=== PATIENT | female | born 1990 | race Caucasian/White ===

== ENCOUNTER 2019-09-12 12:38 | Outpatient (CLI) | payer OTHER, SELFPAY ==
--- NOTE | ~2019-09-12 | US_ITS ---
EXAMINATION: US OB <= 14 weeks fetus DATE: 09/12/2019 13:06 INDICATION: Gestational dating TECHNIQUE: Real-time transabdominal and transvaginal obstetric ultrasound. FINDINGS: No prior studies for comparison. The uterus measures 7.7 x 5.4 x 4.3 cm. There is an intrauterine gestational sac, with pole jv ntified. The crown rump length measures 0.98 cm, which correlates with a estimated gestational age o f 7 weeks 0 days. heart tones are identified measuring 141 bpm. The ovaries are not visualize d. IMPRESSION: 1. SL IUP with an EGA of 7 weeks, 0 days (EDC by current ultrasound of 04/30/2020). Reviewed, dictated and finalized at location A. IMPRESSION: 1. SL IUP with an EGA of 7 weeks, 0 days (EDC by current ultrasound of ).
== END 2019-09-12 12:39 | disposition home or self-care (01) ==
PROVIDERS: PCP Physician Assistant; Visit Provider Nurse Practitioner
DX: Z34.01 Encounter for supervision of normal first pregnancy, first trimester (principal); Z3A.01 Less than 8 weeks gestation of pregnancy
CPT/HCPCS: 76801

== ENCOUNTER 2023-04-17 08:44 | Emergency (ER) | payer OTHER, SELFPAY ==
--- NOTE | ~2023-04-17 | XR_ITS ---
EXAMINATION: XR hand RT min 3V DATE: 04/17/2023 09:16 INDICATION: Right first metacarpal pain. TECHNIQUE: 3 views of right hand were obtained. COMPARISON: None. FINDINGS: Bone alignment is normal. No fracture. There are dystrophic calcifications adjacent to firs t carpometacarpal joint. Joint spaces are normal. IMPRESSION: 1. No fracture. Reviewed, dictated and finalized at location A. GER MACHINE OPERATOR IMPRESSION: 1. No fracture.
[2023-04-17 08:55] VITALS: BP 133/84; PULSE 72; RESP 16; TEMP 36; O2SAT 99
--- NOTE | 2023-04-17 09:12 | ED.EXTPRO ---
HPI - Extremity Problem General Chief complaint: Extremity Injury, Upper Stated complaint: Right Hand Pain Time Seen by Provider: 04/17/23 09:01 Source: patient and RN notes reviewed Mode of arrival: ambulatory Limitations: no limitations History of Present Illness HPI Narrative: Patient presents today complaining of pain to her right 1st finger times 10 days, worse since last night. Denies injury or trauma. Denies numbness or tingling. She currently rates her pain 8/10 and has been taking ibuprofen and wearing a brace, both of which provides some relief. Denies any known repetitive motions. Patient has been on maternity leave for the past month from work and states she has been lifting her children, but cannot pinpoint any known injury. Related Data Home Medications Medication Instructions Recorded Confirmed norethindrone (contraceptive) 0.35 0.35 mg PO DAILY 04/17/23 04/17/23 mg tablet Allergies Allergy/AdvReac Type Severity Reaction Status Date / Time No Known Allergies Allergy Verified 04/17/23 08:56 Review of Systems Review of Systems: CONSTITUTIONAL: Denies body aches, fever, chills, or sweats. EYES: Denies visual changes, redness, or discharge. ENT: Denies rhinorrhea, congestion, sore throat, or otalgia. CARDIOVASCULAR: Denies chest pain, palpitations, or edema. RESPIRATORY: Denies cough or dyspnea. GASTROINTESTINAL: Denies abdominal pain, nausea, vomiting, or diarrhea. GENITOURINARY: Denies dysuria or hematuria. SKIN: Denies rash, itching, or wounds. MUSCULOSKELETAL: Denies back pain, or myalgia.+ right hand pain NEUROLOGIC: Denies headache, numbness, tingling, or weakness. PSYCH: Denies depression or anxiety. [facility] Family History Family History (Reviewed 04/17/23 @ 09:13 by Trixie Rico, [facility] [place], ) Other Diabetes mellitus Hypertension Social History Social History (Reviewed 04/17/23 @ 09:13 by Trixie Rico, [facility] [place], ) Second hand tobacco smoke exposure: No Alcohol intake: current Comments At time of signature, I have reviewed and agree with nursing past medical, surgical, social and family history unless otherwise noted. Please see nursing chart for further information. There is no relevant family history pertinent to the presenting complaint Exam Narrative: GENERAL: Well-appearing, well-nourished, and in no acute distress. HEAD: Normocephalic, atraumatic. EYES: EOMI. No redness or drainage. Conjunctivae normal. ENT: Mucous membranes pink and moist. NECK: Normal AROM. CHEST: No respiratory distress. EXTREMITIES: Tenderness to the right 1st metacarpal. Minimal tenderness to the IP joint and MCP. No edema, erythema, or ecchymosis noted. No snuffbox tenderness. Distal sensation intact. Capillary refill normal. Full AROM of the finger. SKIN: Warm, dry, no rash. Capillary refill normal. Normal skin turgor. NEURO: No focal deficits. Alert and oriented x3. Gait steady. PSYCH: Normal affect. No signs of depression or anxiety. Course Course Level of Care: Express Care Visit Vital Signs Vital signs: Vital Signs Temperature 96.8 F L 04/17/23 08:55 Pulse Rate 72 04/17/23 08:55 Respiratory Rate 16 04/17/23 08:55 Blood Pressure 133/84 04/17/23 08:55 Pulse Oximetry 99 04/17/23 08:55 Oxygen Delivery Room Air 04/17/23 08:55 Temperature 96.8 F L 04/17/23 08:55 Pulse Rate 72 04/17/23 08:55 Respiratory Rate 16 04/17/23 08:55 Blood Pressure 133/84 04/17/23 08:55 Pulse Oximetry 99 04/17/23 08:55 Oxygen Delivery Room Air 04/17/23 08:55 Reviewed MDM - Extremity (Nontraumatic) MDM Narrative Medical decision making narrative: X-rays negative. Recommend Medrol Dosepak to help with inflammation and pain. Patient is agreeable with plan. Anticipatory guidance given. Differential Diagnosis Differential diagnosis: Likely cellulitis and other (Tendinitis) Imaging Data Radiologist's impression: ITS Impressions
== END 2023-04-17 09:30 | disposition home or self-care (01) ==
PROVIDERS: Emergency Provider Nurse Practitioner
DX: M77.8 Other enthesopathies, not elsewhere classified (principal); Z86.16 Personal history of COVID-19
CPT/HCPCS: 73130; 99213; G0463

== ENCOUNTER 2024-04-08 07:12 | Outpatient (CLI) | payer OTHER, SELFPAY ==
--- NOTE | ~2024-04-08 | XR_ITS ---
EXAMINATION: XR knee RT 3V DATE: 04/08/2024 07:40 INDICATION: Right knee pain. TECHNIQUE: 3 views of right knee were obtained. COMPARISON: None. FINDINGS: Alignment is normal. No fracture. Joint spaces are normal. No knee joint effusion. IMPRESSION: 1. Normal right knee. Reviewed, dictated and finalized at location A. PAPER HANGER IMPRESSION: 1. Normal right knee.
--- OUTSIDE RECORDS SUMMARY | 2024-04-15 03:44 | XMS_ITS | Encounter Summary ---
Author Organization [facility] Address [address] [place] [address] Phone Care Team Providers Care Financial Reserve Clerk Name Role Phone Bette Phillips Primary Care Pr ovider Encounter Details Date Type Department Care Team (Late st Contact Info) Description 08/30/2023 1:00 PM CDT Telemedicine [facility] Department of Psychiatry [address] [place] [address] Danitza Viveros, [facility] [address] [facility] [address] [place] [address] Adjustment disorders, with mixed anxiety and depressed mood (Primary Dx) Social History Tobacco Use Types Packs/Day Years Used Date Smoking Tobacco: Never Smokeless Tobacco: Never Alcohol Use Standard Drinks/Week Comments Not Currently 0 (1 standard drink = 0.6 oz pur e alcohol) Social Connection and Isolat ion Panel [NHANES] Answer Date Recorded In a typical week, how many times do you talk on the phone with family, friends, or neighbors? More than three times a week 02/11/2023 How often do you get togethe r with friends or relatives? Twice a week 02/11/2023 How often do you attend chur ch or religion services? Never 02/11/2023 Do you belong to any clubs o r organizations such as anglican groups, unions, fraternal or athletic groups, or school groups? Yes 02/11/2023 How often do you attend meet ings of the clubs or organizations you belong to? 1 to 4 times per year 02/11/2023 Are you , , di vorced, , never , or living with a partner? 02/11/2023 AUDIT-C Answer Date Recorded Q1: How often do you have a drink containing alc ohol? Monthly or less 06/20/2021 Average Number of Drinks Not on file 022 Frequency of Binge Drinking Not on file 07/2021 Overall Financial Resource Strain (CARDIA) Answe r Date Recorded How hard is it for you to pa y for the very basics like food, housing, medical care, and heating? Not hard at all 02/11/2023 Exercise Vital Sign Answer Date Recorde d On average, how many days pe r week do you engage in moderate to strenuous exercise (like a brisk walk)? 3 days 12/21/2019 On average, how many minutes do you engage in exercise at this level? 60 min 12/21/2019 Hunger Vital Sign Answer Date Recorded Within the past 12 months, y ou worried that your food would run out before you got the money to buy more. Never true 02/12/20 23 Within the past 12 months, t he food you bought just didn't last and you didn't have money to get more. Never true 02/11/2023 PRAPARE - Transportation Answer Date Re corded In the past 12 months, has l ack of transportation kept you from medical appointments or from getting medications? No 01/18 In the past 12 months, has l ack of transportation kept you from meetings, work, or from getting things needed for daily living? No 02/11/2023 Housing Stability Vital Sign Answer Ilia e Recorded In the last 12 months, was t here a time when you were not able to pay the mortgage or rent on time? No 02/11/2023 In the last 12 months, how many places have you lived? 1 02/11/2023 In the last 12 months, was t here a time when you did not have a steady place to sleep or slept in a skilled nursing (including now)? No 02/11/2023 Texline Depression Scale Answer Date Recorded Texline Depression Scale Total 4 05/20/2023 The thought of harming myself has occurred to me . Never 05/20/2023 Personal Safety Answer Date Recorded Have you ever been in or are you currently in a harmful physical or emotional relationship or is someone making you feel afraid or unsafe? 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 During the visit, I was located at home and the patient was located in her home in the [facility]. The patient visit started at 13:00 pm and ended at 14:00 pm. My total encounter time on 08/30/2023 was 60 minutes which was spent in the activities documented in the note. This includes time spent prior to the visit and after the visit in direct care of the patient. This time does not include time spent in any separately reportable services. The patient: has been informed that the visit may not be secure and acknowledged the information. After being given an opportunity to ask questions about and discuss this type of visit, they verballyconsented to proceeding with the telephone/video visit and understand that this service replaces anoffice visit. Patient ID: Olga Saeed is a 33 y.o. female with a date of of 1990. Olga reports improved mood symptoms since last visit. She states that she has had improved interactions with her older daughter and has been practicing self- awareness to notice when she needs to take a brief break. She notes that her daughter is also noticing this new behavior and she is modelinghealthy ways to take breaks before getting upset. Olga continues to discuss relationship with extended family after father's . She still describes some frustration towards grandmother and states she would like to repair that relationship. We practice reframing and trying to describe grandmother's perspective. We use this technique to build empathy and de-personalize Olga's pain. (E.g. Grandmother was not trying to harm Olga, but was acting in a way that made sense for her.) We balance this with discussing health boundaries as the relationship heals. Discussed therapist's upcoming transition and reviewed community options. Olga is looking for an [place]-based provider. Mental Status: General Appearance and Behavior: Appears stated age No apparent distress and Well-dressed Normal psychomotor activity Good eye contact Cooperative Speech: Regular rate Normal rhythm Normal volume Normal amount Normal tone Spontaneous Normal latency (<3 seconds) Flow of Thought: logical, sequential and goal-directed Content of Thought: Denies SI/HI or psychosis Mood: Stable Affect: appropriate Insight: good Judgment: good Sensorium: alert and oriented x 3 Language: average Attention: normal Memory: normal Fund of Knowledge: normal Assessment/Plan: Diagnosis: Adjustment Disorder with mixed anxiety and depression Olga will follow up with this [facility] Therapist in 2 weeks. Today we identified strategies to prevent feeling overwhelmed. We looked for opportunities to stabilize mood (having breakfast, making time to brush teeth and get dressed, following routine). Provided some education and will send additionalresources on parenting young children. Olga identified an online course she would like to try. Psychotherapy: I provided cognitive behavioral, behavioral activation, supportive, and behavioral planning psychotherapy focusing on processing grief, managing emotions, setting healthy limits. Therapist will research community therapists and provide Olga with options to continue. documented in this encounter Plan of Treatment Not on file documented as of this encounter Visit Diagnoses Diagnosis Adjustment disorders, with mixed anxiety and depressed mood- Primary documented in this encounter Care Teams Financial Reserve Clerk Relationship Specialty Start Date End Date Bette Phillips PA PCP - General Physician Cottage Master 11/23/19 documented as of this encounter
--- OUTSIDE RECORDS SUMMARY | 2024-04-15 03:44 | XMS_ITS | Encounter Summary ---
Author Organization [facility] Address [address] [place] [address] Phone Care Team Providers Care Education Professional Name Role Phone Bette Phillips Primary Care Pr ovider Reason for Visit * Reason Comments Psychotherapy Encounter Details Date Type Department Care Team (Late st Contact Info) Description 07/29/2023 1:00 PM CDT Telemedicine [facility] Psychiatry [address] [place] [address] Danitza Viveros, [facility] [address] [facility] [address] [place], [place] [id number] Adjustment disorders, with mixed anxiety and depressed mood (Primary Dx); Grief Social History Tobacco Use Types Packs/Day Years [...] 02/11/2023 How often do you attend chur or zoroastrian services? Never 02/11/2023 Do you belong to any clubs o r organizations such as episcopal groups, unions, fraternal or athletic groups, or [...] place to sleep or slept in a assisted (including now)? 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 During the visit, I was located at home and the patient was located in her home in the [facility]. The patient visit started at 13:00 pm and ended at 14:00 pm. My total encounter time on 07/29/2023 was 60 minutes which was spent in [...] a date of of 1990. Olga reports stable mood symptoms since last visit. She presents with increased tearfulness when talking about grief related to recent loss of father. Olga noticed feelings of anger/frustration towards grandmother and feeling rushed through her grieving process. Therapist prompts Olga to label the thoughts and emotions as they come up. We notice Olga's initial urge to brush them off or invalidate them. We talk through ways to take space or set healthy limits with tasks that bring her distress. We discuss what some possible preferred alternatives/solutions might look like. Mental Status: General Appearance and Behavior: Appears [...] depression Olga will follow up with this [facility] Therapist in 2 weeks. Today we identified ways to set limits with grandmother, practiced saying no to things that were distressing, labeling and coping with emotions as they come up. Psychotherapy: I provided cognitive behavioral, behavioral activation, supportive, and behavioral planning psychotherapy focusing on processing grief, managing big emotions, setting healthy limits. documented in this encounter Plan of Treatment Not on file documented as of this encounter Visit Diagnoses Diagnosis Adjustment disorders, with mixed anxiety and depressed mood- Primary Grief Adjustment disorder with depressed mood documented in this encounter Care Teams Education Professional Relationship Specialty Start Date End Date Bette Phillips PA PCP - General Physician Satellite Dish Installer 11/23/19 documented as of this encounter
--- OUTSIDE RECORDS SUMMARY | 2024-04-15 03:44 | XMS_ITS | Encounter Summary ---
Author Organization [facility] Address [address] [place] [address] Phone Care Team Providers Care Property Accountant Name Role Phone Bette Phillips Primary Care Pr ovider Reason for Visit * Reason Comments Psychotherapy Encounter Details Date Type Department Care Team (Late st Contact Info) Description 09/08/2023 1:00 PM CDT Telemedicine [facility] Department of Psychiatry [address] [place] [address] Danitza Viveros, [facility] [address] [facility] [address] [place] [address] Adjustment disorders, with mixed anxiety [...] How often do you attend chur or yazidi services? Never 02/11/2023 Do you belong to any clubs o r organizations such as congregational groups, unions, fraternal or athletic groups, or [...] place to sleep or slept in a snf (including now)? 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 During the visit, I was located at home and the patient was located in her home in the [facility] The patient visit started at 13:00 pm and ended at 13:52pm. My total encounter time on 09/08/2023 was 52 minutes which was spent in the activities [...] improved mood symptoms since last visit. She notes that her grandmother's visit was positive and that she even offered childcare for Olga to run to the store. We look at this as exception finding when having negative perceptions about the world or others. Olga reports having a job interview on Wednesday. We talk through the pros and cons of this opportunity vs her current job. Olga is able to identify specific things she is looking for in the interview and was participated in brief role play to practice identifying own strengths and asking for specific benefits. As this isour last session together, we reviewed Olga's progress in the last few months of therapy. We talkabout how she has worked to address anxious thoughts and increase positive self-talk. Mental Status: General Appearance and Behavior: Appears [...] and depression Olga will follow up with community therapists after her vacation. Danitza will be available to help transition care or provide additional resources as needed. Olga had demonstrated engaging in research since last visit and states she feels capable of managing this transition. For interview, Olga has agreed to practice positive self-talk, and writing down questions prior to Wednesday's interview. Psychotherapy: I provided cognitive behavioral, behavioral activation, supportive, and behavioral planning psychotherapy focusing on preparing for interview on Wednesday and managing transition to a new therapist. documented in this encounter Plan of Treatment Not on file documented as of this encounter Visit Diagnoses Diagnosis Adjustment disorders, with mixed anxiety and depressed mood- Primary documented in this encounter Care Teams Property Accountant Relationship Specialty Start Date End Date Bette Phillips PA PCP - General Physician Manager Oracle 11/23/19 documented as of this encounter
--- OUTSIDE RECORDS SUMMARY | 2024-04-15 03:44 | XMS_ITS | Referral Summary ---
Author Organization [facility] Address [address] [place] [address] Care Team Providers Care Roster Clerk Name Role Phone Bette Phillips Primary Care Pr ovider Allergies No known active allergies Medications norethindrone (MICRONOR) 0.35 mg tabletIndications: Contraception Take 1 tablet (0.35 mg total) by mouth daily 84 tablet 3 4 04/25/19 25 Active Active Problems No known active problems Resolved Problems Problem Noted Date Diagnosed Date Resolved Date care following vaginal delivery 02/10/2023 03/25/2023 Overview (02/11/2023): # ID: Afebrile. No signs/symptoms of infection. # Heme: EBL 450 mL. Hemodynamically stable. #Anemia: Post-delivery Hgb 10.5. Will discharge on PO iron # CV/Pulm: Vital signs stable, within normal limits. # GI/: Tolerating PO. Voiding spontaneously. # Pain: Controlled with above regimen. # MOC: Partner Vasectomy, bridge with POPs # MOF: . Urine drug screen not indicated. Patient informed of results: N/A. # Post DVT prophylaxis: The patient has the following MAJOR risk factors none and the following MINOR risk factors none. SCDs ordered for VTE prophylaxis. # Disposition: Follow up task not sent. Continue routine care. 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 Expectant management: [x] Mode of delivery: anticipate [] For C/S bottle of CHG 4% and hand out provided @ 36wks Girl Christine , , [facility] peds, planning POP's and vasectomy Teaching: [x] 1st visit [x] 28-30 week [x] 36 week Vaginal delivery 04/28/2020 06/19/2022 Overview (04/29/2020): # ID: Afebrile. No signs/symptoms of infection. #COVID-19: Negative #Rubella NI: Ordered for MMR PP # Heme: EBL 500 mL. No symptoms acute blood loss anemia. # CV/Pulm: Denies MENCHACA, vision changes, & RUQ pain. VSS. BP normotensive over the last 24hrs. # GI/: Tolerating PO. Voiding spontaneously. # Pain: Controlled with above regimen. # Post DVT prophylaxis: The patient has the following MAJOR risk factors none and the following MINOR risk factors none. SCDs ordered for VTE prophylaxis. # MOC: Progestin-only pills # MOF: # Disposition: Discharge home today. F/u at [facility] Full-term premature rupture of membranes 04/27/2020 06/19/2022 Overview (04/27/2020): 1. Induction of labor for SROM at term. : Admit to L&D. Consents signed and placed in chart. Send CBC/T&S. Induction of labor with pitocin. 2. FWB: Continuous monitoring. tracing category I 3. ID: HIV negative. GBS negative. Membrane Status: spontaneous rupture at 1145 on t. 4. Indications for UDS: none. Verbal consent obtained for UDS: Not indicated 5. MOF: Plans to breastfeed. 6. MOC: Plans to use progestin only pills for contraception. 7. Pain management: Desires epidural with labor. . 8. Post DVT prophylaxis: The patient has the following MAJOR risk factors none and the following MINOR risk factors none. SCDs will be ordered for VTE prophylaxis . 9. COVID Test Status: ordered Encounter for induction of labor 04/27/2020 06/19/2022 Overview (04/27/2020): 1. Induction of labor for SROM: Admit to L&D. Consents signed and placed in chart. Send CBC/T&S. Labor augmentation with OT. 2. FWB: Continuous monitoring. Reactive NST 3. ID: HIV negative. GBS negative. Membrane Status: spontaneous rupture at 1145 on 04/27/20. 4. Indications for UDS: none. Verbal consent obtained for UDS: Not indicated 5. MOF: Plans to breastfeed. 6. MOC: Plans to use POPs for contraception. 7. Pain management: Desires epidural . 8. Post DVT prophylaxis: The patient has the following MAJOR risk factors none and the following MINOR risk factors none. SCDs will be ordered for VTE prophylaxis . 9. COVID Test Status: Test sent on admission Supervision of other normal , antepartum 11/28/2019 06/19/2022 Overview (04/08/2020): Transfer of care @ 21weeks Conceived on OCP's Rubella Non-Immune [x] Labs: completed [x] Genetic Screening: n/a [x] Baby ASA: N/A [x] 1hr GCT at 24-28wks: 84 [x] Tdap (27-36wks): 02/12-hr [x] Flu Shot: done already at [facility] [x] Rhogam (if Rh neg):n/a, A+ [x] GBS at 36 wks: Negative [x] folder provided [] control method: undecided list provided, does not want OCPs [] 39 weeks discussion of IOL vs. Expectant management: [x] Mode of delivery: anticipate Girl, planning to breastfeed, planning to use Dr. Orr in [place], [place] for peds Teaching: [x] 1st visit [x] 28-30 week [x] 36 week Immunizations Name Administration Dates Next Due Influenza, Quadrivalent, Lilia l Culture-based MDCK, Preservative Free, Antibiotic Free, Intramuscular 12/31/2022 Influenza, Unspecified 01/18/2020 MMR 02/11/2023(Deferred: No longer needed - Rubella immune, vaccine not required),04/29/2020 Pfizer SARS-CoV-2 Monovalent Vaccination (12+ Yrs) PURPLE 05/30/2020 Tdap 11/30/2022,02/13/2020 Varicella 02/11/2023(Deferred: No longer needed - Varicella immune, vaccine not required) Social History Tobacco Use Types Packs/Day Years Used Date Smoking Tobacco: Never Smokeless Tobacco: Never Tobacco Cessation:Counseling Given: Not Answered Alcohol Use Standard Drinks/Week Comments Not Currently [...] How often do you attend chur or quaker services? Never 02/11/2023 Do you belong to any clubs o r organizations such as uatsdin groups, unions, fraternal or athletic groups, or [...] place to sleep or slept in a longterm (including now)? 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 Last Filed Vital Signs Vital Sign Reading Time Taken Comments Blood Pressure 135/90 03/25/2023 11:36 AM BOAT CLEANER Pulse 61 02/11/2023 7:30 AM CDT Temperature 36.6 ??C (97.9 ??F) 02/11/2023 7:30 AM CD T Respiratory Rate 16 02/11/2023 7:30 AM CDT Oxygen Saturation 99% 02/11/2023 7:30 AM CDT Inhaled Oxygen Concentration - - Weight 76.2 kg (168 lb) 03/25/2023 11:36 AM BOAT CLEANER Height 170.2 cm (5' 7 ) 03/25/2023 11:36 AM BOAT CLEANER Body Mass Index 26.31 03/25/2023 11:36 AM BOAT CLEANER Plan of Treatment Not on file Procedures Procedure Name Priority Date/Time Associated Diagnosis Comments HEPATITIS C ANTIBODY Routine 07/13/2022 2:34 PM CDT Supervision of other normal , antepartum PAP AND HIGH RISK HPV, REFLEX TO GENOTYPING Routine 06/20/2021 9:10 AM BOAT CLEANER Well woman exam from Last 3 Months or Most Recently Relevant to Health Maintenance Results * Hepatitis C antibody (07/13/2022 2:34 PM CDT) Hep C Ab Nonreactive Nonreactive [facility] Comment:Antibodies to HCV no t detected. Does NOT exclude the possibility of recent exposure to HCV. Current interpretive data was last revised on 21 Blood 07/13/2022 2:34 PM CDT 07/13/2022 3:17 PM CDT us Shavon Bhatia MD LAB MICROBIOLOGY - GEN ERAL ORDERABLES Final Result [facility] Department [place] [address] * Pap and High Risk HPV, reflex to Genotyping (06/20/2021 9:10 AM BOAT CLEANER) Thin prep (Pap test) 06/20/2021 9:10 AM BOAT CLEANER 06/20/2021 10:11 AM BOAT CLEANER Narrative PATHOLOGY [facility] - 06/26/2021 10:42 AM BOAT CLEANER EPIC results best viewed via link to PDF [facility] Nat[facility] [place] [address] Note to Patients: This report may contain a detailed description of human tissue sent by a health care provider to the laboratory for pathologic evaluation. The content of this report is essential for diagnosis and may provide important critical findings. This information may be unfamiliar to patients to review without a medical professional present. It is advised that the patient review this report in the presence of a health care provider who can answer questions and explain the details. CYTOPATHOLOGY REPORT FINAL Patient Name: ??JODY DUATRE Gender: ??F : ??1990 (Age: 30) Address: ??[address] [place] [address] Hospital #: ??[id number] Service: ??Obstetrics BJ Location: ??[facility] Patient Type: ??[facility] Ref Lab Taken: ??06/20/2021 Received: ??06/20/2021 Accessioned: ??06/23/2021 Reported: ??06/26/2021 Physician(s): ??Nazario Barney M.D. ?? FINAL INTERPRETATION SOURCE OF SPECIMEN: ? Liquid based Thin Prep pap with HPV STATEMENT OF ADEQUACY: ?- Satisfactory for evaluation ?- Endocervical cells/transformation zone sample present GENERAL CATEGORY: ?- Negative for squamous intraepithelial lesion or malignancy ?? Comments HPV Result: ??NEGATIVE for high risk types of Human Papilloma Virus (HPV) RNA This probe detects the presence of HPV types: 16, 18, 31, 33, 35, 39, 45, 51, 52, 56, 58, 59, 66 and 68. ??This HPV test was performed at [facility] in [place], [place] utilizing the Gen-Probe Aptima assay. am/06/26/2021 10:42 MONICA Shankar(ASCP) Report Electronically Reviewed and Signed Out By MONICA Shankar(ASCP) 06/26/2021 10:42:49 Cervicovaginal Cytology (Pap Test) Disclaimer: The Pap test is a screening test used to detect cervical cancer and its precursors; it is not a diagnostic procedure. False negative and false positive results do occur. Pap test results should be interpreted in the context of pertinent clinical information and biopsy results as indicated. Gross Description A. ??Liquid based Thin Prep pap with HPV: ??Cervical/vaginal - Screening ThinPrep with HPV ?? Clinical Diagnosis and History Last Menstrual Period: 06/18/21 Menstrual History: Irregular Cycles Contraceptive History: Hormonal The patient is a 30 year old woman with 30yo . The HPV test was performed by [facility], [address] [place] [address]. Report Images and scanned documents, if included only viewable in PDF version The performance characteristics of some immunohistochemical stains, in-situ hybridization and fluorescence in-situ hybridization tests and immunophenotyping by flow cytometry cited in this report (if any) were determined by the Surgical Pathology Department at [facility] as part of an ongoing quality control lab tech program and in compliance with federally mandated regulations drawn from the Clinical Laboratory Improvement Act of 1988 (CLIA '88). ??Some of these tests rely on the use of analyte specific reagents and are subject to specific labeling requirements by the US Food and Drug Administration. ??Such diagnostic tests may only be performed in a facility that is certified by the Department of Health and Human Services as a high complexity laboratory under CLIA '88. ??The FDA has determined that such clearance or approval is not necessary. ??This test is used for clinical purposes. ??It should not be regarded as investigational or for research. ??Nevertheless, federal rules concerning the medical use of analyte specific reagents require that the following disclaimer be attached to the report: This test was developed and its performance characteristics determined by the Surgical Pathology Department of [facility]. ??It has not been cleared or approved by the U. S. Food and Drug Administration. Nazario Barney MD LAB CYTOLOGY ORDERABLES [facility] Result PATHOLOGY [facility] 3rd Floor [place], [place] [phone] from Last 3 Months or Most Recently Relevant to Health Maintenance Insurance [facility] [employer] [facility] [employer] Address: [facility] [id number] [place] [id number] [facility] [employer] [facility] [employer] Address: [facility] [address] [place] [address] [employer] [facility] [employer] Address: [facility] [id number] [place] [place] [phone] Advance Directives For more information, please contact: [phone] * Full Code (Latest Code Status on File) Date Activated Date Inactivated Comments 02/10/2023 10:53 AM 02/11/2023 5:35 PM * Full Code Date Activated Date Inactivated Comments 02/09/2023 10:26 PM 02/10/2023 10:53 AM Full CPR in case of cardiopulmonary arrest * Full Code Date Activated Date Inactivated Comments 04/28/2020 12:20 AM 04/29/2020 6:53 PM * Full Code Date Activated Date Inactivated Comments 04/27/2020 4:20 PM 04/28/2020 12:20 AM Full CPR in case of cardiopulmonary arrest Care Teams Roster Clerk Relationship Specialty Start Date End Date Bette Phillips PA PCP - General Physician Manager Product Support 11/23/19
--- OUTSIDE RECORDS SUMMARY | 2024-04-15 03:44 | XMS_ITS | Encounter Summary ---
Author Organization [facility] Address [address] [place] [address] Phone Care Team Providers Care Director Peoplesoft Name Role Phone Bette Phillips Primary Care Pr ovider Encounter Details Date Type Department Care Team (Late st Contact Info) Description 08/09/2023 1:00 PM CDT Telemedicine [facility] [address] [facility] [address] [place] [address] Danitza Viveros, [facility] [address] [facility] [address] [place], [place] [id number] Adjustment disorders, with mixed anxiety and depressed [...] How often do you attend chur or gnosticist services? Never 02/11/2023 Do you belong to any clubs o r organizations such as scientology groups, unions, fraternal or athletic groups, or [...] place to sleep or slept in a retirement (including now)? 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 During the visit, I was located at home and the patient was located in her home in the [facility]. The patient visit started at 13:00 pm and ended at 14:00 pm. My total encounter time on 08/09/2023 was 60 minutes which was spent in [...] stable mood symptoms since last visit. She reports increased feelings of frustrationand then guilt about her frustration towards older daughter. She describes some limit-testing and tantruming that has been hard to manage. Olga notes that she feels bad when she raises her voice and often feels unsure how to manage her daughter's big emotions, especially with a baby also requiring her time. We discuss the typical pattern of a bad day and look for opportunities to prevent orinterrupt a negative mood. Olga noted that she typically skips caring for herself and often dropswhat she is doing to respond to her preschooler. We talk about self-imposed urgency and how she might be able to set reasonable wait times with daughter so that Olga can attend to other things. Therapist provides brief overview of some play therapy strategies and will send additional resources by message. Mental Status: General Appearance and Behavior: Appears [...] depression Olga will follow up with this [facility] Therapist in 2 weeks. Today we [...] Primary documented in this encounter Care Teams Director Peoplesoft Relationship Specialty Start Date End Date Bette Phillips PA PCP - General Physician Heel Room Supervisor 11/23/19 documented as of this encounter
--- OUTSIDE RECORDS SUMMARY | 2024-04-15 03:44 | XMS_ITS | Encounter Summary ---
Author Organization [facility] Address [address] [place] [address] Phone Care Team Providers Care Ccie Name Role Phone Bette Phillips Primary Care Pr ovider Encounter Details Date Type Department Care Team (Late st Contact Info) Description 07/14/2023 1:00 PM CDT Telemedicine [facility] [address] [facility] 2nd [address] [place] [address] Danitza Viveros, [facility] [address] [facility] [address] [place], [place] [id number] Adjustment disorders, with mixed anxiety and depressed [...] How often do you attend chur or mu-ism services? Never 02/11/2023 Do you belong to any clubs o r organizations such as tenriism groups, unions, fraternal or athletic groups, or [...] place to sleep or slept in a residential (including now)? 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 During the visit, I was located at home and the patient was located in her home in the [facility]. The patient visit started at 13:00 pm and ended at 14:02 pm. My total encounter time on 07/14/2023 was 62 minutes which was spent in the activities [...] reports stable mood symptoms since last visit. In the past two weeks, Olga experienced herfather's memorial service, visits from family members, her birthday, and returning to work after a brief leave. We talk through these various events and process associated feelings. Overall, Olga reports feeling supported by her immediate family and having a pleasant visit from relatives. She feels proud and content with how the memorial service went. Olga reported increased frustration with kids on Wednesday. We talk through vulnerability factors (poor sleep the night before, recent grief/stress); precipitating events, opportunities to take breaks/missing links, and overall outcome. We practice self-compassion for how the day went and practice checking the facts to see the day without self-judgment. We talk through parenting dilemmas and screen time. Mental Status: General Appearance and Behavior: Appears [...] depression Olga will follow up with this [facility] Therapist in 1-2 weeks. She was receptive and engaged through chain analysis of Wednesday. Olga agreed to work on non- judgmental reviews of the day and to look foropportunities to use coping strategies. We also talked about how to identify vulnerability factors and calibrate days based on how Olga is feeling. Psychotherapy: I provided cognitive behavioral, behavioral activation, supportive, and behavioral planning psychotherapy focusing on processing grief, managing big emotions, setting healthy limits. documented in this encounter Plan of Treatment Not on file documented as of this encounter Visit Diagnoses Diagnosis Adjustment disorders, with mixed anxiety and depressed mood- Primary documented in this encounter Care Teams Ccie Relationship Specialty Start Date End Date Bette Phillips PA PCP - General Physician Human Resources Officer 11/23/19 documented as of this encounter
--- OUTSIDE RECORDS SUMMARY | 2024-04-15 03:44 | XMS_ITS | Clinical Summary ---
Author Organization [facility] Address [address] [place] [address] Care Team Providers Care Work Environment Safety Inspector Name Role Phone Bette Phillips Primary Care [...] ABORH A Positive 07/13/2022 IDCOOMB Negative 07/13/2022 [id number] Nonreactive 07/13/2022 LABRPR Nonreactive 07/13/2022 RUBELIGG Reactive [...] # Disposition: Discharge home today. F/u at [facility] Full-term premature rupture of membranes 04/27/2020 06/19/2022 [...] 02/12-hr [x] Flu Shot: done already at [facility] [x] Rhogam (if Rh neg):n/a, A+ [x] GBS at 36 wks: Negative [x] folder provided [] control method: undecided list provided, does not want OCPs [] 39 weeks discussion of IOL vs. Expectant management: [x] Mode of delivery: anticipate Girl, planning to breastfeed, planning to use Dr. Orr in [place], [place] for peds Teaching: [x] 1st visit [...] needed - Varicella immune, vaccine not required) Surgical History Surgery Date Site/Laterality Comments TONSILLECTOMY 04/19/2000 - 04/18/2001 TYMPANOSTOMY TUBE PLACEMENT 04/19/1995 - 04/18/1996 COLPOSCOPY 04/19/2016 - 04/18/2017 Medical History Medical History Date Comments Abnormal Pap smear of cervix 08/2016 Family History Medical History Relation Name Comments No Known Problems Father No Known Problems Mother Relation Name Status Comments Father Alive Mother Alive Social History Tobacco Use Types Packs/Day Years [...] often do you attend chur ch or alevism services? Never 02/11/2023 Do you belong to any clubs o r organizations such as roman catholic groups, unions, fraternal or athletic groups, or [...] place to sleep or slept in a nursing home (including now)? 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 Obstetrics History Para Term AB IAB SAB Ectopic Multiple Livin g Live Births 2 2 2 0 2 2 Date Outcome GA Total Labor Labor/2nd/3rd Weight Sex Type Anes PTL Itzel A1 A5 Name Clin 2020 Term 39w 4d 1h 36m 1h 31m/0h 05m 3.39 kg (7 lb 7.6 oz) F Vag-Sp ont Epidur al N Livin g 9 9 DEENA LOREDO Shelb y Marie, MD Complications:None Delivery Location:[facility] ([facility]) 2022 Term 38w 3d 14h 28m 11h 57m/2h 26m/0h 05m 3.42 kg (7 lb 8.6 oz) F Vagina l Epidur al N Livin g 8 9 STEFANI STARRG Addie Jesus MD Complications:Post He morrhage Delivery Location:[facility] ([facility]) Comments [id number]. She came in [facility] and was augmented with OT. 2022- JM- Mireya SROM Last Filed Vital Signs Vital Sign Reading Time Taken Comments Blood Pressure 135/90 03/25/2023 11:36 AM FURNACE UTILITY OPERATOR Pulse 61 02/11/2023 7:30 AM CDT Temperature 36.6 ??C (97.9 ??F) 02/11/2023 7:30 AM CD T Respiratory Rate 16 02/11/2023 7:30 AM CDT Oxygen Saturation 99% 02/11/2023 7:30 AM CDT Inhaled Oxygen Concentration - - Weight 76.2 kg (168 lb) 03/25/2023 11:36 AM FURNACE UTILITY OPERATOR Height 170.2 cm (5' 7 ) 03/25/2023 11:36 AM FURNACE UTILITY OPERATOR Body Mass Index 26.31 03/25/2023 11:36 AM FURNACE UTILITY OPERATOR Plan of Treatment Health Maintenance Due Date Last Done Comments Varicella Vaccines (1 of 2 - 13+ 2-dose series) 06/26/2004 Hepatitis B Screening 06/26/2009 Cervical Cancer Screening 06/20/2022 06/20/2021 Regular Well Visit/Exam 18-64 06/20/2022 06/20/2021 Covid-19 Vaccine (2 - 2023-2 5 season) 2023 05/30/2020 Influenza Vaccine (#1) 2023 , 01/18/2020 Depression Screening 05/20/2024 05/20/2023 DTaP/Tdap/Td Vaccine (3 - Td or Tdap) 11/30/2032 11/30/2022, 02/13/2020 Hepatitis C Screening Completed 07/13/2022 HPV Vaccines Aged Out No longer eligi ble based on patient's age to complete this topic Pneumococcal vaccine <65 Aged Out No longer eligible based on patient's age to complete this topic Procedures Procedure Name Priority Date/Time Associated Diagnosis Comments HEPATITIS C ANTIBODY Routine 07/13/2022 2:34 PM CDT Supervision of other normal , antepartum PAP AND HIGH RISK HPV, REFLEX TO GENOTYPING Routine 06/20/2021 9:10 AM FURNACE UTILITY OPERATOR Well woman exam from Last 3 Months or Most Recently Relevant to Health Maintenance Results * Hepatitis C antibody (07/13/2022 2:34 PM CDT) Hep C Ab Nonreactive Nonreactive [facility] Comment:Antibodies to HCV no t detected. Does NOT exclude the possibility of recent exposure to HCV. Current interpretive data was last revised on 21 Blood 07/13/2022 2:34 PM CDT 07/13/2022 3:17 PM CDT Shavon Bhatia MD LAB MICROBIOLOGY - GEN ERAL ORDERABLES Final Result [facility] [place] [address] * Pap and High Risk HPV, reflex to Genotyping (06/20/2021 9:10 AM FURNACE UTILITY OPERATOR) Thin prep (Pap test) 06/20/2021 9:10 AM FURNACE UTILITY OPERATOR 06/20/2021 10:11 AM FURNACE UTILITY OPERATOR Narrative PATHOLOGY [facility] - 06/26/2021 10:42 AM FURNACE UTILITY OPERATOR EPIC results best viewed via link to PDF [facility] [place] [address] Note to Patients: This report may contain [...] the details. CYTOPATHOLOGY REPORT FINAL Patient Name: ??OLGA DUARTE Gender: ??F : ??1990 (Age: 30) Address: ??[address] [place] [id number] Hospital #: ??[id number] Service: ??Obstetrics BJ Location: ??[facility] Patient Type: ??[facility] Ref Lab Taken: ??06/20/2021 Received: ??06/20/2021 Accessioned: [...] 69. ??This HPV test was performed at [facility] in [place], [place] utilizing the Gen-Probe Aptima assay. am/06/26/2021 [...] . The HPV test was performed by [facility], [address] [place] [address]. Report Images and scanned documents, if included only viewable in PDF version The performance characteristics of some immunohistochemical stains, in-situ hybridization and fluorescence in-situ hybridization tests and immunophenotyping by flow cytometry cited in this report (if any) were determined by the Surgical Pathology Department at [facility] as part of an ongoing quality improvement coordinator program and in compliance with federally mandated [...] determined by the Surgical Pathology Department of [facility]. ??It has not been cleared or approved by the U. S. Food and Drug Administration. Nazario Barney MD LAB CYTOLOGY ORDERABLES [facility] Result PATHOLOGY [facility] 3rd Floor [place], [place] [phone] from Last 3 Months or Most Recently Relevant to Health Maintenance Insurance [facility] [employer] Address: [facility] [address] [place] [address] [facility] [employer] Address: [facility] [id number] [place] [address] [employer] [facility] [employer] Address: [facility] [address] [place] [address] Advance Directives For more information, please contact: [phone] * Full Code (Latest Code Status on [...] in case of cardiopulmonary arrest Care Teams Work Environment Safety Inspector Relationship Specialty Start Date End Date Bette Phillips PA PCP - General Physician Hadoop Analyst 11/23/19
--- OUTSIDE RECORDS SUMMARY | 2024-04-15 03:45 | XMS_ITS | Encounter Summary ---
Author Organization [facility] Address [address] [place] [address] Phone Care Team Providers Care Tech Intern Name Role Phone Bette Phillips Primary Care Pr ovider Reason for Visit * Reason Comments Routine Visit Encounter Details Date Type Department Care Team (Late st Contact Info) Description 02/01/2023 11:15 AM CDT Office Visit [facility] Obstetrics and Gynecology [address] [facility] 7th Floor [address] [place] [address] Supervision of other normal , antepartum (Primary Dx) Social History Tobacco Use Types Packs/Day Years Used Date Smoking Tobacco: Never Smokeless Tobacco: Never Tobacco Cessation:Counseling Given: Not Answered Alcohol Use Standard Drinks/Week Comments Not Currently 0 (1 standard drink = 0.6 oz pur e alcohol) AUDIT-C Answer Date Recorded Q1: How often do you have a drink containing alc ohol? Monthly or less 06/20/2021 Average Number of Drinks Not on file 022 Frequency of Binge Drinking Not on file 07/2021 Exercise Vital Sign Answer Date Recorde d On average, how many days pe r week do you engage in moderate to strenuous exercise (like a brisk walk)? 3 days 12/21/2019 On average, how many minutes do you engage in exercise at this level? 60 min 12/21/2019 Graham Depression Scale Answer Date Recorded Graham Depression Scale Total 7 06/07/2020 The thought of harming myself has occurred to me . 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 Would like IOL 02/24/23 PM--being scheduled by Trixie Stout RN. 3T labs today. Labor and WAC return precautions reviewed. documented in this encounter Plan of Treatment Not on file documented as of this encounter Visit Diagnoses Diagnosis Supervision of other normal , antepartum- Primary documented in this encounter Care Teams Tech Intern Relationship Specialty Start Date End Date Bette Phillips PA PCP - General Physician Senior Climate Advisor 11/23/19 documented as of this encounter
--- OUTSIDE RECORDS SUMMARY | 2024-04-15 03:45 | XMS_ITS | Encounter Summary ---
Author Organization [facility] Address [address] [place] [address] Phone Care Team Providers Care Warp Tying Machine Knotter Name Role Phone Bette Phillips Primary Care Pr ovider Reason for Visit * Reason Comments Routine Visit Encounter Details Date Type Department Care Team (Late st Contact Info) Description 12/31/2022 3:15 PM CDT Office Visit [facility] Obstetrics and Gynecology [address] [facility] [address] 7th [address] [place] [address] Supervision of other normal , [...] exercise at this level? 60 min 12/21/2019 [place] Depression Scale Answer Date Recorded [place] Depression Scale Total 7 06/07/2020 The thought of harming myself has occurred to me . 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 - planning POP's and vasectomy - flu shot today RTC in 2 weeks Angelica Altman APRN, OTIS-BC documented in this encounter Miscellaneous Notes * Addendum Note - Jess Caballero RMA - 12/31/2022 3:15 PM CDTAddended by: JESS CABALLERO on: 12/31/2022 03:38 PM Modules accepted: Orders documented in this encounter Plan of Treatment Not on file documented as of this encounter Visit Diagnoses Diagnosis Supervision of other normal , antepartum- Primary documented in this encounter Discontinued Medications Medication Sig Discontinue Reason Start Date End Da te prochlorperazine (COMPAZINE) 10 mg tabletIndications:Frequ ent headaches Take 1 tablet (10 mg total) by mouth every 6 (six) hours as needed for nausea or vomiting Therapy completed 08/10/2022 12/31/2022 documented as of this encounter Orders Immunization/Injection Count Last Ordered Date First Ordered Date FLU VACCINE MDCK QUAD PF 2Y+ IM - FLUCELVAX 1 12/31/2022 documented in this encounter Care Teams Warp Tying Machine Knotter Relationship Specialty Start Date End Date Bette Phillips PA PCP - General Physician Community Fundraiser 11/23/19 documented as of this encounter
--- OUTSIDE RECORDS SUMMARY | 2024-04-15 03:45 | XMS_ITS | Encounter Summary ---
Author Organization [facility] Healthcare Address [address] [place] [address] Care Team Providers Care Public Health Analyst Name Role Phone Bette Phillips Primary Care Pr ovider Reason for Visit * Auth/Cert (Routine) Specialty Diagnoses / Procedures Referred By Contac t Referred To Contact Diagnoses Normal labor Procedures NA Referral ID Status Reason Start Date Expiration Date Visits Re quested Visits Authorized [id number] 1 1 Encounter Details Date Type Department Care Team (Late st Contact Info) Description 02/10/2023 3:53 AM CDT Anesthesia Event [address] [address] Kolby Carlton MD [address] [facility] [id number] [place] [address] Barbara Echols MD [address] [facility] [address] [place] [address] Anesthesia Record Procedure Summary Procedure Name Responsible Anesthesiologist Anesthesia Start Time Anesthesia Stop Time Labor Analgesia Kolby Carlton MD 02/10/23 0353 02/10/23 1018 Events Date Time Event Comment 02/10/2023 0353 An Start 0353 Time out - Regional 0359 Face Time 0401 An Block Induction The patie nt was reevaluated immediately before moderate or deep sedation and before anesthesia induction. 040 Epidural Placed 5.08/27 0403 Quick Note Test dose-negat jaz. Miguel Carlton MD 0509 Quick Note Pt with T12 lev el bilaterally; bolused with 0.125%. See 101 An Stop Meds Name Total epinePHRINE 1:200,000-lidocaine 1.5 % 3 mL bupivacaine 0.25 % PF 10 mL fentaNYL-BUPivacaine preserv ative free in 0.9% sodium chloride 2 mcg/mL- 0.1 % cassette (premix) 65.93 mL BUPivacaine (MARCAINE) 10 mL in sodium c hloride 0.9% 20 mL epidural 15 mL * Agents No agents on file. * Blood No blood administrations on file. Lines, Drains, and Airways Type Details Placement Removal Peripheral IV Placement Date: 02/09/23; Placement Time: 2251; Orientation: Anterior, Left; Location: Forearm; Site Prep: Chlorhexidine; Inserted by: Timmy Ramirez RN; Insertion Attempts: 2; Patient Tolerance: Tolerated well; Removal Date: 02/11/23; Removal Time: 0815; Removal Reason: Therapy completed 02/09/232251 by Jerry Ramirez NP 02/11/23 0815 by Abeba Forrest RN Epidural Placement Date: 02/10/23; Placement Time: 0404 (created via procedure documentation); 02/10/23; 1210 02/10/23 0404 by Barbara Echols MD 02/10/23 1210 by Anna Mendoza RN Urethral Catheter Placement Date: 02/10/23; Placement Time: 05; Inserted by: Dary LUZ; Removal Date: 02/10/23; Removal Time: 0750; Removal Reason: Therapy complete 02/10/23 0558 by Dary Parham RN 02/10/23 0750 by Anna Mendoza RN documented in this encounter Social History Tobacco Use Types Packs/Day Years [...] often do you attend chur ch or sikh services? Never 02/11/2023 Do you belong to any clubs o r organizations such as gnosticist groups, unions, fraternal or athletic groups, or [...] place to sleep or slept in a senior care (including now)? No 02/11/2023 [place] Depression Scale Answer Date Recorded [place] Depression Scale Total 7 06/07/2020 The thought of harming myself has occurred to me . Never 06/07/2020 Personal Safety Answer Date Recorded Have you ever been in or are you currently in a harmful physical or emotional relationship or is someone making you feel afraid or unsafe? 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 Anesthesia Post Evaluation Patient location: via phone. Patient participation: complete - patient participated Level of consciousness: fully awake Pain management: satisfactory to patient Airway patency: adequate Nausea/Vomiting status: none Comments: Spoke to pt on phone. Patient denies headache, fevers, chills, rigors, nausea/vomiting, tingling/weakness/numbness, excessive pain/edema/drainage/erythema at needle puncture site. Patient taking PO, ambulating, urinating. Patient denies appreciable induration, erythema, swelling, drainageat puncture site. Patient counseled on signs/symptoms of epidural abscess/hematoma and post dural puncture headache. Patient advised to seek immediate medical attention should she appreciate any of these. Patient voices understanding. No notable events documented. Cosigned by Kolby Carlton MD at 02/13/2023 7:27 PM CDT * Anesthesia Preprocedure Evaluation - Barbara Echols MD - 02/10/2023 4:19 AM CDT Images from the original note were not included. Anesthesia Evaluation Olga Saeed is a 32 y.o. female * No procedures listed * * No Diagnosis Codes entered * HISTORY HPI 32yo who requests epidural for labor analgesia. 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 No significant PMHx. Past Medical History Neurological Neuro/Psych system: negative Cardiovascular Cardiac system: negative Respiratory Respiratory system: negative Hepatic / Heme Hepatic/Heme system: negative Gastrointestinal GI system: negative Renal / Renal/ system: negative Musculoskeletal/Pain Musculoskeletal/Pain system: negative Endocrine / Other Endocrine/Other system: negative Functional Capacity Functional capacity: 6-10 METs Patient Active Problem List Diagnosis Date Noted Supervision of other normal , antepartum 06/19/2022 Normal labor 02/09/2023 Past Medical History: Diagnosis Date Abnormal Pap smear of cervix 08/2016 Past Surgical History: Procedure Laterality Date COLPOSCOPY 2016 TONSILLECTOMY 2000 TYMPANOSTOMY TUBE PLACEMENT 1995 OB History 2 Para 1 Term 1 AB Living 1 SAB IAB Ectopic Multiple 0 Live Births 1 Obstetric Comments [id number]- [facility] -EBL [facility]. 2nd degree lac repaired. She came in SROM and was augmented with OT. No Known Allergies Med List Status: Nurse Complete Set By: Jerry Ramirez RN at 02/09/2023 10:28 PM Taking? Last Dose Start Date End Date Provider FERROUS SULFATE ORAL 02/08/2023 -- -- Linda Encinas MD magnesium oxide 400 mg magnesium capsule 02/08/2023 -- -- Linda Encinas MD PNV with [id number]-dobo-EH 27 mg iron- 1 mg tablet 02/08/2023 01/11/21 -- Sachi Martinez, NURSES SUPERINTENDENT Take 1 tablet by mouth daily Current Facility-Administered Medications: carboprost (HEMABATE) injection 250 mcg, 250 mcg, intramuscular, Once PRN Carrier Fluids for Secondary Infusion - 0.9% Sodium Chloride, 30 mL, intravenous, PRN dextrose 5% and Lactated Ringer's infusion, 125 mL/hr, intravenous, Continuous, Last Rate: 125 mL/hr at 02/10/23222, 125 mL/hr at 02/10/23 022 Lactated Ringer's (LR) bolus 1,000 mL, 1,000 mL, intravenous, TID PRN lidocaine PF (XYLOCAINE) 10 mg/mL (1 %) preservative free injection 100 mg, 10 mL, infiltration, Once PRN loperamide (IMODIUM) capsule 2 mg, 2 mg, oral, Once PRN methylergonovine (METHERGINE) injection 0.2 mg, 0.2 mg, intramuscular, Once PRN miSOPROStoL (CYTOTEC) tablet 800 mcg, 800 mcg, rectal, Once PRN ondansetron ODT (ZOFRAN-ODT) disintegrating tablet 4 mg, 4 mg, oral, Q6H PRN OR ondansetron (ZOFRAN) injection 4 mg, 4 mg, intravenous, Q6H PRN oxytocin (PITOCIN) injection 10 Units, 10 Units, intramuscular, Once PRN oxytocin 30 unit/500 mL (0.06 unit/mL) in sodium chloride 0.9% (premix) solution, 0.5-40 milliunits/min, intravenous, Titrated, Last Rate: 8 mL/hr at 02/10/23 0200, 8 milliunits/min at 02/10/23 0200 sodium chloride 0.9% flush 0.5-20 mL, 0.5-20 mL, intra-catheter, Q8H NEGRITO sodium chloride 0.9% flush 0.5-20 mL, 0.5-20 mL, intra-catheter, PRN terbutaline (BRETHINE) injection 0.125 mg, 0.125 mg, intravenous, Once PRN OR terbutaline (BRETHINE) injection 0.25 mg, 0.25 mg, subcutaneous, Once PRN tranexamic acid (CYKLOKAPRON) 1,000 mg/100 mL (10 mg/mL) in sodium chloride (premix) 1,000 mg, 1,000 mg, intravenous, Once PRN Facility-Administered Medications Ordered in Other Encounters: lidocaine-EPINEPHrine (XYLOCAINE with EPI) 1.5 %-1:200,000 preservative free injection, , epidural,PRN, 3 mL at 02/10/23 0403 Social History Tobacco Use Smoking Status Never Smokeless Tobacco Never Alcohol Use: Unknown (06/20/2021) AUDIT-C Frequency of Alcohol Consumption: Monthly or less Average Number of Drinks: Not on file Frequency of Binge Drinking: Not on file Substance and Sexual Activity Drug Use Never Family History Problem Relation Age of Onset No Known Problems Father No Known Problems Mother PAT Physical Exam Airway Exam: Cervical ROM: FROM TM distance: >4 Cardiovascular Exam: Rate: regular Rhythm: regular EENT Exam: trachea midline Dental Exam: Appears intact Vitals: 02/10/23 0216 02/10/23 0221 02/10/23 022 BP: Pulse: 72 75 89 Resp: Temp: SpO2: 99% 98% 94% PT: No results found for requested labs within last 30 days. INR: No results found for requested labs within last 30 days. APTT: No results found for requested labs within last 30 days. Hgb A1C: No results found for requested labs within last 30 days. CBC RBC: 02/09/2023: 3.53 M/cumm (L) RDW: No results found for requested labs within last 30 days. MCHC: 02/09/2023: 34.7 g/dL MCH: 02/09/2023: 32.0 pg MCV: 02/09/2023: 92.4 fL Hct: 02/09/2023: 32.6 % (L) Hgb: 02/09/2023: 11.3 g/dL (L) WBC: 02/09/2023: 9.6 K/cumm MPV: 02/09/2023: 11.3 fL Platelets: 02/09/2023: 228 K/cumm RDW CV: 02/09/2023: 12.8 % RDW Sd: 02/09/2023: 42.9 fL BMP Glucose: 02/09/2023: 110 mg/dL Calcium: 02/09/2023: 9.5 mg/dL Sodium: 02/09/2023: 136 mmol/L Potassium: 02/09/2023: 3.8 mmol/L CO2: 02/09/2023: 20 mmol/L (L) Chloride: 02/09/2023: 104 mmol/L BUN: 02/09/2023: 10 mg/dL Creatinine: 02/09/2023: 0.58 mg/dL (L) Anesthesia Plan ASA 2 Planned anesthesia: Epidural Informed Consent: Discussed plan with attending. Anesthesia plan and risks discussed with patient. Plan and Consent Comments: Discussed risks, benefits, alternatives to neuraxial anesthesia, including but not limited to PDPH,risk of prolonged or permanent numbness/weakness/paralysis, nausea, aspiration, bleeding, infection, possible need to convert to GETA. All questions answered. Patient voiced understanding and acceptance of risks and a desire to proceed with neuraxial anesthesia. Consent and Attending signature: I and/or my designee have discussed the anesthesia plan, benefits, possible alternatives, parental presence at time of induction (if indicated), and clinically relevant risks that may include dental injury, unintentional awareness, and/or other complications. The patient and/or parent/legal guardian understand, and agree to proceed. All questions answered. * Anesthesia Procedure Notes - Barbara Echols MD - 02/10/2023 4:02 AM CDT Associated Order(s): Epidural Block Epidural Block Patient location: L&D Reason for block: labor analgesia Staff: Supervising provider: Kolby Carlton MD Placed by: Fellow: Barbara Echols MD Procedure prep: Preprocedure checklist: patient identified, procedure contraindications assessed, procedure consentobtained, IV checked, risks, benefits and alternatives discussed, monitors and equipment checked and timeout performed Patient Position: sitting Procedure performed while patient: awake Monitoring: oximetry and blood pressure Prep solution: chlorhexadine/alcohol PPE: provider hat/mask, sterile gloves and sterile drape Skin infiltrated with lidocaine 1%: yes Epidural: Approach: midline Imaging guidance used: no Location: L4-5 Number of attempts:1 Epidural needle: Injection technique: BENJAMIN saline Needle type: Tuohy Needle gauge: 17 G Needle length: 9 cm Loss of resistance: 5 cm Catheter: Catheter type: multi-orifice. Catheter at skin depth: 11 cm Negative aspiration of blood: no Negative aspiration of CSF: no Test dose: negative Assessment: Sensory level - left: full eval pending Sensory level - right: full eval pending Events: patient tolerated procedure well with no complications Additional comments: BENJAMIN at 5.5cm, skin at 11cm documented in this encounter Plan of Treatment Not on file documented as of this encounter Procedures Procedure Name Priority Date/Time Associated Diagnosis Comments ANESTHESIA EPIDURAL BLOCK Routine 02/10/2023 4:02 AM CDT documented in this encounter Results * Epidural Block (02/10/2023 4:02 AM CDT) Narrative Barbara Echols MD - 02/10/2023 4:02 AM CDT Barbara Echols MD ? 02/10/2023 ??4:04 AM Epidural Block Patient location: L&D Reason for block: labor analgesia Staff: Supervising provider: Kolby Carlton MD Placed by: Fellow: Barbara Echols MD Procedure prep: Preprocedure checklist: patient identified, procedure contraindications assessed, procedure consent obtained, IV checked, risks, benefits and alternatives discussed, monitors and equipment checked and timeout performed Patient Position: sitting Procedure performed while patient: awake Monitoring: oximetry and blood pressure Prep solution: chlorhexadine/alcohol PPE: provider hat/mask, sterile gloves and sterile drape Skin infiltrated with lidocaine 1%: yes Epidural: Approach: midline Imaging guidance used: no Location: L4-5 Number of attempts:1 Epidural needle: Injection technique: BENJAMIN saline Needle type: Tuohy Needle gauge: 17 G Needle length: 9 cm Loss of resistance: 5 cm Catheter: Catheter type: multi-orifice. Catheter at skin depth: 11 cm Negative aspiration of blood: no Negative aspiration of CSF: no Test dose: negative Assessment: Sensory level - left: full eval pending Sensory level - right: full eval pending Events: patient tolerated procedure well with no complications Additional comments: BENJAMIN at 5.5cm, skin at 11cm Kolby Carlton MD ANESTHE ANGELA ORDERABLES Final Result documented in this encounter Visit Diagnoses Not on filedocumented in this encounter Administered Medications Inactive Administered Medications - up to 3 most recent administrations Medication Order MAR Action Action Date Dose Rate Site BUPivacaine (MARCAINE) 0.25 % (2.5 mg/mL) preservative free injection epidural, As needed, Starting on Wed02/10/23 at 0701, Anesthesia Intra-op Given 02/10/2023 7:01 AM CDT 10 mL BUPivacaine (MARCAINE) 10 mL in sodium chloride 0.9% 20 mL epidural intrathoracic, Continuous PRN, Starting on Wed02/10/23 at 0506, Anesthesia Intra-op New Bag 02/10/2023 5:06 AM CDT 15 mL fentaNYL-BUPivacaine preservative free in 0.9% sodium chloride 2 mcg/mL- 0.1 % cassette (premix) Continuous Rate: 10 mL/hr, Patient Bolus Dose: other, Patient Bolus Dose (mL): 6, Lockout Interval: 15 Minutes, epidural, Continuous, Starting on Wed02/10/23 at 0500, Until Anisha 02/11/23 at 1735, 100 mL, Indications: Pain, Stop epidural infusion after placental delivery and any indicated repair is complete., RoutineIndications:Pain New Syringe/Cartridge 02/10/2023 9:30 AM CDT Rate/Dose Change 02/10/2023 8:01 AM CDT 8 mL/hr 8 mL/hr New Bag 02/10/2023 4:15 AM CDT 10 mL/hr 10 mL/hr lidocaine-EPINEPHrine (XYLOCAINE with EPI) 1.5 %-1:200,000 preservative free injection epidural, As needed, Starting on Wed02/10/23 at 0403, Anesthesia Intra-op, Indications: Administration of Local AnesthesiaIndications:Administration of Local Anesthesia Given 02/10/2023 4:03 AM CDT 3 mL documented in this encounter Care Teams Public Health Analyst Relationship Specialty Start Date End Date Bette Phillips PA PCP - General Physician Hand Sander 11/23/19 documented as of this encounter
--- OUTSIDE RECORDS SUMMARY | 2024-04-15 03:45 | XMS_ITS | Encounter Summary ---
Author Organization [facility] Address [address] [place] [address] Phone Care Team Providers Care Armhole Presser Name Role Phone Bette Phillips Primary Care Pr ovider Reason for Visit * Reason Comments Psychotherapy Encounter Details Date Type Department Care Team (Late st Contact Info) Description 05/17/2023 2:00 PM TURKISH LINE ATTENDANT Telemedicine [facility] Psychiatry [address] [facility] [address] [place] [address] Danitza Viveros, [facility] [address] [facility] [address] [place], [place] [id number] Adjustment disorders, with mixed anxiety and depressed [...] How often do you attend chur or tenriism services? Never 02/11/2023 Do you belong to any clubs o r organizations such as rastafarian groups, unions, fraternal or athletic groups, or [...] a nursing home (including now)? 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 During the visit, I was located at home and the patient was located in her home in the [facility]. The patient visit started at 14:00 pm and ended at 14:59 pm. My total encounter time on 05/17/2023 was 59 minutes which was spent in the activities [...] visit. Patient ID: Olga Saeed is a 32 y.o. female with a date of of 1990. We discussed Olga's mood/symptoms since last session. Olga has returned to work and reports a very traumatic first shift back. We process the events of that shift, reviewing grounding skills and labeling thoughts/feelings as they come up. 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 We talk through her self-care afterwards. Olga participated in work-related discussions to help process the events of the shift and reported speaking with co-workers when needing support. Olga reports feeling mostly positive at work after that shift. She denies any mood changes or avoidance of work. We also talk about managing both daughters on her off days . We discuss coping ahead, building in time limits, offering choice, and preparing incentives as strategies to have successful outings. Mental Status: General Appearance and Behavior: Appears [...] depression Olga will follow up with this [facility] Therapist in 1-2 weeks. Pt will continue to work towards the development of healthy coping strategies. Psychotherapy: I provided cognitive behavioral, behavioral activation, supportive, and behavioral planning psychotherapy focusing on increasing pleasant events, increasing positive self-talk, coping with traumatic events. Psychotherapy Time: Start: 1:00 pm Stop: 1:59 pm Total time: 59 minutes ISH LINE ATTENDANT documented in this encounter Plan of Treatment Not on file documented as of this encounter Visit Diagnoses Diagnosis Adjustment disorders, with mixed anxiety and depressed mood- Primary documented in this encounter Care Teams Armhole Presser Relationship Specialty Start Date End Date Bette Phillips PA PCP - General Physician Fullerette 11/23/19 documented as of this encounter
--- OUTSIDE RECORDS SUMMARY | 2024-04-15 03:45 | XMS_ITS | Encounter Summary ---
Author Organization [facility] Address [address] [place] [address] Phone Care Team Providers Care Clinical Documentation Nurse Name Role Phone Bette Phillips Primary Care Pr ovider Encounter Details Date Type Department Care Team (Late st Contact Info) Description 08/10/2022 Orders Only [facility] Obstetrics and Gynecology [address] [facility] [address]th [address] [place] [address] Shavon Bhatia MD [address] [facility] [phone] [place], [place] [id number] Social History Tobacco Use Types Packs/Day Years [...] exercise at this level? 60 min 12/21/2019 [place] Depression Scale Answer Date Recorded [place] Depression Scale Total 7 06/07/2020 The thought of harming myself has occurred to me . 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
--- OUTSIDE RECORDS SUMMARY | 2024-04-15 03:45 | XMS_ITS | Encounter Summary ---
Author Organization [facility] Address [address] [place] [address] Phone Care Team Providers Care Experimental Mechanic Spacecraft Name Role Phone Bette Phillips Primary Care Pr ovider Encounter Details Date Type Department Care Team (Late st Contact Info) Description 04/26/2023 1:00 PM [employer] OPERATOR Telemedicine [facility] Psychiatry [address] [facility] [address] [place] [address] Danitza Viveros, [facility] [address] [facility] [address] [place], [place] [id number] Adjustment disorders, with mixed anxiety and depressed [...] How often do you attend chur or yarsanism services? Never 02/11/2023 Do you belong to any clubs o r organizations such as anabaptism groups, unions, fraternal or athletic groups, or [...] place to sleep or slept in a long term (including now)? No 02/11/2023 Blanchard Depression Scale Answer Date Recorded Blanchard Depression Scale Total 9 03/25/2023 The thought of harming myself has occurred to me . Never 03/25/2023 Personal Safety Answer Date Recorded Have you ever been in or are you currently in a harmful physical or emotional relationship or is someone making you feel afraid or unsafe? 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 During the visit, I was located at home and the patient was located in her home in the [facility]. The patient visit started at 1:00 pm and ended at 1:59 pm. My total encounter time on 04/26/2023 was 59 minutes which was spent in [...] 1990. We discussed Olga's mood/symptoms since last session and the transition to a new therapist. Olga reports relatively stable mood with some bouts of feeling anxious/overwhelmed. She shared information about her father's health and his stay with her family over the holidays. We talk through acceptance of father's addiction and health and setting reasonable boundaries and expectations. Olga reports some negative self-talk around what she could or :should be doing. She has some worries about how return to work will impact her mood and time with kids. Overall, she states she is looking forward to getting back in the routine or work. Practiced identifying what Olga is already doing well, what her strengths are, and what makes her happy. Olga identified working out and reading as two things she enjoys. We discuss plan to increase opportunities for these and to practice gentle transitions (e.g. not rushing to pick-up, taking time, easing back into routine). Mental Status: General Appearance and Behavior: Appears [...] depression Olga will follow up with this [facility] Therapist in 1-2 weeks. Pt will continue to work towards the development of healthy coping strategies. Psychotherapy: I provided cognitive behavioral, behavioral activation, supportive, and behavioral planning psychotherapy focusing on increasing pleasant events, increasing socialization, and reducing negative self-talk . 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
--- OUTSIDE RECORDS SUMMARY | 2024-04-15 03:45 | XMS_ITS | Encounter Summary ---
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 Name Role Phone Bette Phillips Primary Care Pr ovider Reason for Visit * Reason Comments Rupture of Membranes C/o small gush of fluid at 1950/applied pad ; denies contractions or VB; +FM * Auth/Cert (Routine) Specialty Diagnoses / Procedures Referred By Contac t Referred To Contact Diagnoses Normal labor Procedures NA Referral ID Status Reason Start Date Expiration Date Visits Re quested Visits Authorized [id number] 1 1 Encounter Details Date Type Department Care Team (Latest Contact Info) Description 02/09/2023 9:52 PM CDT - 02/11/2023 1:35 PM CDT Hospital Encounter [address] [id number] Mateo Vasques MD [address] [id number] Mariana Gonzalez MD [address] [phone] Normal labor (Primary Dx) Discharge Disposition: Discharge to home or self care Social History Tobacco Use Types Packs/Day Years [...] often do you attend chur ch or shinto services? Never 02/11/2023 Do you belong to any clubs o r organizations such as bahai groups, unions, fraternal or athletic groups, or [...] place to sleep or slept in a prison (including now)? 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 of this encounter Last Filed Vital Signs Vital Sign Reading Time Taken Comments Blood Pressure 118/84 02/11/2023 7:30 AM CDT Pulse 61 02/11/2023 7:30 AM CDT Temperature 36.6 ??C (97.9 ??F) 02/11/2023 7:30 AM CD T Respiratory Rate 16 02/11/2023 7:30 AM CDT Oxygen Saturation 99% 02/11/2023 7:30 AM CDT Inhaled Oxygen Concentration - - Weight 81.3 kg (179 lb 4.8 oz) 02/09/2023 9:59 P M CDT Height 170.2 cm (5' 7 ) 02/09/2023 9:59 PM CDT Body Mass Index 28.08 02/09/2023 9:59 PM CDT documented in this encounter Discharge Summaries * Danitza Gruber MD - 02/11/2023 10:59 AM CDT Inpatient Discharge Summary Admitting Provider: Mateo Vasques MD Discharge Provider: Mariana Gonzalez* Admission Date: 02/09/2023 Discharge Date: 02/11/2023 Delivery Date/Time: 02/10/2023 at 10:13 AM Delivery method: Vaginal [[id number]] Primary Discharge Diagnosis: Intrauterine at 38w3d, delivered Secondary Discharge Diagnosis: Medical Conditions Diagnosis Supervision of other normal , antepartum Normal labor care following vaginal delivery Procedures Performed: Vaginal delivery Other Treatments: Magnesium sulfate therapy: No Blood transfusion: No Hospital Course: Olga Saeed is a 32 y.o. at 38w3d who presented with spontaneous labor. Her was complicated by mild anemia . Her labor was augmented with oxytocin . Delivery was uncomplicated. See delivery record for full details. The patient was transferred to . Her course was uncomplicated. Prior to discharge, her pain was well controlled, she was voiding, passing gas, ambulating, and meeting all post milestones. #History of iron deficiency anemia: discharged on PO iron supplementation. Admission Hgb 10.5 #Mother/Baby: The patient has chosen to breastfeed her and has chosen POPs for contraception. Discharge Details Physical Exam at Discharge: Discharge Condition: Stable Pulse: 61 Resp: 16 BP: 118/84 Temp: 36.6 ??C (97.9 ??F) Weight: 179 lb 4.8 oz (81.3 kg) See full physical exam from progress note on day of discharge. Lab Results Component Value Date HCT 30.0 (L) 02/10/2023 ABORH A Positive 02/09/2023 RUBELIGG Reactive 07/13/2022 SCRRUBELIGG Nonimmune 10/27/2019 [x] Iron prescribed on discharge [] Post Rhogam given [] Post MMR given Immunization History Administered Date(s) Administered Influenza, Quadrivalent, Cell Culture-based MDCK, Preservative Free, Antibiotic Free, Lnopxhxgggyju04/14/2023 Influenza, Unspecified 01/18/2020 MMR 04/29/2020 Pfizer SARS-CoV-2 Monovalent Vaccination (12+ Yrs) PURPLE 05/30/2020 Tdap 02/13/2020, 11/30/2022 Discharge Medications: Your medication list START taking these medications acetaminophen 500 mg capsule 1,000 mg, oral, Every 6 hours PRN docusate sodium 100 mg capsule 100 mg, oral, 2 times daily Commonly known as: COLACE ibuprofen 600 mg tablet 600 mg, oral, Every 6 hours PRN Commonly known as: ADVIL,MOTRIN norethindrone 0.35 mg tablet 0.35 mg, oral, Daily Commonly known as: MICRONOR polyethylene glycol 17 gram/dose bulk powder 17 g, oral, Daily Commonly known as: MIRALAX CONTINUE taking these medications FERROUS SULFATE ORAL 65 mg, oral, Every other day magnesium oxide 400 mg magnesium capsule oral PNV with [id number] 27 mg iron- 1 mg tablet 1 tablet, oral, Daily No future appointments. Cosigned by Mariana Gonzalez MD at 02/11/2023 11:02 AM CDT Associated attestation - Mariana Gonzalez MD - 02/11/2023 11:02 AM CDT I have seen and examined the patient on 02/11/23. I agree with the findings and plan of care as documented in the resident's/fellow's note. Mariana Gonzalez MD documented in this encounter Discharge Instructions * Discharge Instructions* Kat Moon NP - 02/11/2023 11:34 AM CDT Images from the original note were not included. Discharge Instructions - Vaginal Delivery In order to minimize social contact during COVID19 precautions, your visit maybe over the phone. Please remember to wash your hands frequently, do not touch your face, and avoid anyone with feversor cough. Stay at home as much as possible and practice social distancing. For any concerns you can call our OB communication center at [phone] 09/11. * If you have SEVERE illness including persistent shortness of breath, high fever not responsive totylenol, or nausea and vomiting preventing you from adequately orally hydrating, then call your doctor or go to the ER. Call Your Doctor If: * You have a fever of 100.4 degrees or higher. * You have vaginal bleeding more than your normal menstrual period. * You are passing large blood clots (larger than an egg). * You have a strong foul odor coming from your vagina. * You have burning, pain or difficulty urinating. * You have pain or swelling in your vagina or vulva that gets worse or does not get better. * You have nausea, vomiting or increased abdominal pain. * You have redness or pain in your calves, legs or inner thighs. * You have red, swollen painful breasts. * You have other questions or concerns * You have a headache, difficulty breathing, pain in your upper abdomen, or changes in your vision. * You have decreased urine output. * Your level of consciousness changes. * If you have a blood pressure cuff at home, check your blood pressure once a day and write it down. Call your doctor if your blood pressure is greater than 160 (top number) or 110 (bottom number). Diet: * Follow your regular diet. * Maintain liquid intake of 8 -10 glasses per day. * For constipation - drink prune juice or take stool softener medication ordered by your doctor. Eat foods with fiber (examples - raisins, prunes, washed raw vegetables, whole wheat bread, and bran). Activity: * Do not put anything in your vagina for 6 weeks. NO douching, tampons or sexual intercourse. * Weakness and fatigue are common. * Limit activities and visitors and increase as energy levels return. Rest as often as possible. * No driving while taking narcotics. * If you are not , milk will come in between the 3rd and 4th day . Wear tight support bra and use ice packs to relieve breast discomfort. Care Instructions: * You may shower and shampoo hair as desired. * You may take a tub bath 2 weeks after delivery. * For perineal discomfort sit in warm shallow water for 15-20 minutes. Do this 3-4 times a day. Anystitches you have will dissolve in about 2 weeks. Continue to use carmine bottle for the next 5-7 days. Contraception: PROGESTIN-ONLY PILLS: Progestin-only pills are safe to use while . You can start taking the pills at any time. You can get within 2 weeks of giving , though we recommend no sexual intercourse for at least 6 weeks. Swallow the pill at the same time every day. Choose a time and take the pill at that time or within 3 hours after that time. Start the next pack the day after the last pack is finished. Do not take any break or days off between packs. Always have your next pack ready before you finish each pack. If you miss taking a pill during the 3-hour window, take it as soon as you remember, even if that means you will take 2 pills in one day. Use a backup method such as condoms or abstain from sex during the next 48 hours. Changes in your menstrual periods (frequency, length, and bleeding between periods) are common in women taking these pills. Very few medications interact with control pills. Ask your pharmacist or doctor if you have questions about other medications you aretaking. PARTNER VASECTOMY Vasectomy is successful in more than 99 percent of men. A second method of control is necessary until testing is done to confirm that there are no sperm in the semen. The sperm count is checked, usually three months after the procedure, to ensure that no sperm remain in the ejaculate. A man needs to have ejaculated at least 20 times after vasectomy to clear the ducts of sperm before the follow-up sperm count. A sperm count requires that the man give a semen sample. A man who continues to have sperm in the ejaculate requires a second sperm count, usually performed two months later. If the follow-up check shows sperm that do not move, there is a small chance that a partner may become pre gnant. Another method of contraception should be continued until clearance is given by the doctor. Feeding: : Follow unrestricted . Feed your baby based on baby's hunger cues (or atleast 8-12 feedings per 24 hours). Do NOT supplement unless instructed by Banquet Attendant. Call your Banquet Attendant if your baby has poor eating habits (examples: feedings decrease, no feedings in 6 hours, or infant spits up more than ?? of their feeding for 2 consecutive feedings). Once your baby is 5-6 days old, you should expect at least 5 wet diapers and 3 soiled diapers per day. Outpatient Follow Up: Every patient needs a visit. We are currently scheduling some in person and some telemedicine visits for your visits. If you do not hear from your primary OB to set up your telephone or in person visit, please call your primary OB to set up a telephone or in person visit. Thank you for understanding and remember to wash your hands and avoid anyone with fevers or cough. Stay at home as much as possible and practice social distancing. If you yourself develop fever >100.4F, a new cough, or shortness of breath please call our centralized OB communication center at [phone]. Do not come to the hospital or clinic until you speak with a provider. Contact Information for your primary OB: [facility]) - [facility] - [id number] [facility] [place]. [place], [place] [address]Rrmr to schedule an appointment to be seen within 4-6 weeks. No future appointments. Blood Pressure Monitoring: If you are enrolled in home blood pressure monitoring please text your blood pressures when prompted upon hospital discharge. How to use a home blood pressure monitor: Be still. Don't smoke, drink caffeinated beverages or exercise within 30 minutes before measuring your blood pressure. Sit for at least 5 minutes before taking your blood pressure. Sit correctly. Sit with your back straight and supported (on a dining chair, rather than a sofa). Your feet should be flat on the floor and your legs should not be crossed. Your arm should be supported on a flat surface (such as a table) with the upper arm at heart level. Make sure the middle of the cuff is placed directly above the bend of the elbow. Check your monitor's instructions for an illustration or have your healthcare provider show you how. If at ANY time you have symptoms of chest pain, shortness of breath, vision changes, numbness/weakness, difficulty speaking, headache, or if something just doesn't feel right, call our OB communication center at [phone]. High blood pressure problems during & after Preeclampsia or induced hypertension is a high blood pressure disease that can happen in and shortly after delivery (up to 6 weeks after having your baby). Most women will developblood pressure problems towards the end of their , but others will have it for the first time after their delivery. High blood pressure can be dangerous and needs to be monitored closely. Blood pressures can get so high that it can put you at risk for brain injury, stroke, and seizures. Preeclampsia can also hurt your kidneys and liver or cause buildup of fluid in your lungs. If it is very severe and not treatedpreeclampsia can cause . Preeclampsia affects 8-10 out of 100 women and although we don???t know exactly what causes it we do know that some women are at higher risk: - First - If you are under 18 years old or over 40 years old - If you have diabetes, kidney problems, or Lupus - If you are obese - If you have had preeclampsia before - If you had high blood pressure before - If you are with twins or triplets The best way to treat preeclampsia is to have the baby and most of the time your blood pressure will return to normal after delivery, but some people still have high blood pressure after the baby is born. Some people need medication when leaving the hospital to help keep you blood pressure in a normal range. You may only need to take medication for a short time after the baby is born others need it for longer periods of time. It is very important that you get this prescription filled and take the medicine as instructed in order to help control your blood pressure. If you have preeclampsia or another hypertensive disorder of after you go home from the hospital, you should call the doctor if you experience: manager terminal risks of preeclampsia If you had preeclampsia or high blood pressure in you have a higher chance of having highblood pressure sometime later in life. It can also increase your chance of heart disease, heart attack, or stroke in future . May women who get preeclampsia will not have it again in the future but women with preeclampsia have a higher chance of getting it again compared to women who did not have it. If you had a baby before 34 weeks because of preeclampsia, you have the highest chance of getting it again. It is very important you see a primary care doctor for regular checkups to have your blood pressurechecked. Discharge Medications: Take the following medications. Your medication list START taking these medications acetaminophen 500 mg capsule 1,000 mg, oral, Every 6 hours PRN docusate sodium 100 mg capsule 100 mg, oral, 2 times daily Commonly known as: COLACE ibuprofen 600 mg tablet 600 mg, oral, Every 6 hours PRN Commonly known as: ADVIL,MOTRIN norethindrone 0.35 mg tablet 0.35 mg, oral, Daily Commonly known as: MICRONOR polyethylene glycol 17 gram/dose bulk powder 17 g, oral, Daily Commonly known as: MIRALAX CONTINUE taking these medications FERROUS SULFATE ORAL 65 mg, oral, Every other day magnesium oxide 400 mg magnesium capsule oral PNV with [id number] 27 mg iron- 1 mg tablet 1 tablet, oral, Daily * Appointments* Abeba Forrest RN - 02/11/2023 12:48 PM CDT Make follow up appointment at your 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 documented in this encounter Medications at Time of Discharge acetaminophen 500 mg capsule Take 2 capsules (1,000 mg total) by mouth every 6 (six) hours as needed for pain 30 tablet 02/11/2023 3 docusate sodium (COLACE) 100 mg capsuleIndications: constipation,Stool Softener Take 1 capsule (100 mg total) by mouth 2 (two) times a day 30 capsule 02/11/2023 3 FERROUS SULFATE ORAL Take 65 mg by mouth every other day 3 ibuprofen (ADVIL,MOTRIN) 600 mg tabletIndications:C ramps Take 1 tablet (600 mg total) by mouth every 6 (six) hours as needed for pain 30 tablet 02/11/2023 3 magnesium oxide 400 mg magnesium capsule Take by mouth 3 norethindrone (MICRONOR) 0.35 mg tabletIndications:P regnancy Contraception Take 1 tablet (0.35 mg total) by mouth daily 28 tablet 12 02/11/2023 3 PNV with [id number]-[id number] 27 mg iron- 1 mg tabletIndications:V itamin Deficiency Prevention Take 1 tablet by mouth daily 90 tablet 3 04/29/2020 3 polyethylene glycol (MIRALAX) 17 gram/dose bulk powderIndications:c onstipation Take 17 g by mouth daily 510 g 02/11/2023 3 documented as of this encounter Ordered Prescriptions Prescription Sig Dispense Quantity Refills Last Filled Start Date End Date norethindrone (MICRONOR) 0.35 mg tabletIndications:P regnancy Contraception Take 1 tablet (0.35 mg total) by mouth daily 28 tablet 12 02/11/2023 3 polyethylene glycol (MIRALAX) 17 gram/dose bulk powderIndications:c onstipation Take 17 g by mouth daily 510 g 02/11/2023 3 ibuprofen (ADVIL,MOTRIN) 600 mg tabletIndications:C ramps Take 1 tablet (600 mg total) by mouth every 6 (six) hours as needed for pain 30 tablet 02/11/2023 3 docusate sodium (COLACE) 100 mg capsuleIndications: constipation,Stool Softener Take 1 capsule (100 mg total) by mouth 2 (two) times a day 30 capsule 02/11/2023 3 acetaminophen 500 mg capsule Take 2 capsules (1,000 mg total) by mouth every 6 (six) hours as needed for pain 30 tablet 02/11/2023 3 documented in this encounter Discharge Disposition Disposition Code Departure Means Destination Discharge to home or self care documented in this encounter Progress Notes * Danitza Gruber MD - 02/11/2023 7:53 AM CDT Post Progress Note Delivery Date/Time: 02/10/2023 at 10:13 AM Delivery method: Vaginal [[id number]] Subjective Flatus: Yes Pain: Well controlled Diet: Tolerating regular diet. Ambulating independently Voiding spontaneously Lochia less than menses Scheduled Medications docusate sodium, 100 mg, oral, BID viatmin, 1 tablet, oral, Daily polyethylene glycol, 17 g, oral, Daily sodium chloride 0.9%, 0.5-20 mL, intra-catheter, Q8H NEGRITO PRN Medications acetaminophen benzocaine-menthoL calcium carbonate sodium chloride 0.9% cyclobenzaprine diphenhydrAMINE hydrocortisone ibuprofen nvjawfo-foljn-flmnqli naloxone ondansetron ODT OR ondansetron prochlorperazine sodium chloride 0.9% varicella zoster Vitals: Temp: [36.5 ??C (97.7 ??F)-36.7 ??C (98.1 ??F)] 36.6 ??C (97.9 ??F) Pulse: [61-109] 61 BP: (117-135)/(72-84) 118/84 Resp: [16] 16 SpO2: [95 %-100 %] 99 % Intake/Output Summary (Last 24 hours) at 02/11/2023 0753 Last data filed at 02/10/2023 1109 Gross per 24 hour Intake -- Output 923 ml Net -923 ml Physical Exam General: No acute distress. Cardiovascular: Regular rate Lungs: Non-labored. Abdomen: Soft, non-distended, non-tender to palpation. Fundus below umbilicus. Extremities: Warm and well-perfused. Neuro: Globally intact Recent Labs Lab Units 02/10/23 1518 02/09/23 2254 WBC K/cumm 15.6* 9.6 HEMOGLOBIN g/dL 10.5* 11.3* HEMATOCRIT % 30.0* 32.6* PLATELETS K/cumm 186 228 CREATININE mg/dL -- 0.58* AST Units/L -- 24 ALT Units/L -- 14 GLUCOSE mg/dL -- 110 Assessment and Plan 32 y.o. PPD#1from . Problem Care Following Vaginal Delivery # ID: Afebrile. No signs/symptoms of infection. [...] up task not sent. Continue routine care. Danitza Gruber MD PGY1 OBGYN Cosigned by Mariana Gonzalez MD at 02/11/2023 10:37 AM CDT Associated attestation - Mariana Gonzalez MD - 02/11/2023 10:37 AM CDT I have seen and examined the patient on 02/11/23. I agree with the findings and plan of care as documented in the resident's/fellow's note. Mariana Gonzalez MD * Robyn Lopez MD - 02/10/2023 5:58 AM CDT Labor Update Note S: Patient comfortable s/p epidural O: BP 117/83 Pulse 73 Temp 36.7 ??C (98.1 ??F) (Oral) Resp 18 Ht 170.2 cm (5' 7 ) Wt 179 lb 4.8 oz (81.3 kg) LMP 05/17/2022 SpO2 98% BMI 28.08 kg/m?? SVE: /-2 Monitoring: Baseline: 125 bpm, Variability: Moderate, Accelerations: Present and Decelerations: None Uterine Activity: Contractions present, q2-3 minutes A/P: 32 y.o. at 38w3d Category 1 tracing Vitals: reviewed and normal Additional medications/infusions: oxytocin - will continue to titrate per protocol Robyn Lopez MD * Robyn Lopez MD - 02/10/2023 2:23 AM CDT Labor Update Note S: Patient feeling painful contractions O: BP 115/83 Pulse 73 Temp 36.7 ??C (98.1 ??F) (Oral) Resp 18 Ht 170.2 cm (5' 7 ) Wt 179 lb 4.8 oz (81.3 kg) LMP 05/17/2022 SpO2 98% BMI 28.08 kg/m?? SVE: /-3 Monitoring: Baseline: 120 bpm, Variability: Moderate, Accelerations: Present and Decelerations: None Uterine Activity: Contractions present, q3-4 minutes A/P: 32 y.o. at 38w3d Category 1 tracing Vitals: reviewed and normal Additional medications/infusions: oxytocin - will continue to titrate per protocol Robyn Lopez MD Cosigned by Mateo Vasques MD at 02/10/2023 5:26 AM CDT documented in this encounter H&P Notes * Maral Wilkes, MARY - 02/09/2023 10:20 PM CDT Images from the original note were not included. Obstetrics H&P Chief Complaint: LOF Estimated Date of Delivery: 02/21/23 Provider: [facility] HPI: Olga Saeed is a 32 y.o. female at 38w2d gestation, dated by 1st trimester ultrasound who presents to [facility] with complaints of LOF. She reports she noticed a small gush of fluid at 1950 . She reports mild irregular ctx. Denies VB. She endorses good movement and has no other concerns. Her is complicated by mild anemia (taking feso4 every other day) Patient Denies: [] Contractions [x] Shortness of Breath [x] Nausea/Vomitting [x] Vaginal Bleeding [x] Headache [x] Abdominal Pain [] Leaking of Fluid [x] Visual changes [x] Decreased Movement OB History Para Term AB Living 2 1 1 0 0 1 SAB IAB Ectopic Multiple Live Births 0 0 0 0 1 # Outcome Date GA Lbr Nick/2nd Weight Sex Delivery Anes PTL Lv 2 Current 1 Term 04/27/20 39w4d / 01:31 3390 g (7 lb 7.6 oz) F Vag-Spont EPI N ADILSON Name: EULA LYN Apgar1: 9 Apgar5: 9 Obstetric Comments [id number]- Pato -EBL 500 from [place]. 2nd degree lac repaired. She came in OM and was augmented with OT. 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 History of Abnormal Pap: None STD History: none Past Medical History: Diagnosis Date Abnormal Pap smear of cervix 08/2016 Chronic hypertension: No Diabetes: No Asthma: No Past Surgical History: Procedure Laterality Date COLPOSCOPY 2017 TONSILLECTOMY 2001 TYMPANOSTOMY TUBE PLACEMENT 1996 Social History Tobacco Use Smoking status: Never Smokeless tobacco: Never Substance and Sexual Activity Drug use: Never Sexual activity: Yes Partners: Male control/protection: None Alcohol Use: Unknown (06/20/2021) AUDIT-C Frequency of Alcohol Consumption: Monthly or less Average Number of Drinks: Not on file Frequency of Binge Drinking: Not on file Support System: Supported by SO Safe at home: Yes family history includes No Known Problems in her father and mother. Family history of bleeding or clotting disorders: No Family history of defects, genetic disorders, or developmental delay: No No Known Allergies HOME MEDICATIONS : FERROUS SULFATE ORAL PNV with [id number]-mgah-[id number] 27 mg iron- 1 mg tablet Review of Sys: Negative except per HPI Vitals: Temp: [36.7 ??C (98.1 ??F)] 36.7 ??C (98.1 ??F) Pulse: [91] 91 Resp: [18] 18 BP: (124-133)/(80-87) 133/80 Physical Exam: General: NAD, mood appropriate Cardiovascular: Regular rate and rhythm Pulmonary: Clear to ausculation bilaterally Abdomen: Gravid, non-tender Extremities: Warm and well perfused Speculum Exam: Ferning test is positive, not indicated due to gross rupture of membranes Cervix: /-3 Monitoring: Baseline: 130 bpm, Variability: Moderate, Accelerations: Present and Decelerations: None Uterine Activity: Irregular contractions Interpretation: Reactive Ultrasound: Vertex presentation Posterior placenta Previa: No Estimated Weight: 3200 g by [place] Labs: Lab Results Component Value Date ABORH A Positive 07/13/2022 SCRIBEDABORH A+ 10/27/2019 IDCOOMB Negative 07/13/2022 SCRINDANTIGL neg 10/27/2019 [id number] Nonreactive 02/01/2023 [id number] Negative 10/27/2019 LABRPR Nonreactive 11/02/2022 SCRRPR Non-Reactive 10/27/2019 RUBELIGG Reactive 07/13/2022 SCRRUBELIGG Nonimmune 10/27/2019 HEPBSAG Nonreactive 07/13/2022 VZVIGG Reactive 07/13/2022 GC neg 10/27/2019 HIV NR (Resulted on: 02/01/23) GBS negative (Resulted on: 01/31/23) Assessment and Plan Olga Saeed is a 32 y.o. female at 38w2d who is dated by 1st trimester ultrasound and is being admitted for SROM. Admit to L&D: Consents signed and placed in chart. Labs: CBC and T&S pending. Labor augmentation with OT . FWB: Continuous monitoring. Reactive NST. ID: 3rd trimester HIV (>28 wga) negative on 02/01/23. GBS negative on 01/31/23 . RPR on admission: pending. Membrane Status: spontaneous rupture at 1950 on 02/09/23 . Indications for UDS: none. Verbal consent obtained for UDS: Not indicated. MOF: Plans to breastfeed. Urine drug screen not indicated. Patient informed of results: N/A. MOC: Plans to use POPs for contraception. Pain management: Desires epidural. Post DVT prophylaxis: The patient has the following MAJOR risk factors none and the following MINOR risk factors none. SCDs will be ordered for VTE prophylaxis . Plan discussed with Dr. Vasques. Maral Wilkes NP 02/09/23 Cosigned by Mateo Vasques MD at 02/10/2023 4:22 AM CDT Associated attestation - Mateo Vasques MD - 02/10/2023 4:22 AM CDT I have seen and independently examined the patient on 02/09/2023. I agree with the findings and plan of care as documented and as discussed with the nurse practitioner. Olga Saeed is a 32 y.o. female admitted at 38w2d weeks gestation for SROM. This is otherwise complicated by anemia that has since resolved. SVE: 3/50/-3 on admission FHT: Baseline 125, moderate variability, present accelerations, no decelerations TOCO: Contractions every 2-3 minutes Vertex on US GBS negative Category 1 tracing Augmentation with Oxytocin Will get epidural when patient desires documented in this encounter Nursing Notes * Jerry Ramirez, SUKH - 02/09/2023 11:03 PM CDT Patient to [facility] with leakage of fluid. VSS. SVE /3. IV started and labs sent. Patient admitted to labor and delivery. Report given to labor and delivery nurse. documented in this encounter Miscellaneous Notes * Initial Assessments - Bushra Gonzales LCSW - 02/11/2023 1:35 PM CDT This clinician speaks directly with ARABELLA GURROLA 1990 for support and check-in. Pt currently admitted for delivery of (baby girl, Mireya, EGA 38.3 weeks). MOB noted to be formula/breast feeding- has worked with inpatient for support throughout admission. No SDOH concerns indicated throughout conversation- family confirms having access to food, housing,and transportation needs. No hx of MH or SA concerns noted throughout chart. MOB denies any concerns for mood instability throughout , stating I was OK and I've been doing OK so far . Social Work and Olga Saeed discussed the signs and symptoms of Mood and Anxiety Disorder. Social Work discussed and normalized increase in emotions and the importance of self-care. Social Work encouraged new mom to take time for herself and utilize supports available. Available support systems reviewed, including: , family, peers. Warning signs reviewed and MOB encouraged toseek medical and mental health treatment if symptoms persist including possible medication management. Resources for counseling provided in Mother/Baby folder and MOB encouraged to contact if needed.MOB engaged in conversation and demonstrates knowledge. SW reviews [facility] support services- Olga Saeed agreeable to [facility] referral at this time. This clinician completes referral as requested. MOB confirms having all needed baby items prepared for , including car seat, clothing, crib/bassinet, bottles, etc. SW provides support and encouragement. Family denies having any questions or concerns. No further SW needs indicated at this time. Bushra Gonzales SCENE SHIFTER, WEED INSPECTOR [facility] Clinical Mobile Application Engineer [facility] Inf[facility] * Note - Chayito St RN - 02/11/2023 12:09 PM CDT Mother educated about risks of pacifier use while . Educated that pacifiers may lead to a low milk supply and difficulty latching after pacifier use. Reviewed that pacifier use has been associated with a decrease in SIDS incidence and that pacifiers should be introduced after is well established. Breast feeding is well established when mother's milk supply has increased, the infant is feeding 8-12 times in 24 hours, gaining weight, and has adequate pees and poops. Counseled with mother regarding her choice to breastfeed infant. Day 1 teaching done including avoidance of artifical nipples, skin to skin, feeding cues, feeding frequency/duration, breast/nipple care, h and expression, adequate output, and positioning. Mother verbalizes she is confident and able to independently latch with appropriate positioning/alignment and continue effective breastfeedingat home. Reviewed transition to breast milk, signs of adequate intake/output, signs and symptoms ofmastitis and engorgement relief. Reviewed resources available for further support after discharge. * Hospital Course - Danitza Gruber MD - 02/11/2023 10:56 AM CDT Olga Saeed is a 32 y.o. at 38w3d who presented with spontaneous labor. Her was complicated by mild anemia . Her labor was augmented with oxytocin . Delivery was uncomplicated. See delivery record for full details. The patient was transferred to . Her course was uncomplicated. Prior to discharge, her pain was well controlled, she was voiding, passing gas, ambulating, and meeting all post milestones. #History of iron deficiency anemia: discharged on PO iron supplementation. Admission Hgb 10.5 #Mother/Baby: The patient has chosen to breastfeed her infant and has chosen POPs for contraception. * Plan of Care - Abeba Forrest RN - 02/11/2023 8:33 AM CDT Problem: Activity: Goal: Will verbalize the importance of balancing activity with adequate rest periods Outcome: Adequate for Discharge Problem: Lack of Knowledge: Goal: Will have increased knowledge of Care Outcome: Adequate for Discharge Problem: Coping: Goal: Ability to cope will improve Outcome: Adequate for Discharge Goal: Ability to identify and utilize available resources and services will improve Outcome: Adequate for Discharge Problem: Life Cycle: Goal: Risk for hemorrhage will decrease Outcome: Adequate for Discharge Goal: Chance of risk for complications during the period will decrease Outcome: Adequate for Discharge Problem: Nutritional: Goal: Dietary intake will improve Outcome: Adequate for Discharge Goal: Mother's verbalization of comfort with process will improve Outcome: Adequate for Discharge Problem: Role Relationship: Goal: Ability to interact appropriately with will improve Outcome: Adequate for Discharge Problem: Sensory: Goal: General experience of comfort will improve Outcome: Adequate for Discharge Problem: Activity: Goal: Will verbalize the importance of balancing activity with adequate rest periods Outcome: Adequate for Discharge Problem: Lack of Knowledge: Goal: Will have increased knowledge of Care Outcome: Adequate for Discharge Problem: Coping: Goal: Ability to cope will improve Outcome: Adequate for Discharge Goal: Ability to identify and utilize available resources and services will improve Outcome: Adequate for Discharge Problem: Life Cycle: Goal: Risk for hemorrhage will decrease Outcome: Adequate for Discharge Goal: Chance of risk for complications during the period will decrease Outcome: Adequate for Discharge Problem: Nutritional: Goal: Dietary intake will improve Outcome: Adequate for Discharge Goal: Mother's verbalization of comfort with process will improve Outcome: Adequate for Discharge Problem: Role Relationship: Goal: Ability to interact appropriately with will improve Outcome: Adequate for Discharge Problem: Sensory: Goal: General experience of comfort will improve Outcome: Adequate for Discharge Goals: Clinical Goals for the Shift: pain management, desires discharge home today Summary: desires discharge home today * Plan of Care - Lily Sorensen RN - 02/10/2023 8:50 PM CDT Problem: Lack of Knowledge: Goal: Verbalization of understanding the information provided will improve Outcome: Progressing Problem: Coping: Goal: Ability to identify appropriate support needs for the childbearing process will improve Outcome: Progressing Goal: Ability to verbilize concerns and feelings about labor and delivery improve Outcome: Progressing Problem: Life Cycle: Goal: Ability to maintain clinical measurements within normal limits will improve Outcome: Progressing Goal: Ability to make normal progression through stages of labor will improve Outcome: Progressing Goal: Ability to effectively push during vaginal delivery will improve Outcome: Progressing Problem: Role Relationship: Goal: Ability to demonstrate positive interaction with the child will improve Outcome: Progressing Problem: Safety: Goal: Chance of risk for complications during labor and delivery will decrease Outcome: Progressing Problem: Sensory: Goal: Relief or control of pain from uterine contractions will improve Outcome: Progressing Problem: Lack of Knowledge: Goal: Knowledge of disease or condition and prescribed therapeutic regimen will improve Outcome: Progressing Problem: Coping: Goal: Level of anxiety will decrease Outcome: Progressing Problem: Life Cycle: Goal: Will achieve delivery and avoid or minimize maternal and complications Outcome: Progressing Problem: Sensory: Goal: Pain level will decrease Outcome: Progressing Problem: Activity: Goal: Will verbalize the importance of balancing activity with adequate rest periods Outcome: Progressing Problem: Lack of Knowledge: Goal: Will have increased knowledge of Care Outcome: Progressing Problem: Coping: Goal: Ability to cope will improve Outcome: Progressing Goal: Ability to identify and utilize available resources and services will improve Outcome: Progressing Problem: Life Cycle: Goal: Risk for hemorrhage will decrease Outcome: Progressing Goal: Chance of risk for complications during the period will decrease Outcome: Progressing Problem: Nutritional: Goal: Dietary intake will improve Outcome: Progressing Goal: Mother's verbalization of comfort with process will improve Outcome: Progressing Problem: Role Relationship: Goal: Ability to interact appropriately with will improve Outcome: Progressing Problem: Sensory: Goal: General experience of comfort will improve Outcome: Progressing Problem: Activity: Goal: Will verbalize the importance of balancing activity with adequate rest periods Outcome: Progressing Problem: Lack of Knowledge: Goal: Will have increased knowledge of Care Outcome: Progressing Problem: Coping: Goal: Ability to cope will improve Outcome: Progressing Goal: Ability to identify and utilize available resources and services will improve Outcome: Progressing Problem: Life Cycle: Goal: Risk for hemorrhage will decrease Outcome: Progressing Goal: Chance of risk for complications during the period will decrease Outcome: Progressing Problem: Nutritional: Goal: Dietary intake will improve Outcome: Progressing Goal: Mother's verbalization of comfort with process will improve Outcome: Progressing Problem: Role Relationship: Goal: Ability to interact appropriately with will improve Outcome: Progressing Problem: Sensory: Goal: General experience of comfort will improve Outcome: Progressing Goals: Clinical Goals for the Shift: pain <4, rest Summary: Will continue cares * Plan of Care - Vaishali Dee RN - 02/10/2023 12:23 PM CDT Problem: Lack of Knowledge: Goal: Verbalization of understanding the information provided will improve Outcome: Progressing Problem: Coping: Goal: Ability to identify appropriate support needs for the childbearing process will improve Outcome: Progressing Goal: Ability to verbilize concerns and feelings about labor and delivery improve Outcome: Progressing Problem: Life Cycle: Goal: Ability to maintain clinical measurements within normal limits will improve Outcome: Progressing Goal: Ability to make normal progression through stages of labor will improve Outcome: Progressing Goal: Ability to effectively push during vaginal delivery will improve Outcome: Progressing Problem: Role Relationship: Goal: Ability to demonstrate positive interaction with the child will improve Outcome: Progressing Problem: Safety: Goal: Chance of risk for complications during labor and delivery will decrease Outcome: Progressing Problem: Sensory: Goal: Relief or control of pain from uterine contractions will improve Outcome: Progressing Problem: Lack of Knowledge: Goal: Knowledge of disease or condition and prescribed therapeutic regimen will improve Outcome: Progressing Problem: Coping: Goal: Level of anxiety will decrease Outcome: Progressing Problem: Life Cycle: Goal: Will achieve delivery and avoid or minimize maternal and complications Outcome: Progressing Problem: Sensory: Goal: Pain level will decrease Outcome: Progressing Problem: Activity: Goal: Will verbalize the importance of balancing activity with adequate rest periods Outcome: Progressing Problem: Lack of Knowledge: Goal: Will have increased knowledge of Care Outcome: Progressing Problem: Coping: Goal: Ability to cope will improve Outcome: Progressing Problem: Life Cycle: Goal: Risk for hemorrhage will decrease Outcome: Progressing Goal: Chance of risk for complications during the period will decrease Outcome: Progressing Problem: Nutritional: Goal: Dietary intake will improve Outcome: Progressing Goal: Mother's verbalization of comfort with process will improve Outcome: Progressing Problem: Role Relationship: Goal: Ability to interact appropriately with will improve Outcome: Progressing Problem: Sensory: Goal: General experience of comfort will improve Outcome: Progressing Goals: Clinical Goals for the Shift: VSS, safe delivery of healthy baby girl Summary: progressing towards discharge * L&D Delivery Note - Mariana Gonzalez MD - 02/10/2023 10:45 AM CDT [facility] Vaginal Delivery Note Patient's Name: Olga Saeed : 1990 Attending Physician: Mariana Gonzalez MD Clinic:[facility] Primary Diagnosis: Intrauterine at 38w3d, delivered Obstetrical Medical Risk Factors: Principal Problem: Normal labor Delivery method: Vaginal [[id number]] Anesthesia: Epidural [254] Membranes: intact, SROM Infant Delivery Date: 02/10/2023 Infant Delivery Time: 10:13 AM Placenta Delivery Date & Time: 02/10/2023 10:18 AM Cord: 3 vessels [3] Nuchal [2] Delayed cord clamping: Yes EBL: 450 mL : APGARs: 8 / 9 Weight: 7 lb 8.6 oz (3.42 kg) Labor Summary: Olga Saeed is a 32 y.o. female at 38w3d weeks gestation, dated by LMP consistent with 1st trimester Ultrasound with Estimated Date of Delivery: 02/21/23. Her was notable for iron deficiency anemia. Vertex presentation and GBS negative confirmed on admission. Her initial SVE was 3 / 50 / -3 and SROM was confirmed. She was augmented with oxytocin. Epidural was placed for anesthesia. Patient progressed to complete delivered a viable female , APGARS were 8 / 9 at 1 and 5minutes respectively and a weight of 7 lb 8.6 oz (3.42 kg) . The cord was clamped and cut and the baby was handed to mother for skin to skin.The third stage was actively managed with external uterinemassage, gentle cord traction and pitocin. The placenta was delivered spontaneously and intact. Second degree perineal laceration was repaired in the usual fashion. Excellent hemostasis was noted. Total EBL was 450 mL. All counts were correct before and after the delivery. Complications: None. Patient was transferred to post- unit in stable condition. * Plan of Care - Anna Mendoza RN - 02/10/2023 7:25 AM CDT Goals: Problem: Lack of Knowledge: Goal: Verbalization of understanding the information provided will improve Outcome: Progressing Problem: Coping: Goal: Ability to identify appropriate support needs for the childbearing process will improve Outcome: Progressing Goal: Ability to verbilize concerns and feelings about labor and delivery improve Outcome: Progressing Problem: Life Cycle: Goal: Ability to maintain clinical measurements within normal limits will improve Outcome: Progressing Goal: Ability to make normal progression through stages of labor will improve Outcome: Progressing Goal: Ability to effectively push during vaginal delivery will improve Outcome: Progressing Problem: Role Relationship: Goal: Ability to demonstrate positive interaction with the child will improve Outcome: Progressing Problem: Safety: Goal: Chance of risk for complications during labor and delivery will decrease Outcome: Progressing Problem: Sensory: Goal: Relief or control of pain from uterine contractions will improve Outcome: Progressing Problem: Lack of Knowledge: Goal: Knowledge of disease or condition and prescribed therapeutic regimen will improve Outcome: Progressing Problem: Coping: Goal: Level of anxiety will decrease Outcome: Progressing Problem: Life Cycle: Goal: Will achieve delivery and avoid or minimize maternal and complications Outcome: Progressing Problem: Sensory: Goal: Pain level will decrease Outcome: Progressing Clinical Goals for the Shift: VSS, safe delivery of healthy baby girl Summary: Pt progressing towards all goals * Plan of Care - Dary Parham RN - 02/10/2023 1:23 AM CDT Goals: Clinical Goals for the Shift: Safe delivery Summary: Problem: Lack of Knowledge: Goal: Verbalization of understanding the information provided will improve Outcome: Progressing Problem: Coping: Goal: Ability to identify appropriate support needs for the childbearing process will improve Outcome: Progressing Goal: Ability to verbilize concerns and feelings about labor and delivery improve Outcome: Progressing Problem: Life Cycle: Goal: Ability to maintain clinical measurements within normal limits will improve Outcome: Progressing Goal: Ability to make normal progression through stages of labor will improve Outcome: Progressing Goal: Ability to effectively push during vaginal delivery will improve Outcome: Progressing Problem: Role Relationship: Goal: Ability to demonstrate positive interaction with the child will improve Outcome: Progressing Problem: Safety: Goal: Chance of risk for complications during labor and delivery will decrease Outcome: Progressing Problem: Sensory: Goal: Relief or control of pain from uterine contractions will improve Outcome: Progressing Problem: Lack of Knowledge: Goal: Knowledge of disease or condition and prescribed therapeutic regimen will improve Outcome: Progressing Problem: Coping: Goal: Level of anxiety will decrease Outcome: Progressing Problem: Life Cycle: Goal: Will achieve delivery and avoid or minimize maternal and complications Outcome: Progressing Problem: Sensory: Goal: Pain level will decrease Outcome: Progressing documented in this encounter Plan of Treatment Pending Results Name Type Priority Associated Diagnoses Date /Time US Ob Limited Imaging IP Routine Normal labor 02/09/2023 10:58 PM CDT documented as of this encounter Procedures Procedure Name Priority Date/Time Associated Diagnosis Comments DIFFERENTIAL AUTO Timed 02/10/2023 3:1 8 PM CDT CBC WITH AUTO DIFFERENTIAL Timed 02/10/2023 3:18 PM CDT US OB LIMITED IP Routine 02/09/2023 10:58 PM CDT Normal labor EGFR STAT 02/09/2023 10:54 PM CDT RPR STAT 02/09/2023 10:54 PM CDT CBC WITHOUT DIFFERENTIAL STAT 02/09/2023 10:54 PM CDT TYPE AND SCREEN STAT 02/09/2023 10:54 PM CDT COMPREHENSIVE METABOLIC PANEL STAT 02/09/2023 10:54 PM CDT documented in this encounter Results * (ABNORMAL) Differential, auto (02/10/2023 3:18 PM CDT) Neutrophil abs 12.2(H) 1.7 - 6.5 K/cumm [facility] Imm gran abs 0.1 0.0 - 0.1 K/cumm [facility] Lymphocyte abs 2.4 0.8 - 3.3 K/cumm [facility] Monocyte abs 1.0(H) 0.2 - 0.8 K/cumm [facility] Eosinophil abs 0.0 0.0 - 0.5 K/cumm [facility] Basophil abs 0.0 0.0 - 0.1 K/cumm [facility] Neutrophil pct 78.0 % [facility] Comment: Interpretive Data Percent cell count reference ranges are not reported, since discordance with absolute values may lead to misinterpretation of CBC data. Current Interpretive Data was last revised on 2017. Imm gran pct 0.4 % [facility] Comment: Interpretive Data Percent cell count reference ranges are not reported, since discordance with absolute values may lead to misinterpretation of CBC data. Current Interpretive Data was last revised on 2017. Lymphocyte pct 15.1 % [facility] Comment: Interpretive Data Percent cell count reference ranges are not reported, since discordance with absolute values may lead to misinterpretation of CBC data. Current Interpretive Data was last revised on 2017. Monocyte pct 6.2 % [facility] Comment: Interpretive Data Percent cell count reference ranges are not reported, since discordance with absolute values may lead to misinterpretation of CBC data. Current Interpretive Data was last revised on 2017. Eosinophil pct 0.1 % [facility] Comment: Interpretive Data Percent cell count reference ranges are not reported, since discordance with absolute values may lead to misinterpretation of CBC data. Current Interpretive Data was last revised on 2017. Basophil pct 0.2 % [facility] Comment: Interpretive Data Percent cell count reference ranges are not reported, since discordance with absolute values may lead to misinterpretation of CBC data. Current Interpretive Data was last revised on 2017. Blood 02/10/2023 3:18 PM CDT 02/10/2023 3:48 PM CDT us Mariana Gonzalez MD LAB BLOOD ORDERABLES Final Result [facility] Department [place] [address] * (ABNORMAL) CBC with auto differential (02/10/2023 3:18 PM CDT) [facility] WBC 15.6(H) 3.8 - 9.9 K/cumm [facility] Hgb 10.5(L) 11.9 - 15.5 g/dL [facility] Comment: Interpretive Data A reference range for this assay has not been established for patients with an unknown legal sex. Please refer to the laboratory test catalog for established sex-specific reference intervals. Current interpretive data was last revised on 2023. Hct 30.0(L) 35.6 - 45.5 % [facility] Comment: Interpretive Data A reference range for this assay has not been established for patients with an unknown legal sex. Please refer to the laboratory test catalog for established sex-specific reference intervals. Current interpretive data was last revised on 2023. Plt 186 150 - 400 K/cumm [facility] MPV 11.3 9.1 - 12.3 fL [facility] RBC 3.22(L) 3.90 - 5.20 M/cumm [facility] Comment: Interpretive Data A reference range for this assay has not been established for patients with an unknown legal sex. Please refer to the laboratory test catalog for established sex-specific reference intervals. Current interpretive data was last revised on 2023. MCV 93.2 81.3 - 96.4 fL [facility] MCH 32.6 27.1 - 33.3 pg [facility] MCHC 35.0 32.3 - 35.7 g/dL [facility] RDW CV 12.8 11.1 - 14.9 % [facility] RDW SD 42.9 35.7 - 48.1 fL [facility] NRBC abs 0.00 0.00 - 0.01 K/cumm [facility] Blood 02/10/2023 3:18 PM CDT 02/10/2023 3:48 PM CDT us Mariana Gonzalez MD LAB BLOOD ORDERABLES Final Result [facility] Department [place] [address] * eGFR (02/09/2023 10:54 PM CDT) eGFR >90 90 - 130 mL/min/1. 73 m2 [facility] Comment: Interpretive Data Reference Interval Normal ?>/= 90 mL/min/1.73m2 Mildly decreased* ? 60 - 89 mL/min/1.73m2 Mildly to moderately decreased ?45 - 59 mL/min/1.73m2 Moderately to severely decreased ??30 - 44 mL/min/1.73m2 Severely decreased ?15 - 29 mL/min/1.73m2 Kidney Failure ?< 15 ??mL/min/1.73m2 *Relative to young adult level Estimated glomerular filtration rate is determined by the 2020 CKD-EPI equation recommended by the National Kidney Foundation (A Unifying Approach to GFR Estimation: Recommendations of the [employer]F-ASK Task Force on Reassessing the Inclusion of Race in Diagnosing Kidney Disease, JASN 2020). The CKD-EPI equation should not be used for patients with unstable renal function and has not been validated in children and those over 70. Current interpretive data was last reviewed 2021. Blood 02/09/2023 10:5 4 PM CDT 02/09/2023 11:11 PM CDT Maral Wilkes NP LAB BLOOD ORDERABLES Final Result Performing Organization Address City/[facility]/ZIP Co de Phone Number [facility] Department [place] [address] * RPR Blood (02/09/2023 10:54 PM CDT) Pathologist [facility] RPR Nonreactive Nonreactive [facility] Blood 02/09/2023 10:5 4 PM CDT 02/09/2023 11:11 PM CDT Maral Wilkes NP LAB MICROBIOLOGY - GENERAL ORDERABLES Final Result Performing Organization Address [facility] Co de Phone Number [facility] Department [place] [address] * (ABNORMAL) Comprehensive metabolic panel (02/09/2023 10:54 PM CDT) [facility] Sodium 136 135 - 145 mmol/L [facility] Potassium, pl 3.8 3.3 - 4.9 mmol/L [facility] Chloride 104 97 - 110 mmol/L [facility] CO2 20(L) 22 - 32 mmol/L [facility] Anion gap 12 2 - 15 mmol/L [facility] BUN 10 6 - 25 mg/dL [facility] Creatinine 0.58(L) 0.60 - 1.10 mg/dL [facility] Glucose 110 70 - 199 mg/dL [facility] Comment: Interpretive Data Fasting glucose >/= 126 mg/dl is diagnostic for diabetes. ?? Fasting is defined as no caloric intake for at least 8 hours. Fasting glucose between 100 mg/dl to 125 mg/dl is diagnostic of prediabetes. In a patient with classic symptoms of hyperglycemia or hyperglycemic crisis, a random glucose >/= 200 mg/dl is diagnostic for diabetes. In the absence of unequivocal hyperglycemia, results should be confirmed by repeat testing. The classification and Diagnosis of Diabetes Diabetes Care 2021; 46: S19-S40. Current interpretive data was last revised 2022. Calcium 9.5 8.5 - 10.3 mg/dL [facility] Bilirubin, total 0.2 0.1 - 1.2 mg/dL [facility] Protein, pl 7.1 6.5 - 8.5 g/dL [facility] Albumin 3.4(L) 3.5 - 5.0 g/dL [facility] Alk phos 152(H) 40 - 130 Units/L [facility] ALT 14 7 - 45 Units/L [facility] AST 24 10 - 45 Units/L [facility] Blood 02/09/2023 10:5 4 PM CDT 02/09/2023 11:11 PM CDT Maral Wilkes NP LAB BLOOD ORDERABLES Final Result [facility] [place] [address] * (ABNORMAL) CBC without differential (02/09/2023 10:54 PM CDT) [facility] WBC 9.6 3.8 - 9.9 K/cumm [facility] Hgb 11.3(L) 11.9 - 15.5 g/dL [facility] Comment: Interpretive Data A reference range for this assay has not been established for patients with an unknown legal sex. Please refer to the laboratory test catalog for established sex-specific reference intervals. Current interpretive data was last revised on 2023. Hct 32.6(L) 35.6 - 45.5 % [facility] Comment: Interpretive Data A reference range for this assay has not been established for patients with an unknown legal sex. Please refer to the laboratory test catalog for established sex-specific reference intervals. Current interpretive data was last revised on 2023. Plt 228 150 - 400 K/cumm [facility] MPV 11.3 9.1 - 12.3 fL [facility] RBC 3.53(L) 3.90 - 5.20 M/cumm [facility] Comment: Interpretive Data A reference range for this assay has not been established for patients with an unknown legal sex. Please refer to the laboratory test catalog for established sex-specific reference intervals. Current interpretive data was last revised on 2023. MCV 92.4 81.3 - 96.4 fL [facility] MCH 32.0 27.1 - 33.3 pg [facility] MCHC 34.7 32.3 - 35.7 g/dL [facility] RDW CV 12.8 11.1 - 14.9 % [facility] RDW SD 42.9 35.7 - 48.1 fL [facility] NRBC abs 0.00 0.00 - 0.01 K/cumm [facility] Blood 02/09/2023 10:5 4 PM CDT 02/09/2023 11:11 PM CDT Maral Wilkes NP LAB BLOOD ORDERABLES Final Result Performing Organization Address [facility] Co de Phone Number [facility] [place] [place] [address] * Type and screen (02/09/2023 10:54 PM CDT) ABO Rh A Positive Mateo, indirect Negative [facility] Blood 02/09/2023 10:5 4 PM CDT 02/09/2023 11:05 PM CDT Narrative [facility] - 02/10/2023 12:09 AM CDT Has the patient had Daratumumab or Isatuximab in the past 6 months?->Unknown Maral Wilkes NP LAB BLOOD BANK TEST ORDERA BLES Final Result Performing Organization Address [facility]/ZIP Co de Phone Number [facility] [place] [place] [address] documented in this encounter Visit Diagnoses Diagnosis Normal labor- Primary Normal labor care following vaginal delivery documented in this encounter Admitting Diagnoses Diagnosis Normal labor documented in this encounter Administered Medications Inactive Administered Medications - up to 3 most recent administrations Medication Order MAR Action Action Date Dose Rate Site acetaminophen (TYLENOL) tablet 1,000 mg 1,000 mg, oral, Every 6 hours PRN, 1st line for pain, Starting on Wed02/10/23 at 2141 Given 02/11/2023 8:17 AM CDT 1,000 mg Given 02/11/2023 1:42 AM CDT 1,000 mg acetaminophen (TYLENOL) tablet 650 mg 650 mg, oral, Every 6 hours PRN, 1st line for pain, Starting on Wed02/10/23 at 1053 Given 02/10/2023 7:56 PM CDT 650 m g Given 02/10/2023 12:05 PM CDT 650 mg benzocaine-menthoL (DERMOPLAST) 20-0.5 % topical spray 1 spray 1 spray, topical, As needed, other, perianal area for pain, Starting on Wed02/10/23 at 1053, Up to 6 times a day., Apply to affected area: perineum, Indications: Minor Skin Wound PainIndications:Minor Skin Wound Pain Given 02/10/2023 12:15 PM CDT 1 spray calcium carbonate (TUMS) chewable tablet 500 mg 500 mg, oral, 4 times daily PRN, heartburn, Starting on Wed02/10/23 at 1053, Indications: DyspepsiaIndications:Dyspepsia cyclobenzaprine (FLEXERIL) tablet 5 mg 5 mg, oral, 3 times daily PRN, muscle spasms, Starting on Wed02/11/23 at 0125 Given 02/11/2023 3:54 AM CDT 5 mg dextrose 5% and Lactated Ringer's bolus 125 mL 125 mL, intravenous, Once, On Wed02/10/23 at 0030, For 1 dose New Bag 02/10/2023 12:13 AM CDT 125 mL dextrose 5% and Lactated Ringer's infusion 125 mL/hr, intravenous, Continuous, Starting on Wed02/10/23 at 0300 New Bag 02/10/2023 6:51 AM CDT 125 mL/hr 125 mL/hr Rate/Dose Change 02/10/2023 2:23 AM CDT 125 mL/hr 125 mL/ hr docusate sodium (COLACE) capsule 100 mg 100 mg, oral, 2 times daily, First dose on Wed02/10/23 at 1130, Hold if diarrhea., Indications: constipation, Stool SoftenerIndications:constipation,Stool Softener Given 02/11/2023 8:17 AM CDT 100 mg Given 02/10/2023 7:56 PM CDT 100 mg fentaNYL-BUPivacaine preservative free in 0.9% sodium chloride [...] 4:15 AM CDT 10 mL/hr 10 mL/hr hydrocortisone (ANUSOL-HC) 2.5 % rectal cream rectal, 3 times daily PRN, hemorrhoids, Starting on Wed02/10/23 at 1053, Indications: HemorrhoidsIndications:Hemorrhoids ibuprofen (ADVIL,MOTRIN) tablet 600 mg 600 mg, oral, Every 6 hours PRN, other, cramping, Starting on Wed02/10/23 at 1053, Indications: CrampsIndications:Cramps Given 02/11/2023 8:17 AM CDT 600 mg Given 02/11/2023 1:42 AM CDT 600 mg Given 02/10/2023 7:56 PM CDT 600 mg Lactated Ringer's (LR) bolus 1,000 mL 1,000 mL, intravenous, Once as needed, for epidural placement per anesthesia request, Starting on Wed02/09/23 at 2226, For 1 dose, L&D Pre-Delivery, Administer only on provider request. Start 15 minutes prior to epidural placement New Bag 02/10/2023 3:57 AM CDT 1,000 mL ondansetron (ZOFRAN) injection 4 mg 4 mg, intravenous, Administer over 2 Minutes, Every 6 hours PRN, nausea, vomiting, if not tolerating PO, Starting on Anisha 02/11/23 at 0853, Start in 24 hours after Anesthesia no longer covering., Indications: Nausea and VomitingIndications:Nausea and Vomiting ondansetron ODT (ZOFRAN-ODT) disintegrating tablet 4 mg 4 mg, oral, Every 6 hours PRN, nausea, vomiting, Starting on Anisha 02/11/23 at 0853, Start in 24 hours after Anesthesia no longer covering., Indications: Nausea and VomitingIndications:Nausea and Vomiting oxytocin 30 unit/500 mL (0.06 unit/mL) in sodium chloride 0.9% (premix) solution 95-334 milliunits/min (95-334 mL/hr), 0.06 units/mL, intravenous, Continuous, Starting on Wed02/10/23 at 1045, Until 02/10/23 at 1414, After delivery of placenta initiate at 334 hernandez-units/minutes for 30 minutes then decrease infusion to 95 hernandez-units/min for 3.5 hours., Routine New Bag 02/10/2023 10:44 AM CDT 95 milliunits/min 95 mL/hr Rate/Dose Change 02/10/2023 10:20 AM CDT 999 milliunits/mi n 999 mL/hr Rate/Dose Change 02/10/2023 10:15 AM CDT 334 milliunits/mi n 334 mL/hr oxytocin 30 unit/500 mL (0.06 unit/mL) in sodium chloride 0.9% (premix) solution 0.5-40 milliunits/min (0.5-40 mL/hr), 0.06 units/mL, intravenous, Titrated, Starting on 02/10/23 at 0030, Until Anisha 02/11/23 at 1735, Indications: Induction of Labor, Start at 2 hernandez-units/min and increase by 2 hernandez-units/minutes every 30 minutes until contraction frequency is every 2-3 minutes. - - 20 milliunits/minutes maximum - All other patients 40 milliunits/minute maximum Discontinue for distress or uterine hyperstimulation., RoutineIndications:Induct ion of Labor Rate/Dose Change 02/10/2023 6:00 AM CDT 12 milliunits/min 12 mL/hr Rate/Dose Change 02/10/2023 2:30 AM CDT 10 milliunits/min 10 mL/hr Rate/Dose Change 02/10/2023 2:00 AM CDT 8 milliunits/min 8 mL/hr PNV with [id number]-psga-JV tablet 1 tablet 1 tablet, oral, Daily, First dose on Wed02/10/23 at 1130, Begin when normal bowel activity resumes., Indications: Vitamin Deficiency PreventionIndications:Vitamin Deficiency Prevention Given 02/11/2023 8:17 AM CDT 1 tablet polyethylene glycol (MIRALAX) packet 17 g 17 g, oral, Daily, First dose on Wed02/10/23 at 1130, Hold if diarrhea., Indications: constipationIndications:constipation Given 02/11/2023 8:17 AM CDT 17 g sodium chloride 0.9% flush 0.5-20 mL 0.5-20 mL, intra-catheter, Every 8 hours scheduled, First dose on Wed02/10/23 at 0600, Flush volume based on line type and size. Given 02/10/2023 10:00 PM CDT 10 mL documented in this encounter Historical Medications * This list may reflect changes made after this encounter. magnesium oxide 400 mg magnesium capsule Take by mouth 03/25/2023 added in this encounter Active and Recently Administered Medications Times are shown in CDT. Scheduled Medication Order 02/09/2023 02/10/2023 02/11/2023 dextrose 5% and Lactated Ringer's bolus 125 mL (COMPLETED) 125 mL, intravenous, Once, On Wed02/10/23 at 0030, For 1 dose 0013 (New Bag - Provider: Dary Parham, SUKH) docusate sodium (COLACE) capsule 100 mg 100 mg, oral, 2 times daily, First dose on Wed02/10/23 at 1130, Hold if diarrhea., Indications: constipation, Stool Softener 1332 (Not Given - Provider: Vaishali Dee RN - Reason: Patient/family refused)1956 (Given - Provider: Lily Sorensen, SUKH) 0817 (Given - Provider: Abeba Forrest, SUKH) Lactated Ringer's (LR) bolus 1,000 mL 1,000 mL, intravenous, Once, On Wed02/10/23 at 0500, For 1 dose, 15 to 30 minutes before epidural placement. 0527 (Canceled Entry - Provider: Dary Parham RN - Comment: duplicate order) PNV with cxikpxb-blke-WG tablet 1 tablet 1 tablet, oral, Daily, First dose on Wed02/10/23 at 1130, Begin when normal bowel activity resumes., Indications: Vitamin Deficiency Prevention 1332 (Not Given - Provider: Vaishali Dee RN - Reason: Patient/family refused) 0817 (Given - Provider: Abeba Forrest, SUKH) polyethylene glycol (MIRALAX) packet 17 g 17 g, oral, Daily, First dose on Wed02/10/23 at 1130, Hold if diarrhea., Indications: constipation 1332 (Not Given - Provider: Vaishali Dee RN - Reason: Patient/family refused) 0817 (Given - Provider: Abeba Forrest, SUKH) sodium chloride 0.9% flush 0.5-20 mL 0.5-20 mL, intra-catheter, Every 8 hours scheduled, First dose on Wed02/10/23 at 0600, Flush volume based on line type and size. 0527 (Not Given - Provider: Dary Parham RN - Reason: IV Infusing)1333 (Not Given - Provider: Vaishali Dee RN - Reason: IV Infusing)2200 (Given - Provider: Lily Sorensen RN) 0823 (Not Given - Provider: Abeba Forrest RN - Reason: Loss of IV access) Continuous Medication Order 02/09/2023 02/10/2023 02/11/2023 dextrose 5% and Lactated Ringer's infusion 125 mL/hr, intravenous, Continuous, Starting on Wed02/10/23 at 0300 0223 (Rate/Dose Change - Provider: Dary Parham RN)0651 (New Bag - Provider: Dary Parham RN) 1735 (Due: Stopped) fentaNYL-BUPivacaine preservative free in 0.9% sodium chloride 2 mcg/mL- 0.1 % cassette (premix) Continuous Rate: 10 mL/hr, Patient Bolus Dose: other, Patient Bolus Dose (mL): 6, Lockout Interval: 15 Minutes, epidural, Continuous, Starting on Wed02/10/23 at 0500, Until Anisha 02/11/23 at 1735, 100 mL, Indications: Pain, Stop epidural infusion after placental delivery and any indicated repair is complete., Routine 0407 (New Bag - Provider: Barbara Echols MD)0411 (Bolus - Provider: Barbara Echols MD)0415 (New Bag - Provider: Barbara Echols MD)0801 (Rate/Dose Change - Provider: Jose F Bojorquez CRNA)0930 (New Syringe/Cartridge - Provider: Anna Mendoza RN)1025 (Stopped (Dual Sign) - Provider: Anna Mendoza RN) oxytocin 30 unit/500 mL (0.06 unit/mL) in sodium chloride 0.9% (premix) solution () 95-334 milliunits/min (95-334 mL/hr), 0.06 units/mL, intravenous, Continuous, Starting on 02/10/23 at 1045, Until Wed02/10/23 at 1414, After delivery of placenta initiate at 334 hernandez-units/minutes for 30 minutes then decrease infusion to 95 hernandez-units/min for 3.5 hours., Routine 1015 (Rate/Dose Change - Provider: Anna Mendoza RN)1020 (Rate/Dose Change - Provider: Anna Mendoza RN - Comment: Monty Gonzalez MD)1044 (New Bag - Provider: Anna Mendoza RN) oxytocin 30 unit/500 mL (0.06 unit/mL) in sodium chloride 0.9% (premix) solution 0.5-40 milliunits/min (0.5-40 mL/hr), 0.06 units/mL, intravenous, Titrated, Starting on 02/10/23 at 0030, Until Anisha 02/11/23 at 1735, Indications: Induction of Labor, Start at 2 hernandez-units/min and increase by 2 hernandez-units/minutes every 30 minutes until contraction frequency is every 2-3 minutes. - - 20 milliunits/minutes maximum - All other patients 40 milliunits/minute maximum Discontinue for distress or uterine hyperstimulation., Routine 0013 (New Bag - Provider: Dary Parham RN - Comment: verified by Amy LUZ)0100 (Rate/Dose Change - Provider: Dary Parham RN)0130 (Rate/Dose Change - Provider: Dary Parham RN)0200 (Rate/Dose Change - Provider: Dary Parham RN)0230 (Rate/Dose Change - Provider: Dary Parham RN)0600 (Rate/Dose Change - Provider: Dary Parham RN)1013 (Stopped - Provider: Anna Mendoza RN) PRN Medication Order 02/09/2023 02/10/2023 02/11/2023 acetaminophen (TYLENOL) tablet 1,000 mg 1,000 mg, oral, Every 6 hours PRN, 1st line for pain, Starting on Wed02/10/23 at 2141 0142 (Given - Provid er: Lily Sorensen RN)0817 (Given - Provider: Abeba Forrest RN) acetaminophen (TYLENOL) tablet 650 mg (CANCELED) 650 mg, oral, Every 6 hours PRN, 1st line for pain, Starting on Wed02/10/23 at 1053 1205 (Given - Provider: Anna Mendoza RN)1956 (Given - Provider: Lily Sorensen RN)1958 (Canceled Entry - Provider: Lily Sorensen RN) benzocaine-menthoL (DERMOPLAST) 20-0.5 % topical spray 1 spray 1 spray, topical, As needed, other, perianal area for pain, Starting on Wed02/10/23 at 1053, Up to 6 times a day., Apply to affected area: perineum, Indications: Minor Skin Wound Pain 1215 (Given - Provider: Anna Mendoza RN - Comment: Given to patient to use independently) calcium carbonate (TUMS) chewable tablet 500 mg 500 mg, oral, 4 times daily PRN, heartburn, Starting on Wed02/10/23 at 1053, Indications: Dyspepsia Carrier Fluids for Secondary Infusion - 0.9% Sodium Chloride 30 mL, intravenous, As needed, For priming tubing and/or flushing, Starting on Wed02/10/23 at 0421, 0-250 ml/hr to flush line after IV infusions when no maintenance IV ordered. Infuse 30mL at the same rate as the secondary infusion. Run as primary IV, not intended for KVO. cyclobenzaprine (FLEXERIL) tablet 5 mg 5 mg, oral, 3 times daily PRN, muscle spasms, Starting on Anisha 02/11/23 at 0125 0354 (Given - Provid er: Lily Sorensen, RN) diphenhydrAMINE (BENADRYL) 50 mg/mL injection 25 mg 25 mg, intravenous, Administer over 2 Minutes, Every 6 hours PRN, itching, Starting on Wed02/10/23 at 0421, May switch to nalbuphine if itching not resolved in 30 minutes. Discontinue after delivery., Indications: Itching hydrocortisone (ANUSOL-HC) 2.5 % rectal cream rectal, 3 times daily PRN, hemorrhoids, Starting on Wed02/10/23 at 1053, Indications: Hemorrhoids ibuprofen (ADVIL,MOTRIN) tablet 600 mg 600 mg, oral, Every 6 hours PRN, other, cramping, Starting on Wed02/10/23 at 1053, Indications: Cramps 1205 (Given - Provider: Anna Mendoza RN)1956 (Given - Provider: Lily Sorensen, SUKH)1958 (Canceled Entry - Provider: Lily Sorensen, RN) 0142 (Given - Provider: Lily Sorensen, RN)0817 (Given - Provider: Abeba Forrest, SUKH) Lactated Ringer's (LR) bolus 1,000 mL (COMPLETED) 1,000 mL, intravenous, Once as needed, for epidural placement per anesthesia request, Starting on Wed02/09/23 at 2226, For 1 dose, L&D Pre-Delivery, Administer only on provider request. Start 15 minutes prior to epidural placement 0357 (New Bag - Provider: Dary Parham, SUKH) naloxone (NARCAN) 0.4 mg/mL injection 0.04-0.4 mg 0.04-0.4 mg, intravenous, Once as needed, other, excessive sedation/respiratory depression, Starting on Wed02/10/23 at 0421, For 1 dose, Dilute 0.4 mg with 9 mL NS (final concentration 0.04 mg/mL). For respiratory depression (respiratory rate less than 6), administer 0.4 mg IVP over 30 seconds. For excessive sedation administer 0.04 mg (1 mL) every 1 minute until desired level of alertness. Notify MD. Discontinue after delivery. For IV, administer over 30 seconds., Indications: Opioid Toxicity ondansetron (ZOFRAN) injection 4 mg(Linked Group 1) 4 mg, intravenous, Administer over 2 Minutes, Every 6 hours PRN, nausea, vomiting, if not tolerating PO, Starting on Anisha 02/11/23 at 0853, Start in 24 hours after Anesthesia no longer covering., Indications: Nausea and Vomiting ondansetron ODT (ZOFRAN-ODT) disintegrating tablet 4 mg(Linked Group 1) 4 mg, oral, Every 6 hours PRN, nausea, vomiting, Starting on Anisha 02/11/23 at 0853, Start in 24 hours after Anesthesia no longer covering., Indications: Nausea and Vomiting prochlorperazine (COMPAZINE) injection 5 mg 5 mg, intravenous, Administer over 2 Minutes, Every 6 hours PRN, nausea, vomiting, Starting on 02/10/23 at 0421, Discontinue after delivery., Indications: Nausea and Vomiting sodium chloride 0.9% flush 0.5-20 mL 0.5-20 mL, intra-catheter, As needed, line care, Starting on 02/10/23 at 0421, Flush volume based on line type and size. Flush before and after each use. Linked Groups Order Group 1: ondansetron ODT (ZOFRAN-ODT) disintegrating tablet 4 mgJump to med 4 mg, oral, Every 6 hours PRN, nausea, vomiting, Starting on Anisha 02/11/23 at 0853, Start in 24 hours after Anesthesia no longer covering., Indications: Nausea and Vomiting Or ondansetron (ZOFRAN) injection 4 mgJump to med 4 mg, intravenous, Administer over 2 Minutes, Every 6 hours PRN, nausea, vomiting, if not tolerating PO, Starting on Anisha 02/11/23 at 0853, Start in 24 hours after Anesthesia no longer covering., Indications: Nausea and Vomiting documented in this encounter Orders Medications Ordered That Rajesh ht Not Have Been Administered Count Last Ordered Date First Ordered Date calcium carbonate (TUMS) jazmyne wable tablet 500 mg 1 02/10/2023 Carrier Fluids for Secondary Infusion - 0.9% Sodium Chloride 2 02/10/2023 02/09/2023 diphenhydrAMINE (BENADRYL) 5 0 mg/mL injection 25 mg 1 02/10/2023 hydrocortisone (ANUSOL-HC) 2 .5 % rectal cream 1 02/10/2023 Lactated Ringer's (LR) bolus 1,000 mL 2 02/09/2023 naloxone (NARCAN) 0.4 mg/mL injection 0.04-0.4 mg 1 02/10/2023 ondansetron (ZOFRAN) injection 4 mg 2 02/1002/09/2023 ondansetron ODT (ZOFRAN-ODT) disintegrating tablet 4 mg 2 02/10/2023 02/09/2023 prochlorperazine (COMPAZINE) injection 5 mg 1 02/10/2023 sodium chloride 0.9% flush 0.5-20 mL 3 01/1802/09/2023 carboprost (HEMABATE) injection 250 mcg 1 1 lidocaine PF (XYLOCAINE) 10 mg/mL (1 %) preservative free injection 100 mg 1 02/09/2023 loperamide (IMODIUM) capsule 2 mg 1 023 methylergonovine (METHERGINE ) injection 0.2 mg 1 02/09/2023 miSOPROStoL (CYTOTEC) tablet 800 mcg 1 01/18 oxytocin (PITOCIN) injection 10 Units 1 terbutaline (BRETHINE) injection 0.125 mg 1 02/09/2023 terbutaline (BRETHINE) injection 0.25 mg 1 02/09/2023 tranexamic acid (CYKLOKAPRON ) 1,000 mg/100 mL (10 mg/mL) in sodium chloride (premix) 1,000 mg 1 02/09/2023 Nursing Count Last Ordered Date First Orde red Date VERIFY INFORMED CONSENT 1 02/10/2023 MISCELLANEOUS NURSING CARE ORDER (SPECIFY) 2 02/09/2023 NURSING COMMUNICATION 1 02/09/2023 Admission Count Last Ordered Date First Orde red Date ADMIT TO L&D INPATIENT 1 02/09/2023 Transfer Count Last Ordered Date First Orde red Date TRANSFER PATIENT TO NEW UNIT 1 02/10/2023 Discharge Count Last Ordered Date First Orde red Date DISCHARGE PATIENT 1 02/11/2023 CORE MEASURES Count Last Ordered Date First Ord ered Date REASON FOR NO VTE PROPHYLAXIS AT ADMISSION 2 02/10/2023 02/09/2023 documented in this encounter Care Teams Cooling Pipe Inspector Relationship Specialty Start Date End Date Bette Phillips PA PCP - General Physician Hosiery Mender 11/23/19 documented as of this encounter
--- OUTSIDE RECORDS SUMMARY | 2024-04-15 03:45 | XMS_ITS | Encounter Summary ---
Author Organization [facility] Healthcare Address [address] [place] [address] Care Team Providers Care Seeing Eye Dog Teacher Name Role Phone Bette Phillips Primary Care Pr ovider Encounter Details Date Type Department Care Team (Latest Contact Info) Description 01/28/2023 4:17 PM CDT - 01/28/2023 11:59 [place] [address] Supervision of other normal , antepartum Discharge Disposition: Discharge to home or self [...] exercise at this level? 60 min 12/21/2019 [place] Depression Scale Answer Date Recorded [place] Depression Scale Total 7 06/07/2020 The thought of harming myself has occurred to me . 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 of this encounter Medications at Time of Discharge FERROUS SULFATE ORAL Take 65 mg by mouth every other day 03/25/2023 PNV with [id number] 27 mg iron- 1 mg tabletIndications :Vitamin Deficiency Prevention Take 1 tablet by mouth daily 90 tablet 3 04/29/2020 03/25/2023 documented as of this encounter Discharge Disposition Disposition Code Departure Means Destination Discharge to home or self care documented in this encounter Plan of Treatment Not on file documented as of this encounter Procedures Procedure Name Priority Date/Time Associated Diagnosis Comments GROUP B STREPTOCOCCUS CULTURE Routine 01/28/2023 4:17 PM CDT Supervision of other normal , antepartum documented in this encounter Results * Group B streptococcal culture Vaginal/Rectal (01/28/2023 4:17 PM CDT) Report Final Report: Negative Vaginal/Rectal 01/28/2023 4: 17 PM CDT 01/28/2023 6:20 PM CDT Narrative [facility] - 01/31/2023 8:39 PM CDT Testing performed by [facility] ([phone]). Ashlyn Oscar MD LAB MICROBIOLOGY - GEN ERAL ORDERABLES Final Result [facility] Department [place] [address] documented in this encounter Visit Diagnoses Diagnosis Supervision of other normal , antepartum documented in this encounter Care Teams Seeing Eye Dog Teacher Relationship Specialty Start Date End Date Bette Phillips PA PCP - General Physician Tso 11/23/19 documented as of this encounter
--- OUTSIDE RECORDS SUMMARY | 2024-04-15 03:45 | XMS_ITS | Encounter Summary ---
Author Organization [facility] Address [address] [place] [address] Phone Care Team Providers Care Reversing Mill Roller Name Role Phone Bette Phillips Primary Care Pr ovider Encounter Details Date Type Department Care Team (Late st Contact Info) Description 06/01/2023 11:00 AM AIR LAUNCH WEAPONS TECHNICIAN Telemedicine [facility] [address] [place] [address] Danitza Viveros, [facility] [address] [facility] [address] [place], [place] [id number] Adjustment disorders, with mixed anxiety and depressed [...] How often do you attend chur or restoration services? Never 02/11/2023 Do you belong to any clubs o r organizations such as denominational groups, unions, fraternal or athletic groups, or [...] place to sleep or slept in a halfway (including now)? 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 During the visit, I was located at home and the patient was located in her home in the [facility]. The patient visit started at 14:00 pm and ended at 14:59 pm. My total encounter time on 06/01/2023 was 59 minutes which was spent in [...] discussed Olga's mood/symptoms since last session. Olga reports that last week was a hard week. She states that her daughter has not been sleeping well, impacting mood and functioning. She describes her as supportive in the night and we review ways to balance the workload of caring for baby and utilize each partner's strengths. Olga also expressed some stress related torecent interactions with spouse. We talk through using I feel...when... statements, naming needs,and also trying to identify what partner is meaning. As Olga describes a healthy, positive relationship with spouse we also discuss Ga's exercise of assuming positive intent . Mental Status: General Appearance and Behavior: Appears [...] depression Olga will follow up with this [facility] Therapist in 1-2 weeks. Pt will continue to work towards the development of healthy coping strategies, strengthen communication with spouse, and identify own needs. Psychotherapy: I provided cognitive behavioral, behavioral activation, supportive, and behavioral planning psychotherapy focusing on managing stress, improving interactions with spouse, and taking care of self. Psychotherapy Time: Start: 1:00 pm Stop: 1:55 pm Total time: 55minutes LAUNCH WEAPONS TECHNICIAN documented in this encounter Plan of Treatment Not on file documented as of this encounter Visit Diagnoses Diagnosis Adjustment disorders, with mixed anxiety and depressed mood- Primary documented in this encounter Care Teams Reversing Mill Roller Relationship Specialty Start Date End Date Bette Phillips PA PCP - General Physician Escalator Mechanic 11/23/19 documented as of this encounter
--- OUTSIDE RECORDS SUMMARY | 2024-04-15 03:45 | XMS_ITS | Encounter Summary ---
Author Organization [facility] Address [address] [place] [address] Phone Care Team Providers Care Tractor Distributor Name Role Phone Bette Phillips Primary Care Pr ovider Reason for Visit * Reason Comments Routine Visit Encounter Details Date Type Department Care Team (Late st Contact Info) Description 08/10/2022 4:15 PM CDT Office Visit [facility] Obstetrics and Gynecology [address] [place] [address] Supervision of normal first , antepartum (Primary Dx); Frequent headaches Social History Tobacco Use Types Packs/Day Years [...] exercise at this level? 60 min 12/21/2019 [place] Depression Scale Answer Date Recorded [place] Depression Scale Total 7 06/07/2020 The thought of harming myself has occurred to me . 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 of this encounter Last Filed Vital Signs Vital Sign Reading Time Taken Comments Blood Pressure 110/71 08/10/2022 4:15 PM CDT Pulse - - Temperature - - Respiratory Rate - - Oxygen Saturation - - Inhaled Oxygen Concentration - - Weight 71.9 kg (158 lb 9.6 oz) 08/10/2022 4:15 P M CDT Height 170.2 cm (5' 7 ) 08/10/2022 4:15 PM CDT Body Mass Index 24.84 08/10/2022 4:15 PM CDT documented in this encounter Ordered Prescriptions Prescription Sig Dispense Quantity Refills Last Filled Start Date End Date prochlorperazine (COMPAZINE) 10 mg tabletIndications: Frequent headaches Take 1 tablet (10 mg total) by mouth every 6 (six) hours as needed for nausea or vomiting 30 tablet 1 08/10/2022 3 documented in this encounter Progress Notes * Nakita Altman NP - 08/10/2022 4:15 PM CDT BERNABE - Denies lof,bleeding and or cramping - gc/ch today - notes headaches, hx of headaches that she took ibuprofen for, tylenol not helping. Desires to trycompazine. RTC in 4 weeks Angelica Altman APRN, OTIS-BC documented in this encounter Plan of Treatment Not on file documented as of this encounter Results * N. gonorrhoeae/C. trachomatis Amplification Urine (08/10/2022 4:29 PM CDT) C. trachomatis Not Detected Not Detected [facility] N. gonorrhoeae Not Detected Not Detected [facility] SC[facility] Comment: Interpretive Data Testing performed by the [facility]. This assay detects Chlamydia trachomatis and Neisseria gonorrhoeae by nucleic acid amplification testing (NAAT). This test is approved by the [place] Food and Drug Administration and the performance characteristics have been verified by the laboratory. The performance characteristics of this test have not been evaluated in individuals less than 14 years of age. Current Interpretive Data was last revised on 2018. Urine (None) 08/10/2022 4:29 PM CDT 08/10/2022 7:57 PM CDT Nakita Altman NP LAB MICROBIOLOGY - G ENERAL ORDERABLES Final Result [facility] Department [place] [address] documented in this encounter Visit Diagnoses Diagnosis Supervision of normal first , antepartum- Primary Frequent headaches documented in this encounter Discontinued Medications Medication Sig Discontinue Reason Start Date End Da te acetaminophen 500 mg capsuleIndications:Pain Take 2 capsules (1,000 mg total) by mouth every 6 (six) hours as needed for pain Therapy completed 04/28/2020 08/10/2022 documented as of this encounter Care Teams Tractor Distributor Relationship Specialty Start Date End Date Bette Phillips PA PCP - General Physician Leather Softener 11/23/19 documented as of this encounter
--- OUTSIDE RECORDS SUMMARY | 2024-04-15 03:45 | XMS_ITS | Encounter Summary ---
Author Organization [facility] Address [address] [place] [address] Phone Care Team Providers Care Typesetter Apprentice Name Role Phone Bette Phillips Primary Care Pr ovider Reason for Visit * Reason Comments Follow-up Encounter Details Date Type Department Care Team (Late st Contact Info) Description 03/25/2023 11:30 AM EAR NOSE AND THROAT SPECIALIST Office Visit [facility] Obstetrics and Gynecology [address] [place] [address] care following vaginal delivery (Primary Dx); Adjustment disorder, unspecified type Social History Tobacco Use Types Packs/Day Years [...] often do you attend chur ch or amish services? Never 02/11/2023 Do you belong to any clubs o r organizations such as scientologist groups, unions, fraternal or athletic groups, or [...] place to sleep or slept in a jail (including now)? 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 of this encounter Last Filed Vital Signs Vital Sign Reading Time Taken Comments Blood Pressure 135/90 03/25/2023 11:36 AM EAR NOSE AND THROAT SPECIALIST Pulse - - Temperature - - Respiratory Rate - - Oxygen Saturation - - Inhaled Oxygen Concentration - - Weight 76.2 kg (168 lb) 03/25/2023 11:36 AM EAR NOSE AND THROAT SPECIALIST Height 170.2 cm (5' 7 ) 03/25/2023 11:36 AM EAR NOSE AND THROAT SPECIALIST Body Mass Index 26.31 03/25/2023 11:36 AM EAR NOSE AND THROAT SPECIALIST documented in this encounter Progress Notes * Nakita Altman, MARY - 03/25/2023 11:30 AM CST Post Visit Note Chief Complaint Follow-up Subjective: Olga Saeed is a 32 y.o. year old female who presents for visit. Notes headaches 3x/week ? Hydration and or caffeine related. Delivery type: 02/10/2023, SROM, Girl Mireya Complications: OP @ delivery Menses since delivery? none Feeding: breast, stopped last week. Mood: see problem list. Infant doing well. Contraception: progesterone only pills Last pap with result: 2021 NILM/HPV- Patient Active Problem List Diagnosis Supervision of other normal , antepartum Normal labor care following vaginal delivery Ob History OB History Para Term AB Living 2 2 2 2 SAB IAB Ectopic Multiple Live Births 0 2 # Outcome Date GA Lbr Nick/2nd Weight Sex Delivery Anes PTL Lv 2 Term 02/10/23 38w3d 11:57 / 02:26 3.42 kg (7 lb 8.6 oz) F Vaginal EPI N ADILSON Complications: Post Hemorrhage 1 Term 04/27/20 39w4d / 01:31 3.39 kg (7 lb 7.6 oz) F Vag-Spont EPI N ADILSON Obstetric Comments [id number] 2[facility]. She came in [place] and was augmented with OT. 2022- JM- Mireya SROM Past Medical History: Diagnosis Date Abnormal Pap smear of cervix 08/2016 Past Surgical History: Procedure Laterality Date COLPOSCOPY 2017 TONSILLECTOMY 2000 TYMPANOSTOMY TUBE PLACEMENT 1995 Social History Tobacco Use Smoking status: Never Smokeless tobacco: Never Substance and Sexual Activity Drug use: Never Sexual activity: Yes Partners: Male control/protection: None Alcohol Use: Unknown (06/20/2021) AUDIT-C Frequency of Alcohol Consumption: Monthly or less Average Number of Drinks: Not on file Frequency of Binge Drinking: Not on file Allergies: No Known Allergies Medications: No current outpatient medications on file. Objective: BP 135/90 Ht 170.2 cm (5' 7 ) Wt 168 lb (76.2 kg) LMP 05/17/2022 No BMI 26.31 kg/m?? Physical Exam Vitals reviewed. Napper Runner present: offered and pt declined. Constitutional: Appearance: Normal appearance. She is well-developed and normal weight. HENT: Head: Normocephalic. Pulmonary: Effort: Pulmonary effort is normal. Genitourinary: Labia: Right: No tenderness or lesion. Left: No tenderness or lesion. Vagina: Normal. Cervix: Normal. Uterus: Normal. Adnexa: Right adnexa normal and left adnexa normal. Musculoskeletal: General: Normal range of motion. Cervical back: Normal range of motion. Skin: General: Skin is warm. Neurological: Mental Status: She is alert and oriented to person, place, and time. Psychiatric: Behavior: Behavior normal. Thought Content: Thought content normal. Judgment: Judgment normal. EPDS:9 Assessment and Plan: Olga Saeed is a 32 y.o. female who presents for a post visit. Diagnoses and all orders for this visit: care following vaginal delivery 1. progress: Doing well from standpoint. Cleared for physical and sexual activity. 2. Mood: see below Reviewed s/s of PPD which can occur up to 1 year from delivery, to call office if experiences. 3. Contraception: POP's 4. Other issues: see below Adjustment disorder, unspecified type - following with [facility] at this time. RTO in one year for WWE or as needed. Angelica Altman APRN, OTIS- 03/25/2023 NOSE AND THROAT SPECIALIST documented in this encounter Plan of Treatment Not on file documented as of this encounter Visit Diagnoses Diagnosis care following vaginal delivery- Primary Adjustment disorder, unspecified type documented in this encounter Discontinued Medications Medication Sig Discontinue Reason Start Date End Da te docusate sodium (COLACE) 100 mg capsuleIndications:consti pation,Stool Softener Take 1 capsule (100 mg total) by mouth 2 (two) times a day Therapy completed 02/11/2023 03/25/2023 polyethylene glycol (MIRALAX) 17 gram/dose bulk powderIndications:constip ation Take 17 g by mouth daily Therapy completed 02/11/2023 03/25/2023 PNV with [id number] 27 mg iron- 1 mg tabletIndications:Vitamin Deficiency Prevention Take 1 tablet by mouth daily Therapy completed 04/29/2020 03/25/2023 norethindrone (MICRONOR) 0.35 mg tabletIndications:Pregnan cy Contraception Take 1 tablet (0.35 mg total) by mouth daily Therapy completed 02/11/2023 03/25/2023 magnesium oxide 400 mg magnesium capsule Take by mouth Therapy completed 03/25/2023 ibuprofen (ADVIL,MOTRIN) 600 mg tabletIndications:Cramps Take 1 tablet (600 mg total) by mouth every 6 (six) hours as needed for pain Therapy completed 02/11/2023 03/25/2023 FERROUS SULFATE ORAL Take 65 mg by mouth every other day Therapy completed 03/25/2023 acetaminophen 500 mg capsule Take 2 capsules (1,000 mg total) by mouth every 6 (six) hours as needed for pain Therapy completed 02/11/2023 03/25/2023 documented as of this encounter Care Teams Typesetter Apprentice Relationship Specialty Start Date End Date Bette Phillips PA PCP - General Physician Verification Engineer 11/23/19 documented as of this encounter
--- OUTSIDE RECORDS SUMMARY | 2024-04-15 03:45 | XMS_ITS | Encounter Summary ---
Author Organization [facility] Address [address] [place] [address] Phone Care Team Providers Care Manager Recruitment Name Role Phone Bette Phillips Primary Care Pr ovider Reason for Visit * Reason Comments Routine Visit Encounter Details Date Type Department Care Team (Late st Contact Info) Description 01/11/2023 2:15 PM CDT Office Visit [facility] Obstetrics and Gynecology [address] 7[address] [place] [address] Supervision of other normal , [...] exercise at this level? 60 min 12/21/2019 [place] Depression Scale Answer Date Recorded [place] Depression Scale Total 7 06/07/2020 The thought of harming myself has occurred to me . 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 of this encounter Last Filed Vital Signs Vital Sign Reading Time Taken Comments Blood Pressure 127/80 01/11/2023 2:15 PM CDT Pulse - - Temperature - - Respiratory Rate - - Oxygen Saturation - - Inhaled Oxygen Concentration - - Weight 80.5 kg (177 lb 6.4 oz) 01/11/2023 2:15 P M CDT Height 170.2 cm (5' 7 ) 01/11/2023 2:15 PM CDT Body Mass Index 27.78 01/11/2023 2:15 PM CDT documented in this encounter Progress Notes * Nakita Altman NP - 01/11/2023 2:15 PM CDT BERNABE - Denies lof,bleeding and or ctx's - Reports +FM - reviewed what to expect @ 36wk visit - reviewed safe OTC GERD medications, taking tums but worsening @ night - occasional vision spots, no other s/s associated with it. - restless leg, discussed magnesium RTC in 2 weeks Angelica Altman APRN, OTIS-BC documented in this encounter Plan of Treatment Not on file documented as of this encounter Visit Diagnoses Diagnosis Supervision of other normal , antepartum- Primary documented in this encounter Care Teams Manager Recruitment Relationship Specialty Start Date End Date Bette Phillips PA PCP - General Physician Fuel Dock Attendant 11/23/19 documented as of this encounter
--- OUTSIDE RECORDS SUMMARY | 2024-04-15 03:45 | XMS_ITS | Encounter Summary ---
Author Organization [facility] Address [address] [place] [address] Phone Care Team Providers Care Still Operator Name Role Phone Bette Phillips Primary Care Pr ovider Reason for Visit * Reason Comments Psychotherapy Depression Anxiety Encounter Details Date Type Department Care Team (Late st Contact Info) Description 03/09/2023 2:00 PM APPLICATIONS ENGINEER MANUFACTURING Telemedicine [facility] Psychiatry [address] [place] [address] Francisca Ray, [facility] [address] [place] [address] Adjustment disorders, with mixed anxiety [...] week 02/11/2023 How often do you attend [facility] or taoism services? Never 02/11/2023 Do you belong to any clubs o r organizations such as jain groups, unions, fraternal or athletic groups, or [...] place to sleep or slept in a [facility] (including now)? 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 During the visit, I was located at home and the patient was located in her home in the [facility]. The patient visit started at 2:00 pm and ended at 2:50 pm. My total encounter time on 03/09/2023 was 50 minutes which was spent in the activities [...] date of of 1990. We discussed Olga's stability in mood/symptoms over the past week. Olga shared that her mother was presently visiting and help with the children had been helpful. She also discussed her father's recent visit as well. Olga discussed his ongoing use of alcohol and we processed her feelings related to her father's choice to only visit when her mother was present. Olga focused on challenges she anticipated when her mother left and she was managing both kids on her own. We explored ways thatshe could work to challenge anxiety to return to activities that helped her when she was caring forher daughter prior to them growing their family. Mental Status: General Appearance and Behavior: Appears [...] depression Olga will follow up with this [facility] Therapist in 1-2 weeks. Pt will continue to work towards the development of healthy coping strategies. Psychotherapy: I provided cognitive behavioral, behavioral activation, supportive, and behavioral planning psychotherapy focusing on increasing pleasant events, increasing socialization, coping with anxiety, and coping with depression. Psychotherapy Time: Start: 2:00 pm Stop: 2:50 pm Total time: 50 minutes ICATIONS ENGINEER MANUFACTURING documented in this encounter Plan of Treatment Not on file documented as of this encounter Visit Diagnoses Diagnosis Adjustment disorders, with mixed anxiety and depressed mood- Primary documented in this encounter Care Teams Still Operator Relationship Specialty Start Date End Date Bette Phillips PA PCP - General Physician Patient Care Manager 11/23/19 documented as of this encounter
--- OUTSIDE RECORDS SUMMARY | 2024-04-15 03:45 | XMS_ITS | Encounter Summary ---
Author Organization [facility] Healthcare Address [address] [place] [address] Care Team Providers Care Testing Coordinator Name Role Phone Bette Phillips Primary Care Pr ovider Encounter Details Date Type Department Care Team (Late st Contact Info) Description 11/02/2022 1:05 PM CDT Lab [facility] [address] [place] [address] [place] [address] Supervision of other normal , antepartum Social History Tobacco Use Types Packs/Day Years [...] exercise at this level? 60 min 12/21/2019 [place] Depression Scale Answer Date Recorded [place] Depression Scale Total 7 06/07/2020 The thought of harming myself has occurred to me . 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 of this encounter Plan of Treatment Not on file documented as of this encounter Procedures Procedure Name Priority Date/Time Associated Diagnosis Comments GTT 50GM 1HR GESTATIONAL SCREEN Routine 11/02/2022 2:05 PM CDT Supervision of other normal , antepartum RPR Routine 11/02/2022 2:05 PM CDT Supervision of other normal , antepartum CBC WITHOUT DIFFERENTIAL Routine 11/02/2022 2:05 PM CDT Supervision of other normal , antepartum documented in this encounter Results * (ABNORMAL) CBC without differential (11/02/2022 2:05 PM CDT) WBC 10.1(H) 3.8 - 9.9 K/cumm [facility] Hgb 10.4(L) 11.9 - 15.5 g/dL [facility] Hct 30.6(L) 35.6 - 45.5 % [facility] Plt 263 150 - 400 K/cumm [facility] MPV 10.5 9.1 - 12.3 fL [facility] RBC 3.22(L) 3.90 - 5.20 M/cumm [facility] MCV 95.0 81.3 - 96.4 fL [facility] MCH 32.3 27.1 - 33.3 pg [facility] MCHC 34.0 32.3 - 35.7 g/dL [facility] RDW CV 12.9 11.1 - 14.9 % [facility] RDW SD 43.9 35.7 - 48.1 fL [facility] NRBC abs 0.00 0.00 - 0.01 K/cumm [facility] Blood 11/02/2022 2:05 PM CDT 11/02/2022 3:26 PM CDT us Mariana Gonzalez MD LAB BLOOD ORDERABLES Final Result Performing Organization Address [facility] Co de Phone Number [facility] [place] [address] * Glucose tolerance testing 50 gram gestational screen (11/02/2022 2:05 PM CDT) GTT 50g gest screen 74 <=140 mg/dL [facility] Comment: Interpretive Data Used for suspected gestational diabetes. The screening test uses 50 grams of glucose with sample obtained 1 hr later. Normal range: < 140 mg/dL. A glucose value of >140 mg/dL generally indicates the need for a full diagnostic tolerance test. Reference Interval Info: Diabetes Care 2005, Vol 28. Supplement 1,S37-S42. Report of the Expert Committee on the Diagnosis and Classification of Diabetes Mellitus. Diabetes Care 2020; 43(Supplement 1):S14-31. Current interpretive data was last revised on 2020. Blood 11/02/2022 2:05 PM CDT 11/02/2022 3:26 PM CDT Mariana Gonzalez MD LAB BLOOD ORDERABLES Final Result Performing Organization Address [facility] [place] [address] * RPR Blood (11/02/2022 2:05 PM CDT) Pathologist [facility] RPR Nonreactive Nonreactive [facility] Blood 11/02/2022 2:05 PM CDT 11/02/2022 3:26 PM CDT Mariana Gonzalez MD LAB MICROBIOLOGY - GE NERAL ORDERABLES Final Result Performing Organization Address [facility] Co de Phone Number [facility] [place] [address] documented in this encounter Visit Diagnoses Diagnosis Supervision of other normal , antepartum documented in this encounter Care Teams Testing Coordinator Relationship Specialty Start Date End Date Bette Phillips PA PCP - General Physician Claims Auditor 11/23/19 documented as of this encounter
--- OUTSIDE RECORDS SUMMARY | 2024-04-15 03:45 | XMS_ITS | Encounter Summary ---
Author Organization [facility] Address [address] [place] [address] Phone Care Team Providers Care Casino Investigator Name Role Phone Bette Phillips Primary Care Pr ovider Reason for Visit * Reason Comments Routine Visit Encounter Details Date Type Department Care Team (Late st Contact Info) Description 12/16/2022 12:45 PM CDT Office Visit [facility] Obstetrics and Gynecology [address] [facility] Out[facility] Health 7th Floor [address] [place] [address] Nakita Altman NP [address] [facility] [address] [place], [place] [id number] Supervision of other normal , antepartum (Primary [...] exercise at this level? 60 min 12/21/2019 [place] Depression Scale Answer Date Recorded [place] Depression Scale Total 7 06/07/2020 The thought of harming myself has occurred to me . 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 RTC in 2 weeks Angelica Altman APRN, OTIS-BC documented in this encounter Plan of Treatment Not on file documented as of this encounter Visit Diagnoses Diagnosis Supervision of other normal , antepartum- Primary documented in this encounter Care Teams Casino Investigator Relationship Specialty Start Date End Date Bette Phillips PA PCP - General Physician Geriatric Care Manager 11/23/19 documented as of this encounter
--- OUTSIDE RECORDS SUMMARY | 2024-04-15 03:45 | XMS_ITS | Encounter Summary ---
Author Organization [facility] Healthcare Address [address] [place] [address] Care Team Providers Care Multi Operation Machine Operator Name Role Phone Bette Phillips Primary Care Pr ovider Encounter Details Date Type Department Care Team (Latest Contact Info) Description 08/10/2022 4:29 PM CDT - 08/10/2022 11:59 PM CDT Hospital Encounter [place] [phone] Supervision of normal first , antepartum Discharge Disposition: Discharge to home [...] exercise at this level? 60 min 12/21/2019 [place] Depression Scale Answer Date Recorded [place] Depression Scale Total 7 06/07/2020 The thought of harming myself has occurred to me . 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 of this encounter Medications at Time of Discharge PNV with [id number] 27 mg iron- 1 mg tabletIndication s:Vitamin Deficiency Prevention Take 1 tablet by mouth daily 90 tablet 3 04/29/2020 03/25/2023 prochlorperazine (COMPAZINE) 10 mg tabletIndication s:Frequent headaches Take 1 tablet (10 mg total) by mouth every 6 (six) hours as needed for nausea or vomiting 30 tablet 1 08/10/2022 12/31/2022 documented as of this encounter Discharge Disposition Disposition Code Departure Means Destination Discharge to home or self care documented in this encounter Plan of Treatment Not on file documented as of this encounter Procedures Procedure Name Priority Date/Time Associated Diagnosis Comments N. GONORRHOEAE/C. TRACHOMATIS AMPLIFICATION Routine 08/10/2022 4:29 PM CDT Supervision of normal first , antepartum documented in this encounter Results * N. gonorrhoeae/C. trachomatis Amplification Urine (08/10/2022 4:29 PM CDT) C. trachomatis Not Detected Not Detected [facility] N. gonorrhoeae Not Detected Not Detected [facility] Comment: Interpretive Data Testing performed by the Laboratory. This assay detects Chlamydia trachomatis and [...] PM CDT 08/10/2022 7:57 PM CDT Nakita Vivian Agapito SHEET METAL LAY OUT WORKER LAB MICROBIOLOGY - G ENERAL ORDERABLES Final Result [facility] Department [place] [address] documented in this encounter Visit Diagnoses Diagnosis Supervision of normal first , antepartum documented in this encounter Care Teams Multi Operation Machine Operator Relationship Specialty Start Date End Date Bette Phillips PA PCP - General Physician Genomics Scientist 11/23/19 documented as of this encounter
--- OUTSIDE RECORDS SUMMARY | 2024-04-15 03:45 | XMS_ITS | Encounter Summary ---
Author Organization [facility] [place] [facility] Address [address] [place] [address] Phone Care Team Providers Care Claims Sorter Name Role Phone Bette Phillips Primary Care Pr ovider Reason for Visit * Reason Comments Routine Visit Pt requests a sera barrios stripping Encounter Details Date Type Department Care Team (Late st Contact Info) Description 02/09/2023 11:15 AM CDT Office Visit [facility] Obstetrics and Gynecology [facility] 7th Floor [address] [place] [address] Supervision of other normal , [...] exercise at this level? 60 min 12/21/2019 [place] Depression Scale Answer Date Recorded [place] Depression Scale Total 7 06/07/2020 The thought of harming myself has occurred to me . Never 06/07/2020 Personal Safety Answer Date Recorded Have you ever been in or are you currently in a harmful physical or emotional relationship or is someone making you feel afraid or unsafe? 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 Plan for IOL at 40w3d unless labor. Can get full membrane sweeping next week if not delivered. documented in this encounter Plan of Treatment Not on file documented as of this encounter Visit Diagnoses Diagnosis Supervision of other normal , antepartum- Primary documented in this encounter Care Teams Claims Sorter Relationship Specialty Start Date End Date Bette Phillips PA PCP - General Physician Hvac Operations Technician 11/23/19 documented as of this encounter
--- OUTSIDE RECORDS SUMMARY | 2024-04-15 03:45 | XMS_ITS | Encounter Summary ---
Author Organization [facility] Address [address] [place] [address] Phone Care Team Providers Care Infection Prevention Specialist Name Role Phone Bette Phillips Primary Care Pr ovider Reason for Visit * Reason Comments Routine Visit Encounter Details Date Type Department Care Team (Late st Contact Info) Description 11/30/2022 3:45 PM CDT Office Visit [facility] Obstetrics and Gynecology [address] [facility] Health 7th Floor [address] [place] [address] Supervision of other normal , [...] exercise at this level? 60 min 12/21/2019 [place] Depression Scale Answer Date Recorded [place] Depression Scale Total 7 06/07/2020 The thought of harming myself has occurred to me . 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 of this encounter Last Filed Vital Signs Vital Sign Reading Time Taken Comments Blood Pressure 120/80 11/30/2022 3:51 PM CDT Pulse - - Temperature - - Respiratory Rate - - Oxygen Saturation - - Inhaled Oxygen Concentration - - Weight 77.5 kg (170 lb 12.8 oz) 11/30/2022 3:51 PM CDT Height 170.2 cm (5' 7 ) 11/30/2022 3:51 PM CDT Body Mass Index 26.75 11/30/2022 3:51 PM CDT documented in this encounter Progress Notes * Shavon Bhatia MD - 11/30/2022 3:45 PM CDT Doing well, taking iron supplement S/p otherwise normal 2nd tri labs - discussed support belt Tdap today * Trixie Stout RN - 11/30/2022 3:45 PM CDT Met with Olga Saeed today for 28-30 week education. Patient plans to breastfeed and discussed the benefits of . She is aware of the risks of formula feeding and when to appropriately introduce a pacifier. Discussed colostrum, hand expression, hunger cues, positioning, latch, how to order a breast pump, when the AAP recommends introducing solids, referred to the breast feeding guide and booklet provided. Discussed the baby friendly initiatives i.e. skin to skin, rooming in and delayed bath. Also discussed online resources and virtual tour currently being offeredby [facility] Women and Infants. Having a girl! Plans to use [facility]. documented in this encounter Miscellaneous Notes * Addendum Note - Lupe Chris CMA - 11/30/2022 3:45 PM CDTAddended by: LUPE CHRIS on: 11/30/2022 04:21 PM Modules accepted: Orders documented in this encounter Plan of Treatment Not on file documented as of this encounter Visit Diagnoses Diagnosis Supervision of other normal , antepartum- Primary documented in this encounter Orders Immunization/Injection Count Last Ordered Date First Ordered Date TDAP VACCINE GREATER THAN OR EQUAL TO 7YO IM 1 11/30/2022 documented in this encounter Care Teams Infection Prevention Specialist Relationship Specialty Start Date End Date Bette Phillips PA PCP - General Physician Drone Operator 11/23/19 documented as of this encounter
--- OUTSIDE RECORDS SUMMARY | 2024-04-15 03:45 | XMS_ITS | Encounter Summary ---
Author Organization [facility] Address [address] [place] [address] Phone Care Team Providers Care Filament Coil Winder Name Role Phone Bette Phillips Primary Care Pr ovider Reason for Visit * Reason Comments Routine Visit Encounter Details Date Type Department Care Team (Late st Contact Info) Description 10/13/2022 3:00 PM CDT Office Visit [facility] Obstetrics and Gynecology [address] [facility] Health 7th Floor [address] [place] [address] Supervision of other normal , [...] exercise at this level? 60 min 12/21/2019 [place] Depression Scale Answer Date Recorded [place] Depression Scale Total 7 06/07/2020 The thought of harming myself has occurred to me . 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 She has had a few presyncopal episodes while standing at work. She denies CP, palpitations and SOB. No syncope. It improves with sitting and resting. Encouraged increased hydration and compression socks. Precautions reviewed. She denies contractions, vaginal bleeding and leakage of fluid. She endorses good movement. Anatomy US today with EFW 89%; incomplete heart views so patient returning to US after EOB visit today - will follow-up final report.[facility] precautions reviewed. RTC in 3 weeks. 2T labs ordered for next visit. documented in this encounter Plan of Treatment Not on file documented as of this encounter Results * RPR Blood (11/02/2022 2:05 PM CDT) [facility]PR Nonreactive [facility] Blood 11/02/2022 2:05 PM CDT 11/02/2022 3:26 PM CDT us Mariana Gonzalez MD LAB MICROBIOLOGY - GE NERAL ORDERABLES Final Result Performing Organization Address [facility] Co de Phone Number [facility] [place] [address] * Glucose tolerance testing 50 gram gestational screen (11/02/2022 2:05 PM CDT) GTT 50g gest screen 74 <=140 mg/dL [facility] Comment: Interpretive Data Used for suspected gestational [...] BLOOD ORDERABLES Final Result Performing Organization Address [facility] de Phone Number [facility] Department [place] [address] * (ABNORMAL) CBC without differential (11/02/2022 2:05 PM CDT) Pathologist [facility] WBC 10.1(H) 3.8 - 9.9 K/cumm [facility] Hgb 10.4(L) 11.9 - 15.5 g/dL [facility] Hct 30.6(L) 35.6 - 45.5 % [facility] Plt 263 150 - 400 K/cumm [facility] MPV 10.5 9.1 - 12.3 fL [facility] RBC 3.22(L) 3.90 - 5.20 M/cumm [facility] MCV 95.0 81.3 - 96.4 fL [facility] MCH 32.3 27.1 - 33.3 pg [facility] MCHC 34.0 32.3 - 35.7 g/dL [facility] RDW CV 12.9 11.1 - 14.9 % [facility] RDW SD 43.9 35.7 - 48.1 fL [facility] NRBC abs 0.00 0.00 - 0.01 K/cumm [facility] Blood 11/02/2022 2:05 PM CDT 11/02/2022 3:26 PM CDT us Mariana Gonzalez MD LAB BLOOD ORDERABLES Final Result Performing Organization Address City/State/[facility] Co de Phone Number [facility] Department [place] [address] documented in this encounter Visit Diagnoses Diagnosis Supervision of other normal , antepartum- Primary documented in this encounter Care Teams Filament Coil Winder Relationship Specialty Start Date End Date Bette Phillips PA PCP - General Physician Hotel Assistant Manager 11/23/19 documented as of this encounter
--- OUTSIDE RECORDS SUMMARY | 2024-04-15 03:45 | XMS_ITS | Encounter Summary ---
Author Organization [facility] Address [address] [place] [address] Phone Care Team Providers Care Assembler Wet Wash Name Role Phone Bette Phillips Primary Care Pr ovider Reason for Visit * Reason Comments Psychotherapy Depression Anxiety Encounter Details Date Type Department Care Team (Late st Contact Info) Description 03/22/2023 2:00 PM SALES SUPPORT COORDINATOR Telemedicine [facility] Psychiatry [address] [facility] 2nd Floor [address] [place] [address] Francisca Ray, [facility] [address] [facility] [address] [place] [address] Adjustment disorders, with mixed anxiety [...] week 02/11/2023 How often do you attend [facility] or zoroastrian services? Never 02/11/2023 Do you belong to any clubs o r organizations such as alevism groups, unions, fraternal or athletic groups, or [...] place to sleep or slept in a alf (including now)? 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 During the visit, I was located at home and the patient was located in her home in the [facility]. The patient visit started at 2:00 pm and ended at 2:50 pm. My total encounter time on 03/22/2023 was 50 minutes which was spent in [...] over the past week. Olga shared that she continued to struggle with feelings of overwhelm related to care for two children. She notes especially struggling with the stage of development that her oldest daughter is in. Olga discussed the sense of overwhelm she feels related to the noise, frequent needs of her children, and at times the behaviors. We explored ways that Olga could utilize her support to take breaks and/or remove herself when feeling overwhelmed, for even short periods of time to help herself regulate. We worked to identify some interventions she could also utilize with her daughter to help with her behaviors. Focused on jv ntifying strengths Olga had, as well as strengths her had, and utilizing those strengths in parenting in a partnered way. Mental Status: General Appearance and Behavior: Appears [...] depression Olga will follow up with this [facility] Therapist in 1-2 weeks. Pt will continue to work towards the development of healthy coping strategies. Psychotherapy: I provided cognitive behavioral, behavioral activation, supportive, and behavioral planning psychotherapy focusing on increasing pleasant events, increasing socialization, coping with anxiety, and coping with depression. Psychotherapy Time: Start: 2:00 pm Stop: 2:50 pm Total time: 50 minutes S SUPPORT COORDINATOR documented in this encounter Plan of Treatment Not on file documented as of this encounter Visit Diagnoses Diagnosis Adjustment disorders, with mixed anxiety and depressed mood- Primary documented in this encounter Care Teams Assembler Wet Wash Relationship Specialty Start Date End Date Bette Phillips PA PCP - General Physician Wellness Health Coach 11/23/19 documented as of this encounter
--- OUTSIDE RECORDS SUMMARY | 2024-04-15 03:45 | XMS_ITS | Encounter Summary ---
Author Organization [facility] Healthcare Address [address] [place] [address] Care Team Providers Care Pulmonologist Intensivist Name Role Phone Bette Phillips Primary Care Pr ovider Reason for Visit * Auth/Cert (Routine) Specialty Diagnoses / Procedures Referred By Contac t Referred To Contact Diagnoses Normal labor Procedures NA Referral ID Status Reason Start Date Expiration Date Visits Re quested Visits Authorized [id number] 1 1 Encounter Details Date Type Department Care Team (Late st Contact Info) Description 02/09/2023 11:00 PM CDT Ancillary Procedure [address] [address] Social History Tobacco Use Types Packs/Day Years [...] exercise at this level? 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 of this encounter Plan of Treatment Pending Results Name Type Priority Associated Diagnoses Date /Time US Ob Limited Imaging IP Routine Normal labor 02/09/2023 10:58 PM CDT documented as of this encounter Procedures Procedure Name Priority Date/Time Associated Diagnosis Comments US OB LIMITED IP Routine 02/09/2023 10:58 PM CDT Normal labor documented in this encounter Visit Diagnoses Not on filedocumented in this encounter Care Teams Pulmonologist Intensivist Relationship Specialty Start Date End Date Bette Phillips PA PCP - General Physician Program Advocate 11/23/19 documented as of this encounter
--- OUTSIDE RECORDS SUMMARY | 2024-04-15 03:45 | XMS_ITS | Encounter Summary ---
Author Organization [facility] Healthcare Address [address] [place] [address] Care Team Providers Care Science And Operations Officer Name Role Phone Bette Phillips Primary Care Pr ovider Encounter Details Date Type Department Care Team (Latest Contact Info) Description 07/13/2022 1:43 PM CDT - 07/13/2022 11:59 PM CDT [place] [address] Supervision of other normal , antepartum Discharge [...] exercise at this level? 60 min 12/21/2019 Goldsmith Depression Scale Answer Date Recorded Goldsmith Depression Scale Total 7 06/07/2020 The thought of harming myself has occurred to me . 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 of this encounter Medications at Time of Discharge acetaminophen 500 mg capsuleIndicatio ns:Pain Take 2 capsules (1,000 mg total) by mouth every 6 (six) hours as needed for pain 90 tablet 1 04/28/2020 08/10/2022 PNV with [id number] 27 mg iron- 1 mg tabletIndication s:Vitamin Deficiency Prevention Take 1 tablet by mouth daily 90 tablet 3 04/29/2020 03/25/2023 documented as of this encounter Discharge Disposition Disposition Code Departure Means Destination Discharge to home or self care documented in this encounter Plan of Treatment Not on file documented as of this encounter Procedures Procedure Name Priority Date/Time Associated Diagnosis Comments URINE CULTURE Routine 07/13/2022 1:43 PM CDT Supervision of other normal , antepartum documented in this encounter Results * Urine culture Urine, clean voided (07/13/2022 1:43 PM CDT) Report Final Report: Less than 100,000 colonies/mL (clinically insignificant growth based on current clinical standards) [facility] Organism (CLINICALLY INSIGNIFICANT GROWTH [facility] Urine, clean voided 07/13/2022 1:43 PM CDT 07/13/2022 4:30 PM CDT Narrative [facility] - 07/14/2022 5:43 PM CDT Testing performed by [facility] ([phone]) Shavon Bhatia MD LAB MICROBIOLOGY - GEN ERAL ORDERABLES Final Result [facility] Department [place] [address] documented in this encounter Visit Diagnoses Diagnosis Supervision of other normal , antepartum documented in this encounter Care Teams Science And Operations Officer Relationship Specialty Start Date End Date Bette Phillips PA PCP - General Physician Manager Willow 11/23/19 documented as of this encounter
--- OUTSIDE RECORDS SUMMARY | 2024-04-15 03:45 | XMS_ITS | Encounter Summary ---
Author Organization [facility] Healthcare Address [address] [place] [address] Care Team Providers Care Painter Helper Name Role Phone Bette Phillips Primary Care Pr ovider Reason for Referral * Diagnostic Imaging (Routine) - Closed Specialty Diagnoses / Procedures Referred By Contac t Referred To Contact Diagnoses Encounter for supervision of normal , antepartum, unspecified Supervision of other normal , antepartum Procedures US Ob 14 Weeks Or Over Patito Bob MD [address] [facility] [phone] [place] [address] Phone: tel: fax: [facility] (All Locations) Referral ID Status Reason Start Date Expiration Date Visits Re quested Visits Authorized [id number] Closed 07/13/2022 08/12/2023 1 1 Reason for Visit * Diagnostic Imaging (Routine) - Closed Specialty Diagnoses / Procedures Referred By Contac t Referred To Contact Diagnoses Encounter for supervision of normal , antepartum, unspecified Supervision of other normal , antepartum Procedures US Ob 14 Weeks Or Over Patito Bob MD [address] [facility] [phone] [place] [address] Phone: tel: fax: [facility] (All Locations) Referral ID Status Reason Start Date Expiration Date Visits Re quested Visits Authorized [id number] Closed 07/13/2022 08/12/2023 1 1 Encounter Details Date Type Department Care Team (Latest Contact Info) Description 10/13/2022 2:00 PM CDT - 10/13/2022 11:59 PM CDT Hospital Encounter [facility] Ultrasound [address] 7th [address], [address] [place] [address] Encounter for supervision of normal , antepartum, unspecified ; Supervision of other normal , antepartum Discharge [...] exercise at this level? 60 min 12/21/2019 Marquez Depression Scale Answer Date Recorded Marquez Depression Scale Total 7 06/07/2020 The thought of harming myself has occurred to me . 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 of this encounter Medications at Time of Discharge PNV with [id number] 27 mg iron- 1 mg tabletIndication s:Vitamin [...] Priority Date/Time Associated Diagnosis Comments US OB 14 WEEKS OR OVER Schedule Routine, Read Routine (OP Routine) 10/13/2022 2:02 PM CDT Encounter for supervision of normal , antepartum, unspecified Supervision of other normal , antepartum documented in this encounter Results * US Ob 14 Weeks Or Over (10/13/2022 2:02 PM CDT) Fetus# Fetus1 VIEWPOINT Estimated Weight 490 g&grams VIEWPOINT Placenta Details posterior, Previa-no, no placental masses VIEWPOINT Presentation Vertex VIEWPOINT Anatomical Region Laterality Modality Abdomen N/A Ultrasound 10/13/2022 2:03 PM CDT Impressions 10/13/2022 3:01 PM CDT IUP at 21w 2d who presents for anatomic survey. The biometry is consistent with previously established dating. The EFW plots at the 89%. There are no structural anomalies or markers for aneuploidy seen on today's exam. Ultrasound cannot rule out all abnormalities. The cervical length and placentation appear normal. ?? Narrative Procedure Note Danitza Joya MD - 10/13/2022 IMPRESSION: IUP at 21w 2d who presents for anatomic survey. The biometryis consistent with previously established dating. The EFW plots at the89%. There are no structural anomalies or markers for aneuploidyseen on today's exam. Ultrasound cannot rule out all abnormalities.The cervical length and placentation appear normal. us Patito Vivian Bob MD IMG OB US PROC EDURES Edited documented in this encounter Visit Diagnoses Diagnosis Encounter for supervision of normal , antepartum, unspecified documented in this encounter Care Teams Painter Helper Relationship Specialty Start Date End Date Bette Phillips PA PCP - General Physician Scullion Chief 11/23/19 documented as of this encounter
--- OUTSIDE RECORDS SUMMARY | 2024-04-15 03:45 | XMS_ITS | Encounter Summary ---
Author Organization [facility] Address [address] [place] [address] Phone Care Team Providers Care Computer System Specialist Name Role Phone Bette Phillips Primary Care Pr ovider Encounter Details Date Type Department Care Team (Late st Contact Info) Description 02/17/2023 Documentation [facility] Psychiatry [address] [place] [address] Edda Hall, [facility] [address] [facility] [address] [place] [address] Social History Tobacco Use Types Packs/Day Years [...] often do you attend chur ch or zoroastrianism services? Never 02/11/2023 Do you belong to any clubs o r organizations such as zoroastrian groups, unions, fraternal or athletic groups, or [...] place to sleep or slept in a correction (including now)? 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 Pt reports PMAD sx during , many days I was very down, did not feel like myself. Pt reports sx have improved since delivery, though interested in engaging in service to proactively address mental health. Pt denies hx PMAD with 2 year old. Pt reports strong social support from FOB and best friend. Pt anticipates increased stress when partner returns to work, when caregiving duties will all fall on her. Pt presents as open and motivated for support. Denies any other concerns at this time. ActionTaken/Interventions:Reviewed medical chart, Provided emotional support, Provided psychoeducational information on PMADs, Explored existing coping skills, Reviewed on-campus resources and supports available, and Provided information and contact for [facility] Services Follow-Up Plan:[facility] staff will continue to follow patient to provide ongoing support, sx managementand referrals as indicated [facility] Therapy:Scheduled Appointment for: 02/25 with Francisca Ray [facility] Psychiatry:Declined Edda Hall LCSW Behavioral Health Service [facility] Department of Psychiatry [phone] documented in this encounter Plan of Treatment Not on file documented as of this encounter Visit Diagnoses Not on filedocumented in this encounter Care Teams Computer System Specialist Relationship Specialty Start Date End Date Bette Phillips PA PCP - General Physician General Operations Manager 11/23/19 documented as of this encounter
--- OUTSIDE RECORDS SUMMARY | 2024-04-15 03:45 | XMS_ITS | Encounter Summary ---
Author Organization [facility] Address [address] [place] [address] Phone Care Team Providers Care National Park Tour Guide Name Role Phone Bette Phillips Primary Care Pr ovider Reason for Visit * Reason Comments Routine Visit Encounter Details Date Type Department Care Team (Late st Contact Info) Description 11/02/2022 12:45 PM CDT Office Visit [facility] Obstetrics and Gynecology [address] 7[address] [place] [address] Supervision of other normal , [...] exercise at this level? 60 min 12/21/2019 Angora Depression Scale Answer Date Recorded Angora Depression Scale Total 7 06/07/2020 The thought of harming myself has occurred to me . 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 of this encounter Last Filed Vital Signs Vital Sign Reading Time Taken Comments Blood Pressure 110/73 11/02/2022 12:50 PM CDT Pulse - - Temperature - - Respiratory Rate - - Oxygen Saturation - - Inhaled Oxygen Concentration - - Weight 76.8 kg (169 lb 6.4 oz) 11/02/2022 12:50 PM CDT Height 170.2 cm (5' 7 ) 11/02/2022 12:50 PM CDT Body Mass Index 26.53 11/02/2022 12:50 PM CDT documented in this encounter Progress Notes * Nakita Altman NP - 11/02/2022 12:45 PM CDT BERNABE - Denies lof,bleeding and or ctx's - Reports +FM - plans to complete 2T labs today RTC in 4 weeks Angelica Altman APRN, WHNP-BC documented in this encounter Plan of Treatment Not on file documented as of this encounter Visit Diagnoses Diagnosis Supervision of other normal , antepartum- Primary documented in this encounter Care Teams National Park Tour Guide Relationship Specialty Start Date End Date Bette Phillips PA PCP - General Physician Fruit Harvester 11/23/19 documented as of this encounter
--- OUTSIDE RECORDS SUMMARY | 2024-04-15 03:45 | XMS_ITS | Encounter Summary ---
Author Organization [facility] Address [address] [place] [address] Phone Care Team Providers Care Catalytic Case Operator Name Role Phone Bette Phillips Primary Care Pr ovider Reason for Visit * Reason Comments Psychotherapy Depression Anxiety Encounter Details Date Type Department Care Team (Late st Contact Info) Description 02/25/2023 1:00 PM SPA MANAGER/ESTHETICIAN Telemedicine [facility] Psychiatry [address]nd [address] [place] [address] Francisca Ray, [facility] [address] [facility] [address] [place] [address] Adjustment disorders, with mixed anxiety [...] week 02/11/2023 How often do you attend [facility] or mormon services? Never 02/11/2023 Do you belong to any clubs o r organizations such as adventist groups, unions, fraternal or athletic groups, or [...] in a mcfp (including now)? 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 During the visit, I was located at home and the patient was located in her home in the [place] [facility]. The patient visit started at 1:00 pm and ended at 2:00 pm. My total encounter time on 02/25/2023 was 60 minutes which was spent in [...] female with a date of of 1990. Chief Complaint Psychotherapy, Depression, and Anxiety Olga presents to this initial psychotherapy appointment 2 weeks with her second child.She was referred to this [facility] Therapist due to endorsement of mood disturbance throughout her and continuing into the period. She reports experiencing difficulty with low/sad mood at times, increased tearfulness, difficulty getting out of bed some days, as well as increased irritability and anger. HPI: Olga reports that she experienced symptoms throughout her and has noted some improvement in symptoms since delivery, however she is still concerned about these changes in her mood and desires to seek support. Psychiatric History: None per pt report during this initial session. Medical History: None per pt report. Personal and Social History: Olga presently resides with her and their 2 daughters, ages 3 and 2 weeks. She identifiesher as extremely supportive, however is fearful of changes that will occur in her mood and coping when he returns to work next week. 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 She shares that she works 3 12 hour shifts per week and when not working will have both girls at home under her care. She expresses feeling overwhelmed a great deal and desires to learn better coping to manage her emotions while caring for her 2 girls. Olga shares that her mother and father when she was 2 year old. She notes that her father has struggled with alcoholism and his use led to their divorce. She shares that he was able to getsober and her parents remarried when she was 6 years old. Due to a relapse later they a second time when she was 13 years old. She shares that her father did not regain any time in sobriety since then and is in poor health presently due to his ongoing use. He resides close to however she has limited interaction with him due to his ongoing use. Olga notes that she always had a close relationship with her mother, however her mother moved to [place] approximately 4-5 years ago and Olga notes experiencing some resentment more recently as her own family has grown. Olga notes that her mother struggles with boundaries and this has led to some recent conflict in their relationship. She also shares that her mother and her struggle with their relationship and she is concerned about an upcoming visit her mother has where they will be spending prolonged periods of time together. Family History: Father - alcoholism Mental Status Exam: Mental Status Exam (Adult/Peds): General Appearance and Behavior: Appears stated age No apparent distress and Well-dressed Normal psychomotor activity Good eye contact Cooperative Speech: Regular rate Normal rhythm Normal volume Normal amount Normal tone Spontaneous Normal latency (<3 seconds) Flow of Thought: logical, sequential, and goal-directed Content of Thought: Negative for suicidal ideation, homicidal ideation, delusions, hallucinations, thought insertion, thought withdrawal, thought broadcasting, thought blocking, referential thinking, obsessions, ruminations, phobias, grandiosity, hyperreligiosity, and poverty of content Mood: Improved but overwhelmed Affect: euthymic, full range, normal amount, appropriate to conversation/situation, stable, and mood-congruent Insight: good Judgment: good Sensorium: alert, awake, and oriented x 3 Calculations: not done/clinically indicated Abstraction: not done/clinically indicated Language: average vocabulary Attention: normal based on conversation/exam Memory: normal based on conversation/exam Fund of Knowledge: normal or above average based on conversation/exam Assessment/Plan: Olga presents to this initial psychotherapy appointment 2 weeks with her second child.She was referred to this [facility] Therapist due to endorsement of mood disturbance throughout her and continuing into the period. She reports experiencing difficulty with low/sad mood at times, increased tearfulness, difficulty getting out of bed some days, as well as increased irritability and anger. 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 She presents to therapy with a limited support system but is able toidentify several individuals including her and a best friend who are active supports. Olga appears to be motivated for treatment and would likely benefit from ongoing individual therapy to help provide support through this transition in her life. Olga expressed desire to work towards improved identification and use of healthy coping strategies that she can utilize when she experiences stressors/symptoms, as well as work towards processing relational stressors that have been triggered by her growing family. Olga is willing to follow up with this Therapist weekly to work towards these goals. Diagnosis: Adjustment Disorder with mixed anxiety and depression Psychotherapy: I provided cognitive behavioral, behavioral activation, supportive, and behavioral planning psychotherapy focusing on increasing pleasant events, increasing socialization, coping with anxiety, copingwith depression, and relationship issues. Psychotherapy Time: Start: 1:00 pm Stop: 2:00 pm Total time: 60 minutes MANAGER/ESTHETICIAN documented in this encounter Plan of Treatment Not on file documented as of this encounter Visit Diagnoses Diagnosis Adjustment disorders, with mixed anxiety and depressed mood- Primary documented in this encounter Care Teams Catalytic Case Operator Relationship Specialty Start Date End Date Bette Phillips PA PCP - General Physician Pelt Inspector 11/23/19 documented as of this encounter
--- OUTSIDE RECORDS SUMMARY | 2024-04-15 03:45 | XMS_ITS | Encounter Summary ---
Author Organization [facility] Address [address] [place] [address] Phone Care Team Providers Care Face Man Name Role Phone Bette Phillips Primary Care Pr ovider Encounter Details Date Type Department Care Team (Late st Contact Info) Description 02/18/2023 Orders Only [facility] Obstetrics and Gynecology [address] [facility] [address] [facility] [address] [place] [address] Patito Bob MD [address] [facility] [phone] [place], [place] [id number] problem (Primary Dx); Poor latch on, Social History Tobacco Use Types Packs/Day Years [...] week 02/11/2023 How often do you attend [facility] or gnosticist services? Never 02/11/2023 Do you belong to any clubs o r organizations such as religious groups, unions, fraternal or athletic groups, or [...] in a correction (including now)? 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
--- OUTSIDE RECORDS SUMMARY | 2024-04-15 03:45 | XMS_ITS | Encounter Summary ---
Author Organization [facility] Address [address] [place] [address] Phone Care Team Providers Care Tube Dispatcher Name Role Phone Bette Phillips Primary Care Pr ovider Reason for Visit * Reason Comments Routine Visit Encounter Details Date Type Department Care Team (Late st Contact Info) Description 01/28/2023 3:30 PM CDT Office Visit [facility] Obstetrics and Gynecology [address] 7[address] [place] [address] Supervision of other normal , [...] exercise at this level? 60 min 12/21/2019 [place] Depression Scale Answer Date Recorded [place] Depression Scale Total 7 06/07/2020 The thought of harming myself has occurred to me . 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 of this encounter Last Filed Vital Signs Vital Sign Reading Time Taken Comments Blood Pressure 117/79 01/28/2023 3:41 PM CDT Pulse - - Temperature - - Respiratory Rate - - Oxygen Saturation - - Inhaled Oxygen Concentration - - Weight 81.6 kg (180 lb) 01/28/2023 3:41 PM CDT Height 170.2 cm (5' 7 ) 01/28/2023 3:41 PM CDT Body Mass Index 28.19 01/28/2023 3:41 PM CDT documented in this encounter Progress Notes * Ashlyn Oscar MD - 01/28/2023 3:30 PM CDT Reports low back pain, noticed 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 Discussed signs of labor and pp bc. 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 Also informed that social work will visit her in the hospital and baby willhave a hearing and blood screening. Pt stated understanding. Having a girl! Measured at 35.5cm and FHTs+ 130s documented in this encounter Plan of Treatment Not on file documented as of this encounter Results * HIV 1/2 Antibody plus p24 Antigen Blood (02/01/2023 12:20 PM CDT) Pathologist [facility] HIV 1/2 ab + p24 ag Nonreactive Nonreactive Comment:Nonreactive for HIV- 1 antigen and HIV-1/HIV-2 antibodies. No laboratory evidence of HIV infection. If acute HIV infection is suspected, consider testing for HIV-1 RNA. Current interpretive data was last revised on 21. Blood 02/01/2023 12:2 0 PM CDT 02/01/2023 1:33 PM CDT Ashlyn Oscar MD LAB MICROBIOLOGY - GEN ERAL ORDERABLES Final Result [facility] [place] [address] * (ABNORMAL) CBC without differential (02/01/2023 12:20 PM CDT) Pathologist [facility] WBC 9.9 3.8 - 9.9 K/cumm Hgb 11.9 11.9 - 15.5 g/dL [facility] Comment: Interpretive Data A reference range for this assay has not been established for patients with an unknown legal sex. Please refer to the laboratory test catalog for established sex-specific reference intervals. Current interpretive data was last revised on 2023. Hct 35.0(L) 35.6 - 45.5 % [facility] Comment: Interpretive Data A reference range for this assay has not been established for patients with an unknown legal sex. Please refer to the laboratory test catalog for established sex-specific reference intervals. Current interpretive data was last revised on 2023. Plt 239 150 - 400 K/cumm [facility] MPV 11.2 9.1 - 12.3 fL [facility] RBC 3.74(L) 3.90 - 5.20 M/cumm [facility] Comment: Interpretive Data A reference range for this assay has not been established for patients with an unknown legal sex. Please refer to the laboratory test catalog for established sex-specific reference intervals. Current interpretive data was last revised on 2023. MCV 93.6 81.3 - 96.4 fL [facility] MCH 31.8 27.1 - 33.3 pg [facility] MCHC 34.0 32.3 - 35.7 g/dL [facility] RDW CV 12.6 11.1 - 14.9 % [facility] RDW SD 43.3 35.7 - 48.1 fL [facility] NRBC abs 0.00 0.00 - 0.01 K/cumm [facility] Blood 02/01/2023 12:2 0 PM CDT 02/01/2023 1:33 PM CDT Ashlyn Oscar MD LAB BLOOD ORDERABLES F inal Result Performing Organization Address [facility] Co de Phone Number [facility] [place] [address] * Group B streptococcal culture Vaginal/Rectal (01/28/2023 4:17 PM CDT) Report Final Report: Negative Vaginal/Rectal 01/28/2023 4: 17 PM CDT 01/28/2023 6:20 PM CDT Narrative [facility] - 01/31/2023 8:39 PM CDT Testing performed by [facility] ([phone]). Ashlyn Oscar MD LAB MICROBIOLOGY - GEN ERAL ORDERABLES Final Result Performing Organization Address [facility] Co de Phone Number [facility] [place] [address] documented in this encounter Visit Diagnoses Diagnosis Supervision of other normal , antepartum- Primary Supervision of other normal , antepartum documented in this encounter Historical Medications * This list may reflect changes made after this encounter. FERROUS SULFATE ORAL Take 65 mg by mouth every other day 03/25/2023 added in this encounter Care Teams Tube Dispatcher Relationship Specialty Start Date End Date Bette Phillips PA PCP - General Physician Mixing And Dispensing Supervisor 11/23/19 documented as of this encounter
--- OUTSIDE RECORDS SUMMARY | 2024-04-15 03:45 | XMS_ITS | Encounter Summary ---
Author Organization [facility] Address [address] [place] [address] Phone Care Team Providers Care Nanoelectronics Engineer Name Role Phone Bette Phillips Primary Care Pr ovider Encounter Details Date Type Department Care Team (Late st Contact Info) Description 06/16/2023 1:00 PM BAR TENDER Telemedicine [facility] Psychiatry [address] [facility] [place] [address] [place] [address] Danitza Viveros, [facility] [address] [facility] [address] [place], [place] [id number] Adjustment disorders, with mixed anxiety and depressed [...] How often do you attend chur or congregation services? Never 02/11/2023 Do you belong to [...] place to sleep or slept in a long-term (including now)? 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 During the visit, I was located at home and the patient was located in her home in the [facility]. The patient visit started at 13:00 pm and ended at 14:00 pm. My total encounter time on 06/16/2023 was 60 minutes which was spent in [...] a date of of 1990. Olga reports somewhat worsening mood symptoms since last visit. She has experienced a significantloss and is in the early stages of grief. We talk through support systems, beliefs around grief/loss, traditions or rituals for saying goodbye. We discuss allowing time to process feelings, normalize waves of grief that come and go, and discuss healthy distractions/taking breaks. Olga reports asupportive immediate and extended family that is traveling in to help with plans. She is setting healthy limits with managing stressors. Olga has planned some time away from work and is going to bewith her mom and brother. We pause discussion on adjustment symptoms related to of second child to address this immediate and significant stressor. Mental Status: General Appearance and Behavior: Appears [...] depression Olga will follow up with this [facility] Therapist in 1-2 weeks. Pt will act on existing plan to connect with mother and brother, take healthy breaks to process emotions, use healthy distractions as needed, set limits on what is reasonable for her. Psychotherapy: I provided cognitive behavioral, behavioral activation, supportive, and behavioral planning psychotherapy focusing on processing grief, managing big emotions, setting healthy limits. TENDER documented in this encounter Plan of Treatment Not on file documented as of this encounter Visit Diagnoses Diagnosis Adjustment disorders, with mixed anxiety and depressed mood- Primary documented in this encounter Care Teams Nanoelectronics Engineer Relationship Specialty Start Date End Date Bette Phillips PA PCP - General Physician Tier Over 11/23/19 documented as of this encounter
--- OUTSIDE RECORDS SUMMARY | 2024-04-15 03:45 | XMS_ITS | Encounter Summary ---
Author Organization [facility] Address [address] [place] [address] Phone Care Team Providers Care Engine Emission Technician Name Role Phone Bette Phillips Primary Care Pr ovider Reason for Visit * Reason Comments Routine Visit Encounter Details Date Type Department Care Team (Late st Contact Info) Description 09/08/2022 4:30 PM CDT Office Visit [facility] Obstetrics and Gynecology [address] [place] [address] Supervision of other normal , [...] exercise at this level? 60 min 12/21/2019 Odd Depression Scale Answer Date Recorded Odd Depression Scale Total 7 06/07/2020 The thought of harming myself has occurred to me . 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 documented in this encounter Plan of Treatment Not on file documented as of this encounter Visit Diagnoses Diagnosis Supervision of other normal , antepartum- Primary documented in this encounter Care Teams Engine Emission Technician Relationship Specialty Start Date End Date Bette Phillips PA PCP - General Physician Grand Jury Deputy Sheriff 11/23/19 documented as of this encounter
--- OUTSIDE RECORDS SUMMARY | 2024-04-15 03:45 | XMS_ITS | Encounter Summary ---
Author Organization [facility] Address [address] [place] [address] Care Team Providers Care Tissue Technologist Name Role Phone Bette Phillips Primary Care Pr ovider Encounter Details Date Type Department Care Team (Late st Contact Info) Description 02/01/2023 12:15 PM CDT Lab [facility] [address] [place] [address] [place] [address] Supervision of other normal , antepartum Social [...] exercise at this level? 60 min 12/21/2019 [place] Depression Scale Answer Date Recorded [place] Depression Scale Total 7 06/07/2020 The thought of harming myself has occurred to me . 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 of this encounter Plan of Treatment Not on file documented as of this encounter Procedures Procedure Name Priority Date/Time Associated Diagnosis Comments HIV 1/2 ANTIBODY PLUS P24 ANTIGEN Routine 02/01/2023 12:20 PM CDT Supervision of other normal , antepartum CBC WITHOUT DIFFERENTIAL Routine 02/01/2023 12:20 PM CDT Supervision of other normal , antepartum documented in this encounter Results * (ABNORMAL) CBC without differential (02/01/2023 12:20 PM CDT) Pathologist [facility] WBC 9.9 3.8 - 9.9 K/cumm Hgb 11.9 11.9 - 15.5 g/dL [facility] Comment: Interpretive Data A reference range for this assay has not been established for patients with an unknown legal sex. Please refer to the laboratory test catalog for established sex-specific reference intervals. Current interpretive data was last revised on 2023. Hct 35.0(L) 35.6 - 45.5 % [facility] Comment: Interpretive Data A reference range for this assay has not been established for patients with an unknown legal sex. Please refer to the laboratory test catalog for established sex-specific reference intervals. Current interpretive data was last revised on 2023. Plt 239 150 - 400 K/cumm [facility] MPV 11.2 9.1 - 12.3 fL [facility] RBC 3.74(L) 3.90 - 5.20 M/cumm [facility] Comment: Interpretive Data A reference range for this assay has not been established for patients with an unknown legal sex. Please refer to the laboratory test catalog for established sex-specific reference intervals. Current interpretive data was last revised on 2023. MCV 93.6 81.3 - 96.4 fL [facility] MCH 31.8 27.1 - 33.3 pg [facility] MCHC 34.0 32.3 - 35.7 g/dL [facility] RDW CV 12.6 11.1 - 14.9 % [facility] RDW SD 43.3 35.7 - 48.1 fL [facility] NRBC abs 0.00 0.00 - 0.01 K/cumm [facility] Blood 02/01/2023 12:2 0 PM CDT 02/01/2023 1:33 PM CDT Ashlyn Oscar MD LAB BLOOD ORDERABLES F inal Result Performing Organization Address [facility] Co de Phone Number [facility] [place] [address] * HIV 1/2 Antibody plus p24 Antigen Blood (02/01/2023 12:20 PM CDT) HIV 1/2 ab + p24 ag Nonreactive [...] ERAL ORDERABLES Final Result Performing Organization Address City/[facility] Co de Phone Number [facility] Department [place] [address] documented in this encounter Visit Diagnoses Diagnosis Supervision of other normal , antepartum documented in this encounter Care Teams Tissue Technologist Relationship Specialty Start Date End Date Bette Phillips PA PCP - General Physician Silhouette Artist 11/23/19 documented as of this encounter
--- OUTSIDE RECORDS SUMMARY | 2024-04-15 03:46 | XMS_ITS | Encounter Summary ---
Author Organization [facility] Address [address] [place] [address] Phone Care Team Providers Care Capital Project Engineer Name Role Phone Bette Phillips Primary Care Pr ovider Reason for Visit * Reason Comments Routine Visit Encounter Details Date Type Department Care Team (Late st Contact Info) Description 04/23/2020 2:00 PM PET FOOD DEBONER Office Visit [facility] Obstetrics and Gynecology [address] [facility] [place] 7th [address] [place] [address] Anita Stout MD [address] [place] [id number] Supervision of other normal , antepartum (Primary Dx) Social History Tobacco Use Types Packs/Day Years Used Date Smoking Tobacco: Never Smokeless Tobacco: Never Alcohol Use Standard Drinks/Week Comments Not Currently 0 (1 standard drink = 0.6 oz pur e alcohol) Exercise Vital Sign Answer Date Recorde d On average, how many days pe r week do you engage in moderate to strenuous exercise (like a brisk walk)? 3 days 12/21/2019 On average, how many minutes do you engage in exercise at this level? 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 Normal fluid. Stripped membranes. Cervix 1/50/-2 cervix midposition, offered IOL vs expectant management. Will wait and see. FOOD DEBONER documented in this encounter Plan of Treatment Not on file documented as of this encounter Visit Diagnoses Diagnosis Supervision of other normal , antepartum- Primary documented in this encounter Care Teams Capital Project Engineer Relationship Specialty Start Date End Date Bette Phillips PA PCP - General Physician Ornamental Ironworking Supervisor 11/23/19 documented as of this encounter
--- OUTSIDE RECORDS SUMMARY | 2024-04-15 03:46 | XMS_ITS | Encounter Summary ---
Author Organization [facility] [employer] [employer] [facility] Address [address] [place] [address] Phone Care Team Providers Care Groundskeeping Maintenance Name Role Phone Bette Phillips Primary Care Pr ovider Reason for Visit * Reason Comments Routine Visit Encounter Details Date Type Department Care Team (Late st Contact Info) Description 03/21/2020 11:00 AM EXTRUSION PRESS ADJUSTER Office Visit [facility] Ob[facility]etrics [facility]necology [address] [facility] 7th Floor [address] [place] [address] Pita Clark, MARY [address] [phone] Supervision of other normal , antepartum (Primary [...] on file Legal Sex Female 7:18 PM EXTRUSION PRESS ADJUSTER Gender Identity Female 04/03/2020 12:32 PM EXTRUSION PRESS ADJUSTER Sexual Orientation Not on file 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 of this encounter Last Filed Vital Signs Vital Sign Reading Time Taken Comments Blood Pressure 112/77 03/21/2020 11:00 AM EXTRUSION PRESS ADJUSTER Pulse - - Temperature - - Respiratory Rate - - Oxygen Saturation - - Inhaled Oxygen Concentration - - Weight 75.4 kg (166 lb 3.2 oz) 03/21/2020 11:00 AM EXTRUSION PRESS ADJUSTER Height 170.2 cm (5' 7 ) 03/21/2020 11:00 AM EXTRUSION PRESS ADJUSTER Body Mass Index 26.03 03/21/2020 11:00 AM EXTRUSION PRESS ADJUSTER documented in this encounter Patient Instructions * Patient Instructions* Pita Clark, MARY - 03/21/2020 11:00 AM EXTRUSION PRESS ADJUSTER Patient Education at 31 to 34 Weeks SENIOR CYTOGENETIC TECHNOLOGIST: What changes are happening to your body: You may continue to have symptoms such as shortness of breath, heartburn, contractions, or swelling of your ankles and feet. You may be gaining about 1 pound a week now. Seek care immediately if: ?? You develop a severe headache that does not go away. ?? You have new or increased vision changes, such as blurred or spotted vision. ?? You have new or increased swelling in your face or hands. ?? You have vaginal spotting or bleeding. ?? Your water broke or you feel warm water gushing or trickling from your vagina. Contact your healthcare provider if: ?? You have more than 5 contractions in 1 hour. ?? You notice any changes in your baby's movements. ?? You have abdominal cramps, pressure, or tightening. ?? You have a change in vaginal discharge. ?? You have chills or a fever. ?? You have vaginal itching, burning, or pain. ?? You have yellow, green, white, or foul-smelling vaginal discharge. ?? You have pain or burning when you urinate, less urine than usual, or pink or bloody urine. ?? You have questions or concerns about your condition or care. How to care for yourself at this stage of your : ?? Eat a variety of healthy foods. Healthy foods include fruits, vegetables, whole-grain breads, low-fat dairy foods, beans, lean meats, and fish. Drink liquids as directed. Ask how much liquid to drink each day and which liquids are best for you. Limit caffeine to less than 200 milligrams each day. Limit your intake of fish to 2 servings each week. Choose fish low in mercury such as canned lighttuna, shrimp, salmon, cod, or tilapia. Do not eat fish high in mercury such as swordfish, tilefish,mario mackerel, and shark. ?? Manage heartburn by eating 4 or 5 small meals each day instead of large meals. Avoid spicy food. ?? Manage swelling by lying down and putting your feet up. ?? Take vitamins as directed. Your need for certain vitamins and minerals, such as folic acid, increases during . vitamins provide some of the extra vitamins and minerals you need. vitamins may also help to decrease the risk of certain defects. ?? Talk to your healthcare provider about exercise. Moderate exercise can help you stay fit. Your healthcare provider will help you plan an exercise program that is safe for you during . ?? Do not smoke. If you smoke, it is never too late to quit. Smoking increases your risk of a miscarriage and other health problems during your . Smoking can cause your baby to be born too early or weigh less at . Ask your healthcare provider for information if you need help quitting. ?? Do not drink alcohol. Alcohol passes from your body to your baby through the placenta. It can affect your baby's brain development and cause alcohol syndrome (FAS). FAS is a group of conditions that causes mental, behavior, and growth problems. ?? Talk to your healthcare provider before you take any medicines. Many medicines may harm your baby if you take them when you are . Do not take any medicines, vitamins, herbs, or supplementswithout first talking to your healthcare provider. Never use illegal or street drugs (such as marijuana or cocaine) while you are . Safety tips during : ?? Avoid hot tubs and saunas. Do not use a hot tub or sauna while you are , especially during your first trimester. Hot tubs and saunas may raise your baby's temperature and increase the riskof defects. ?? Avoid toxoplasmosis. This is an infection caused by eating raw meat or being around infected catfeces. It can cause defects, miscarriages, and other problems. Wash your hands after you touch raw meat. Make sure any meat is well- cooked before you eat it. Avoid raw eggs and unpasteurized milk. Use gloves or ask someone else to clean your cat's litter box while you are . Changes that are happening with your baby: By 34 weeks, your baby may weigh more than 5 pounds. Your baby will be about 12 ?? inches long from the top of the head to the rump (baby's bottom). Your baby is gaining about ?? pound a week. Your baby's eyes open and close now. Your baby's kicks and movements are more forceful at this time. What you need to know about care: Your healthcare provider will check your blood pressure and weight. You may also need the following: ?? A urine test may also be done to check for sugar and protein. These can be signs of gestational diabetes or infection. Protein in your urine may also be a sign of preeclampsia. Preeclampsia is a condition that can develop during week 20 or later of your . It causes high blood pressure, and it can cause problems with your kidneys and other organs. ?? A Tdap vaccine may be recommended by your healthcare provider. ?? Fundal height is a measurement of your uterus to check your baby's growth. This number is usually the same as the number of weeks that you have been . Your healthcare provider may also check your baby's position. ?? Your baby's heart rate will be checked. ?? 2017 [employer] Information is for End User's use only and may not be sold, redistributed or otherwise used for commercial purposes. All illustrations and images included in CareNotes?? are the copyrighted property of [employer] or [employer]. The above information is an housekeeping aide only. It is not intended as medical advice for individual conditions or treatments. Talk to your doctor, nurse or pharmacist before following any medical regimen to see if it is safe and effective for you. USION PRESS ADJUSTER documented in this encounter Progress Notes * Pita Clark NP - 03/21/2020 11:00 AM CST No issues, Handheld US reveals Vtx position. + FHTs in RLQ. USION PRESS ADJUSTER documented in this encounter Plan of Treatment Not on file documented as of this encounter Visit Diagnoses Diagnosis Supervision of other normal , antepartum- Primary documented in this encounter Care Teams Groundskeeping Maintenance Relationship Specialty Start Date End Date Bette Phillips PA PCP - General Physician Education Site Manager 11/23/19 documented as of this encounter
--- OUTSIDE RECORDS SUMMARY | 2024-04-15 03:46 | XMS_ITS | Encounter Summary ---
Author Organization [facility] Healthcare Address [address] [place] [address] Care Team Providers Care Global Supply Chain Vice President Name Role Phone Bette Phillips Primary Care Pr ovider Encounter Details Date Type Department Care Team (Late st Contact Info) Description 06/24/2021 2:45 PM PHARMACY SERVICE ASSOCIATE Lab [address] [address] Social History Tobacco Use Types Packs/Day Years [...] exercise at this level? 60 min 12/21/2019 [place] Depression Scale Answer Date Recorded [place] Depression Scale Total 7 06/07/2020 The thought of harming myself has occurred to me . 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
--- OUTSIDE RECORDS SUMMARY | 2024-04-15 03:46 | XMS_ITS | Encounter Summary ---
Author Organization [facility] Healthcare Address [address] [place] [address] Care Team Providers Care Hydrography Teacher Name Role Phone Bette Phillips Primary Care Pr ovider Encounter Details Date Type Department Care Team (Late st Contact Info) Description 11/12/2020 8:[address] [facility] [address] [facility] 1st [place] [address] Social History Tobacco Use Types Packs/Day Years [...] exercise at this level? 60 min 12/21/2019 [place] Depression Scale Answer Date Recorded [place] Depression Scale Total 7 06/07/2020 The thought of harming myself has occurred to me . 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
--- OUTSIDE RECORDS SUMMARY | 2024-04-15 03:46 | XMS_ITS | Encounter Summary ---
Author Organization [facility] Healthcare Address [address] [place] [address] Care Team Providers Care Heel Room Supervisor Name Role Phone Bette Phillips Primary Care Pr ovider Reason for Visit * Reason Onset Date Comments COVID-19 EVALUATION 12/04/2019 Encounter Details Date Type Department Care Team (Late st Contact Info) Description 12/04/2019 [facility]phone [facility] [address] [facility] [address] (Third Floor) [place], [place] [id number] Francisca Marquez NP [address] [place] [address] COVID-19 EVALUATION Social History Tobacco Use Types Packs/Day Years Used Date Smoking Tobacco: Never Assessed Comments Yes Sex and Gender Information Value Date Recorded Sex Assigned at Not on file Legal Sex Female 7:18 PM MID LEVEL CLINICIAN Gender Identity Female 04/03/2020 12:32 PM MID LEVEL CLINICIAN Sexual Orientation Not on file documented as of this encounter Miscellaneous Notes * Addendum Note - Sal Barajas CLT - 12/04/2019 3:46 PM CDTAddended by: SAL BARAJAS on: 12/04/2019 03:46 PM Modules accepted: Orders * Telephone Encounter - Francisca Marquez NP - 12/04/2019 8:56 AM CDT Employee COVID-19 Screening 12/04/2019 Email: [email or web address] Employee/Student ID# [id number] Are you an employee or student? Employee Employer: [employer] Employee Facility: [facility] Does your job primarily involve providing care for bone marrow transplant patients? 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 On-site Have you been tested for Covid-19 previously? No Have you had a known, specific COVID exposure? Yes Did the exposure take place at work or on campus? No Date of exposure: 12/02/2019 Name of the COVID-19 positive person to whom you were exposed: Cousin Was the person to whom you were exposed wearing a mask/face covering? No Test result of the person to whom you were exposed: Positive Description of exposure: Exposed to cousin whom tested + COVID 19. 12/02. Employee Symptoms: Yes Description of Symptoms: Muscle Aches Do you currently live with, or have ongoing contact with, someone known or suspected to have COVID-19? No Live with Someone Comment close contact with + COVID family member. Exposure Risk (See Exposure Guide): Medium Assessment: Asymptomatic, exposure low or very low risk or deemed not a true exposure Plan: (A) Stay home and test Testing Site Location: [facility] Script A (Stay home and test) Given your symptoms, you should not come to work and will be referred for testing. ?? Please go to the employee testing site at [facility]*. ?? While you are awaiting testing and results, you must remain off work. While waiting for results,home quarantine guidance still applies. You should isolate yourself at home, avoid contact with anyhousehold members as much as possible, and stay in your home without leaving except for medical care. If your symptoms worsen, please call back or call 911 - let your providers, ER or EMS now that you are being tested for COVID19. ?? Once your results are back, you will receive further instruction from Occupational Health. Don'treturn to work until you hear from [place]. Occupational Health will notify you and your diversity manager when you can return to work. ?? Should your test result positive, Occupational Health ([facility]) will work with you to identify any close contacts you may have had at work. [facility] will then alert your work contacts directly; you do not have to. 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 [facility] will help ensure that coworkers potentially at risk are no tified and given appropriate advise without unnecessary disclosure of personal health information. ?? You must follow any additional isolation or quarantine instructions provided to you from federal, state or local public health authorities. ?? We will send you an email with self-quarantine instruction. ?? You should let your repair department supervisor know that you will not be coming to work. Although the Call Center will email your repair department supervisor to confirm that you have been instructed not to come to work, it is still your responsibility to notify your repair department supervisor as you would for any other work absence. documented in this encounter Plan of Treatment Not on file documented as of this encounter Results * COVID-19 Coronavirus RNA Nasopharyngeal (12/04/2019 10:17 AM CDT) COVID-19 RNA Not Detected [facility] Comment: Interpretive Data Testing performed at [facility] Molecular Infectious Disease Laboratory. The 2018-Novel Coronavirus Assay (COVID-19) Real Time RT-PCR assay is for in vitro diagnostic use under FDA emergency use authorization only. A negative RT-PCR result does not preclude infection with COVID-19 and should not be used as the sole basis for treatment or other patient management decisions. Additional sample types have been validated according to CLIA regulations. ?? Current Interpretive Data was last revised on 2019. Nasopharyngeal 12/04/2019 10 :17 AM CDT 12/04/2019 10:12 PM CDT Narrative [facility]LA SCOTT - 12/05/2019 6:01 AM CDT Patient is employed by:->[facility] Is the patient experiencing any symptoms consistent with COVID (eg. Fever, cough, shortness of breath)?->Yes What is the reason for testing?->Symptoms compatible with COVID-19 in high-risk group (defined above in process inst.) us Precious Samano MD LAB MICROBIOLOGY - GENERAL ORDERABLES Final Result [facility] Department [place] [address] documented in this encounter Visit Diagnoses Diagnosis Exposure to COVID-19 virus- Primary Exposure to COVID-19 virus documented in this encounter Additional Health Concerns Infection Onset Date Last Indicated Resolved Time COVID: Suspected 12/04/2019 12/04/2019 12/05/2019 6:02 AM CDT documented as of this encounter Care Teams Heel Room Supervisor Relationship Specialty Start Date End Date Bette Phillips PA PCP - General Physician Supply Chain Development Manager 11/23/19 documented as of this encounter
--- OUTSIDE RECORDS SUMMARY | 2024-04-15 03:46 | XMS_ITS | Encounter Summary ---
Author Organization [facility] Address [address] [place] [address] Phone Care Team Providers Care Top Tile Decorator Name Role Phone Bette Phillips Primary Care Pr ovider Reason for Visit * Reason Comments Routine Visit Encounter Details Date Type Department Care Team (Late st Contact Info) Description 04/03/2020 2:15 PM MARKETING RESEARCH INTERN Office Visit [facility] Obstetrics and Gynecology [address] [facility] [address] [facility] 7th Floor [address] [place] [address] Jayy Astudillo MD [address] [place] [address] [address] [place] [address] Supervision of other normal , antepartum (Primary [...] on file Legal Sex Female 7:18 PM MARKETING RESEARCH INTERN Gender Identity Female 04/03/2020 12:32 PM MARKETING RESEARCH INTERN Sexual Orientation Not on file 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 of this encounter Last Filed Vital Signs Vital Sign Reading Time Taken Comments Blood Pressure 111/75 04/03/2020 2:07 PM MARKETING RESEARCH INTERN Pulse - - Temperature - - Respiratory Rate - - Oxygen Saturation - - Inhaled Oxygen Concentration - - Weight 77.5 kg (170 lb 12.8 oz) 04/03/2020 2:07 PM MARKETING RESEARCH INTERN Height 170.2 cm (5' 7 ) 04/03/2020 2:07 PM MARKETING RESEARCH INTERN Body Mass Index 26.75 04/03/2020 2:07 PM MARKETING RESEARCH INTERN documented in this encounter Progress Notes * Natasha Lehman MD - 04/03/2020 2:15 PM CST Denies ctx, LOF, VB. +FM FH appropriate, dopptones+ GBS collected Vertex on scan Cosigned by Jayy Astudillo MD at 04/03/2020 2:35 PM MARKETING RESEARCH INTERN ETING RESEARCH INTERN ETING RESEARCH INTERN Associated attestation - Jayy Astudillo MD - 04/03/2020 2:35 PM MARKETING RESEARCH INTERN I have seen and examined the patient. I agree with the findings and plan of care as documented in the resident/fellow's note. * Trixie Stout RN - 04/03/2020 2:15 PM CST Met with Olga Gonzalesory today for 36 week education. Discussed signs of labor and pp bc. 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 Also informed that behavioral healthservices will visit her in the hospital and baby will have a hearing and blood screening. Pt stated understanding. Having a girl! ETING RESEARCH INTERN documented in this encounter Plan of Treatment Not on file documented as of this encounter Results * HIV 1/2 Antibody plus p24 Antigen (04/03/2020 3:09 PM MARKETING RESEARCH INTERN) [facility] HIV 1/2 ab + p24 ag Nonreactive Nonreactive [facility] Comment: Nonreactive for HIV-1 antigen and HIV-1/HIV-2 antibodies. No laboratory evidence of HIV infection. If acute HIV infection is suspected, consider testing for HIV-1 RNA. Blood specimen (specimen) 04/03/2020 3:09 PM MARKETING RESEARCH INTERN 04/03/2020 4:14 PM MARKETING RESEARCH INTERN Jayy Frey MD LAB MICROBIOLOGY - G ENERAL ORDERABLES Final Result [facility] [place] [address] * (ABNORMAL) CBC without differential (04/03/2020 3:09 PM MARKETING RESEARCH INTERN) [facility] WBC 9.4 3.8 - 9.9 K/cumm [facility] Hgb 11.7(L) 11.9 - 15.5 g/dL [facility] Hct 34.9(L) 35.6 - 45.5 % [facility] Plt 242 150 - 400 K/cumm [facility] MPV 11.2 9.1 - 12.3 fL [facility] RBC 3.62(L) 3.90 - 5.20 M/cumm [facility] MCV 96.4 81.3 - 96.4 fL [facility] MCH 32.3 27.1 - 33.3 pg [facility] MCHC 33.5 32.3 - 35.7 g/dL [facility] RDW CV 12.4 11.1 - 14.9 % [facility] RDW SD 44.2 35.7 - 48.1 fL [facility] NRBC abs 0.00 0.00 - 0.01 K/cumm [facility] Blood specimen (specimen) 04/03/2020 3:09 PM MARKETING RESEARCH INTERN 04/03/2020 4:14 PM MARKETING RESEARCH INTERN Jayy Frey MD LAB BLOOD ORDERABLES Final Result Performing Organization Address City/[facility] Co de Phone Number ROULA [facility] Department [place] [address] * Group B streptococcal culture Vaginal/Rectal (04/03/2020 2:44 PM MARKETING RESEARCH INTERN) Report Final Report: Negative [facility] Vaginal/Rectal 04/03/2020 2: 44 PM MARKETING RESEARCH INTERN 04/03/2020 5:37 PM MARKETING RESEARCH INTERN Narrative [facility] - 04/06/2020 7:21 AM MARKETING RESEARCH INTERN Testing performed by [facility] Microbiology Laboratory ([phone]). Jayy Frey MD LAB MICROBIOLOGY - G ENERAL ORDERABLES Final Result Performing Organization Address [facility] de Phone Number ROULA [facility] [place] [address] documented in this encounter Visit Diagnoses Diagnosis Supervision of other normal , antepartum- Primary Supervision of other normal , antepartum documented in this encounter Care Teams Top Tile Decorator Relationship Specialty Start Date End Date Bette Phillips PA PCP - General Physician Tool Or Die Drawing Checker 11/23/19 documented as of this encounter
--- OUTSIDE RECORDS SUMMARY | 2024-04-15 03:46 | XMS_ITS | Encounter Summary ---
Author Organization [facility] Healthcare Address [address] [place] [address] Care Team Providers Care Acid Blower Name Role Phone Bette Phillips Primary Care Pr ovider Encounter Details Date Type Department Care Team (Late st Contact Info) Description 04/27/2020 7:01 PM MACHINE BOOKKEEPER Anesthesia Event [facility] [address] [place] [address] Blake Red MD [address] [place] [address] Maykel Modi MD [address] [place] [address] Anesthesia Record Procedure Summary Procedure Name Responsible Anesthesiologist Anesthesia Start Time Anesthesia Stop Time Labor Analgesia Blake Red MD 04/27/20 190 1 04/27/20 2332 Events Date Time Event Comment 04/27/2020 1901 An Start 1906 Time out - Regional 1907 1908 Face Time 1909 An Block Induction The patie nt was reevaluated immediately before moderate or deep sedation and before anesthesia induction. 1909 Epidural Placed 2332 An Stop Bella Mckeon [[id number]] Baby Delivery: 04/27/2020 11:27 PM Placenta Delivery: 04/27/2020 11:32 PM Meds Name Total epinePHRINE 1:200,000-lidocaine 1.5 % 3 mL SUFentanil (SUFENTA) 5 mcg, bupivacaine (MARCAINE) 2 mL in sodium chloride 0.9% 10 mL epidural 8 mL SUFentanil (SUFENTA) 5 mcg, bupivacaine (MARCAINE) 2 mL in sodium chloride 0.9% 10 mL epidural 42.83 mL * Agents No agents on file. * Blood No blood administrations on file. Lines, Drains, and Airways Type Details Placement Removal Peripheral IV Placement Date: 04/27/20; Placement Time: 161; Catheter Size: 20 G; Orientation: Left; Location: Hand; Site Prep: Chlorhexidine; Inserted by: Patito Yi RN; Insertion Attempts: 1; Patient Tolerance: Tolerated well; Removal Date: 04/29/20; Removal Time: 115; Removal Reason: Per protocol 04/27/20 1613 by Patito Yi RN 04/29/20 115 by Caroline Jansen RN Epidural Placement Date: 04/27/20; Placement Time: 1907 (created via procedure documentation); 04/28/20; 13404/27/201907 by Blake Red MD 04/28/20134 by Mica Ashley RN Urethral Catheter Placement Date: 04/27/20; Placement Time: 1999; Inserted by: Loulou Ashley RN; Type: Non-latex; Size: 16 Fr.; Balloon Size: 10 mL; Urine Returned: Yes; Removal Date: 04/27/20; Removal Time: 2203; Removal Reason: Per protocol 04/27/201999 by Mica Ashley RN 04/27/202203 by Mica Ashley RN documented in this encounter Social History [...] on file Legal Sex Female 7:18 PM MACHINE BOOKKEEPER Gender Identity Female 04/03/2020 12:32 PM MACHINE BOOKKEEPER Sexual Orientation Not on file 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 of this encounter OR Notes * Anesthesia Postprocedure Evaluation - Madison Sutton MD - 04/28/2020 8:09 AM CST Patient: Olga Mckeon Procedure Summary Date: 04/27/20 Room / Location: Anesthesia Start: 1900 Anesthesia Stop: 2331 Procedure: Labor Analgesia Diagnosis: Scheduled Providers: Responsible Provider: Blake Red MD Anesthesia Type: epidural ASA Status: 2 Anesthesia Type: epidural Last vitals BP 111/69 Pulse 74 Temp 37 ??C (98.6 ??F) (Oral) Resp 18 SpO2 97% Anesthesia Post Evaluation Patient location during evaluation: floor Patient participation: complete - patient participated Level of consciousness: fully awake Pain management: adequate Airway patency: adequate Anesthetic complications: no Cardiovascular status: acceptable and hemodynamically stable Respiratory status: acceptable and room air Hydration status: acceptable Pt is: normothermic Nausea/Vomiting status: none Comments: Patient denies headache, fevers, chills, nausea/vomiting, tingling/weakness/numbness, excessive pain/edema/drainage/erythema at needle puncture site. Patient taking PO, ambulating, urinating without Tapia catheter. Puncture site examined - no appreciable induration, erythema, swelling, juan [place]go inage. Patient counseled on signs/symptoms of epidural abscess/hematoma and post dural puncture headache. Patient advised to seek immediate medical attention should she appreciate any of these. Patient voices understanding. Cosigned by Aixa De La O MD at 04/28/2020 8:13 AM MACHINE BOOKKEEPER INE BOOKKEEPER INE BOOKKEEPER * Anesthesia Procedure Notes - Blake Red MD - 04/27/2020 7:08 PM CSTAssociated Order(s): Epidural Block Epidural Block Patient location: L&D Start time: 04/27/2020 7:08 PM End time: 04/27/2020 7:09 PM Reason for block: labor analgesia Staff: Supervising provider: Blake Red MD Placed by: Resident: Maykel Modi MD Procedure prep: Preprocedure checklist: patient identified, procedure contraindications assessed, procedure consentobtained, surgical consent, IV checked, risks, benefits and alternatives discussed, monitors and equipment checked and timeout performed Patient Position: sitting Procedure performed while patient: awake Monitoring: oximetry and blood pressure Prep solution: chlorhexadine/alcohol PPE: sterile gloves, sterile drape and provider hat/mask Skin infiltrated with lidocaine 1%: yes Epidural: Approach: midline Imaging guidance used: no Location: L3-4 Number of attempts:1 Epidural needle: Injection technique: BENJAMIN saline Needle type: Tuohy Needle gauge: 17 G Needle length: 9 cm Loss of resistance: 4 cm Catheter: Catheter type: multi-orifice and wire-bound. Catheter at skin depth: 10 cm Negative aspiration of blood: no Negative aspiration of CSF: no Test dose: negative Assessment: Sensory level - left: full eval pending Sensory level - right: full eval pending Events: patient tolerated procedure well with no complications INE BOOKKEEPER * Anesthesia Preprocedure Evaluation - Blake Red MD - 04/27/2020 7:07 PM CST Images from the original note were not included. Anesthesia Evaluation Olga Mckeon is a 29 y.o. female * No procedures listed * * No Diagnosis Codes entered * HISTORY Past Medical History Information obtained from: patient and chart. Patient Active Problem List Diagnosis ??? Supervision of other normal , antepartum ??? Full-term premature rupture of membranes ??? Encounter for induction of labor Past Medical History: Diagnosis Date ??? Abnormal Pap smear of cervix 08/2016 Past Surgical History: Procedure Laterality Date ??? COLPOSCOPY 2016 ??? TONSILLECTOMY 2000 ??? TYMPANOSTOMY TUBE PLACEMENT 1995 OB History 1 Para Term AB Living SAB TAB Ectopic Multiple Live Births No Known Allergies Med List Status: Nurse Complete Set By: Patito Yi RN at 04/27/2020 2:38 PM Taking? Last Dose Start Date End Date Provider PNV no.95/ferrous fum/folic ac ( ORAL) 04/26/2020 -- -- Provider, MD Linda Current Facility-Administered Medications: ??? dextrose 5% and Lactated Ringer's infusion, 125 mL/hr, intravenous, Continuous, Last Rate: 125 mL/hr at 04/27/20 1700, 125 mL/hr at 04/27/20 1700 ??? naloxone (NARCAN) 0.4 mg/mL injection 0.04-0.4 mg, 0.04-0.4 mg, intravenous, Once PRN ??? oxytocin 30 unit/500 mL (0.06 unit/mL) in sodium chloride 0.9% (premix) solution, 0.5-40 milliunits/min, intravenous, Titrated, Last Rate: 8 mL/hr at 04/27/20 183, 8 milliunits/min at 04/27/20 183 ??? sodium chloride 0.9% flush 0.5-20 mL, 0.5-20 mL, intra-catheter, Q8H NEGRITO ??? sodium chloride 0.9% flush 0.5-20 mL, 0.5-20 mL, intra-catheter, PRN ??? sodium chloride 0.9% flush 0.5-20 mL, 0.5-20 mL, intra-catheter, Q8H NEGRITO ??? sodium chloride 0.9% flush 0.5-20 mL, 0.5-20 mL, intra-catheter, PRN ??? SUFentanil (PF) and bupivacaine (PF) in 0.9% sodium chloride 0.5 mcg/ml - 0.1% casette (premix)solution, , epidural, Continuous Social History Tobacco Use Smoking Status Never Smoker Smokeless Tobacco Never Used Substance and Sexual Activity Alcohol Use Not Currently Substance and Sexual Activity Drug Use Never Family History Problem Relation Age of Onset ??? No Known Problems Father ??? No Known Problems Mother Vitals: 04/27/20 1800 04/27/20 1830 04/27/20 1905 BP: 120/66 124/81 134/92 Pulse: 68 63 88 Resp: 18 18 Temp: 36.9 ??C (98.5 ??F) SpO2: 98% 98% 98% PT: No results found for requested labs within last 720 hours. INR: No results found for requested labs within last 720 hours. APTT: No results found for requested labs within last 720 hours. Hgb A1C: No results found for requested labs within last 720 hours. CBC RBC: 04/27/2020: 3.78 M/cumm* RDW: No results found for requested labs within last 720 hours. MCHC: 04/27/2020: 34.5 g/dL MCH: 04/27/2020: 32.3 pg MCV: 04/27/2020: 93.7 fL Hct: 04/27/2020: 35.4 %* Hgb: 04/27/2020: 12.2 g/dL WBC: 04/27/2020: 10.0 K/cumm* MPV: 04/27/2020: 11.8 fL Platelets: 04/27/2020: 211 K/cumm RDW CV: 04/27/2020: 12.5 % RDW Sd: 04/27/2020: 43.2 fL BMP Glucose: No results found for requested labs within last 720 hours. Calcium: No results found for requested labs within last 720 hours. Sodium: No results found for requested labs within last 720 hours. Potassium: No results found for requested labs within last 720 hours. CO2: No results found for requested labs within last 720 hours. Chloride: No results found for requested labs within last 720 hours. BUN: No results found for requested labs within last 720 hours. Creatinine: No results found for requested labs within last 720 hours. DOS Physical Exam Medical history, medications, and allergies reviewed. Attestation: This PAT evaluation 04/27/2020. Airway Exam: Mallampati: II Cervical ROM: FROM TM distance: 3 Jaw ROM: full Cardiovascular Exam: Rate: regular Rhythm: regular Pulmonary Exam: LCTA, bilat EENT Exam: trachea midline Dental Exam: Appears intact Skin Exam: Skin is warm. Turgor is normal. Current state: Patient's current state is cooperative. Anesthesia Plan ASA 2 My patient is approved for the Anesthesia Controlled Medication protocol when under care of a AUTOMOTIVE BRAKE ADJUSTER Planned anesthesia: Epidural Postoperative Plan: Patient's planned disposition post procedure is Obs. unit. Informed Consent: Discussed plan with resident. Anesthesia plan and risks discussed with patient. Plan and Consent Comments: Discussed risks, benefits, alternatives to neuraxial anesthesia, including but not limited to PDPH,risk of prolonged or permanent numbness/weakness/paralysis, nausea, aspiration, bleeding, infection. Pt voiced understanding and acceptance of risks and a desire to proceed with labor neuraxial analgesia. Consent and Attending signature: I and/or my designee have discussed the anesthesia plan, benefits, possible alternatives, parental presence at time of induction (if indicated), and clinically relevant risks that may include dental injury, unintentional awareness, and/or other complications. The patient and/or parent/legal guardian understand, and agree to proceed. All questions answered. INE BOOKKEEPER documented in this encounter Plan of Treatment Not on file documented as of this encounter Procedures Procedure Name Priority Date/Time Associated Diagnosis Comments SD AN PROCEDURE PLACEHOLDER Routine 04/27/2020 7:08 PM MACHINE BOOKKEEPER documented in this encounter Results * SD AN PROCEDURE PLACEHOLDER (04/27/2020 7:08 PM MACHINE BOOKKEEPER) Narrative Blake Red MD - 04/27/2020 7:08 PM MACHINE BOOKKEEPER Blake Red MD ? 04/27/2020 ??7:10 PM Epidural Block Patient location: L&D Start time: 04/27/2020 7:08 PM End time: 04/27/2020 7:09 PM Reason for block: labor analgesia Staff: Supervising provider: Blake Red MD Placed by: Resident: Maykel Modi MD Procedure prep: Preprocedure checklist: patient identified, procedure contraindications assessed, procedure consent obtained, surgical consent, IV checked, risks, benefits and alternatives discussed, monitors and equipment checked and timeout performed Patient Position: sitting Procedure performed while patient: awake Monitoring: oximetry and blood pressure Prep solution: chlorhexadine/alcohol PPE: sterile gloves, sterile drape and provider hat/mask Skin infiltrated with lidocaine 1%: yes Epidural: Approach: midline Imaging guidance used: no Location: L3-4 Number of attempts:1 Epidural needle: Injection technique: BENJAMIN saline Needle type: Tuohy Needle gauge: 17 G Needle length: 9 cm Loss of resistance: 4 cm Catheter: Catheter type: multi-orifice and wire-bound. Catheter at skin depth: 10 cm Negative aspiration of blood: no Negative aspiration of CSF: no Test dose: negative Assessment: Sensory level - left: full eval pending Sensory level - right: full eval pending Events: patient tolerated procedure well with no complications us Blake Tani Red MD ANESTHESIA ORDERABLES Fi nal Result documented in this encounter Visit Diagnoses Not on filedocumented in this encounter Administered Medications Inactive Administered Medications - up to 3 most recent administrations Medication Order MAR Action Action Date Dose Rate Site lidocaine-EPINEPHrine (XYLOCAINE with EPI) 1.5 %-1:200,000 preservative free injection epidural, As needed, Starting on 04/27/20 at 1911, Anesthesia Intra-op, Indications: Administration of Local AnesthesiaIndications:Administ ration of Local Anesthesia Given 04/27/2020 7:11 PM MACHINE BOOKKEEPER 3 mL SUFentanil (SUFENTA) 5 mcg, bupivacaine (MARCAINE) 2 mL in sodium chloride 0.9% 10 mL epidural epidural, Continuous PRN, Starting on 04/27/20 at 1914, Anesthesia Intra-op New Bag 04/27/2020 7:14 PM MACHINE BOOKKEEPER 8 mL SUFentanil (SUFENTA) 5 mcg, bupivacaine (MARCAINE) 2 mL in sodium chloride 0.9% 10 mL epidural epidural, Continuous PRN, Starting on 04/27/20 at 1915, Anesthesia Intra-op New Bag 04/27/2020 7:15 PM MACHINE BOOKKEEPER 10 mL/hr 10 mL/hr documented in this encounter Care Teams Acid Blower Relationship Specialty Start Date End Date Bette Phillips PA PCP - General Physician Neuropsychiatric Aide 11/23/19 documented as of this encounter
--- OUTSIDE RECORDS SUMMARY | 2024-04-15 03:46 | XMS_ITS | Encounter Summary ---
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 of this encounter Plan of Treatment Not on file documented as of this encounter Procedures Procedure Name Priority Date/Time Associated Diagnosis Comments GROUP B STREPTOCOCCUS CULTURE Routine 04/03/2020 2:44 PM INTERNET NETWORK SPECIALIST Supervision of other normal , antepartum documented in this encounter Results * Group B streptococcal culture Vaginal/Rectal (04/03/2020 2:44 PM INTERNET NETWORK SPECIALIST) Report Final Report: Negative ELIZPRIMITIVO DONNIE Vaginal/Rectal 04/03/2020 2: 44 PM INTERNET NETWORK SPECIALIST 04/03/2020 5:37 PM INTERNET NETWORK SPECIALIST Narrative ELIZPRIMITIVO DONNIE - 04/06/2020 7:21 AM INTERNET NETWORK SPECIALIST Testing performed by [facility] Microbiology Laboratory ([phone]). Jayy Frey MD LAB MICROBIOLOGY - G ENERAL ORDERABLES Final Result [facility] Department [place] [address] documented in this encounter Visit Diagnoses Diagnosis Supervision of other normal , antepartum documented in this encounter Care Teams Hanger Relationship Specialty Start Date End Date Bette Phillips PA PCP - General Physician Parts Salesperson 11/23/19 documented as of this encounter
--- OUTSIDE RECORDS SUMMARY | 2024-04-15 03:46 | XMS_ITS | Encounter Summary ---
Author Organization [facility] Address [address] [place] [address] Phone Care Team Providers Care Mending Carrier Name Role Phone Bette Phillisp Primary Care Pr ovider Reason for Referral * Diagnostic Lab (Routine) - Closed Specialty Diagnoses / Procedures Referred By Controosevelt t Referred To Contact Lab Procedures Cytology Tanner Ruiz MD [address] [place] [address] Phone: tel: fax: Referral ID Status Reason Start Date Expiration Date Visits Re quested Visits Authorized [id number] Closed 11/30/2019 12/29/2020 1 1 Reason for Visit * Reason Comments Initial Visit Encounter Details Date Type Department Care Team (Late st Contact Info) Description 12/21/2019 12:45 PM CDT Office Visit [facility] Obstetrics and Gynecology [address] [place] [address] Outpatient Health 7th Floor [address] [place] [address] Tanner Ruiz MD [address] [place] [address] Supervision of other normal , antepartum [...] on file Legal Sex Female 7:18 PM NETWORK SUPPORT SPECIALIST Gender Identity Female 04/03/2020 12:32 PM NETWORK SUPPORT SPECIALIST Sexual Orientation Not on file 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 Murphy. RN at [facility]-- orthopedics. Normal anatomy ultrasound today. * Nakita Altman RN - 12/21/2019 12:45 PM CDT Met with Olga Mckeon today for initial visit teaching. Discussed the practice, safe medications,appropriate diet, exercise/activity, travel, animals and vaccinations. Pt had specific questions that were answered appropriately. Having a girl! documented in this encounter Plan of Treatment Not on file documented as of this encounter Procedures Procedure Name Priority Date/Time Associated Diagnosis Comments HIV 1/2 ANTIBODY PLUS P24 ANTIGEN Routine 10/27/2019 DRUGS OF ABUSE SCREEN, URINE WITHOUT CONFIRMATION Routine 10/27/2019 ABO/RH Routine 10/27/2019 RUBELLA IGG Routine 10/27/2019 RPR Routine 10/27/2019 HEPATITIS B SURFACE ANTIGEN Routine 10/27/2019 CBC WITHOUT DIFFERENTIAL Routine 10/27/2019 ANTIBODY SCREEN Routine 10/27/2019 CHLAMYDIA TRACHOMATIS CULTURE Routine 10/27/2019 URINE CULTURE Routine 10/27/2019 N. GONORRHOEAE CULTURE Routine 10/27/2019 HEMOGLOBIN A1C Routine 10/27/2019 CYTOLOGY Routine 11/11/2018 documented in this encounter Results * Hemoglobin A1c (10/27/2019) SCRIBED Hemoglobin A1c 5.3 Blood specimen (specimen) Tanner Ruiz MD LAB BLOOD ORDERABLES Final Result * Rubella IgG (10/27/2019) Rubella IgG Scribed Nonimmune Blood specimen (specimen) Tanner Ruiz MD LAB MICROBIOLOGY - GENERAL ORDERABLES Final Result * RPR (10/27/2019) SCRIBED RPR Non-Reacti ve Blood specimen (specimen) Tanner Ruiz MD LAB MICROBIOLOGY - GENERAL ORDERABLES Final Result * Hepatitis B Surface Antigen (10/27/2019) SCRIBED HBsAg Negative Blood specimen (specimen) Result [facility] Tanner Ruiz MD LAB MICROBIOLOGY - GENERAL ORDERABLES Final Result * Drugs of Abuse Screen, Urine without Confirmation (10/27/2019) SCRIBED Drug screen negative Urine Result [facility] Tanner Ruiz MD LAB URINE ORDERABLES Final Result * ABO/Rh (10/27/2019) Pathologist [facility] SCRIBED ABO/Rh A+ Blood specimen (specimen) Result [facility] Tanner Ruiz MD LAB BLOOD BANK TEST ORDERA BLES Final Result * CBC without differential (10/27/2019) Pathologist [facility] Hct 34.7 Hgb 11.8 SCRIBED Platelets 258 k/cumm Blood specimen (specimen) Result [facility] Tanner Ruiz MD LAB BLOOD ORDERABLES Final Result * Antibody screen (10/27/2019) Pathologist [facility] SCRIBED Indirect Antiglobulin neg Blood specimen (specimen) Result [facility] Tanner Ruiz MD LAB BLOOD BANK TEST ORDERA BLES Final Result * Chlamydia trachomatis culture (10/27/2019) Pathologist [facility] SCRIBED Chlamydia culture neg Result [facility] Tanner Ruiz MD LAB MICROBIOLOGY - GENERAL ORDERABLES Final Result * HIV 1/2 Antibody plus p24 Antigen (10/27/2019) Pathologist [facility] SCRIBED HIV P24 Negative Blood specimen (specimen) Tanner Ruiz MD LAB MICROBIOLOGY - GENERAL ORDERABLES Final Result * Urine culture (10/27/2019) SCRIBED Urine culture negative Result [facility] Tanner Ruiz MD LAB MICROBIOLOGY - GENERAL ORDERABLES Final Result * N. gonorrhoeae culture (10/27/2019) SCRIBED Gonorrhea culture neg Tanner Ruiz MD LAB MICROBIOLOGY - GENERAL ORDERABLES Final Result * Cytology (11/11/2018) SCRIBED Pap test negative Fluid Result [facility] Tanner Ruiz MD LAB CYTOLOGY ORDERABLES Fi nal Result documented in this encounter Visit Diagnoses Diagnosis Supervision of other normal , antepartum- Primary documented in this encounter Historical Medications * This list may reflect changes made after this encounter. aspirin 81 mg enteric coated tablet Take 81 mg by mouth daily 04/10/2020 PNV no.95/ferrous fum/folic ac ( ORAL) Take by mouth 04/29/2020 ergocalciferol (VITAMIN D) 50,000 unit capsule TK 1 C PO Q 7 DAYS 11/26/2019 01/19/2020 added in this encounter Care Teams Mending Carrier Relationship Specialty Start Date End Date Bette Phillips PA PCP - General Physician Orthopedic Rn 11/23/19 documented as of this encounter
--- OUTSIDE RECORDS SUMMARY | 2024-04-15 03:46 | XMS_ITS | Encounter Summary ---
Author Organization [facility] Healthcare Address [address] [place] [address] Care Team Providers Care Computer Hardware Technician Name Role Phone Bette Phillips Primary Care Pr ovider Reason for Referral * Diagnostic Imaging (Routine) - Closed Specialty Diagnoses / Procedures Referred By Contac t Referred To Contact Diagnoses Encounter for supervision of other normal in second trimester Procedures US Ob Follow Up Shavon Bhatia MD [address] [facility] [phone] [place] [address] Phone: tel: fax: [facility] (All Locations) Referral ID Status Reason Start Date Expiration Date Visits Re quested Visits Authorized [id number] Closed 11/23/2019 12/22/2020 1 1 Reason for Visit * Diagnostic Imaging (Routine) - Closed Specialty Diagnoses / Procedures Referred By Controosevelt t Referred To Contact Diagnoses Encounter for supervision of other normal in second trimester Procedures [place] [address] [place] [address] [phone] [place] [address] Phone: tel: fax: [facility] (All Locations) Referral ID Status Reason Start Date Expiration Date Visits Re quested Visits Authorized [id number] Closed 11/23/2019 12/22/2020 1 1 Encounter Details Date Type Department Care Team (Latest Contact Info) Description 12/21/2019 10:34 AM CDT - 12/21/2019 11:59 PM CDT Hospital Encounter LOCATED WITHIN [facility] - Ultrasound [address] [facility], [address], [address] [place] [address] Shavon Bhatia MD [address] [phone] [place] [address] Encounter for supervision of other normal in second trimester Discharge Disposition: Discharge to home or self [...] on file Legal Sex Female 7:18 PM MEMBER OF THE LEGISLATIVE ASSEMBLY Gender Identity Female 04/03/2020 12:32 PM MEMBER OF THE LEGISLATIVE ASSEMBLY Sexual Orientation Not on file 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 of this encounter Medications at Time of Discharge aspirin 81 mg enteric coated tablet Take 81 mg by mouth daily 04/10/2020 ergocalciferol (VITAMIN D) 50,000 unit capsule TK 1 C PO Q 7 DAYS 11/26/2019 01/19/2020 PNV no.95/ferrous fum/folic ac ( ORAL) Take by mouth 04/29/2020 documented as of this encounter Discharge Disposition Disposition Code Departure Means Destination Discharge to home or self care documented in this encounter Plan of Treatment Not on file documented as of this encounter Procedures Procedure Name Priority Date/Time Associated Diagnosis Comments US OB FOLLOW UP Schedule Routine, Read Routine (OP Routine) 12/21/2019 10:34 AM CDT Encounter for supervision of other normal in second trimester documented in this encounter Results * US Ob Follow Up (12/21/2019 10:34 AM CDT) Fetus# Fetus1 VIEWPOINT Placenta Details anterior, Previa-no VIEWPOINT Estimated Weight 483 g&grams VIEWPOINT Presentation Vertex VIEWPOINT Anatomical Region Laterality Modality Abdomen N/A Ultrasound 12/21/2019 10:3 5 AM CDT us Shavon Bhatia MD IMG OB US PROCEDURES F inal Result documented in this encounter Visit Diagnoses Diagnosis Encounter for supervision of other normal in second trimester documented in this encounter Care Teams Computer Hardware Technician Relationship Specialty Start Date End Date Bette Phillips PA PCP - General Physician Building Drafter 11/23/19 documented as of this encounter
--- OUTSIDE RECORDS SUMMARY | 2024-04-15 03:46 | XMS_ITS | Encounter Summary ---
Author Organization [facility] Healthcare Address [address] [place] [address] Care Team Providers Care Pharmacist Per Diem Name Role Phone Bette Phillips Primary Care Pr ovider Reason for Visit * Reason Onset Date Comments Post Follow up 05/02/2020 Encounter Details Date Type Department Care Team (Late st Contact Info) Description 05/02/[address] [phone] Jaqui Manzo RN Post Partum Follow up Social History Tobacco Use Types Packs/Day Years [...] at this level? 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 Pain is minimal. Vaginal flow is decreasing. Pt is experience soreness when latches for the first 30 seconds. Pt denies bruising, cracking, or blisters on nipples. Reviewed a good latch and to soften breast tissue before feeding by pumping or hand expression to help baby get adeeper latch. Pt v/u. had check up with aircraft engine mechanic overhaul yesterday. NING FRAME CHANGER documented in this encounter Plan of Treatment Not on file documented as of this encounter Visit Diagnoses Not on filedocumented in this encounter Care Teams Pharmacist Per Diem Relationship Specialty Start Date End Date Bette Phillips PA PCP - General Physician Associate Professor Of Media Arts 11/23/19 documented as of this encounter
--- OUTSIDE RECORDS SUMMARY | 2024-04-15 03:46 | XMS_ITS | Encounter Summary ---
Author Organization [facility] Healthcare Address [address] [place] [address] Care Team Providers Care Welt Treater Name Role Phone Bette Phillips Primary Care Pr ovider Reason for Referral * Diagnostic Imaging (Routine) - Closed Specialty Diagnoses / Procedures Referred By Contac t Referred To Contact Diagnoses Encounter for supervision of normal , antepartum, unspecified Supervision of other normal , antepartum Procedures US [place] 14 [place] [address] [place] [address] [phone] [place] [address] Phone: tel: fax: [facility] (All Locations) Referral ID Status Reason Start Date Expiration Date Visits Re quested Visits Authorized [id number] Closed 07/13/2022 08/12/2023 1 1 * Diagnostic Imaging (Routine) - Closed Specialty Diagnoses / Procedures Referred By Contac t Referred To Contact Diagnoses Encounter for supervision of normal , antepartum, unspecified Procedures [place] [address] [place] [address] [phone] [place] [address] Phone: tel: fax: [facility] (All Locations) Referral ID Status Reason Start Date Expiration Date Visits Re quested Visits Authorized [id number] Closed 06/19/2022 07/19/2023 1 1 Reason for Visit * Diagnostic Imaging (Routine) - Closed Specialty Diagnoses / Procedures Referred By Contac t Referred To Contact Diagnoses Encounter for supervision of normal , antepartum, unspecified Procedures US Ob Limited Patito Bob MD [address] [facility] [phone] [place] [address] Phone: tel: fax: [facility] (All Locations) Referral ID Status Reason Start Date Expiration Date Visits Re quested Visits Authorized [id number] Closed 06/19/2022 07/19/2023 1 1 Encounter Details Date Type Department Care Team (Latest Contact Info) Description 07/13/2022 12:29 PM CDT - 07/13/2022 1:42 PM CDT Hospital Encounter [facility] Center for Outpatient [facility] - Ultrasound [address] [place] [address], [address], [address] [facility] [place] [address] Supervision of other normal , antepartum (Primary Dx); Encounter for supervision of normal , antepartum, unspecified Discharge Disposition: Discharge to home or self [...] exercise at this level? 60 min 12/21/2019 [place] Depression Scale Answer Date Recorded [place] Depression Scale Total 7 06/07/2020 The thought of harming myself has occurred to me . 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 us Patitomiguel angel Bob MD [facility] OB US PROC EDURES Edited * US Ob Limited (07/13/2022 12:29 PM CDT) Fetus# Fetus1 VIEWPOINT Placenta Details posterior VIEWPOINT Anatomical Region Laterality Modality Abdomen N/A Ultrasound 07/13/2022 12:3 3 PM CDT Impressions 07/13/2022 1:04 PM CDT Single viable intrauterine with biometry consistent with clinical dates. Narrative Procedure Note Tere Banerjee MD - 07/13/2022 IMPRESSION: Single viable intrauterine with biometry consistent withclinical dates. us Patitomiguel angel Bob MD [facility] OB US PROC EDURES Final Result documented in this encounter Visit Diagnoses Diagnosis Encounter for supervision of normal , antepartum, unspecified Encounter for supervision of normal , antepartum, unspecified documented in this encounter Care Teams Welt Treater Relationship Specialty Start Date End Date Bette Phillips PA PCP - General Physician Squirrel Worker 11/23/19 documented as of this encounter
--- OUTSIDE RECORDS SUMMARY | 2024-04-15 03:46 | XMS_ITS | Encounter Summary ---
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 Pt states she is really starting to get worried. Pt instructed to come in to our [facility] now to be evaluated.Pt verbalizes understanding and states she will be coming in now. Reason for Disposition ? ? [1] 23 or more weeks AND [2] baby moving less today by kick count (e.g., kick count < 5 in 1 hour or < 10 in 2 hours) Protocols used: - DECREASED [id number] NELER documented in this encounter Plan of Treatment Not on file documented as of this encounter Visit Diagnoses Not on filedocumented in this encounter Care Teams Nanofabrication Specialist Relationship Specialty Start Date End Date Bette Phillips PA PCP - General Physician Level Vial Marker 11/23/19 documented as of this encounter
--- OUTSIDE RECORDS SUMMARY | 2024-04-15 03:46 | XMS_ITS | Encounter Summary ---
Author Organization [facility] Healthcare Address [address] [place] [address] Care Team Providers Care Cardiovascular Technologist Name Role Phone Bette Phillips Primary Care Pr ovider Reason for Visit * Reason Onset Date Comments Incoming Call 04/27/2020 Rupture o f membranes Encounter Details Date Type Department Care Team (Late st Contact Info) Description 04/27/2020 Nurse Triage [address] [phone] Christina Jernigan RN Social History Tobacco Use Types Packs/Day Years [...] on file Legal Sex Female 7:18 PM SECURITY FIELD SUPERVISOR Gender Identity Female 04/03/2020 12:32 PM SECURITY FIELD SUPERVISOR Sexual Orientation Not on file 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 Leakage of fluid from vagina Answer Assessment - Initial Assessment Questions 1. ONSET: When did the symptoms begin? 1130 am 2. CONTRACTIONS: Are you having any contractions? If yes, ask: Describe the contractions that you are having. (e.g., duration, frequency, regularity, severity) Does not report contractions 3. JOHN: What date are you expecting to deliver? 04/30/20 4. PARITY: Have you had a baby before? If yes, How long did the labor last? unk 5. MOVEMENT: Has the baby's movement decreased or changed significantly from normal? no 6. OTHER SYMPTOMS: Do you have any other symptoms? (e.g., abdominal pain, vaginal bleeding, fever, hand/facial swelling) Just LOF Protocols used: - RUPTURE OF [id number] Called to report LOF at term, EDC 04/30. Reports SROM at 1130am. movement present. Denies covid symptoms. Instructed to come to [facility] for evaluation. Verbalizes understanding of instructions. RITY FIELD SUPERVISOR documented in this encounter Plan of Treatment Not on file documented as of this encounter Visit Diagnoses Not on filedocumented in this encounter Care Teams Cardiovascular Technologist Relationship Specialty Start Date End Date Bette Phillips PA PCP - General Physician Drywall Applicator 11/23/19 documented as of this encounter
--- OUTSIDE RECORDS SUMMARY | 2024-04-15 03:46 | XMS_ITS | Encounter Summary ---
Author Organization [facility] Healthcare Address [address] [place] [address] Care Team Providers Care Counterperson Name Role Phone Bette Phillips Primary Care Pr ovider Reason for Visit * Reason Comments Decreased Movement Encounter Details Date Type Department Care Team (Latest Contact Info) Description 04/11/2020 4:47 PM CLINICAL STAFF ANESTHESIOLOGIST - 04/11/2020 6:30 PM CLINICAL STAFF ANESTHESIOLOGIST Hospital Encounter [address] [address] Hansa Rowe MD [address] 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 of this encounter Last Filed Vital Signs Vital Sign Reading Time Taken Comments Blood Pressure 112/78 04/11/2020 6:03 PM CLINICAL STAFF ANESTHESIOLOGIST Pulse 73 04/11/2020 6:03 PM CLINICAL STAFF ANESTHESIOLOGIST Temperature 36.8 ??C (98.2 ??F) 04/11/2020 4:52 PM CS T Respiratory Rate 18 04/11/2020 4:52 PM CLINICAL STAFF ANESTHESIOLOGIST Oxygen Saturation 97% 04/11/2020 5:59 PM CLINICAL STAFF ANESTHESIOLOGIST Inhaled Oxygen Concentration - - Weight - - Height - - Body Mass Index - - documented in this encounter Discharge Diagnoses Diagnosis Decreased movements, third trimester, not applicable or unspecified - DECREASED MOVEMENTS, THIRD TRIMESTER, NOT APPLICABLE OR UNSPECIFIED 37 weeks gestation of - 37 WEEKS GESTATION OF documented in this encounter Discharge Instructions * Attachments The following attachments cannot be sent through Care Everywhere. * Movement (AfterCare(R) Instructions(ER/ED)) (Comoran) * Kick Counts in (Discharge Care) ([place]oran) * AT 35 TO 38 WEEKS (DISCHARGE CARE) ([place]OUTH [place]ORE[place]) documented in this encounter Medications at Time of Discharge acetaminophen 500 mg capsuleIndications: Pain Take 2 capsules (1,000 mg total) by mouth every 6 (six) hours as needed for pain 90 tablet 1 04/28/2020 3 docusate sodium (COLACE) 100 mg capsuleIndications: constipation,Stool Softener Take 1 capsule (100 mg total) by mouth 2 (two) times a day 60 capsule 1 04/28/2020 1 ferrous sulfate 325 mg (65 mg of elemental iron) tabletIndications:I afshin Deficiency Anemia Take 1 tablet (325 mg total) by mouth daily 30 tablet 11 04/29/2020 1 ibuprofen (ADVIL,MOTRIN) 600 mg tabletIndications:C ramps Take 1 tablet (600 mg total) by mouth every 6 (six) hours as needed for pain 90 tablet 1 04/28/2020 3 norethindrone (MICRONOR) 0.35 mg tabletIndications:P regnancy Contraception Take 1 tablet (0.35 mg total) by mouth daily 28 tablet 12 04/28/2020 1 PNV no.95/ferrous fum/folic ac ( ORAL) Take by mouth 1 PNV with [id number] 27 mg iron- 1 mg tabletIndications:V itamin Deficiency Prevention Take 1 tablet by mouth daily 90 tablet 3 04/29/2020 3 documented as of this encounter Discharge Disposition Disposition Code Departure Means Destination Discharge to home or self care documented in this encounter H&P Notes * Farzaneh Archibald, MARY - 04/11/2020 6:06 PM CST [facility] T[facility] Note Chief Complaint: decreased movement Estimated Date of Delivery: 04/30/20 Provider: [facility] HPI: Olga Mckeon is a 29 y.o. female at 37w2d gestation, dated by 1st trimester ultrasound who presents to the [facility] for decreased movement. Decreased movementsince this morning, normal all day yesterday. Since arrival to [facility], has felt 3 movements (over 1 hour). She denies any contractions, vaginal bleeding, leakage of fluid, dysuria, or vaginal discharge. Her is complicated by Rubella NI OB History Para Term AB Living 1 0 0 0 0 0 SAB TAB Ectopic Multiple Live Births 0 0 0 0 0 # Outcome Date GA Lbr Nick/2nd Weight Sex Delivery Anes PTL Lv 1 Current Past Medical History: Past Medical History: Diagnosis Date ??? Abnormal Pap smear of cervix 08/2016 Chronic hypertension: No Diabetes: No Asthma: No Social history: Past Surgical History: Procedure Laterality Date ??? COLPOSCOPY 2016 ??? TONSILLECTOMY 2000 ??? TYMPANOSTOMY TUBE PLACEMENT 1995 Social History Tobacco Use ??? Smoking status: Never Smoker ??? Smokeless tobacco: Never Used Substance Use Topics ??? Alcohol use: Not Currently ??? Drug use: Never Father of baby involved: yes Support System: Supported by partner Safe at home: Yes Family History: family history includes No Known Problems in her father and mother. Family history of bleeding or clotting disorders: No Family history of defects, genetic disorders, or developmental delay: No No Known Allergies HOME MEDICATIONS : PNV no.95/ferrous fum/folic ac ( ORAL) Review of Systems: Negative except per HPI Vitals: Temp: [98.2 ??F] 98.2 ??F Pulse: [68-95] 73 Resp: [18] 18 BP: (109-129)/(64-90) 112/78 Physical Exam: General: NAD, mood appropriate Cardiovascular: deferred Pulmonary: deferred Abdomen: Gravid, non-tender Extremities: Warm and well perfused Speculum Exam: deferred Cervix: deferred Wet Prep: deferred Monitoring: Baseline: 130 bpm, Variability: Moderate, Accelerations: Present and Decelerations: None Uterine Activity: No contractions seen on toco Interpretation: Reactive Ultrasound: Vertex presentation BERNARD 11.01cm DVP 5.61 cm BPP Amniotic Fluid volume: 2/2 Gross Movement: 2/2 Tone: 2/2 Breathin/2 Reactive NST: 2/2 Total: 01/26 Labs: Lab Results Component Value Date SCRIBEDABORH A+ 10/27/2019 [id number] Nonreactive 04/03/2020 LABRPR Non Reactive 01/23/2020 SCRRUBELIGG Nonimmune 10/27/2019 SCRHEPBSAG Negative 10/27/2019 POCT urinalysis dipstick Ref Range & Units 04/11/20 1819 Color, Urine, POC Light Yellow Clarity, ur, POC Clear Clear Glucose, ur, POC Negative mg/dL Negative Bilirubin, ur, POC Negative, Small, Moderate, Large Negative Ketones, ur, POC Negative Negative Specific [place], POC 1.005 - 1.030 1.020 Blood, ur, POC Negative Negative pH, ur, POC 5.0 - 8.0 6.5 Protein, ur, POC Negative Negative Urobilinogen, urine, POC 0.2 - 1.0 mg/dL 0.2 Nitrite, ur, POC Negative Negative Leukocytes, ur, POC Negative Negative Assessment and Plan Olga Mckeon is a 29 y.o. female at 37w2d who presented with decreased movement # Decreased movement/ well being: + movement in [facility]. Reactive, Reassuring EFM x1 hour. BPP 10/10. Initial mild BP 129/90, followed by 3 normal 109-119/64-78. Initial BP likely related to patient feeling nervous. Urine dip with neg protein. Asymptomatic. No evidence of GHTN/Pre-E. Kick counts and Pre- precautions given. Has f/u 04/[address] Rowe Dispo-D/C to home Farzaneh Archibald NP 04/11/20 Cosigned by Hansa Rowe MD at 04/11/2020 6:37 PM CLINICAL STAFF ANESTHESIOLOGIST ICAL STAFF ANESTHESIOLOGIST ICAL STAFF ANESTHESIOLOGIST Associated attestation - Hansa Rowe MD - 04/11/2020 6:37 PM CLINICAL STAFF ANESTHESIOLOGIST The resident/fellow saw and examined the patient, we discussed their findings, and I am in agreement with the plan based on the discussion with the resident/fellow. I did not personally examine the patient. documented in this encounter Procedure Notes * Hansa Rowe MD - 04/11/2020 6:38 PM CST Procedures Olga Mckeon 37w2d SURVEILLANCE TESTING SUMMARY Vitals: 04/11/20 1803 BP: 112/78 Pulse: 73 Resp: Temp: SpO2: INDICATIONS: decreased movement OBJECTIVE RESULTS: heart variability: moderate Heart Rate decelerations: none Heart Rate accelerations: yes Baseline FHR: 130 per minute Non-stress Test: reactive Uterine contractions: none surveillance: reassuring Hansa Rowe MD 04/11/2020 6:38 PM ICAL STAFF ANESTHESIOLOGIST * Farzaneh Archibald NP - 04/11/2020 6:24 PM CST Procedures Electronic Monitoring/Non-Stress Test in [facility] Date: 04/11/20 Time: Olga Mckeon is a 29 y.o. female at 37w2d gestation FHR Baseline: 125 Variability: moderate Accelerations: present Decelerations: absent Contractions: absent Reactive: Yes Comments: reassuring I have reviewed NST and instructed RN to take off monitor OTIS Staton Cosigned by Hansa Rowe MD at 04/11/2020 6:39 PM CLINICAL STAFF ANESTHESIOLOGIST ICAL STAFF ANESTHESIOLOGIST ICAL STAFF ANESTHESIOLOGIST Associated attestation - Hansa Rowe MD - 04/11/2020 6:39 PM CLINICAL STAFF ANESTHESIOLOGIST I have reviewed the NST and agree with the interpretation. documented in this encounter Nursing Notes * Rula Gordon, SUKH - 04/11/2020 6:29 PM CST Pt to [facility] from home with complaints of decreased movement. FHR monitor and Nixon applied. Pt denies loss of fluid and vaginal bleeding and reports only sporadic contractions. tracing reactive with only a few contractions noted on the tracing. SMALL ENGINE SPECIALIST aware, and presents to bedside for BBP andAFI. Per Dr. Rowe and Oumou Archibald NP. Pt may return home and follow up with the OB on Sunday 04/15 for her regular scheduled appointment. Handouts provided to patient on kick counts, and movement, as well as 37 week gestational information. Discussed when to return to [facility]. Pt verbalizes understanding and denies questions at this time. Rula Gordon RN 04/11/2020 ICAL STAFF ANESTHESIOLOGIST documented in this encounter Plan of Treatment Not on file documented as of this encounter Procedures Procedure Name Priority Date/Time Associated Diagnosis Comments POCT URINALYSIS DIPSTICK Routine 04/11/2020 6:19 PM CLINICAL STAFF ANESTHESIOLOGIST US BIOPHYSICAL PROFILE W TEST IP Routine 04/11/2020 6:16 PM CLINICAL STAFF ANESTHESIOLOGIST Decreased movements in third trimester, single or unspecified fetus documented in this encounter Results * POCT urinalysis dipstick (04/11/2020 6:19 PM CLINICAL STAFF ANESTHESIOLOGIST) Color, Urine, POC Light Yellow Clarity, ur, POC Clear Clear Glucose, ur, POC Negative Negative mg/dL Bilirubin, ur, POC Negative Negative, Small, Moderate, Large Ketones, ur, POC Negative Negative Specific [place], POC 1.020 1.005 - 1.030 Blood, ur, POC Negative Negative pH, ur, POC 6.5 5.0 - 8.0 Protein, ur, POC Negative Negative Urobilinogen, urine, POC 0.2 0.2 - 1.0 mg/dL Nitrite, ur, POC Negative Negative Leukocytes, ur, POC Negative Negative Lot Number [id number] Urine 04/11/2020 6:19 PM CLINICAL STAFF ANESTHESIOLOGIST Farzaneh Archibald SMALL ENGINE SPECIALIST POINT OF CARE TEST ORDERABL ES Final Result * US Biophysical Profile W Test (04/11/2020 6:16 PM CLINICAL STAFF ANESTHESIOLOGIST) Anatomical Region Laterality Modality N/A Ultrasound Study GA Study Date Study JOHN Working JOHN (Source) Feta l Weight (Method) 04/11/2020 04/30/2020 (Alternate JOHN Entry) Result Name Value Comments Amniotic fld cm Heart Rate bpm Narrative 04/11/2020 6:18 PM CLINICAL STAFF ANESTHESIOLOGIST Vertex presentation BERNARD 11.01cm DVP 5.61cm BPP Amniotic Fluid volume: 2/2 Gross Movement: 2/2 Tone: 2/2 Breathin/2 Reactive NST: 2/2 Total: 01/26 OTIS Staton Farzaneh Archibald SMALL ENGINE SPECIALIST IMG OB US PROCEDURES Final Result documented in this encounter Visit Diagnoses Diagnosis Decreased movements in third trimester, single or unspecified fetus- Primary documented in this encounter Care Teams Counterperson Relationship Specialty Start Date End Date Bette Phillips PA PCP - General Physician Land Checker 11/23/19 documented as of this encounter
--- OUTSIDE RECORDS SUMMARY | 2024-04-15 03:46 | XMS_ITS | Encounter Summary ---
Author Organization [facility] Address [address] [place] [address] Phone Care Team Providers Care Funeral Driver Name Role Phone Bette Phillips Primary Care Pr ovider Reason for Visit * Reason Comments Routine Visit Encounter Details Date Type Department Care Team (Late st Contact Info) Description 02/13/2020 3:45 PM CDT Office Visit [facility] Obstetrics and Gynecology [address] 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 TDap today. Handout given. Discussed pediatricians, baby friendly, and breast feeding. documented in this encounter Plan of Treatment Not on file documented as of this encounter Visit Diagnoses Diagnosis Supervision of other normal , antepartum- Primary documented in this encounter Orders Immunization/Injection Count Last Ordered Date First Ordered Date TDAP VACCINE GREATER THAN OR EQUAL TO 7YO IM 1 02/13/2020 documented in this encounter Care Teams Funeral Driver Relationship Specialty Start Date End Date Bette Phillips PA PCP - General Physician Barrel Reamer 11/23/19 documented as of this encounter
--- OUTSIDE RECORDS SUMMARY | 2024-04-15 03:46 | XMS_ITS | Encounter Summary ---
Author Organization [facility] Healthcare Address [address] [place] [address] Care Team Providers Care Vegetable Grader Name Role Phone Bette Phillips Primary Care Pr ovider Encounter Details Date Type Department Care Team (Late st Contact Info) Description 04/11/2020 6:20 PM SUPERVISOR REINFORCED STEEL PLACING Ancillary Procedure [address] [phone] Social History Tobacco Use Types Packs/Day Years [...] file Legal Sex Female 7:18 PM SUPERVISOR REINFORCED STEEL PLACING Gender Identity Female 04/03/2020 12:32 PM SUPERVISOR REINFORCED STEEL PLACING Sexual Orientation Not on file 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 of this encounter Plan of Treatment Not on file documented as of this encounter Procedures Procedure Name Priority Date/Time Associated Diagnosis Comments US BIOPHYSICAL PROFILE W TEST IP Routine 04/11/2020 6:16 PM SUPERVISOR REINFORCED STEEL PLACING Decreased movements in third trimester, single or unspecified fetus documented in this encounter Results * US Biophysical Profile W Test (04/11/2020 6:16 PM SUPERVISOR REINFORCED STEEL PLACING) Anatomical Region Laterality Modality N/A Ultrasound Study GA Study Date Study JOHN Working JOHN (Source) Feta l Weight (Method) 04/11/2020 04/30/2020 (Alternate JOHN Entry) Result Name Value Comments Amniotic fld cm Heart Rate bpm Narrative 04/11/2020 6:18 PM SUPERVISOR REINFORCED STEEL PLACING Vertex presentation BERNARD 11.01cm DVP 5.61cm BPP Amniotic Fluid volume: 2/2 Gross Movement: 2/2 Tone: 2/2 Breathin/2 Reactive NST: 2/2 Total: 01/26 OTIS Staton us Farzaneh Archibald GUARD CAPTAIN IMG OB US PROCEDURES Final Result documented in this encounter Visit Diagnoses Not on filedocumented in this encounter Care Teams Vegetable Grader Relationship Specialty Start Date End Date Bette Phillips PA PCP - General Physician Annealing Furnace Operator 11/23/19 documented as of this encounter
--- OUTSIDE RECORDS SUMMARY | 2024-04-15 03:46 | XMS_ITS | Encounter Summary ---
Author Organization [facility] Healthcare Address [address] [place] [address] Care Team Providers Care Cork Tipper Name Role Phone Bette Phillips Primary Care Pr ovider Encounter Details Date Type Department Care Team (Late st Contact Info) Description 07/13/2022 2:25 PM CDT Lab [facility] [address] [place] [address] [place] [address] Supervision of other normal , antepartum Social [...] exercise at this level? 60 min 12/21/2019 [place] Depression Scale Answer Date Recorded [place] Depression Scale Total 7 06/07/2020 The thought of harming myself has occurred to me . 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 of this encounter Plan of Treatment Not on file documented as of this encounter Procedures Procedure Name Priority Date/Time Associated Diagnosis Comments HIV 1/2 ANTIBODY PLUS P24 ANTIGEN Routine 07/13/2022 2:34 PM CDT Supervision of other normal , antepartum HEPATITIS C ANTIBODY Routine 07/13/2022 2:34 PM CDT Supervision of other normal , antepartum RUBELLA IGG Routine 07/13/2022 2:34 PM CDT Supervision of other normal , antepartum RPR Routine 07/13/2022 2:34 PM CDT Supervision of other normal , antepartum HEPATITIS B SURFACE ANTIGEN Routine 07/13/2022 2:34 PM CDT Supervision of other normal , antepartum CBC WITHOUT DIFFERENTIAL Routine 07/13/2022 2:34 PM CDT Supervision of other normal , antepartum TYPE AND SCREEN Routine 07/13/2022 2:34 PM CDT VARICELLA ZOSTER ANTIBODY, IGG Routine 07/13/2022 2:34 PM CDT Supervision of other normal , antepartum documented in this encounter Results * Type and screen (07/13/2022 2:34 PM CDT) ABO Rh A Positive ROULA SCOTT Mateo, indirect Negative ROULA SCOTT Blood 07/13/2022 2:34 PM CDT 07/13/2022 3:47 PM CDT us Shavon Bhatia MD LAB BLOOD BANK TEST OR DERABLES Final Result [facility] Department [place] [address] * (ABNORMAL) CBC without differential (07/13/2022 2:34 PM CDT) [facility] WBC 8.4 3.8 - 9.9 K/cumm [facility] Hgb 12.2 11.9 - 15.5 g/dL [facility] Hct 35.4(L) 35.6 - 45.5 % [facility] Plt 279 150 - 400 K/cumm [facility] MPV 10.7 9.1 - 12.3 fL [facility] RBC 3.89(L) 3.90 - 5.20 M/cumm [facility] MCV 91.0 81.3 - 96.4 fL [facility] MCH 31.4 27.1 - 33.3 pg [facility] MCHC 34.5 32.3 - 35.7 g/dL [facility] RDW CV 12.2 11.1 - 14.9 % [facility] RDW SD 40.5 35.7 - 48.1 fL [facility] NRBC abs 0.00 0.00 - 0.01 K/cumm [facility] Blood 07/13/2022 2:34 PM CDT 07/13/2022 3:17 PM CDT us Shavon Bhatia MD LAB BLOOD ORDERABLES F inal Result Performing Organization Address City/[facility]/ZIP Co de Phone Number [facility] Department [place] [address] * Hepatitis B Surface Antigen (07/13/2022 2:34 PM CDT) [facility] HepBsAg Nonreactive Nonreactive [facility] Blood 07/13/2022 2:34 PM CDT 07/13/2022 3:17 PM CDT us Shavon Bhatia MD LAB MICROBIOLOGY - GEN ERAL ORDERAB[place] [address] * Hepatitis C antibody (07/13/2022 2:34 PM CDT) [facility] Hep C Ab Nonreactive Nonreactive [facility] Comment:Antibodies to HCV no t detected. Does NOT exclude the possibility of recent exposure to HCV. Current interpretive data was last revised on 21 Blood 07/13/2022 2:34 PM CDT 07/13/2022 3:17 PM CDT Shavon Bhatia MD LAB MICROBIOLOGY - GEN ERAL ORDERABLES Final Result Performing Organization Address [facility] [place] [address] * HIV 1/2 Antibody plus p24 Antigen Blood (07/13/2022 2:34 PM CDT) [facility] HIV 1/2 ab + p24 ag Nonreactive Nonreactive [facility] Comment:Nonreactive for HIV- 1 antigen and HIV-1/HIV-2 antibodies. No laboratory evidence of HIV infection. If acute HIV infection is suspected, consider testing for HIV-1 RNA. Current interpretive data was last revised on 21. Blood 07/13/2022 2:34 PM CDT 07/13/2022 3:17 PM CDT Shavon Bhatia MD LAB MICROBIOLOGY - GEN ERAL ORDERABLES Final Result Performing Organization Address City/State/[facility] [place] [address] * RPR Blood (07/13/2022 2:34 PM CDT) [facility] RPR Nonreactive Nonreactive [facility] Blood 07/13/2022 2:34 PM CDT 07/13/2022 3:17 PM CDT Shavon Bhatia MD LAB MICROBIOLOGY - GEN ERAL ORDERABLES Final Result Performing Organization Address City/[facility]/[place] [address] * Rubella IgG antibody (07/13/2022 2:34 PM CDT) Rubella IgG Reactive [facility] Comment:Reactive: Results dillon ggest response to immunization or prior exposure to the virus. Blood 07/13/2022 2:34 PM CDT 07/13/2022 3:17 PM CDT Shavon Bhatia MD LAB MICROBIOLOGY - GEN ERAL ORDERABLES Final Result Performing Organization Address [facility] [place] [address] * Varicella Zoster IgG antibody Blood (07/13/2022 2:34 PM CDT) VZV IgG Reactive Reactive [facility] Comment:Reactive: Results dillon ggest response to immunization or prior exposure to the virus. Blood 07/13/2022 2:34 PM CDT 07/13/2022 3:17 PM CDT Shavon Bhatia MD LAB MICROBIOLOGY - GEN ERAL ORDERABLES Final Result Performing Organization Address City/[facility] [place] [address] documented in this encounter Visit Diagnoses Diagnosis Supervision of other normal , antepartum documented in this encounter Care Teams Cork Tipper Relationship Specialty Start Date End Date Bette Phillips PA PCP - General Physician Certified Medical Aide 11/23/19 documented as of this encounter
--- OUTSIDE RECORDS SUMMARY | 2024-04-15 03:46 | XMS_ITS | Encounter Summary ---
Author Organization [facility] Address [address] [place] [address] Phone Care Team Providers Care Outreach Assistant Name Role Phone Bette Phillips Primary Care Pr ovider Reason for Visit * Reason Comments Routine Visit Encounter Details Date Type Department Care Team (Late st Contact Info) Description 03/05/2020 2:00 PM DIE STORAGE CLERK Office Visit 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 Reviewed C/S, OVD, and episiotomy. STORAGE CLERK documented in this encounter Plan of Treatment Not on file documented as of this encounter Visit Diagnoses Diagnosis Supervision of other normal , antepartum- Primary documented in this encounter Care Teams Outreach Assistant Relationship Specialty Start Date End Date Btete Phillips PA PCP - General Physician Gerontological Nurse Practitioner 11/23/19 documented as of this encounter
--- OUTSIDE RECORDS SUMMARY | 2024-04-15 03:46 | XMS_ITS | Encounter Summary ---
Author Organization [facility] Healthcare Address [address] [place] [address] Care Team Providers Care Tractor Trailer Moving Van Driver Name Role Phone CecilianiallBette Primary Care Pr ovider Encounter Details Date Type Department Care Team (Late st Contact Info) Description 04/03/2020 3:05 PM PATIENT CONSUMER MARKETER Lab [facility] Outpatient Health [address] [place] [address] Outpatient Health [place], [place] [id number] [place] [address] [place] [phone] Supervision of other normal , antepartum Discharge [...] on file Legal Sex Female 7:18 PM PATIENT CONSUMER MARKETER Gender Identity Female 04/03/2020 12:32 PM PATIENT CONSUMER MARKETER Sexual Orientation Not on file 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 of this encounter Discharge Disposition Disposition Code Departure Means Destination Discharge to home or self care documented in this encounter Plan of Treatment Not on file documented as of this encounter Procedures Procedure Name Priority Date/Time Associated Diagnosis Comments HIV 1/2 ANTIBODY PLUS P24 ANTIGEN Routine 04/03/2020 3:09 PM PATIENT CONSUMER MARKETER Supervision of other normal , antepartum CBC WITHOUT DIFFERENTIAL Routine 04/03/2020 3:09 PM PATIENT CONSUMER MARKETER Supervision of other normal , antepartum documented in this encounter Results * (ABNORMAL) CBC without differential (04/03/2020 3:09 PM PATIENT CONSUMER MARKETER) WBC 9.4 3.8 - 9.9 K/cumm [facility] Hgb 11.7(L) 11.9 - 15.5 g/dL [facility] Hct 34.9(L) 35.6 - 45.5 % [facility] Plt 242 150 - 400 K/cumm [facility] MPV 11.2 9.1 - 12.3 fL [facility] RBC 3.62(L) 3.90 - 5.20 M/cumm [facility] MCV 96.4 81.3 - 96.4 fL [facility] MCH 32.3 27.1 - 33.3 pg [facility] MCHC 33.5 32.3 - 35.7 g/dL [facility] RDW CV 12.4 11.1 - 14.9 % [facility] RDW SD 44.2 35.7 - 48.1 fL [facility] NRBC abs 0.00 0.00 - 0.01 K/cumm [facility] Blood specimen (specimen) 04/03/2020 3:09 PM PATIENT CONSUMER MARKETER 04/03/2020 4:14 PM PATIENT CONSUMER MARKETER us Jayy Frey MD LAB BLOOD ORDERABLES Final Result [facility] [place] [address] * HIV 1/2 Antibody plus p24 Antigen (04/03/2020 3:09 PM PATIENT CONSUMER MARKETER) HIV 1/2 ab + p24 ag Nonreactive Nonreactive [facility] Comment: Nonreactive for HIV-1 antigen and HIV-1/HIV-2 antibodies. No laboratory evidence of HIV infection. If acute HIV infection is suspected, consider testing for HIV-1 RNA. Blood specimen (specimen) 04/03/2020 3:09 PM PATIENT CONSUMER MARKETER 04/03/2020 4:14 PM PATIENT CONSUMER MARKETER us Jayy Frey MD LAB MICROBIOLOGY - G ENERAL ORDERABLES Final Result [facility] [place] [address] documented in this encounter Visit Diagnoses Diagnosis Supervision of other normal , antepartum documented in this encounter Care Teams Tractor Trailer Moving Van Driver Relationship Specialty Start Date End Date Bette Phillips PA PCP - General Physician Sheriff Officer 11/23/19 documented as of this encounter
--- OUTSIDE RECORDS SUMMARY | 2024-04-15 03:46 | XMS_ITS | Encounter Summary ---
Author Organization [facility] Address [address] [place] [address] Phone Care Team Providers Care Contact Center Associate Name Role Phone Bette Phillips Primary Care Pr ovider Reason for Referral * Diagnostic Imaging (Routine) - Closed Specialty Diagnoses / Procedures Referred By Controosevelt t Referred To Contact Diagnoses Encounter for supervision of other normal in second trimester Procedures US Ob Follow Up Shavon Bhatia MD [address] [facility] [phone] [place] [address] Phone: tel: fax: [facility] (All Locations) Referral ID Status Reason Start Date Expiration Date Visits Re quested Visits Authorized [id number] Closed 11/23/2019 12/22/2020 1 1 Encounter Details Date Type Department Care Team (Late st Contact Info) Description 11/23/2019 Orders Only [facility] Obstetrics and Gynecology [address] [place] [address] Outpatient Health 7th Floor [address] [place] [address] Shavon Bhatia MD [address] [facility] [phone] [place] [address] Encounter for supervision of other normal in second trimester (Primary Dx) Social History Tobacco Use Types Packs/Day Years Used Date Smoking Tobacco: Never Assessed Comments Unknown Sex and Gender Information Value Date Recorded Sex Assigned at Not on file Legal Sex Female 7:18 PM RADIO ARTIST Gender Identity Female 04/03/2020 12:32 PM RADIO ARTIST Sexual Orientation Not on file documented as of this encounter Plan of Treatment Not on file documented as of this encounter Results * US Ob Follow [...] for supervision of other normal in second trimester- Primary documented in this encounter Care Teams Contact Center Associate Relationship Specialty Start Date End Date Bette Phillips PA PCP - General Physician Senior Sales Operations Analyst 11/23/19 documented as of this encounter
--- OUTSIDE RECORDS SUMMARY | 2024-04-15 03:46 | XMS_ITS | Encounter Summary ---
Author Organization [facility] Address [address] [place] [address] Phone Care Team Providers Care Philosophy Professor Name Role Phone Bette Phillips Primary Care Pr ovider Encounter Details Date Type Department Care Team (Late st Contact Info) Description 04/10/2020 2:45 PM CORPORATE DEVELOPMENT INTERN Office Visit [facility] Obstetrics and Gynecology [address] [facility] Outpatient Health 7th Floor [address] [place] [address] Rosalina Riley, COUNTY CORONER [address] 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 of this encounter Last Filed Vital Signs Vital Sign Reading Time Taken Comments Blood Pressure 126/81 04/10/2020 2:33 PM CORPORATE DEVELOPMENT INTERN Pulse 79 04/10/2020 2:33 PM CORPORATE DEVELOPMENT INTERN Temperature - - Respiratory Rate - - Oxygen Saturation - - Inhaled Oxygen Concentration - - Weight 77.4 kg (170 lb 9.6 oz) 04/10/2020 2:33 P M CORPORATE DEVELOPMENT INTERN Height 170.2 cm (5' 7 ) 04/10/2020 2:33 PM CORPORATE DEVELOPMENT INTERN Body Mass Index 26.72 04/10/2020 2:33 PM CORPORATE DEVELOPMENT INTERN documented in this encounter Progress Notes * Rosalina Riley NP - 04/10/2020 2:45 PM CST BERNABE visit: D/w. 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 Reviewed s/s of Labor and PreE. Good FM Desires spont labor and not eIOL Open to having Membranes swept if possible at 38+ weeks RTO 1 week Cosigned by Tanner Ruiz MD at 04/11/2020 10:30 AM CORPORATE DEVELOPMENT INTERN ORATE DEVELOPMENT INTERN ORATE DEVELOPMENT INTERN documented in this encounter Plan of Treatment Not on file documented as of this encounter Visit Diagnoses Diagnosis Encounter for supervision of normal first in third trimester- Primary documented in this encounter Discontinued Medications Medication Sig Discontinue Reason Start Date End Da te aspirin 81 mg enteric coated tablet Take 81 mg by mouth daily Therapy completed 04/10/2020 documented as of this encounter Care Teams Philosophy Professor Relationship Specialty Start Date End Date Bette Phillips PA PCP - General Physician Accounting Manager 11/23/19 documented as of this encounter
--- OUTSIDE RECORDS SUMMARY | 2024-04-15 03:46 | XMS_ITS | Encounter Summary ---
Author Organization [facility] Healthcare Address [address] [place] [address] Care Team Providers Care Forging Machine Operator Name Role Phone Bette Phillips Primary Care Pr ovider Encounter Details Date Type Department Care Team (Late st Contact Info) Description 06/23/2021 10:55 AM AIRCRAFT ENGINE MECHANIC SUPERVISOR Lab [facility] PATHOLOGY [address] [place] [address] Well woman exam Social History Tobacco Use Types Packs/Day Years [...] exercise at this level? 60 min 12/21/2019 [place] Depression Scale Answer Date Recorded [place] Depression Scale Total 7 06/07/2020 The thought of harming myself has occurred to me . 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 of this encounter Plan of Treatment Not on file documented as of this encounter Procedures Procedure Name Priority Date/Time Associated Diagnosis Comments PAP AND HIGH RISK HPV, REFLEX TO GENOTYPING Routine 06/20/2021 9:10 AM AIRCRAFT ENGINE MECHANIC SUPERVISOR Well woman exam documented in this encounter Results * Pap and High Risk HPV, reflex to Genotyping (06/20/2021 9:10 AM AIRCRAFT ENGINE MECHANIC SUPERVISOR) Thin prep (Pap test) 06/20/2021 9:10 AM AIRCRAFT ENGINE MECHANIC SUPERVISOR 06/20/2021 10:11 AM AIRCRAFT ENGINE MECHANIC SUPERVISOR Narrative PATHOLOGY [facility] - 06/26/2021 10:42 AM AIRCRAFT ENGINE MECHANIC SUPERVISOR EPIC results best viewed via link to PDF [facility] Nat[facility] [place] [address] Note to Patients: This report may contain [...] the details. CYTOPATHOLOGY REPORT FINAL Patient Name: ??CARLOTTAJODY SANTOS Gender: ??F : ??1990 (Age: 30) Address: ??[address] [place] [address] Hospital #: ??[id number] Service: ??Obstetrics BJ Location: ??[facility] Patient Type: ??[facility] Ref Lab Taken: ??06/20/2021 Received: ??06/20/2021 Accessioned: ??06/23/2021 Reported: ??06/26/2021 Physician(s): ??Nazario L. Ector, M.D. ?? FINAL INTERPRETATION SOURCE OF SPECIMEN: [...] 68. ??This HPV test was performed at [facility] in [place], [place] utilizing the Gen-Probe Aptima assay. am/06/26/2021 [...] . The HPV test was performed by [facility], [address] [place] [address]. Report Images and scanned documents, if included only viewable in PDF version The performance characteristics of some immunohistochemical stains, in-situ hybridization and fluorescence in-situ hybridization tests and immunophenotyping by flow cytometry cited in this report (if any) were determined by the Surgical Pathology Department at [facility] as part of an ongoing water quality analyst program and in compliance with federally mandated [...] determined by the Surgical Pathology Department of [facility]. ??It has not been cleared or approved by the U. S. Food and Drug Administration. Nazario Barney MD LAB CYTOLOGY ORDERABLES Fi nal Result PATHOLOGY [facility] 3rd Floor [place], [place] [phone] documented in this encounter Visit Diagnoses Diagnosis Well woman exam Routine general medical examination at a health care facility documented in this encounter Care Teams Forging Machine Operator Relationship Specialty Start Date End Date Bette Phillips PA PCP - General Physician Mailroom Messenger 11/23/19 documented as of this encounter
--- OUTSIDE RECORDS SUMMARY | 2024-04-15 03:46 | XMS_ITS | Encounter Summary ---
Author Organization [facility] Address [address] [place] [address] Phone Care Team Providers Care Artificial Candy Maker Name Role Phone Bette Phillips Primary Care Pr ovider Reason for Referral * Diagnostic Imaging (Routine) - Closed Specialty Diagnoses / Procedures Referred By Contac t Referred To Contact Diagnoses Supervision of other normal , antepartum Procedures US Ob Follow Up Hansa Rowe MD [address] [facility] [phone] [place] [address] Phone: tel: fax: [facility] (All Locations) Referral ID Status Reason Start Date Expiration Date Visits Re quested Visits Authorized [id number] Closed 04/15/2020 05/15/2021 1 1 AL GUNNER Reason for Visit * Reason Comments Routine Visit Encounter Details Date Type Department Care Team (Late st Contact Info) Description 04/15/2020 4:00 PM AERIAL GUNNER Office Visit [facility] Obstetrics and Gynecology [address] [facility] Outpatient Health 7th Floor [address] [place] [address] Hansa Rowe MD [address] [facility] [phone] [place] [address] Supervision of other normal , [...] on file Legal Sex Female 7:18 PM AERIAL GUNNER Gender Identity Female 04/03/2020 12:32 PM AERIAL GUNNER Sexual Orientation Not on file 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 Will sweep membranes at 39 weeks. Patient describes MENCHACA and dizziness that have sent resolve. Will CTM symptoms. AL GUNNER documented in this encounter Plan of Treatment Not on file documented as of this encounter Results * US Ob Follow Up (04/23/2020 12:24 PM AERIAL GUNNER) Fetus# Fetus1 VIEWPOINT Placenta Details anterior, Previa-no VIEWPOINT Estimated Weight 3,944 g&grams VIEWPOINT Presentation Vertex VIEWPOINT Anatomical Region Laterality Modality Abdomen N/A Ultrasound 04/23/2020 12:3 6 PM AERIAL GUNNER us Hansa Rowe MD IMG OB US PROCEDURES Fi nal Result documented in this encounter Visit Diagnoses Diagnosis Supervision of other normal , antepartum- Primary documented in this encounter Care Teams Artificial Candy Maker Relationship Specialty Start Date End Date Bette Phillips PA PCP - General Physician Thermal Cutter Helper 11/23/19 documented as of this encounter
--- OUTSIDE RECORDS SUMMARY | 2024-04-15 03:46 | XMS_ITS | Encounter Summary ---
Author Organization [facility] Healthcare Address [address] [place] [address] Care Team Providers Care Rn Faculty Name Role Phone Bette Phillips Primary Care Pr ovider Encounter Details Date Type Department Care Team (Late st Contact Info) Description 11/12/2020 9:10 AM CDT Lab [address] [address] Social History Tobacco Use Types Packs/Day Years [...] exercise at this level? 60 min 12/21/2019 [place] Depression Scale Answer Date Recorded [place] Depression Scale Total 7 06/07/2020 The thought of harming myself has occurred to me . 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 of this encounter Plan of Treatment Not on file documented as of this encounter Procedures Procedure Name Priority Date/Time Associated Diagnosis Comments T-SPOT.TB Routine 11/12/2020 8:44 AM CDT documented in this encounter Results * (ABNORMAL) T-SPOT.TB (11/12/2020 8:44 AM CDT) [facility] T-SPOT.TB POSITIVE(A ) [employer] [facility] Comment: Normal Value: Negative Diagnosing or excluding tuberculosis (TB) disease and assessing the probability of latent TB infection (LTBI) requires a combination of epidemiological, historical, medical and diagnostic findings that should be taken into consideration when interpreting T-SPOT.TB test results. ??A positive test result does not rule in active TB disease caused by Mycobacterium tuberculosis (M. tuberculosis); active TB disease should be confirmed by other tests such as sputum smear and culture, PCR, and chest radiography. ?? Uncommonly, a positive T-SPOT.TB result may be due to infection with other Mycobacterium species including M. kansasii, M. szulgai, M. gordonae, or M. marinum. Alternative tests would be required if these infections are suspected. ??The T-SPOT.TB test is qualitative and results are reported as positive, borderline or negative, given that the test controls perform as expected. In line with the Centers for Disease Control and Prevention's 2010 recommendation to report quantitative measurements alongside the qualitative result, the laboratory provides spot counts for informational purposes only. ??The T-SPOT.TB test should not be interpreted as a quantitative test. T-SPOT.TB Panel A Spot Count 0 [facility] T-SPOT.TB Panel B Spot Count 12 [facility] T-SPOT.TB Negative Control Passed [facility] T-SPOT.TB Positive Control Passed [facility] Comment: Test Performed at: [facility], [employer] [place] [place], [place] ??[address] ? JOSEPH MAXWELL MD,PHD Blood specimen (specimen) 11/12/2020 8:44 AM CDT 11/12/2020 8:13 PM CDT us Precious Samano MD LAB MICROBIOLOGY - GENERAL ORDERABLES Final Result [facility] Department [place] [address] documented in this encounter Visit Diagnoses Not on filedocumented in this encounter Care Teams Rn Faculty Relationship Specialty Start Date End Date Bette Phillips PA PCP - General Physician Three Dimensional Art Instructor 11/23/19 documented as of this encounter
--- OUTSIDE RECORDS SUMMARY | 2024-04-15 03:46 | XMS_ITS | Encounter Summary ---
Author Organization [facility] Address [address] [place] [address] Phone Care Team Providers Care Tower Dragline Operator Name Role Phone Bette Phillips Primary Care Pr ovider Reason for Visit * Reason Comments Annual Exam Encounter Details Date Type Department Care Team (Latest Contact Info) Description 06/20/2021 8:45 AM LAND DEPARTMENT HEAD Office Visit [facility] Obstetrics and Gynecology [address] [facility] Outpatient Health 7th Floor [address] [place] [address] Nazario Barney MD [address] [id number] [place] [address] Well woman exam (Primary Dx); General counseling and advice on contraceptive management Social History Tobacco Use Types Packs/Day Years [...] on file Legal Sex Female 7:18 PM LAND DEPARTMENT HEAD Gender Identity Female 04/03/2020 12:32 PM LAND DEPARTMENT HEAD Sexual Orientation Not on file 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 of this encounter Last Filed Vital Signs Vital Sign Reading Time Taken Comments Blood Pressure 129/80 06/20/2021 8:34 AM LAND DEPARTMENT HEAD Pulse - - Temperature - - Respiratory Rate - - Oxygen Saturation - - Inhaled Oxygen Concentration - - Weight 74.8 kg (165 lb) 06/20/2021 8:34 AM LAND DEPARTMENT HEAD Height 170.2 cm (5' 7 ) 06/20/2021 8:34 AM LAND DEPARTMENT HEAD Body Mass Index 25.84 06/20/2021 8:34 AM LAND DEPARTMENT HEAD documented in this encounter Patient Instructions * Patient Instructions* Nazario Barney MD - 06/20/2021 8:45 AM LAND DEPARTMENT HEAD Check out [email or web address] for more information on Contraceptive Choices DEPARTMENT HEAD documented in this encounter Progress Notes * Nazario Barney MD - 06/20/2021 8:45 AM CST Well Woman Exam Patient ID: Jody Duarte is a 30 y.o. female Subjective Chief Complaint: Annual Exam HPI: 30 y.o. with no significant PMH who presents for well woman exam. She has desires eval of irreguar periods since her delivery 04/2020. She feels like she is in a constant state of PMS. She has been on microgestin 05/08 since PP visit 06/08/20 and had some BTB off/on over the past year. In addition, during menses her flow was less and shorter and darker than normal menses before . She notes she stopped these 06/16/21 and began menses 06/18 and bleeding has stopped now. Over the pastyear she has been hale, more tired, had more MENCHACA and food cravings. She did breastfeed till her daughter was 3 months old. Histories Medical Past Medical History: Diagnosis Date ??? Abnormal Pap smear of cervix 08/2016 Surgical Past Surgical History: Procedure Laterality Date ??? COLPOSCOPY 2016 ??? TONSILLECTOMY 2000 ??? TYMPANOSTOMY TUBE PLACEMENT 1995 Ob History OB History Para Term AB Living 1 1 1 1 SAB IAB Ectopic Multiple Live Births 0 1 # Outcome Date GA Lbr Nick/2nd Weight Sex Delivery Anes PTL Lv 1 Term 04/27/20 39w4d / 01:31 3.39 kg (7 lb 7.6 oz) F Vag-Spont EPI N ADILSON Obstetric Comments [id number] Pato -EBL 500 from [facility]. 2nd degree lac repaired. She came in [facility] and was augmented with OT. R D Manager History Patient's last menstrual period was 06/18/2021. Social History Substance and Sexual Activity Sexual Activity Yes ??? Partners: Male ??? control/protection: None Last Pap test: Date of Last Pap if Known: per patient. Negative Pap History: Previous PAP Tests Date of Last Pap if Known: per patient. Negative History of Abnormal Paps: Yes Menstrual history: Menstrual History Menarche Age: 14 years Period Cycle (Days): 40 Period Duration (Days): 5-7 Period Pattern: (!) Irregular Menstrual Flow: Light Dysmenorrhea: None Family Family History Problem Relation Age of Onset ??? No Known Problems Father ??? No Known Problems Mother Social Social History Socioeconomic History ??? Marital status: ??? Number of children: 0 Occupational History ??? 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 Smoking status: Never Smoker ??? Smokeless tobacco: Never Used Vaping Use ??? Vaping Use: Never used Substance and Sexual Activity ??? Alcohol use: Not Currently ??? Drug use: Never ??? Sexual activity: Yes Partners: Male control/protection: None Meds Current Outpatient Medications: ??? acetaminophen 500 mg capsule, Take 2 capsules (1,000 mg total) by mouth every 6 (six) hours as needed for pain, Disp: 90 tablet, Rfl: 1 ??? ibuprofen (ADVIL,MOTRIN) 600 mg tablet, Take 1 tablet (600 mg total) by mouth every 6 (six) hours as needed for pain, Disp: 90 tablet, Rfl: 1 ??? PNV with bpadbaz-[id number]-GR 27 mg iron- 1 mg tablet, Take 1 tablet by mouth daily (Patient not taking: Reported on 06/20/2021), Disp: 90 tablet, Rfl: 3 Allergies Patient has no known allergies. Review of Systems Review of Systems Constitutional: No change in weight Genitourinary: Menstrual Cycles Irregular All other Review of Systems are Negative: All other Review of Systems are negative Have you been to the emergency room, urgent care, or hospital for any reason since the last visit: No Objective BP 129/80 Ht 170.2 cm (5' 7 ) Wt 74.8 kg (165 lb) LMP 06/18/2021 BMI 25.84 kg/m?? Physical Exam Examination chaperoned by Oumou Guerrero MA General Appearance: appears stated age, cooperative and no distress, Breast Exam: No dimpling, nipple retraction or discharge. No masses or nodes., Normal to inspectionand Normal breast tissue bilaterally Gastrointestinal Exam: soft, non-tender; bowel sounds normal; no masses, no organomegaly, Pelvic Exam: External genitalia: normal general appearance Urinary system: urethral meatus normal and bladder not palpable Vaginal: normal mucosa without prolapse or lesions and normal rugae Cervix: normal appearance and thin prep PAP obtained Uterus: normal single, nontender and mid-position Adnexa: normal bimanual exam Musculoskeletal Exam: Normal. Back is straight and non-tender, full ROM of upper and lower extremities. Skin: normal Psychiatric Exam: Normal. and Alert and oriented, appropriate affect. Health Care Maintenance: Screening History Date of Last Pap if Known: per patient. Negative History of Abnormal Paps: Yes Ever had an HPV vaccine?: Yes Number of doses received: 3 Ever used Hormone Replacement Therapy?: No Ever had a mammogram?: No Ever had a colonoscopy?: No Ever had a bone-density test?: No Assessment/Plan 1. Well woman exam Reviewed importance of healthy lifestyle habits, diet, exercise, bone health, skin Ca prevention. ?? Cervical cancer screening recommendations were reviewed with patient. Pap and HPV cotest obtained today. If both are negative, will plan to screen Q 5 year with pap and HPV cotest. ?? Breast cancer screening: Normal CBE and MMG not indicated ?? Sexually transmitted disease screening: not indicated ?? Bone Health: Calcium, vitamin D and weight bearing exercise/strength training encouraged for bone health to improve flexibility/balance. Discussed that there may be increased risk of heart diseasewith high-dose calcium supplements. Dietary calcium encouraged. Educational handout given and DEXA Not indicated ?? Colon Cancer screening: Not indicated ?? Diet and exercise discussed. ?? BCM: Contraceptive type: see below - Pap and High Risk HPV, reflex to Genotyping; Future 2. General counseling and advice on contraceptive management Comprehensive counseling about reversible contraception was provided. All reversible forms of contraception including IUDs, the implant, injectable contraception, combined hormonal contraception, vaginal pH modulator, barriers and condoms were reviewed. The risks, benefits, and alternatives were discussed. Methods were reviewed with the patient in order of effectiveness. She is interested in getting off hormones and liked idea of Phexxi. Samples and literature given, she will notify if she wants Rx. Instructions reviewed She is aware that hormonal contraceptives & IUDs do not protect against sexually transmitted infections and encouraged her to use condoms with her contraception if she is at risk for a STI. She was also told to call with any problematic side-effects to discuss management or changing to another contraceptive method before discontinuing. Nazario Barney MD Please note that portions of this note were created using MModal and may have some plant propagator variance. DEPARTMENT HEAD * Madison Guerrero CMA - 06/20/2021 8:45 AM CST Pt was seen in the office today and given one sample box of Phexxi per Dr. Barney orders. Lot: [id number] Exp: 09/16/2022 DEPARTMENT HEAD documented in this encounter Plan of Treatment Not on file documented as of this encounter Results * Pap and High Risk HPV, reflex to Genotyping (06/20/2021 9:10 AM LAND DEPARTMENT HEAD) Thin prep (Pap test) 06/20/2021 9:10 AM LAND DEPARTMENT HEAD 06/20/2021 10:11 AM LAND DEPARTMENT HEAD Narrative PATHOLOGY [facility] - 06/26/2021 10:42 AM LAND DEPARTMENT HEAD EPIC results best viewed via link to PDF [facility] [place] [address] Note to Patients: This report may contain [...] details. CYTOPATHOLOGY REPORT FINAL Patient Name: ??JODY DUARTE Gender: ??F : ??1990 (Age: 30) Address: ??[address] [place] [id number] Hospital #: ??[id number] Service: ??Obstetrics BJ Location: ??[facility] Patient Type: ??[facility] Ref Lab Taken: ??06/20/2021 Received: ??06/20/2021 [...] 68. ??This HPV test was performed at [facility] in [place], [place] utilizing the Gen-Probe Aptima assay. am/06/26/2021 [...] . The HPV test was performed by [facility], [address] [place] [address]. Report Images and scanned documents, if included only viewable in PDF version The performance characteristics of some immunohistochemical stains, in-situ hybridization and fluorescence in-situ hybridization tests and immunophenotyping by flow cytometry cited in this report (if any) were determined by the Surgical Pathology Department at [facility] as part of an ongoing quality analyst program and in compliance with [...] determined by the Surgical Pathology Department of [facility]. ??It has not been cleared or approved by the U. S. Food and Drug Administration. Nazario Barney MD LAB CYTOLOGY ORDERABLES Fi nal Result PATHOLOGY [facility] 3rd Floor [place], [place] [phone] documented in this encounter Visit Diagnoses Diagnosis Well woman exam- Primary Routine general medical examination at a health care facility General counseling and advice on contraceptive management Other general counseling and advice for contraceptive management Well woman exam Routine general medical examination at a health care facility documented in this encounter Discontinued Medications Medication Sig Discontinue Reason Start Date End Da te norethindrone ac-eth estradioL (MICROGESTIN 05/08) 1-20 mg-mcg per tablet TAKE 1 TABLET BY MOUTH DAILY Therapy completed 04/28/2021 06/20/2021 documented as of this encounter Care Teams Tower Dragline Operator Relationship Specialty Start Date End Date Bette hPillips PA PCP - General Physician Inspector Balance Bridge 11/23/19 documented as of this encounter
--- OUTSIDE RECORDS SUMMARY | 2024-04-15 03:46 | XMS_ITS | Encounter Summary ---
Author Organization [facility] Address [address] [place] [address] Phone Care Team Providers Care Sr. Pricing Analyst Name Role Phone Bette Phillips Primary Care Pr ovider Reason for Referral * Diagnostic Imaging (Routine) - Closed Specialty Diagnoses / Procedures Referred By Controosevelt t Referred To Contact Diagnoses Encounter for supervision of normal , antepartum, unspecified Procedures US Ob Limited Patito Bob MD [address] [facility] [phone] [place] [address] Phone: tel: fax: [facility] (All Locations) Referral ID Status Reason Start Date Expiration Date Visits Re quested Visits Authorized [id number] Closed 06/19/2022 07/19/2023 1 1 Y DRIER OPERATOR HELPER Reason for Visit * Reason Comments Initial Visit Encounter Details Date Type Department Care Team (Late st Contact Info) Description 07/13/2022 1:15 PM CDT Office Visit [facility] Obstetrics and Gynecology [address] [place] [address] Health 7th Floor [address] [place] [address] Shavon Bhatia MD [address] [facility] [phone] [place] [address] (work) Encounter for supervision of normal , antepartum, unspecified (Primary Dx); Supervision of other normal , antepartum Social [...] exercise at this level? 60 min 12/21/2019 [place] Depression Scale Answer Date Recorded [place] Depression Scale Total 7 06/07/2020 The thought of harming myself has occurred to me . 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 preg uncomplicated Doing well Formal US Single live IUP c/w 8w1d FHT + 1. Encounter for supervision of normal , antepartum, unspecified Declines genetic screening - N. gonorrhoeae/C. trachomatis Amplification Endocervical; Future - CBC without differential; Future - Hepatitis B Surface Antigen; Future - Hepatitis C antibody; Future - HIV 1/2 Antibody plus p24 Antigen Blood; Future - RPR Blood; Future - Rubella IgG antibody; Future - Type and screen; Future - Urine culture Urine, clean voided; Future - Varicella Zoster IgG antibody Blood; Future - US Ob 14 Weeks Or Over; Future * Hai Lomeli RN - 07/13/2022 1:15 PM CDT Met with Olga Saeed today for initial/first trimester visit teaching. Discussed the practice, safe medications, appropriate diet, exercise/activity, travel, animals and vaccinations. Pt had specific questions that were answered appropriately. Declines genetics. documented in this encounter Plan of Treatment Not on file documented as of this encounter Results * Varicella Zoster IgG antibody Blood (07/13/2022 2:34 PM CDT) VZV IgG Reactive Reactive [facility] Comment:Reactive: Results dillon ggest response to immunization or prior exposure to the virus. Blood 07/13/2022 2:34 PM CDT 07/13/2022 3:17 PM CDT us Shavon Bhatia MD LAB MICROBIOLOGY - GEN ERAL ORDERABLES Final Result [facility] [place] [address] * Rubella IgG antibody (07/13/2022 2:34 PM CDT) Rubella IgG Reactive [facility] Comment:Reactive: Results dillon ggest response to immunization or prior exposure to the virus. Blood 07/13/2022 2:34 PM CDT 07/13/2022 3:17 PM CDT Shavon Bhatia MD LAB MICROBIOLOGY - GEN ERAL ORDERABLES Final Result Performing Organization Address [facility] Co de Phone Number [facility] [place] [address] * RPR Blood (07/13/2022 2:34 PM CDT) RPR Nonreactive Nonreactive [facility] Blood 07/13/2022 2:34 PM CDT 07/13/2022 3:17 PM CDT Shavon Bhatia MD LAB MICROBIOLOGY - GEN ERAL ORDERABLES Final Result Performing Organization Address [facility] de Phone Number [facility] [address] * HIV 1/2 Antibody plus p24 Antigen Blood (07/13/2022 2:34 PM CDT) Pathologist [facility] HIV 1/2 ab + p24 ag Nonreactive Nonreactive [facility] Comment:Nonreactive for HIV- 1 antigen and HIV-1/HIV-2 antibodies. No laboratory evidence of HIV infection. If acute HIV infection is suspected, consider testing for HIV-1 RNA. Current interpretive data was last revised on 21. Blood 07/13/2022 2:34 PM CDT 07/13/2022 3:17 PM CDT us Shavon Bhatia MD LAB MICROBIOLOGY - GEN ERAL ORDERABLES Final Result Performing Organization Address [facility] Co de Phone Number [facility] [address] * Hepatitis C antibody (07/13/2022 2:34 PM CDT) [facility] Hep C Ab Nonreactive Nonreactive [facility] Comment:Antibodies to HCV no t detected. Does NOT exclude the possibility of recent exposure to HCV. Current interpretive data was last revised on 21 Blood 07/13/2022 2:34 PM CDT 07/13/2022 3:17 PM CDT Shavon Bhatia MD LAB MICROBIOLOGY - GEN ERAL ORDERABLES Final Result [facility] Department [place] [address] * Hepatitis B Surface Antigen (07/13/2022 2:34 PM CDT) [facility] HepBsAg Nonreactive Nonreactive [facility] Blood 07/13/2022 2:34 PM CDT 07/13/2022 3:17 PM CDT Shavon Bhatia MD LAB MICROBIOLOGY - GEN ERAL ORDERABLES Final Result Performing Organization Address [facility] de Phone Number [facility] Department [place] [address] * (ABNORMAL) CBC without differential (07/13/2022 2:34 PM CDT) [facility] WBC 8.4 3.8 - 9.9 K/cumm [facility] Hgb 12.2 11.9 - 15.5 g/dL [facility] Hct 35.4(L) 35.6 - 45.5 % [facility] Plt 279 150 - 400 K/cumm [facility] MPV 10.7 9.1 - 12.3 fL [facility] RBC 3.89(L) 3.90 - 5.20 M/cumm [facility] MCV 91.0 81.3 - 96.4 fL [facility] MCH 31.4 27.1 - 33.3 pg [facility] MCHC 34.5 32.3 - 35.7 g/dL [facility] RDW CV 12.2 11.1 - 14.9 % [facility] RDW SD 40.5 35.7 - 48.1 fL [facility] NRBC abs 0.00 0.00 - 0.01 K/cumm [facility] Blood 07/13/2022 2:34 PM CDT 07/13/2022 3:17 PM CDT Shavon Bhatia MD LAB BLOOD ORDERABLES F inal Result Performing Organization Address [facility] Co de Phone Number [facility] Department [place] [address] * Urine culture Urine, clean voided (07/13/2022 1:43 PM CDT) Report Final Report: Less than 100,000 colonies/mL (clinically insignificant growth based on current clinical standards) [facility] Organism (CLINICALLY INSIGNIFICANT GROWTH [facility] Urine, clean voided 07/13/2022 1:43 PM CDT 07/13/2022 4:30 PM CDT Narrative [facility] - 07/14/2022 5:43 PM CDT Testing performed by [facility] ([phone]) Shavon Bhatia MD LAB MICROBIOLOGY - GEN ERAL ORDERABLES Final Result Performing Organization Address [facility] Co de Phone Number [facility] Department [place] [address] * US Ob Limited (07/13/2022 12:29 PM CDT) Fetus# [id number] VIEWPOINT Placenta Details posterior VIEWPOINT Anatomical Region Laterality Modality Abdomen N/A Ultrasound 07/13/2022 12:3 3 PM CDT Impressions 07/13/2022 1:04 PM CDT Single viable intrauterine with biometry consistent with clinical dates. Narrative Procedure Note Tere Banerjee MD - 07/13/2022 IMPRESSION: Single viable intrauterine with biometry consistent withclinical dates. us Patito Vivian Bob MD IMG OB US PROC EDURES Final Result documented in this encounter Visit Diagnoses Diagnosis Encounter for supervision of normal , antepartum, unspecified - Primary Encounter for supervision of normal , antepartum, unspecified Supervision of other normal , antepartum documented in this encounter Discontinued Medications Medication Sig Discontinue Reason Start Date End Da te ibuprofen (ADVIL,MOTRIN) 600 mg tabletIndications:Cramps Take 1 tablet (600 mg total) by mouth every 6 (six) hours as needed for pain 04/28/2020 06/19/2022 documented as of this encounter Care Teams Sr. Pricing Analyst Relationship Specialty Start Date End Date Bette Phillips PA PCP - General Physician System Specialist 11/23/19 documented as of this encounter
--- OUTSIDE RECORDS SUMMARY | 2024-04-15 03:46 | XMS_ITS | Encounter Summary ---
Author Organization [facility] Address [address] [place] [address] Care Team Providers Care Upper And Bottom Lacer Hand Name Role Phone Bette Phillips Primary Care Pr ovider Encounter Details Date Type Department Care Team (Late st Contact Info) Description 12/03/2020 2:00 PM CDT Lab [facility] [address] [facility] 1st [place] [address] Social History Tobacco Use Types Packs/Day Years [...] exercise at this level? 60 min 12/21/2019 [place] Depression Scale Answer Date Recorded [place] Depression Scale Total 7 06/07/2020 The thought of harming myself has occurred to me . 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
--- OUTSIDE RECORDS SUMMARY | 2024-04-15 03:46 | XMS_ITS | Encounter Summary ---
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 Gender Identity Female 04/03/2020 12:32 PM SHUTTLELESS LOOM WEAVER Sexual Orientation Not on file documented as of this encounter Plan of Treatment Not on file documented as of this encounter Procedures Procedure Name Priority Date/Time Associated Diagnosis Comments COVID-19 CORONAVIRUS RNA Routine 12/04/2019 10:17 AM CDT Exposure to COVID-19 virus documented in this encounter Results * COVID-19 Coronavirus RNA Nasopharyngeal (12/04/2019 10:17 AM CDT) COVID-19 RNA Not Detected [facility] Comment: Interpretive Data Testing performed at [facility] Molecular Infectious Disease Laboratory. The Novel Coronavirus Assay (COVID-19) Real Time RT-PCR assay [...] CDT 12/04/2019 10:12 PM CDT Narrative [facility]EL[facility] - 12/05/2019 6:01 AM CDT Patient is employed by:->[facility] Is the patient experiencing any symptoms consistent with COVID (eg. Fever, cough, shortness of breath)?->Yes What is the reason for testing?->Symptoms compatible with COVID-19 in high-risk group (defined above in process inst.) Precious Samano MD LAB MICROBIOLOGY - GENERAL ORDERABLES Final Result [facility] Department [place] [address] documented in this encounter Visit Diagnoses Diagnosis Exposure to COVID-19 virus documented in this encounter Additional Health Concerns Infection Onset Date Last Indicated Resolved Time COVID: Suspected 12/04/2019 12/04/2019 12/05/2019 6:02 AM CDT documented as of this encounter Care Teams Auto Body Builder Apprentice Relationship Specialty Start Date End Date Bette Phillips PA PCP - General Physician Program Director [employer] 11/23/19 documented as of this encounter
--- OUTSIDE RECORDS SUMMARY | 2024-04-15 03:46 | XMS_ITS | Encounter Summary ---
Author Organization [facility] Healthcare Address [address] [place] [address] Care Team Providers Care Pumper Gager Apprentice Name Role Phone Bette Phillips Primary Care Pr ovider Encounter Details Date Type Department Care Team (Late st Contact Info) Description 12/03/2020 2:20 PM CDT Lab [address] [address] Social History Tobacco Use Types Packs/Day Years [...] exercise at this level? 60 min 12/21/2019 Drury Depression Scale Answer Date Recorded Drury Depression Scale Total 7 06/07/2020 The thought of harming myself has occurred to me . 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 tuberculosis). ??Patients with recent exposure to TB infected individuals exhibiting a negative T-SPOT.TB result should be considered for retesting within 6 weeks or if other relevant clinical symptoms indicate. ??Results from T-SPOT.TB testing must be used in conjunction with each individual's epidemiological history, current medical status, and results of other diagnostic evaluations. ??The T-SPOT.TB test is qualitative and results [...] test. T-SPOT.TB Panel A Spot Count 0 [facility] T-SPOT.TB Panel B Spot Count 3 [facility] T-SPOT.TB Negative Control Passed [facility] T-SPOT.TB Positive Control Passed [facility] Comment: Test Performed at: [facility] [address] [place] [address] ??[id number] ? JOSEPH MAXWELL MD,PHD Blood 12/03/2020 2:11 PM CDT 12/03/2020 2:30 PM CDT us Precious Samano MD LAB MICROBIOLOGY - GENERAL ORDERABLES Final Result [facility] Department [place] [address] documented in this encounter Visit Diagnoses Not on filedocumented in this encounter Care Teams Pumper Gager Apprentice Relationship Specialty Start Date End Date Bette Phillips PA PCP - General Physician Refrigerator Cabinetmaker 11/23/19 documented as of this encounter
--- OUTSIDE RECORDS SUMMARY | 2024-04-15 03:46 | XMS_ITS | Encounter Summary ---
Author Organization [facility] Healthcare Address [address] [place] [address] Care Team Providers Care Toy Packer Name Role Phone Bette Phillips Primary Care Pr ovider Reason for Visit * Reason Comments Rupture of Membranes approx 1130 this mo rning Encounter Details Date Type Department Care Team (Latest Contact Info) Description 04/27/2020 2:08 PM WATER TEAM LEADER - 04/29/2020 2:50 PM WATER TEAM LEADER Hospital Encounter [address] [phone] Hansa Rowe MD [address] [facility] [phone] [place] [address] Encounter for induction of labor (Primary Dx) Discharge Disposition: Discharge to [...] on file Legal Sex Female 7:18 PM WATER TEAM LEADER Gender Identity Female 04/03/2020 12:32 PM WATER TEAM LEADER Sexual Orientation Not on file 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 of this encounter Last Filed Vital Signs Vital Sign Reading Time Taken Comments Blood Pressure 103/63 04/29/2020 7:15 AM WATER TEAM LEADER Pulse 57 04/29/2020 7:15 AM WATER TEAM LEADER Temperature 36.6 ??C (97.9 ??F) 04/29/2020 7:15 AM CS T Respiratory Rate 16 04/29/2020 7:15 AM WATER TEAM LEADER Oxygen Saturation 99% 04/29/2020 7:15 AM WATER TEAM LEADER Inhaled Oxygen Concentration - - Weight 78.5 kg (173 lb) 04/27/2020 2:16 PM WATER TEAM LEADER Height 170.2 cm (5' 7 ) 04/27/2020 2:16 PM WATER TEAM LEADER Body Mass Index 27.1 04/27/2020 2:16 PM WATER TEAM LEADER documented in this encounter Discharge Diagnoses Diagnosis Full-term premature rupture of membranes, unspecified as to length of time between rupture and onset of labor - FULL-TERM PREMATURE RUPTURE OF MEMBRANES, UNSPECIFIED TO LENGTH OF TIME BETWEEN RUPTURE AND ONSET Single live - SINGLE LIVE 39 weeks gestation of - 39 WEEKS GESTATION OF Second degree perineal laceration during delivery - SECOND DEGREE PERINEAL LACERATION DURING DELIVERY Second-degree perineal laceration, unspecified as to episode of care in Contact with and (suspected) exposure to covid-19 - CONTACT WITH AND (SUSPECTED) EXPOSURE TO COVID-19 documented in this encounter Discharge Summaries * Trixie Velez NP - 04/29/2020 1:31 PM CST Inpatient Discharge Summary Admitting Provider: Hansa Rowe MD Discharge Provider: Hansa Rowe, * Admission Date: 04/27/2020 Discharge Date: 04/29/2020 Delivery Date/Time: 04/27/2020 at 11:27 PM Delivery method: Vaginal, Spontaneous [250] Primary Discharge Diagnosis: Intrauterine at 39w4d, delivered Secondary Discharge Diagnosis: Medical Conditions Diagnosis ??? Supervision of other normal , antepartum ??? Full-term premature rupture of membranes ??? Encounter for induction of labor ??? Vaginal delivery Procedures Performed: Vaginal delivery Other Treatments: Magnesium sulfate therapy: No Blood transfusion: No Hospital Course: Olga Mckeon is a 29 y.o. at 39w4d estimated gestational age with Estimated Date of Delivery: 04/30/20 dated by 1st trimester Ultrasound . She presented to [facility]/L&D for Rupture of Membranes (approx 1130 this morning). Her was uncomplicated. cephalic presentation and GBS negative status was confirmed on admission. Her induction was started with pitocin. She had an epidural placed for anesthesia. She progressed to complete and delivered a viable female with apgars 9 and 9 at one and five minutes of life respectively. Delivery was uncomplicated. A 2nd degree laceration was repaired. See L&D delivery note for full details. The patient was transferred to . Her course was uncomplicated. Prior to discharge, her pain was well controlled, she was voiding, passing gas, ambulating, and meeting all post milestones. Discharge Details Physical Exam at Discharge: Discharge Condition: Stable Pulse: 57 Resp: 16 BP: 103/63 Temp: 36.6 ??C (97.9 ??F) Weight: 78.5 kg (173 lb) Problem Vaginal Delivery # ID: Afebrile. No signs/symptoms [...] # Disposition: Discharge home today. F/u at [facility] See full physical exam from progress note on day of discharge. Lab Results Component Value Date HCT 35.4 (L) 04/27/2020 ABORH A Positive 04/27/2020 SCRRUBELIGG Nonimmune 10/27/2019 [] Iron prescribed on discharge [] Post Rhogam given [x] Post MMR given [] Post Varivax given Immunization History Administered Date(s) Administered ??? Influenza, Unspecified 01/18/2020 ??? MMR 04/29/2020 ??? Tdap 02/13/2020 Discharge Disposition: Discharge to home or self care Code Status at Discharge: Full Discharge Instructions: See AVS Discharge Medications: Your medication list START taking these medications acetaminophen 500 mg capsule Take 2 capsules (1,000 mg total) by mouth every 6 (six) hours as needed for pain docusate sodium 100 mg capsule Take 1 capsule (100 mg total) by mouth 2 (two) times a day Commonly known as: COLACE ferrous sulfate 325 mg (65 mg of elemental iron) tablet Take 1 tablet (325 mg total) by mouth daily ibuprofen 600 mg tablet Take 1 tablet (600 mg total) by mouth every 6 (six) hours as needed for pain Commonly known as: ADVIL,MOTRIN norethindrone 0.35 mg tablet Take 1 tablet (0.35 mg total) by mouth daily Commonly known as: MICRONOR PNV with qnsbbdv-fdzp-AK 27 mg iron- 1 mg tablet Take 1 tablet by mouth daily STOP taking these medications ORAL Outpatient Follow-Up: 4-6 Weeks at [facility] JESUSITA Padilla 04/29/20 Cosigned by Anita Stout MD at 04/29/2020 3:30 PM WATER TEAM LEADER R TEAM LEADER R TEAM LEADER documented in this encounter Discharge Instructions * Discharge Instructions* Trixie Velez NP - 04/29/2020 9:53 AM WATER TEAM LEADER Discharge Instructions - Vaginal Delivery In order to minimize social contact during COVID19 precautions, your visit maybe over the phone. Please remember to wash your hands frequently, do not touch your face, and avoid anyone with feversor cough. Stay at home as much as possible and practice social distancing. COVID19 Precautions: * Wash your hands frequently * Do not touch your face * Avoid anyone with fevers or cough * DO NOT come to clinic or the hospital with mild cold or flu-like symptoms, first call our OB communication center at [phone]. * If you have SEVERE illness including [...] have questions about other medications you aretaking. LACTATIONAL AMENORRHEA can be an effective method to prevent if ALL of the following are true: 1) you are on demand, with at least 80% of feeds at the breast (not pumped breast milk orformula), 2) you have not gotten your first menstrual period after delivery, and 3) your baby is less than 6 months old. Ask your doctor about other methods of control if any of those things are no longer true. Feeding: : Follow unrestricted . Feed your baby based on baby's hunger cues (or atleast 8-12 feedings per 24 hours). Do NOT supplement unless instructed by Tunnel Kiln Operator. Call your Tunnel Kiln Operator if your baby has poor eating habits (examples: feedings decrease, no feedings in 6 hours, or spits up more than ?? of their feeding for 2 consecutive feedings). Once your baby is 5-6 days old, you should expect at least 5 wet diapers and 3 soiled diapers per day. Outpatient Follow Up: We are currently not scheduling visits due to minimizing social contact during COVID19 precautions. A member of our team will reach out by phone to check in with you in the next2-6 weeks. If you do not hear from our office please call your primary provider to set up either anin person or phone appointment.Thank you for understanding and remember to wash your hands and avoid anyone with fevers or cough. Stay at home as much as possible and practice social distancing. If you yourself develop fever >100.4F, a new cough, or shortness of breath please call our centralized OB communication center at [phone]. Do not come to the hospital or clinic until you speak with a provider. Follow up at [facility] in 4-6 weeks. Discharge Medications: Take the following medications. Your medication list START taking these medications acetaminophen 500 mg capsule Take 2 capsules (1,000 mg total) by mouth every 6 (six) hours as needed for pain docusate sodium 100 mg capsule Take 1 capsule (100 mg total) by mouth 2 (two) times a day Commonly known as: COLACE ferrous sulfate 325 mg (65 mg of elemental iron) tablet Take 1 tablet (325 mg total) by mouth daily Start taking on: April 29, 2020 ibuprofen 600 mg tablet Take 1 tablet (600 mg total) by mouth every 6 (six) hours as needed for pain Commonly known as: ADVIL,MOTRIN norethindrone 0.35 mg tablet Take 1 tablet (0.35 mg total) by mouth daily Commonly known as: MICRONOR PNV with bjdfvmf-noqn-TP 27 mg iron- 1 mg tablet Take 1 tablet by mouth daily Start taking on: April 29, 2020 STOP taking these medications ORAL R TEAM LEADER documented in this encounter Medications at Time [...] daily 28 tablet 12 04/28/2020 1 PNV with opnnpyu-kczq-GP 27 mg iron- 1 mg tabletIndications:V itamin Deficiency Prevention Take 1 tablet by mouth daily 90 tablet 3 04/29/2020 3 documented as of this encounter Ordered Prescriptions Prescription Sig Dispense Quantity Refills Last Filled Start Date End Date docusate sodium (COLACE) 100 mg capsuleIndications: constipation,Stool Softener Take 1 capsule (100 mg total) by mouth 2 (two) times a day 60 capsule 1 04/28/2020 1 ferrous sulfate 325 mg (65 mg of elemental iron) tabletIndications:I afshin Deficiency Anemia Take 1 tablet (325 mg total) by mouth daily 30 tablet 11 04/29/2020 1 PNV with dcbvdhu-wzkh-UY 27 mg iron- 1 mg tabletIndications:V itamin Deficiency Prevention Take 1 tablet by mouth daily 90 tablet 3 04/29/2020 3 acetaminophen 500 mg capsuleIndications: Pain Take 2 capsules (1,000 mg total) by mouth every 6 (six) hours as needed for pain 90 tablet 1 04/28/2020 3 ibuprofen (ADVIL,MOTRIN) 600 mg tabletIndications:C ramps Take 1 tablet (600 mg total) by mouth every 6 (six) hours as needed for pain 90 tablet 1 04/28/2020 3 norethindrone (MICRONOR) 0.35 mg tabletIndications:P regnancy Contraception Take 1 tablet (0.35 mg total) by mouth daily 28 tablet 12 04/28/2020 1 documented in this encounter Discharge Disposition Disposition Code Departure Means Destination Discharge to home or self care documented in this encounter Progress Notes * Usha Barker RN - 04/29/2020 2:50 PM CST CM Initial Assessment Interview Note Information Obtained From: Patient(via phone) (04/29/20 4082) Admission Source: Non Health Care Facility Impression: 29 year old female admitted for a vaginal delivery PPD#2 Plan Includes: No anticipated home needs. If HH services were needed at discharge patient would be provided with a list of HH agencies Primary Source of Transportation: car/s.o. Does the patient need discharge transport arranged?: No (04/29/201510) Health Insurance Coverage: [employer] Prescription Coverage: yes Pharmacy: [facility] on [address] Primary Care Provider: [facility] Bette Phillips PA Prior to Admission: Primary Caregiver: Self Support System: Spouse/Significant Other Support system contact info (name, phone, availablity): Stu Saeed(s.o.) [phone] Home Care Services: No Durable Medical Equipment: Other (Comment)(pt. has a double electric breast pump for home use) Living Arrangements: Spouse/significant other Type of Residence: Private residence (04/29/20 1505) Potential discharge needs include: No anticipation of home needs Dialysis: No Dialysis: No (04/29/20 150) Behavioral Health Services: No Behavioral Health Services: No (04/29/20 150) Patient expects to be Discharged to: private residence 04/29/2020 Private residence, (04/29/20 1510) Additional Information: Pt. Has a double electric breast pump for home use. Pt. Has baby items at home and a car seat and crib. Tunnel Kiln Operator: Dr. Toney Patient's Identified Problem/Goal Problem: Ensure acute medical needs are met and that patient has a safe discharge plan. Goal: Secure a discharge plan that patient/family are agreeable with and ensure patient has continuum of care. Case management will follow for discharge planning and send referrals as needed. Goals include: To assure continuity of care, To maximize coping skills, To assure patient is in a safe environment and To assure access to community resources. Plan includes: 1. Collaboration with patient, MD, direct care nurse, Insurance Loss Adjuster, Nurse Coordinator and other members of the health care team to assure needed interventions completed. 2. Return patient to optimal level of self-care post discharge. 3. Drink Box Mechanic will follow for Discharge Planning - interventions as needed 4. Anticipated level of care at discharge 5. Planned Discharge Disposition Based on a comprehensive family assessment, assistance with instrumental activities of daily livingafter discharge will be provided by the pt. S.o. Through the course of our work I determined that the pt. S.o. possesses the skill and ability to provide and monitor the care of the patient when he or she returns home. The pt. S.o. has the capacityto provide/monitor/arrange for the care of the patient. Finally, we determined that the pt. S.o. has the knowledge of available resources and that combining them with their existing resources will suffice to sustain and care for the patient when he or she returns home. The treatment team is aware of this information. All are in agreement with the aftercare plan. Joel Barker RN R TEAM LEADER * Trixie Velez NP - 04/29/2020 9:54 AM CST Post Progress Note Admission Date: 04/27/2020 JESSE Mckeon is a 29 y.o. day 2 s/p Vaginal, Spontaneous . Interval History: Medical Conditions Diagnosis ??? Supervision of other normal , antepartum ??? Full-term premature rupture of membranes ??? Encounter for induction of labor ??? Vaginal delivery Pain: Controlled Bleeding: lochia minimal Oral Intake: taking regular diet Voiding: without difficulty Bowel functiont: bowel movement Ambulating: yes Mood: stable Feeding: No actute events overnight. Denies MENCHACA, visual changes, chest pain, SOB, or RUQ pain. Pt has no complaints at this time. Ready for discharge home & all questions answered. OBJECTIVE Vitals: Temp Min: 36.6 ??C (97.9 ??F) Max: 36.8 ??C (98.2 ??F) Pulse Min: 57 Max: 66 BP Min: 103/63 Max: 116/81 Resp Min: 16 Max: 18 SpO2 Min: 98 % Max: 99 % Physical Exam General: No acute distress. Neurologic: Alert and oriented Lungs: Non-labored. Clear to auscultation bilaterally. Abdomen: Soft, non distended, non-tender. Positive bowel sounds. Fundus firm below umbilicus. Incision: n/a Extremities: Warm and well-perfused. No bilateral lower extremity edema or calf tenderness. Pelvic: Deferred. Lab Review: No results found for this or any previous visit (from the past 24 hour(s)). Current Meds: Current Facility-Administered Medications Medication Dose Route Frequency Provider Last Rate Last Admin ??? acetaminophen (TYLENOL) tablet 1,000 mg 1,000 mg oral Q6H PRN Candy Dsouza MD 1,000 mg at 04/29/20412 ??? benzocaine-menthoL (DERMOPLAST) 20-0.5 % topical spray 1 spray 1 spray topical PRN Candy Dsouza MD 1 spray at 04/28/20313 ??? docusate sodium (COLACE) capsule 100 mg 100 mg oral BID Candy Dsouza MD 100 mg at 04/29/20905 ??? famotidine (PEPCID) tablet 20 mg 20 mg oral BID PRN Candy Dsouza MD ??? ferrous sulfate tablet 325 mg 325 mg oral Daily Candy Dsouza MD 325 mg at 04/29/20905 ??? hydrocortisone (ANUSOL-HC) 2.5 % rectal cream rectal TID PRN Candy Dsouza MD ??? ibuprofen (ADVIL,MOTRIN) tablet 600 mg 600 mg oral Q6H PRN Candy Dsouza MD 600 mg at 04/29/20412 ??? snxqqce-mivch-jbhcjsk (MMR) 1,000-12,500 TCID50/0.5 mL vaccine 0.5 mL 0.5 mL subcutaneous Once Trixie Velez NP ??? PNV with idfmgpf-gkty-MG tablet 1 tablet 1 tablet oral Daily Candy Dsouza MD 1 tablet at04/29/20905 ASSESSMENT/PLAN Olga Mckeon is a 29 y.o. female day 2 s/p Vaginal, Spontaneous . Problem Vaginal Delivery # ID: Afebrile. No signs/symptoms [...] # Disposition: Discharge home today. F/u at [facility] Trixiefabienne Velez STONE PAVER-C 04/29/20 Cosigned by Anita Stout MD at 04/29/2020 10:38 AM WATER TEAM LEADER R TEAM LEADER R TEAM LEADER Associated attestation - Anita Stout MD - 04/29/2020 10:38 AM WATER TEAM LEADER I have seen and examined the patient on 04/29/20. I agree with the findings and plan of care as documented in the resident's/fellow's note.. * Erna Prado MD - 04/28/2020 6:16 AM CST Post Progress Note Delivery Date/Time: 04/27/2020 at 11:27 PM Delivery method: Vaginal, Spontaneous [250] Obstetrical/Medical Problems: Medical Conditions Diagnosis ??? Supervision of other normal , antepartum ??? Full-term premature rupture of membranes ??? Encounter for induction of labor ??? Vaginal delivery Subjective Flatus: No Pain: Well controlled Diet: Tolerating regular diet. Ambulating independently Voiding spontaneously Lochia less than menses Doing well overall without complaints. Scheduled Medications ??? docusate sodium, 100 mg, oral, BID ??? ferrous sulfate, 325 mg, oral, Daily ??? cvjlrvq-llejr-jhwgnxm, 0.5 mL, subcutaneous, Once ??? viatmin, 1 tablet, oral, Daily PRN Medications ??? acetaminophen ??? benzocaine-menthoL ??? famotidine ??? hydrocortisone ??? ibuprofen Vitals: Temp: [98.4 ??F-98.7 ??F] 98.6 ??F Pulse: [54-121] 74 BP: (92-148)/(55-92) 111/69 Resp: [18] 18 SpO2: [90 %-100 %] 97 % Intake/Output Summary (Last 24 hours) at 04/28/2020 0620 Last data filed at 04/27/2020 2327 Gross per 24 hour Intake 259.87 ml Output 550 ml Net -290.13 ml Physical Exam General: No acute distress. Cardiovascular: Regular rate and rhythm. Lungs: Non-labored. Clear to auscultation bilaterally. Abdomen: Soft, non-distended, non-tender to palpation. Fundus below umbilicus. Extremities: Warm and well-perfused. Neuro: Globally intact Recent Labs Lab Units 04/27/20 1614 WBC K/cumm 10.0* HEMOGLOBIN g/dL 12.2 HEMATOCRIT % 35.4* PLATELETS K/cumm 211 Labs: Lab Results Component Value Date ABORH A Positive 04/27/2020 SCRIBEDABORH A+ 10/27/2019 IDCOOMB Negative 04/27/2020 SCRINDANTIGL neg 10/27/2019 [id number] Nonreactive 04/03/2020 [id number] Negative 10/27/2019 LABRPR Nonreactive 04/27/2020 SCRRPR Non-Reactive 10/27/2019 SCRRUBELIGG Nonimmune 10/27/2019 SCRHEPBSAG Negative 10/27/2019 VZVIGG Reactive 08/07/2019 GC neg 10/27/2019 Assessment and Plan 29 y.o. PPD#1 s/p Problem Vaginal Delivery # ID: Afebrile. No signs/symptoms of infection. #COVID-19: Negative #Rubella NI: Ordered for MMR PP # Heme: EBL 500 mL. No symptoms acute blood loss anemia. # CV/Pulm: Enrolled in remote blood pressure monitoring. # GI/: Tolerating PO. Voiding spontaneously. # Pain: Controlled with above regimen. # Post DVT prophylaxis: The patient has the following MAJOR risk factors none and the following MINOR risk factors none. SCDs ordered for VTE prophylaxis. # MOC: Progestin-only pills # MOF: # Disposition: Follow up with [facility].Continue routine care Erna Prado MD 04/28/20 I have reviewed the above and agree with documentation. Routine PP care. Marielos Rodrigues MD 04/28/2020 Cosigned by Shavon Bhatia MD at 04/29/2020 8:37 AM WATER TEAM LEADER R TEAM LEADER R TEAM LEADER R TEAM LEADER Associated attestation - Shavon Bhatia MD - 04/29/2020 8:37 AM WATER TEAM LEADER I have seen and examined the patient on 04/29/20. I agree with the findings and plan of care as documented in the resident's/fellow's note.. documented in this encounter H&P Notes * Ysabel Katz CNM - 04/27/2020 3:37 PM CST Obstetrics H&P Chief Complaint: SROM Estimated Date of Delivery: 04/30/20 Provider: [facility] HPI: Olga Mckeon is a 29 y.o. female at 39w4d gestation, dated by 1st trimester ultrasound.She c/o leaking amniotic fluid since 1145 this am. She is also having some irregular contractions. Her has been uncomplicated. 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 Patient is . History of Abnormal Pap: Yes, s/p colposcopy STD History: none Past Medical History: Diagnosis Date ??? Abnormal Pap smear of cervix 08/2016 Chronic hypertension: No Diabetes: No Asthma: No Past Surgical History: Procedure Laterality Date ??? COLPOSCOPY 2016 ??? TONSILLECTOMY 2000 ??? TYMPANOSTOMY TUBE PLACEMENT 1995 Social History Socioeconomic History ??? Marital status: Single Spouse name: Not on file ??? Number of children: 0 ??? Years of education: Not on file ??? Highest education level: Not on file Tobacco Use ??? Smoking status: Never Smoker ??? Smokeless tobacco: Never Used Substance and Sexual Activity ??? Alcohol use: Not Currently ??? Drug use: Never ??? Sexual activity: Yes Partners: Male control/protection: None Support System: Supported by spouse Safe at home: Yes family history includes No Known Problems in her father and mother. Family history of bleeding or clotting disorders: No Family history of defects, genetic disorders, or developmental delay: No No Known Allergies HOME MEDICATIONS : PNV no.95/ferrous fum/folic ac ( ORAL) Review of Sys: All systems negative except leaking fluid from the vagina. Vitals: Temp: [37 ??C (98.6 ??F)] 37 ??C (98.6 ??F) Pulse: [80-82] 82 Resp: [18] 18 BP: (129)/(83) 129/83 Physical Exam: General: NAD, mood appropriate Cardiovascular: Regular rate and rhythm Pulmonary: Clear to ausculation bilaterally Abdomen: Gravid, non-tender Extremities: Warm and well perfused Speculum Exam: pooled fluid appearing watery mixed with mucous, Nitrizine test is positive, Ferningpositive Cervix: 1.5/80-/3. Posterior and soft. No bloody show Monitoring: Baseline: 140 bpm, Variability: Moderate, Accelerations: Present and Decelerations: None Uterine Activity: Contractions present, q 6-8 minutes Interpretation: Reactive Ultrasound: Vertex presentation Anterior placenta Previa: No Estimated Weight: 3944 grams US, date performed 04/23/20 Labs: Lab Results Component Value Date SCRIBEDABORH A+ 10/27/2019 SCRINDANTIGL neg 10/27/2019 [id number] Nonreactive 04/03/2020 [id number] Negative 10/27/2019 LABRPR Non Reactive 01/23/2020 SCRRPR Non-Reactive 10/27/2019 SCRRUBELIGG Nonimmune 10/27/2019 VZVIGG Reactive 08/07/2019 GC neg 10/27/2019 Assessment and Plan Olga Mckeon is a 29 y.o. female at 39w4d who presented with leaking fluid (r/o ROM). ROM was confirmed. Problem Full-Term Premature Rupture of Membranes 1. Induction of labor for SROM at [...] prophylaxis . 9. COVID Test Status: ordered Plan discussed with Dr. Rowe and Dr. Prado. Ysabel Katz CNM 04/27/20 Karon Richmond NP-C Cosigned by Hansa Rowe MD at 04/27/2020 6:20 PM WATER TEAM LEADER R TEAM LEADER R TEAM LEADER R TEAM LEADER Associated attestation - Hansa Rowe MD - 04/27/2020 6:20 PM WATER TEAM LEADER I have seen and examined the patient on 04/27/20. I agree with the findings and plan of care as documented in the resident's/fellow's note.. documented in this encounter Miscellaneous Notes * Plan of Care - Caroline Jimenez RN - 04/29/2020 11:39 AM CST Problem: Activity: Goal: Will verbalize the importance of balancing activity with adequate rest periods Outcome: Completed Problem: Lack of Knowledge: Goal: Will have increased knowledge of Care Outcome: Completed Problem: Coping: Goal: Ability to cope will improve Outcome: Completed Goal: Ability to identify and utilize available resources and services will improve Outcome: Completed Problem: Life Cycle: Goal: Risk for hemorrhage will decrease Outcome: Completed Goal: Chance of risk for complications during the period will decrease Outcome: Completed Problem: Nutritional: Goal: Dietary intake will improve Outcome: Completed Goal: Mother's verbalization of comfort with process will improve Outcome: Completed Problem: Role Relationship: Goal: Ability to interact appropriately with will improve Outcome: Completed Problem: Sensory: Goal: General experience of comfort will improve Outcome: Completed Goals: Clinical Goals for the Shift: Pain control; VSS; Prepare for discharge Summary: Pt adequate for discharge. Pt pain well controlled. Pt up ad cherie and caring for self and infant independently. R TEAM LEADER * Hospital Course - Chris Elder - 04/29/2020 7:30 AM CST Olga Mckeon is a 29 y.o. at 39w4d who presented with spontaneous rupture of membranes. Her was notable for rubella nonimmune. Vertex presentation and GBS negative confirmed on admission. Her labor was augmented with oxytocin. Delivery was uncomplicated. See delivery record for full details. The patient was transferred to . Her course was uncomplicated. Prior to discharge, her pain was well controlled, she was voiding, passing gas, ambulating, and meeting all post milestones. #Mother/Baby: The patient has chosen to breastfeed her infant and has chosen POPs for contraception. # ID: Afebrile. No signs/symptoms of infection. #COVID-19: Negative #Rubella NI: Ordered for MMR PP # Heme: EBL 500 mL. No symptoms acute blood loss anemia. # CV/Pulm: Enrolled in remote blood pressure monitoring. # GI/: Tolerating PO. Voiding spontaneously. # Pain: Controlled with above regimen. # Post DVT prophylaxis: The patient has the following MAJOR risk factors none and the following MINOR risk factors none. SCDs ordered for VTE prophylaxis. # MOC: Progestin-only pills # MOF: # Disposition: Follow up with [facility].Continue routine care R TEAM LEADER R TEAM LEADER R TEAM LEADER * Plan of Care - Francisca Queen RN - 04/28/2020 8:49 PM CST Problem: Activity: Goal: Will verbalize the importance [...] Goals: Clinical Goals for the Shift: pain control, breastfeed on demand Summary: Cooperative with plan of care. Using prn meds as needed for pain control. on demand at least every 3 hours. R TEAM LEADER * Plan of Care - Caroline Jimenez RN - 04/28/2020 11:48 AM CST Problem: Activity: Goal: Will verbalize the importance [...] Progressing Goals: Clinical Goals for the Shift: Pain control; VSS; Alternate activity with rest Summary: Pt progressing toward plan of care goals. Pt pain controlled with PO medications. Pt up adlib. R TEAM LEADER * Note - Kailee Hart RN - 04/28/2020 10:14 AM CST Discussed hunger cues, cluster feedings and normal behavior. Mother shown correct positioning and latch. Infant awake, opens wide but no sustain suck noted.After a few attempts with latching infant became spitty and gaggy with clear fluid noted upon spitting up. Mother shown hand expressionand few gtts of colostrum noted. Infant placed skin to skin with mother and mother encouraged to call LC at next feeding attempt. Encouraged mother to attempt every 2-3 hours and watch for hunger cues R TEAM LEADER * Plan of Care - Pat Sims RN - 04/28/2020 2:43 AM CST Problem: Lack of Knowledge: Goal: Will have increased knowledge of Care Outcome: Progressing Problem: Nutritional: Goal: Dietary intake will improve Outcome: Progressing Problem: Role Relationship: Goal: Ability to interact appropriately with will improve Outcome: Progressing Goals: Clinical Goals for the Shift: Healthy mom, healthy baby, safe delivery, pain control Summary: vitals stable on admission. Asks appropriate questions about care. Tolerates po food and fluids. Bonding with noted. R TEAM LEADER * Plan of Care - Pat Sims RN - 04/28/2020 1:39 AM CST Goals: Clinical Goals for the Shift: Healthy mom, healthy baby, safe delivery, pain control Summary: delivered R TEAM LEADER * L&D Delivery Note - Erna Prado MD - 04/27/2020 11:57 PM WATER TEAM LEADER [facility] Vaginal Delivery Note Patient's Name: Olga Mckeon : 1990 Attending: Hansa Rowe Assisting: Erna Prado MD Clinic: [facility] Primary Diagnosis: Intrauterine at 39w4d, delivered Rubella NI Obstetrical Medical Risk Factors: Medical Conditions Diagnosis ??? Supervision of other normal , antepartum ??? Full-term premature rupture of membranes ??? Encounter for induction of labor Delivery method: Vaginal, spontaneous Anesthesia: Epidural [254] Membranes: Spontaneous rupture, clear fluid. Time ruptured prior to delivery: 11h 42m Antibiotics: none Delivery Date: 04/27/2020 Infant Delivery Time: 11:27 PM Placenta Delivery Date & Time: 04/27/2020 11:32 PM Cord: 3 vessels [3] Delayed cord clamping: Yes, 60 seconds. Episiotomy: No Laceration: second degree EBL: 500 mL Infant: living No weight on file. female APGARs: 9 / 9 Disposition: Nursery Labor Summary: lOga Mckeon is a 29 y.o. female at 39w4d weeks gestation, dated by 1st trimester ultrasoundwith Estimated Date of Delivery: 04/30/20. Her was notable for rubella nonimmune. Vertex presentation and GBS negative confirmed on admission. She presented with SROM. Her labor was augmented with oxytocin. Epidural was placed for anesthesia. Patient progressed to complete and delivered a viable female . The cord was clamped and cut and the baby was handed to mother for skin to skin. The third stage was actively managed with external uterine massage, gentle cord traction and pitocin. The placenta was delivered spontaneously and intact. A second degree laceration was repaired inthe usual fashion. Excellent hemostasis was noted. All counts were correct before and after the delivery. Additional Procedures Performed: None Description of Additional Procedure Performed: N/A Complications: None Description of Complications: N/A Dr. Hansa Rowe was present for the delivery. Erna Prado MD 04/27/20 Cosigned by Hansa Rowe MD at 04/28/2020 12:13 AM WATER TEAM LEADER R TEAM LEADER R TEAM LEADER Associated attestation - Hansa Rowe MD - 04/28/2020 12:13 AM WATER TEAM LEADER I was present for the entire procedure. * Plan of Care - Mica Ashley RN - 04/27/2020 9:05 PM CST Problem: Lack of Knowledge: Goal: Verbalization of [...] from uterine contractions will improve Outcome: Progressing Goals: Clinical Goals for the Shift: Healthy mom, healthy baby, safe delivery, pain control Summary: Progressing R TEAM LEADER * Plan of Care - Vandana Sands RN - 04/27/2020 4:46 PM CST Goals: Summary: Problem: Lack of Knowledge: Goal: Verbalization [...] from uterine contractions will improve Outcome: Progressing R TEAM LEADER documented in this encounter Plan of Treatment Not on file documented as of this encounter Procedures Procedure Name Priority Date/Time Associated Diagnosis Comments B CHECK SAMPLE STAT 04/27/2020 4:37 PM WATER TEAM LEADER COVID-19 CORONAVIRUS ANTIGEN Routine 04/27/2020 4:14 PM WATER TEAM LEADER DIFFERENTIAL AUTO Routine 04/27/2020 4:1 4 PM WATER TEAM LEADER CBC WITH AUTO DIFFERENTIAL Routine 04/27/2020 4:14 PM WATER TEAM LEADER RPR Routine 04/27/2020 4:14 PM WATER TEAM LEADER TYPE AND SCREEN Timed 04/27/2020 4:14 PM WATER TEAM LEADER documented in this encounter Results * Check Sample (04/27/2020 4:37 PM WATER TEAM LEADER) Pathologist [facility] [place] ABO Rh A Positive [facility] HCLL OTHER 04/27/2020 4:37 PM WATER TEAM LEADER 04/27/2020 5:00 PM WATER TEAM LEADER Hansa Rowe MD LAB BLOOD ORDERABLES Fi nal Result [facility] Department of Laboratories [place], [place] [id number] * (ABNORMAL) Differential, auto (04/27/2020 4:14 PM WATER TEAM LEADER) Neutrophil abs 7.0(H) 1.7 - 6.5 K/cumm [facility] Imm gran abs 0.0 0.0 - 0.1 K/cumm [facility] Lymphocyte abs 2.4 0.8 - 3.3 K/cumm [facility] Monocyte abs 0.5 0.2 - 0.8 K/cumm [facility] Eosinophil abs 0.0 0.0 - 0.5 K/cumm [facility] Basophil abs 0.0 0.0 - 0.1 K/cumm [facility] Neutrophil pct 69.7 % [facility] Comment: Interpretive Data Percent cell count reference ranges are not reported, since discordance with absolute values may lead to misinterpretation of CBC data. Current Interpretive Data was last revised on 2017. Imm gran pct 0.4 % [facility] Comment: Interpretive Data Percent cell count reference ranges are not reported, since discordance with absolute values may lead to misinterpretation of CBC data. Current Interpretive Data was last revised on 2017. Lymphocyte pct 24.2 % [facility] Comment: Interpretive Data Percent cell count reference ranges are not reported, since discordance with absolute values may lead to misinterpretation of CBC data. Current Interpretive Data was last revised on 2017. Monocyte pct 5.4 % [facility] Comment: Interpretive Data Percent cell count reference ranges are not reported, since discordance with absolute values may lead to misinterpretation of CBC data. Current Interpretive Data was last revised on 2017. Eosinophil pct 0.1 % [facility] Comment: Interpretive Data Percent cell count reference ranges are not reported, since discordance with absolute values may lead to misinterpretation of CBC data. Current Interpretive Data was last revised on 2017. Basophil pct 0.2 % [facility] Comment: Interpretive Data Percent cell count reference ranges are not reported, since discordance with absolute values may lead to misinterpretation of CBC data. Current Interpretive Data was last revised on 2017. Blood specimen (specimen) 04/27/2020 4:14 PM WATER TEAM LEADER 04/27/2020 4:36 PM WATER TEAM LEADER us Ysabel Katz [facility] LAB BLOOD ORDERABLES Janette antonino Result [facility] Department [place] [address] * COVID-19 Coronavirus antigen Nasopharyngeal (04/27/2020 4:14 PM WATER TEAM LEADER) COVID-19 Ag Presumptive Negative Presumptive Negative [facility] Comment: This is the final result. Interpretive data: Testing was performed under Emergency Use Authorization using the [employer] System for detection of SARS-CoV-2 nucleocapsid antigen. The test characteristics and specimen types have been verified by the performing laboratory. Negative results do not preclude infection and should not be used as the sole basis for treatment or other patient management decisions, including infection control decisions, especially in the presence of clinical signs and symptoms consistent with COVID-19, or in those who have been in contact with the virus. It is recommended that negative results be confirmed by a molecular testing method in symptomatic patients if clinical suspicion for COVID-19 is still high. This test is intended for detection of SARS-CoV-2 in patients who are suspected to have COVID-19 within the first five days of the onset of symptoms. Specimens collected after day five of illness are more likely to be negative compared to molecular testing methods (RT-PCR based assay). Positive results indicate the presence of SARS-CoV-2 viral antigens but clinical correlation with patient signs and symptoms is necessary to determine infection status. Interpretive data last modified February 2020. First COVID-19 test? No [facility] Employeed in healthcare? Yes [facility] status? Yes [facility] Group care resident? No [facility] Hospitalized? Yes [facility] Is patient in ICU? No [facility] Symptomatic as defined by CDC? No [facility] Nasopharyngeal 04/27/2020 4: 14 PM WATER TEAM LEADER 04/27/2020 4:21 PM WATER TEAM LEADER Narrative [facility] - 04/27/2020 6:27 PM WATER TEAM LEADER Reason for testing?->Labor and Delivery (not symptomatic) us Ysabel MARTINEZ LAB MICROBIOLOGY - GENERA L ORDERABLES Final Result [facility] Department [place] [address] * RPR (04/27/2020 4:14 PM WATER TEAM LEADER) [facility] RPR Nonreactive Nonreactive [facility] Blood specimen (specimen) 04/27/2020 4:14 PM WATER TEAM LEADER 04/27/2020 4:27 PM WATER TEAM LEADER Ysabel Katz [facility] LAB MICROBIOLOGY - GENERA L ORDERABLES Final Result Performing Organization Address City/[facility] Co de Phone Number [facility] [place] [address] * Type and screen (04/27/2020 4:14 PM WATER TEAM LEADER) [facility] [place]o, indirect Negative [facility] ABO Rh A Positive [facility] Blood specimen (specimen) 04/27/2020 4:14 PM WATER TEAM LEADER 04/27/2020 4:21 PM WATER TEAM LEADER Narrative [facility] - 04/27/2020 5:40 PM WATER TEAM LEADER Has the patient had Daratumumab or Isatuximab in the past 6 months?->Unknown Ysabel Katz [facility] LAB BLOOD BANK TEST ORDER SARANYA Final Result Performing Organization Address [facility] de Phone Number [facility] Department [place] [address] * (ABNORMAL) CBC with auto differential (04/27/2020 4:14 PM WATER TEAM LEADER) [facility] WBC 10.0(H) 3.8 - 9.9 K/cumm [facility] Hgb 12.2 11.9 - 15.5 g/dL [facility] Hct 35.4(L) 35.6 - 45.5 % [facility] Plt 211 150 - 400 K/cumm [facility] MPV 11.8 9.1 - 12.3 fL [facility] RBC 3.78(L) 3.90 - 5.20 M/cumm [facility] MCV 93.7 81.3 - 96.4 fL [facility] MCH 32.3 27.1 - 33.3 pg [facility] MCHC 34.5 32.3 - 35.7 g/dL [facility] RDW CV 12.5 11.1 - 14.9 % [facility] RDW SD 43.2 35.7 - 48.1 fL [facility] NRBC abs 0.00 0.00 - 0.01 K/cumm [facility] Blood specimen (specimen) 04/27/2020 4:14 PM WATER TEAM LEADER 04/27/2020 4:36 PM WATER TEAM LEADER us Ysabel Katz CNM LAB BLOOD ORDERABLES Janette muñiz Result [facility] Department [place] [address] documented in this encounter Visit Diagnoses Diagnosis Encounter for induction of labor- Primary Encounter for induction of labor Full-term premature rupture of membranes Vaginal delivery documented in this encounter Administered Medications Inactive Administered Medications - up to 3 most recent administrations Medication Order MAR Action Action Date Dose Rate Site acetaminophen (TYLENOL) tablet 1,000 mg 1,000 mg, oral, Every 6 hours PRN, 1st line for pain, Starting on 04/28/20 at 0020, Indications: PainIndications:Pain Given 04/29/2020 10:44 AM WATER TEAM LEADER 1,000 mg Given 04/29/2020 4:13 AM WATER TEAM LEADER 1,000 mg Given 04/28/2020 8:35 PM WATER TEAM LEADER 1,000 mg benzocaine-menthoL (DERMOPLAST) 20-0.5 % topical spray 1 spray 1 spray, topical, As needed, other, perianal area for pain, Starting on 04/28/20 at 0020, Up to 6 times a day., Apply to affected area: perineum, Indications: Minor Skin Wound PainIndications:Minor Skin Wound Pain Given 04/28/2020 3:14 AM WATER TEAM LEADER 1 spray dextrose 5% and Lactated Ringer's infusion 125 mL/hr, intravenous, Continuous, Starting on 04/27/20 at 1700 New Bag 04/27/2020 5:00 PM WATER TEAM LEADER 125 mL/hr 125 mL/hr docusate sodium (COLACE) capsule 100 mg 100 mg, oral, 2 times daily, First dose on 04/28/20 at 0100, Hold if diarrhea., Indications: constipation, Stool SoftenerIndications:constipation ,Stool Softener Given 04/29/2020 9:06 AM WATER TEAM LEADER 100 mg Given 04/28/2020 8:35 PM WATER TEAM LEADER 100 mg Given 04/28/2020 8:27 AM WATER TEAM LEADER 100 mg ferrous sulfate tablet 325 mg 325 mg, oral, Daily, First dose on 04/28/20 at 0900, Begin when normal bowel activity resumes., Indications: Iron Deficiency AnemiaIndications:Iron Deficiency Anemia Given 04/29/2020 9:06 AM WATER TEAM LEADER 325 mg Given 04/28/2020 8:27 AM WATER TEAM LEADER 325 mg ibuprofen (ADVIL,MOTRIN) tablet 600 mg 600 mg, oral, Every 6 hours PRN, other, cramping, Starting on 04/28/20 at 0020, Indications: CrampsIndications:Cramps Given 04/29/2020 10:43 AM WATER TEAM LEADER 600 m g Given 04/29/2020 4:13 AM WATER TEAM LEADER 600 mg Given 04/28/2020 8:35 PM WATER TEAM LEADER 600 mg Lactated Ringer's (LR) bolus 1,000 mL 1,000 mL, intravenous, Once, On 04/27/20 at 1930, For 1 dose, 15 to 30 minutes before epidural placement. New Bag 04/27/2020 7:00 PM WATER TEAM LEADER 1,000 mL 999 mL/hr oxytocin 30 unit/500 mL (0.06 unit/mL) in sodium chloride 0.9% (premix) solution 95-334 milliunits/min (95-334 mL/hr), 0.06 units/mL, intravenous, Continuous, Starting on 04/28/20 at 0015, Until 04/28/20 at 0020, Indications: Hemorrhage Prevention, 334 hernandez-units/minutes for 30 minutes then decrease infusion to 95 hernandez-units/min for 3.5 hours., RoutineIndications:Postp artum Hemorrhage Prevention Rate/Dose Change 04/27/2020 11:32 PM WATER TEAM LEADER 999 milliunits/min 999 mL/hr New Bag 04/27/2020 11:29 PM WATER TEAM LEADER 334 milliunits/min 334 mL/hr oxytocin 30 unit/500 mL (0.06 unit/mL) in sodium chloride 0.9% (premix) solution 0.5-40 milliunits/min (0.5-40 mL/hr), 0.06 units/mL, intravenous, Titrated, Starting on 04/27/20 at 1700, Until 04/28/20 at 0020, L&D Pre-Delivery, Indications: Induction of Labor, Start at 2 hernandez-units/min and increase by 2 hernandez-units/minutes every 30 minutes until contraction frequency is every 2-3 minutes. - - 20 milliunits/minutes maximum - All other patients 40 milliunits/minute maximum Discontinue for distress or uterine hyperstimulation., RoutineIndications:Inducti on of Labor Rate/Dose Change 04/27/2020 6:32 PM WATER TEAM LEADER 8 milliunits/min 8 mL/hr Rate/Dose Change 04/27/2020 6:00 PM WATER TEAM LEADER 6 milliunits/min 6 mL/hr Rate/Dose Change 04/27/2020 5:32 PM WATER TEAM LEADER 4 milliunits/min 4 mL/hr PNV with wjdujgz-bqgf-XM tablet 1 tablet 1 tablet, oral, Daily, First dose on 04/28/20 at 0900, Begin when normal bowel activity resumes., Indications: Vitamin Deficiency PreventionIndications:Vitamin Deficiency Prevention Given 04/29/2020 9:06 AM WATER TEAM LEADER 1 tablet Given 04/28/2020 8:27 AM WATER TEAM LEADER 1 tablet SUFentanil (PF) and bupivacaine (PF) in 0.9% sodium chloride 0.5 mcg/ml - 0.1% casette (premix) solution Continuous Rate: 8 mL/hr, Patient Bolus Dose: other (comment) / 6ml, Lockout Interval: 15 Minutes, epidural, Continuous, Starting on 04/27/20 at 1930, Until 04/28/20 at 0020, 100 mL, Indications: Pain, Stop epidural infusion after placental delivery and any indicated repair is complete., RoutineIndications:Pain New Syringe/Cartridge 04/27/2020 7:16 PM WATER TEAM LEADER 0.05 mg documented in this encounter Discontinued Medications Medication Sig Discontinue Reason Start Date End Da te PNV no.95/ferrous fum/folic ac ( ORAL) Take by mouth Stop Taking at Discharge 021 documented as of this encounter Active and Recently Administered Medications Times are shown in WATER TEAM LEADER. Scheduled Medication Order 04/27/2020 04/28/2020 04/29/2020 docusate sodium (COLACE) capsule 100 mg 100 mg, oral, 2 times daily, First dose on 04/28/20 at 0100, Hold if diarrhea., Indications: constipation, Stool Softener 0245 (Not Given - Provider: Pat Sims RN - Reason: Other)826 (Given - Provider: Caroline Jimenez RN)2034 (Given - Provider: Francisca Queen RN) 905 (Given - Provider: Caroline Jimenez, SUKH) ferrous sulfate tablet 325 mg 325 mg, oral, Daily, First dose on 04/28/20 at 0900, Begin when normal bowel activity resumes., Indications: Iron Deficiency Anemia 826 (Given - Provider: Caroline Jimenez RN) 905 (Given - Provider: Caroline Jimenez, SUKH) Lactated Ringer's (LR) bolus 1,000 mL (COMPLETED) 1,000 mL, intravenous, Once, On 04/27/20 at 1930, For 1 dose, 15 to 30 minutes before epidural placement. 1900 (New Bag - Provider: Vandana Sands, SUKH) yjwithe-mlohs-dmnqknj (MMR) 1,000-12,500 TCID50/0.5 mL vaccine 0.5 mL 0.5 mL, subcutaneous, Once, On 04/28/20 at 0700, For 1 dose, Refrigerate, Indications: Lhdhtwh-Hlwlk-Zsdukel Vaccination 0900 (Due - Provider: Pat Sims RN) PNV with udxmsbf-rifx-YS tablet 1 tablet 1 tablet, oral, Daily, First dose on 04/28/20 at 0900, Begin when normal bowel activity resumes., Indications: Vitamin Deficiency Prevention 826 (Given - Provider: Caroline Jimenez RN) 905 (Given - Provider: Caroline Jimenez RN) Continuous Medication Order 04/27/2020 04/28/2020 04/29/2020 dextrose 5% and Lactated Ringer's infusion (CANCELED) 125 mL/hr, intravenous, Continuous, Starting on 04/27/20 at 1700 1700 (New Bag - Provider: Vandana Sands RN)2330 (Stopped - Provider: Mica Ashley RN) oxytocin 30 unit/500 mL (0.06 unit/mL) in sodium chloride 0.9% (premix) solution (CANCELED) 95-334 milliunits/min (95-334 mL/hr), 0.06 units/mL, intravenous, Continuous, Starting on 04/28/20 at 0015, Until 04/28/20 at 0020, Indications: Hemorrhage Prevention, 334 hernandez-units/minutes for 30 minutes then decrease infusion to 95 hernandez-units/min for 3.5 hours., Routine 2329 (New Bag - Provider: Mica Ashley RN)2332 (Rate/Dose Change - Provider: Mica Ashley RN - Comment: verbal order from Jae BROCK) 0001 (Stopped - Provider: Mica Ashley RN) oxytocin 30 unit/500 mL (0.06 unit/mL) in sodium chloride 0.9% (premix) solution (CANCELED) 0.5-40 milliunits/min (0.5-40 mL/hr), 0.06 units/mL, intravenous, Titrated, Starting on 04/27/20 at 1700, Until 04/28/20 at 0020, L&D Pre-Delivery, Indications: Induction of Labor, Start at 2 hernandez-units/min and increase by 2 hernandez-units/minutes every 30 minutes until contraction frequency is every 2-3 minutes. - - 20 milliunits/minutes maximum - All other patients 40 milliunits/minute maximum Discontinue for distress or uterine hyperstimulation., Routine 1700 (New Bag - Provider: Vandana Sands RN - Comment: nicole RNBoyd, witness)1732 (Rate/Dose Change - Provider: Vandana Sands RN)1800 (Rate/Dose Change - Provider: Vandana Sands RN)1832 (Rate/Dose Change - Provider: Vandana Sands RN) SUFentanil (PF) and bupivacaine (PF) in 0.9% sodium chloride 0.5 mcg/ml - 0.1% casette (premix) solution (CANCELED) Continuous Rate: 8 mL/hr, Patient Bolus Dose: other (comment) / 6ml, Lockout Interval: 15 Minutes, epidural, Continuous, Starting on 04/27/20 at 1930, Until 04/28/20 at 0020, 100 mL, Indications: Pain, Stop epidural infusion after placental delivery and any indicated repair is complete., Routine 1915 (New Syringe/Cartridge - Provider: Eneida Altamirano, RN)837 (Stopped (Dual Sign) - Provider: Mica Ashley RN) PRN Medication Order 04/27/2020 04/28/2020 04/29/2020 acetaminophen (TYLENOL) tablet 1,000 mg 1,000 mg, oral, Every 6 hours PRN, 1st line for pain, Starting on 04/28/20 at 0020, Indications: Pain 0828 (Given - Provider: Caroline Jimenez RN)1428 (Given - Provider: Caroline Jimenez RN)2034 (Given - Provider: Francisca Queen RN) 0413 (Given - Provider: Francisca Queen RN)1044 (Given - Provider: Caroline Jimenez RN) benzocaine-menthoL (DERMOPLAST) 20-0.5 % topical spray 1 spray 1 spray, topical, As needed, other, perianal area for pain, Starting on 04/28/20 at 0020, Up to 6 times a day., Apply to affected area: perineum, Indications: Minor Skin Wound Pain 0314 (Given - Provider: Pat Sims RN) famotidine (PEPCID) tablet 20 mg 20 mg, oral, 2 times daily PRN, indigestion, heartburn, Starting on 04/28/20 at 0020, Indications: Dyspepsia hydrocortisone (ANUSOL-HC) 2.5 % rectal cream rectal, 3 times daily PRN, hemorrhoids, Starting on 04/28/20 at 0020, Indications: Hemorrhoids ibuprofen (ADVIL,MOTRIN) tablet 600 mg 600 mg, oral, Every 6 hours PRN, other, cramping, Starting on 04/28/20 at 0020, Indications: Cramps 0827 (Given - Provider: Caroline Jimenez RN)1427 (Given - Provider: Caroline Jimenez RN)2034 (Given - Provider: Francisca Queen RN) 3 (Given - Provider: Francisca Queen RN)1043 (Given - Provider: Caroline Jimenez RN) documented in this encounter Orders Medications Ordered That Rajesh ht Not Have Been Administered Count Last Ordered Date First Ordered Date famotidine (PEPCID) tablet 20 mg 1 04/28/19 21 hydrocortisone (ANUSOL-HC) 2 .5 % rectal cream 1 04/28/2020 hzbntph-btqlf-zyqdyuc (MMR) 1,000-12,500 TCID50/0.5 mL vaccine 0.5 mL 2 04/28/2020 naloxone (NARCAN) 0.4 mg/mL injection 0.04-0.4 mg 1 04/27/2020 sodium chloride 0.9% flush 0.5-20 mL 4 12/2020 Nursing Count Last Ordered Date First Orde red Date NURSING COMMUNICATION 1 04/28/2020 Transfer Count Last Ordered Date First Orde red Date TRANSFER PATIENT 2 04/27/2020 CORE MEASURES Count Last Ordered Date First Ord ered Date REASON FOR NO VTE PROPHYLAXI S - HOSPITAL ADMISSION - MEDICATIONS 1 04/28/2020 REASON FOR NO VTE PROPHYLAXIS AT ADMISSION 1 04/27/2020 documented in this encounter Care Teams Toy Packer Relationship Specialty Start Date End Date Bette Phillips PA PCP - General Physician Medical Case Manager 11/23/19 documented as of this encounter
--- OUTSIDE RECORDS SUMMARY | 2024-04-15 03:46 | XMS_ITS | Encounter Summary ---
Author Organization [facility] Healthcare Address [address] [place] [address] Care Team Providers Care Cost Report Clerk Name Role Phone Bette Phillips Primary Care Pr ovider Reason for Referral * Diagnostic Imaging (Routine) - Closed Specialty Diagnoses / Procedures Referred By Contac t Referred To Contact Diagnoses Supervision of other normal , antepartum Procedures US Ob Follow Up Hansa Rowe MD [address] [facility] [phone] [place] [address] Phone: tel: fax: [facility] (All Locations) Referral ID Status Reason Start Date Expiration Date Visits Re quested Visits Authorized [id number] Closed 04/15/2020 05/15/2021 1 1 AND ALCOHOL COUNSELLOR Reason for Visit * Diagnostic Imaging (Routine) - Closed Specialty Diagnoses / Procedures Referred By Contac t Referred To Contact Diagnoses Supervision of other normal , antepartum Procedures US Ob Follow Up Hansa Rowe MD [address] [facility] [phone] [place] [address] Phone: tel: fax: [facility] (All Locations) Referral ID Status Reason Start Date Expiration Date Visits Re quested Visits Authorized [id number] Closed 04/15/2020 05/15/2021 1 1 Encounter Details Date Type Department Care Team (Latest Contact Info) Description 04/23/2020 12:24 PM DRUG AND ALCOHOL COUNSELLOR - 04/23/2020 11:59 PM DRUG AND ALCOHOL COUNSELLOR Hospital Encounter [facility] - Ultrasound [address], 7th [address], [address] [employer] [place] [address] Hansa Rowe MD [address] [phone] [place] [address] Supervision of other normal , antepartum Discharge [...] on file Legal Sex Female 7:18 PM DRUG AND ALCOHOL COUNSELLOR Gender Identity Female 04/03/2020 12:32 PM DRUG AND ALCOHOL COUNSELLOR Sexual Orientation Not on file Occupation Industry [...] ORAL) Take by mouth 1 PNV with [id number] 27 mg iron- 1 mg tabletIndications:V itamin [...] UP Schedule Routine, Read Routine (OP Routine) 04/23/2020 12:24 PM DRUG AND ALCOHOL COUNSELLOR Supervision of other normal , antepartum documented in this encounter Results * US Ob Follow Up (04/23/2020 12:24 PM DRUG AND ALCOHOL COUNSELLOR) Fetus# Fetus1 VIEWPOINT Placenta Details anterior, Previa-no VIEWPOINT Estimated Weight 3,944 g&grams VIEWPOINT Presentation Vertex VIEWPOINT Anatomical Region Laterality Modality Abdomen N/A Ultrasound 04/23/2020 12:3 6 PM DRUG AND ALCOHOL COUNSELLOR Result [facility] Hansa Rowe MD IM OB US PROCEDURES Fi nal Result documented in this encounter Visit Diagnoses Diagnosis Supervision of other normal , antepartum documented in this encounter Care Teams Cost Report Clerk Relationship Specialty Start Date End Date Bette Phillips PA PCP - General Physician Activity Director 11/23/19 documented as of this encounter
--- OUTSIDE RECORDS SUMMARY | 2024-04-15 03:46 | XMS_ITS | Encounter Summary ---
Author Organization [facility] Address [address] [place] [address] Phone Care Team Providers Care Pole Tester Name Role Phone Bette Phillips Primary Care Pr ovider Reason for Visit * Reason Comments Care Encounter Details Date Type Department Care Team (Late st Contact Info) Description 06/07/2020 11:30 AM CERTIFIED INCOME TAX PREPARER Office Visit [facility] Obstetrics and Gynecology [address] [facility] 7th [address] [place] [address] Lexie Roa MD [address] [phone] [place] [address] care and examination (Primary Dx) Social History Tobacco Use Types [...] exercise at this level? 60 min 12/21/2019 Bynum Depression Scale Answer Date Recorded Bynum Depression Scale Total 7 06/07/2020 The thought of harming myself has occurred to me . 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 of this encounter Last Filed Vital Signs Vital Sign Reading Time Taken Comments Blood Pressure 126/84 06/07/2020 11:33 AM CERTIFIED INCOME TAX PREPARER Pulse - - Temperature - - Respiratory Rate - - Oxygen Saturation - - Inhaled Oxygen Concentration - - Weight 71.2 kg (157 lb) 06/07/2020 11:33 AM CERTIFIED INCOME TAX PREPARER Height 170.2 cm (5' 7 ) 06/07/2020 11:33 AM CERTIFIED INCOME TAX PREPARER Body Mass Index 24.59 06/07/2020 11:33 AM CERTIFIED INCOME TAX PREPARER documented in this encounter Ordered Prescriptions Prescription Sig Dispense Quantity Refills Last Filled Start Date End Date norethindrone ac-eth estradioL (Loestrin 05/08, ,) 1-20 mg-mcg per tablet Take 1 tablet by mouth daily 28 tablet 12 06/07/2020 04/28/2021 documented in this encounter Progress Notes * Lexie Roa MD - 06/07/2020 11:30 AM CST Post Visit Note Chief Complaint: Chief Complaint Care Subjective: Olga Mckeon is a 29 y.o. year old female who presents for visit. Patient Active Problem List Diagnosis ??? Supervision of other normal , antepartum ??? Full-term premature rupture of membranes ??? Encounter for induction of labor ??? Vaginal delivery Past Medical History: Diagnosis Date ??? Abnormal Pap smear of cervix 08/2016 Past Surgical History: Procedure Laterality Date ??? COLPOSCOPY 2016 ??? TONSILLECTOMY 2000 ??? TYMPANOSTOMY TUBE PLACEMENT 1995 Social History Socioeconomic History ??? Marital status: Single Spouse name: None ??? Number of children: 0 ??? Years of education: None ??? Highest education level: None Occupational History ??? 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 Financial resource strain: None ??? Food insecurity Worry: None Inability: None ??? Transportation needs Medical: None Non-medical: None Tobacco Use ??? Smoking status: Never Smoker ??? Smokeless tobacco: Never Used Substance and Sexual Activity ??? Alcohol use: Not Currently ??? Drug use: Never ??? Sexual activity: Yes Partners: Male control/protection: None Lifestyle ??? Physical activity Days per week: 3 days Minutes per session: 60 min ??? Stress: None Relationships ??? Social connections Talks on phone: None Gets together: None Attends orthodoxy service: None Active member of club or organization: None Attends meetings of clubs or organizations: None Relationship status: None ??? Intimate partner violence Fear of current or ex partner: None Emotionally abused: None Physically abused: None Forced sexual activity: None Other Topics Concern ??? None Social History Narrative ??? None Allergies: No Known Allergies Medications: Current Outpatient Medications: ??? PNV with ligrxhf-long-XY 27 mg iron- 1 mg tablet, Take 1 tablet by mouth daily, Disp: 90 tablet, Rfl: 3 ??? acetaminophen 500 mg capsule, Take 2 capsules (1,000 mg total) by mouth every 6 (six) hours as needed for pain, Disp: 90 tablet, Rfl: 1 ??? ibuprofen (ADVIL,MOTRIN) 600 mg tablet, Take 1 tablet (600 mg total) by mouth every 6 (six) hours as needed for pain, Disp: 90 tablet, Rfl: 1 ??? norethindrone ac-eth estradioL (Loestrin 05/08, ,) 1-20 mg-mcg per tablet, Take 1 tablet by mouth daily, Disp: 28 tablet, Rfl: 12 Objective: BP 126/84 Ht 170.2 cm (5' 7 ) Wt 157 lb (71.2 kg) No BMI 24.59 kg/m?? Physical Exam: SKIN: Normal inspection. BREASTS: No masses or lumps. Nontender. Without discharge. GENITOURINARY: External Genitalia: Normal appearance, no lesions. Urethral Meatus: Normal size and location. No lesions or prolapse. Urethra: No masses or tenderness. Bladder: No masses or tenderness. Vagina: No abnormal discharge. Good pelvic support. Cervix: No lesions. Uterus: Mobile, nontender Adnexa/Parametrial: No palpable masses, no tenderness. Assessment and Plan: Olga Mckeon is a 29 y.o. female who presents for a post visit. 1. Delivery type: vaginal delivery 2. complications: none 3. Menses since delivery? N 4. Feeding: bottle Tongue tie, decr supply, and painful latching led to now with formula only feeding 5. Mood: EPDS low; no concerns from pt 6. doing well. 7. Contraception: combined oral contraceptives- will move to COCs now and d/c POPs 8. Last pap with result: 2019 neg; next in 2021 9. RTC- 1yr WWE Lexie Roa MD 06/07/2020' IFIED INCOME TAX PREPARER documented in this encounter Plan of Treatment Not on file documented as of this encounter Visit Diagnoses Diagnosis care and examination- Primary documented in this encounter Discontinued Medications Medication Sig Discontinue Reason Start Date End Da te docusate sodium (COLACE) 100 mg capsuleIndications:angel roberts,Stool Softener Take 1 capsule (100 mg total) by mouth 2 (two) times a day 04/28/2020 06/07/2020 ferrous sulfate 325 mg (65 mg of elemental iron) tabletIndications:Iron Deficiency Anemia Take 1 tablet (325 mg total) by mouth daily 04/29/2020 06/07/2020 norethindrone (MICRONOR) 0.35 mg tabletIndications:Pregnan cy Contraception Take 1 tablet (0.35 mg total) by mouth daily Alternate therapy 04/28/2020 06/07/2020 documented as of this encounter Care Teams Pole Tester Relationship Specialty Start Date End Date Bette Phillips PA PCP - General Physician Delivery Truck Driver 11/23/19 documented as of this encounter
--- OUTSIDE RECORDS SUMMARY | 2024-04-15 03:46 | XMS_ITS | Encounter Summary ---
Author Organization [facility] Address [address] [place] [address] Phone Care Team Providers Care Emission Specialist Name Role Phone Bette Phillips Primary Care Pr ovider Reason for Visit * Reason Comments Routine Visit Encounter Details Date Type Department Care Team (Late st Contact Info) Description 01/19/2020 10:45 AM CDT Office Visit 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 GCT/CBC/RPR ordered. Discussed dental work in . GERD medication reviewed. documented in this encounter Plan of Treatment Not on file documented as of this encounter Procedures Procedure Name Priority Date/Time Associated Diagnosis Comments GTT 50GM 1HR GESTATIONAL SCREEN Routine 01/23/2020 12:47 PM CDT Supervision of other normal , antepartum RPR Routine 01/23/2020 12:47 PM CDT Supervision of other normal , antepartum CBC WITHOUT DIFFERENTIAL Routine 01/23/2020 12:47 PM CDT Supervision of other normal , antepartum documented in this encounter Results * RPR (01/23/2020 12:47 PM CDT) RPR Non Reactive Non Reactive [facility] - 01 Blood specimen (specimen) 01/23/2020 12:47 PM CDT 01/23/2020 Narrative [facility] - 01/24/2020 8:13 AM CDT Performed at: ??01 - [facility] [address] ??[id number] Computer Aided Drafter: Chris Monroy PhD, Phone: ??[phone] Anita Stout MD LAB MICROBIOLOGY - GENERA L ORDERABLES Final Result [facility] * GTT, gestational diabetes 50gm 1hr screen (01/23/2020 12:47 PM CDT) GTT 50g gest screen 84 65 - 139 mg/dL [facility] - 01 Comment: According to ADA, a glucose threshold of >139 mg/dL after 50-gram load identifies approximately 80% of women with gestational diabetes mellitus, while the sensitivity is further increased to approximately 90% by a threshold of >129 mg/dL. Blood specimen (specimen) 01/23/2020 12:47 PM CDT 01/23/2020 Narrative [facility] - 01/24/2020 8:13 AM CDT Performed at: ??01 - [facility] ??[id number] Computer Aided Drafter: Chris Monroy PhD, Phone: ??[phone] Anita Stout MD LAB BLOOD ORDERABLES Janette l Result [facility] * (ABNORMAL) CBC without differential (01/23/2020 12:47 PM CDT) Pathologist [facility] WBC 9.9 3.4 - 10.8 x10E3/uL [facility] - 01 RBC 3.59(L) 3.77 - 5.28 x10E6/uL [facility] - 01 Hgb 11.5 11.1 - 15.9 g/dL [facility] - 01 Hct 33.7(L) 34.0 - 46.6 % [facility] - 01 MCV 94 79 - 97 fL [facility] - 01 MCH 32.0 26.6 - 33.0 pg [facility] - 01 MCHC 34.1 31.5 - 35.7 g/dL [facility] - 01 Rdw 11.7 11.7 - 15.4 % [facility] - 01 Platelets 276 150 - 450 x10E3/uL [facility] - 01 Blood specimen (specimen) 01/23/2020 12:47 PM CDT 01/23/2020 Narrative [facility] - 01/24/2020 8:13 AM CDT Performed at: ??01 - [facility] [address], [place], [place] ??[id number] Computer Aided Drafter: Chris Monroy PhD, Phone: ??[phone] Anita Stout MD LAB BLOOD ORDERABLES Janette muñiz Result [facility] - 01 documented in this encounter Visit Diagnoses Diagnosis Supervision of other normal , antepartum- Primary documented in this encounter Discontinued Medications Medication Sig Discontinue Reason Start Date End Da te ergocalciferol (VITAMIN D) 50,000 unit capsule TK 1 C PO Q 7 DAYS Therapy completed 11/26/2019 01/19/2020 documented as of this encounter Care Teams Emission Specialist Relationship Specialty Start Date End Date Bette Phillips PA PCP - General Physician Media Sales Consultant 11/23/19 documented as of this encounter
--- OUTSIDE RECORDS SUMMARY | 2024-04-15 03:46 | XMS_ITS | Encounter Summary ---
Author Organization [facility] Healthcare Address [address] [place] [address] Care Team Providers Care Director Of Student Services Name Role Phone Bette Phillips Primary Care Pr ovider Encounter Details Date Type Department Care Team (Late st Contact Info) Description 12/04/2019 Telephone [facility] Healthcare Occupatiuonal Health [address] [facility] [address] (Third Floor) [place] [address] Francisca Marquez NP [address] [place] [address] Social History Tobacco Use Types Packs/Day Years Used Date Smoking Tobacco: Never Assessed Comments Yes Sex and Gender Information Value Date Recorded Sex Assigned at Not on file Legal Sex Female 7:18 PM ARTIST BLACKSMITH Gender Identity Female 04/03/2020 12:32 PM ARTIST BLACKSMITH Sexual Orientation Not on file documented as of this encounter Miscellaneous Notes * Telephone Encounter - Francisca Marquez NP - 12/04/2019 9:38 AM CDT error documented in this encounter Plan of Treatment Not on file documented as of this encounter Visit Diagnoses Not on filedocumented in this encounter Additional Health Concerns Infection Onset Date Last Indicated Resolved Time COVID: Suspected 12/04/2019 12/04/2019 12/05/2019 6:02 AM CDT documented as of this encounter Care Teams Director Of Student Services Relationship Specialty Start Date End Date Bette Phillips PA PCP - General Physician Divisional Storekeeper 11/23/19 documented as of this encounter
--- OUTSIDE RECORDS SUMMARY | 2024-04-15 03:47 | XMS_ITS | Encounter Summary ---
Author Organization [facility] Care Team Providers Care Community Development Specialist Name Role Phone Unavailable Primary Care Provider Unavailabl e Encounter Details Date Type Department Care Team (Late st Contact Info) Description 10/04/2006 8:24 AM CDT - 10/04/2006 11:59 PM CDT Hospital Encounter [facility] Social History Tobacco Use Types Packs/Day Years Used Date Smoking Tobacco: Never Assessed Comments Unknown Sex and Gender Information Value Date Recorded Sex Assigned at Not on file Legal Sex Female 7:18 PM ANATOMIC PATHOLOGIST Gender Identity Female 04/03/2020 12:32 PM ANATOMIC PATHOLOGIST Sexual Orientation Not on file documented as of this encounter Plan of Treatment Not on file documented as of this encounter Visit Diagnoses Not on filedocumented in this encounter
--- OUTSIDE RECORDS SUMMARY | 2024-04-15 03:47 | XMS_ITS | Encounter Summary ---
Author Organization [facility] Healthcare Address [address] [place] [address] Care Team Providers Care Sheet Rock Taper Helper Name Role Phone Unknown, Notinfile Primary Care Provider Unavail able Encounter Details Date Type Department Care Team (Late st Contact Info) Description 08/07/2019 5:55 PM CDT Lab [address] [id number] Social History Tobacco Use Types Packs/Day Years Used Date Smoking Tobacco: Never Assessed Comments Unknown Sex and Gender Information Value Date Recorded Sex Assigned at Not on file Legal Sex Female 7:18 PM AGRICULTURAL EXTENSION SPECIALIST Gender Identity Female 04/03/2020 12:32 PM AGRICULTURAL EXTENSION SPECIALIST Sexual Orientation Not on file documented as of this encounter Plan of Treatment Not on file documented as of this encounter Procedures Procedure Name Priority Date/Time Associated Diagnosis Comments VARICELLA ZOSTER ANTIBODY, IGG Routine 08/07/2019 11:04 AM CDT documented in this encounter Results * Varicella Zoster (VZV) IgG Blood (08/07/2019 11:04 AM CDT) VZV IgG Reactive Nonreactive [facility] Comment:IgG antibodies to Va ricella Zoster virus detected.?? This may indicate that the patient was exposed to Varicella Zoster through??infection or vaccination. Blood specimen (specimen) 08/07/2019 11:04 AM CDT 08/07/2019 5:54 PM CDT Kamari Rothman MD LAB MICROBIOLOGY - GENERAL OR DERABLES Final Result [facility] Department [place] [address] documented in this encounter Visit Diagnoses Not on filedocumented in this encounter Care Teams Sheet Rock Taper Helper Relationship Specialty Start Date End Date Unknown, Notinfile PCP - General 08/07/19 11/22/19 documented as of this encounter
== END 2024-04-08 07:13 | disposition home or self-care (01) ==
PROVIDERS: PCP Physician Assistant; Visit Provider Physician Assistant
DX: M25.561 Pain in right knee (principal)
CPT/HCPCS: 73562

== ENCOUNTER 2024-05-17 08:05 | Emergency (ER) | payer OTHER, SELFPAY ==
[2024-05-17 08:18] VITALS: BP 124/75; PULSE 65; RESP 17; TEMP 36.2; O2SAT 99
--- OUTSIDE RECORDS SUMMARY | 2024-05-17 08:19 | XMS_ITS | Clinical Summary ---
Author Organization [facility] Address [address] [place] [address] Care Team Providers Care Reacher Name Role Phone Bette Phillips Primary Care Pr ovider Allergies No known active allergies Medications norethindrone (MICRONOR) 0.35 mg tabletIndications: Contraception Take 1 tablet (0.35 mg total) by mouth daily 84 tablet 3 4 Active Active Problems No known active problems [...] ABORH A Positive 07/13/2022 IDCOOMB Negative 07/13/2022 [id number] Nonreactive 07/13/2022 LABRPR Nonreactive 07/13/2022 RUBELIGG Reactive [...] # Disposition: Discharge home today. F/u at [facility] Full-term premature rupture of membranes 04/27/2020 [...] 02/12-hr [x] Flu Shot: done already at [facility] [x] Rhogam (if Rh neg):n/a, A+ [x] GBS at 36 wks: Negative [x] folder provided [] control method: undecided list provided, does not want OCPs [] 39 weeks discussion of IOL vs. Expectant management: [x] Mode of delivery: anticipate Girl, planning to breastfeed, planning to use Dr. Orr in [place], [place] for peds Teaching: [x] 1st visit [...] often do you attend chur ch or adventism services? Never 02/11/2023 Do you belong to any clubs o r organizations such as pentecostal groups, unions, fraternal or athletic groups, or [...] in a prison (including now)? No 02/11/2023 Ashfield Depression Scale Answer Date Recorded Ashfield Depression Scale Total 4 05/20/2023 The thought [...] on file Legal Sex Female 7:18 PM COIL WRAPPER Gender Identity Female 04/03/2020 12:32 PM COIL WRAPPER Sexual Orientation Not on file Occupation Industry [...] N Livin g 9 9 DEENA LOREDO son, Samantha Magallanes MD Complications:None Delivery Location:[facility] Main C ampus ([facility] 58LD) 2022 Term 38w 3d 14h 28m 11h 57m/2h 26m/0h 05m 3.42 kg (7 lb 8.6 oz) F Vagina l Epidur al N Livin g 8 9 STEFANI MATTY,G MIRIAMA Addie Artis MD Complications:Post He morrhage Delivery Location:[facility] Main C ampus ([facility] 58LD) Comments [id number] 2[facility] lac repaired. She came in SROM and was augmented with OT. 2022- JM- Mireya SROM Last Filed Vital Signs Vital Sign Reading Time Taken Comments Blood Pressure 135/90 03/25/2023 11:36 AM COIL WRAPPER Pulse 61 02/11/2023 7:30 AM CDT Temperature 36.6 ??C (97.9 ??F) 02/11/2023 7:30 AM CD T Respiratory Rate 16 02/11/2023 7:30 AM CDT Oxygen Saturation 99% 02/11/2023 7:30 AM CDT Inhaled Oxygen Concentration - - Weight 76.2 kg (168 lb) 03/25/2023 11:36 AM COIL WRAPPER Height 170.2 cm (5' 7 ) 03/25/2023 11:36 AM COIL WRAPPER Body Mass Index 26.31 03/25/2023 11:36 AM COIL WRAPPER Plan of Treatment Health Maintenance Due Date Last Done Comments Varicella Vaccines (1 of 2 - 13+ 2-dose series) 06/26/2004 Hepatitis B Screening 06/26/2009 Cervical Cancer Screening 06/20/2022 06/20/2021 Regular Well Visit/Exam 18-64 06/20/2022 06/20/2021 Covid-19 Vaccine (2 - 2023-2 5 season) 2023 05/30/2020 Influenza Vaccine (#1) 2023 3, 01/18/2020 Depression Screening 05/20/2024 05/20/2023 DTaP/Tdap/Td Vaccine [...] REFLEX TO GENOTYPING Routine 06/20/2021 9:10 AM COIL WRAPPER Well woman exam from Last 3 Months or Most Recently Relevant to Health Maintenance Results * Hepatitis C antibody (07/13/2022 2:34 PM CDT) Hep C Ab Nonreactive Nonreactive ROULA FIELDS Comment:Antibodies to HCV no t detected. Does NOT exclude the possibility of recent exposure to HCV. Current interpretive data was last revised on 21 Blood 07/13/2022 2:34 PM CDT 07/13/2022 3:17 PM CDT Shavon Bhatia MD LAB MICROBIOLOGY - GEN ERAL ORDERABLES Final Result ROULA [facility] Department [place] [address] * Pap and High Risk HPV, reflex to Genotyping (06/20/2021 9:10 AM COIL WRAPPER) Thin prep (Pap test) 06/20/2021 9:10 AM COIL WRAPPER 06/20/2021 10:11 AM COIL WRAPPER Narrative PATHOLOGY [facility] - 06/26/2021 10:42 AM COIL WRAPPER EPIC results best viewed via link to PDF [facility] Natasha Shelton [facility] [place] [address] Note to Patients: This report may contain [...] Gender: ??F : ??1990 (Age: 30) Address: ??[address] [place] [address] ??[address] Hospital #: ??[id number] Service: ??Obstetrics BJ Location: ??[facility] Patient Type: ??[facility] Ref Lab Taken: ??06/20/2021 Received: ??06/20/2021 Accessioned: [...] 68. ??This HPV test was performed at [facility] in [place], [place] utilizing the Gen-Probe Aptima assay. am/06/26/2021 [...] . The HPV test was performed by [facility], [address] [place] [address]. Report Images and scanned documents, if included only viewable in PDF version The performance characteristics of some immunohistochemical stains, in-situ hybridization and fluorescence in-situ hybridization tests and immunophenotyping by flow cytometry cited in this report (if any) were determined by the Surgical Pathology Department at [facility] as part of an ongoing quality and reliability engineer program and in compliance with federally mandated [...] the Surgical Pathology Department of [facility]. ??It has not been cleared or approved by the U. S. Food and Drug Administration. Nazario Barney MD LAB CYTOLOGY ORDERABLES nal Result PATHOLOGY [facility] 3rd Floor [place], [place] [phone] from Last 3 Months or Most Recently Relevant to Health Maintenance Insurance [facility] [employer] Address: [facility] [id number] [place] [address] [facility] [employer] Address: [facility] [id number] [place] [address] [employer] Advance Directives For more information, please contact: [phone] * Full Code (Latest Code Status on [...] in case of cardiopulmonary arrest Care Teams Reacher Relationship Specialty Start Date End Date Bette Phillips PA PCP - General Physician Paper Wood Cutter 11/23/19
--- OUTSIDE RECORDS SUMMARY | 2024-05-17 08:19 | XMS_ITS | Referral Summary ---
Author Organization [facility] [employer] Address [address] [place] [address] Care Team Providers Care Hot Worker Name Role Phone Bette Phillips Primary Care [...] ABORH A Positive 07/13/2022 IDCOOMB Negative 07/13/2022 [id number] Nonreactive 07/13/2022 LABRPR Nonreactive 07/13/2022 RUBELIGG Reactive [...] # Disposition: Discharge home today. F/u at [facility] Full-term premature rupture of membranes 04/27/2020 [...] 02/12-hr [x] Flu Shot: done already at [facility] [x] Rhogam (if Rh neg):n/a, A+ [x] GBS at 36 wks: Negative [x] folder provided [] control method: undecided list provided, does not want OCPs [] 39 weeks discussion of IOL vs. Expectant management: [x] Mode of delivery: anticipate Girl, planning to breastfeed, planning to use Dr. Orr in [place], [place] for peds Teaching: [x] 1st visit [...] 02/11/2023 How often do you attend chur [employer] or buddhist services? Never 02/11/2023 Do you belong to any clubs o r organizations such as restorationism groups, unions, fraternal or athletic groups, or [...] place to sleep or slept in a intermediate (including now)? 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 Last Filed Vital Signs Vital Sign Reading Time Taken Comments Blood Pressure 135/90 03/25/2023 11:36 AM NEW AUTOS DELIVERY DRIVER Pulse 61 02/11/2023 7:30 AM CDT Temperature 36.6 ??C (97.9 ??F) 02/11/2023 7:30 AM CD T Respiratory Rate 16 02/11/2023 7:30 AM CDT Oxygen Saturation 99% 02/11/2023 7:30 AM CDT Inhaled Oxygen Concentration - - Weight 76.2 kg (168 lb) 03/25/2023 11:36 AM NEW AUTOS DELIVERY DRIVER Height 170.2 cm (5' 7 ) 03/25/2023 11:36 AM NEW AUTOS DELIVERY DRIVER Body Mass Index 26.31 03/25/2023 11:36 AM NEW AUTOS DELIVERY DRIVER Plan of Treatment Not on file Procedures Procedure Name Priority Date/Time Associated Diagnosis Comments HEPATITIS C ANTIBODY Routine 07/13/2022 2:34 PM CDT Supervision of other normal , antepartum PAP AND HIGH RISK HPV, REFLEX TO GENOTYPING Routine 06/20/2021 9:10 AM NEW AUTOS DELIVERY DRIVER Well woman exam from Last 3 Months [...] - GEN ERAL ORDERABLES Final Result ROULA [facility] Department [place] [address] * Pap and High Risk HPV, reflex to Genotyping (06/20/2021 9:10 AM NEW AUTOS DELIVERY DRIVER) Thin prep (Pap test) 06/20/2021 9:10 AM NEW AUTOS DELIVERY DRIVER 06/20/2021 10:11 AM NEW AUTOS DELIVERY DRIVER Narrative PATHOLOGY [facility] - 06/26/2021 10:42 AM NEW AUTOS DELIVERY DRIVER EPIC results best viewed via link to PDF [facility] Natasha Shelton [facility] [place] [address] Note to Patients: This report may contain [...] Gender: ??F : ??1990 (Age: 30) Address: ??[address] [place] [address] ??[address] Hospital #: ??[id number] Service: ??Obstetrics BJ Location: ??[facility] Patient Type: ??[facility] Ref Lab Taken: ??06/20/2021 Received: ??06/20/2021 [...] 68. ??This HPV test was performed at [facility] in [place], [place] utilizing the Gen-Probe Aptima assay. am/06/26/2021 [...] . The HPV test was performed by [facility], [address] [place] [address]. Report Images and scanned documents, if included only viewable in PDF version The performance characteristics of some immunohistochemical stains, in-situ hybridization and fluorescence in-situ hybridization tests and immunophenotyping by flow cytometry cited in this report (if any) were determined by the Surgical Pathology Department at [facility] as part of an ongoing vice president quality assurance program and in compliance with federally mandated [...] determined by the Surgical Pathology Department of [facility]. ??It has not been cleared or approved by the U. S. Food and Drug Administration. Nazario Barney MD LAB CYTOLOGY ORDERABLES Fi nal Result PATHOLOGY [facility] 3rd Floor [place], [place] [phone] from Last 3 Months or Most Recently Relevant to Health Maintenance Insurance [facility] EMPL[employer]EE HEALTH PLANS Address: [facility] [id number] [place] [id number] [facility] EMPL[employer]EE [employer] PLANS Address: [facility] [id number] [place] [address] [employer] [facility] [employer] Address: [facility] [address] [place] [address] Advance Directives For more information, please contact: [phone] * Full Code (Latest Code Status on [...] in case of cardiopulmonary arrest Care Teams Hot Worker Relationship Specialty Start Date End Date Bette Phillips PA PCP - General Physician Hot Roll Laminator 11/23/19
--- NOTE | 2024-05-17 08:21 | ED_ITS ---
HPI - URI/Sore Throat General Chief Complaint: Upper Respiratory Infection Stated Complaint: Possible Strep Time Seen by Provider: 05/17/24 08:21 Source: patient, RN notes reviewed and old records reviewed Mode of arrival: ambulatory Limitations: no limitations History of Present Illness HPI Narrative: patient presents with 3 day history of flu-like symptoms. She reports her most bothersome symptom is sore throat. Has had multiple sick contacts. says she came in today because she is going out of town in a couple of days, wants to make sure she does not have strep throat. She has been using cough drops for her symptoms. No other medication. Related Data Home Medications ?Medication ?Instructions ?Recorded ?Confirmed ?Last Taken ?Type norethindrone (contraceptive) 0.35 0.35 mg PO DAILY 04/17/23 05/17/24 Unknown History mg tablet Allergies Allergy/AdvReac Type Severity Reaction Status Date / Time No Known Allergies Allergy Verified 05/17/24 08:09 Review of Systems Review of Systems: All systems reviewed & are unremarkable except as noted in HPI and below Constitutional: Constitutional: Reports no additional constitutional complaints, Reports headache(s) and Reports lethargy ENT: Reports system reviewed and no additional complaints, except as documented, Reports nasal discharge and Reports sore throat Cardiovascular: Cardiovascular: Reports no additional cardiovascular complaints Respiratory: Respiratory: Reports no additional respiratory complaints and Reports cough Gastrointestinal: Gastrointestinal: Reports no additional gastrointestinal complaints [facility] Surgical History Surgical History History of wisdom tooth extraction History of tonsillectomy and adenoidectomy History of placement of ear tubes Family History Family History Mother Diabetes mellitus Hypertension Father Hypertension Social History Social History Smoking status: Never smoker Second hand tobacco smoke exposure: No Alcohol intake: current Alcohol use details: socially Substance use type: does not use Do You Feel Safe in your Home?: Yes Lack of Transportation: No Lack of Food: Never True Current Housing: I Have Housing Concerned About Future Housing: No Difficulty Paying Gas/Electric Bills: No Difficulty Paying for Meds: No Currently Unemployed: No Education: Bachelor's Degree Difficulty w/ Childcare or Family Care: No Living arrangements: with family 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 There is no relevant family history pertinent to the patient complaint. Exam Const: General: cooperative, no acute distress, alert and awake Orientation/consciousness: oriented to person, oriented to place and oriented to time HENMT: Head: normal to inspection Ears: TM's normal bilaterally Mouth: Yes moist mucous membranes Throat: posterior oropharynx abnormal erythema Resp: Effort & Inspection: normal respiratory effort and able to speak in complete sentences Auscultation: clear to auscultation bilaterally, no crackles, no rales, no rhonchi and no wheezes Cardio: Palpation: normal PMI Rate: regular rate Rhythm: regular rhythm Heart sounds: S1 normal heart sound present and S2 normal heart sound present Neuro: General: oriented to person, oriented to place and oriented to time Cranial nerves: Yes CN's II-XII intact bilaterally Psych: Appearance: grossly normal Thought process: Normal thought process present Insight: Good insight present (Psych) Judgement: Good judgement present (Psych) Course Course Level of Care: Express Care Visit Vital Signs Vital signs: Vital Signs Temperature 97.1 F L 05/17/24 08:18 Pulse Rate 65 05/17/24 08:18 Respiratory Rate 17 05/17/24 08:18 Blood Pressure 124/75 05/17/24 08:18 Pulse Oximetry 99 05/17/24 08:18 Oxygen Delivery Room Air 05/17/24 08:18 Temperature 97.1 F L 05/17/24 08:18 Pulse Rate 65 05/17/24 08:18 Respiratory Rate 17 05/17/24 08:18 Blood Pressure 124/75 05/17/24 08:18 Pulse Oximetry 99 05/17/24 08:18 Oxygen Delivery Room Air 05/17/24 08:18 Reviewed MDM - URI/Sore Throat MDM Narrative Medical decision making narrative: Negative COVID, negative strep, culture pending. Positive influenza B. Supportive care measures discussed. Discharge instructions reviewed with patient, as well as provided in writing per nursing staff. The instructions also include specific and strict return/GO TO THE ER as well as f/u information. All questions have been answered, and the patient deny any further questions with discharge and discharge plan. Some parts of this dictation were generated by voice recognition software and may contain typographical and/or grammatical inaccuracies. Differential Diagnosis Differential diagnosis: Likely upper respiratory infection, otitis media, sinusitis, viral infection, influenza and pharyngitis Medical Records Attestation: I reviewed the patient's medical records. Lab Data Attestation: I reviewed the patient's lab results. Discharge Plan Discharge Clinical Impression: Influenza Patient Disposition: Home, Self-Care Condition: Stable Instructions: Antibiotic Form, Influenza (ED) Additional Instructions: Take [id number] medications per package instructions to treat your symptoms. Follow with primary care provider. Emergency department for new or worse symptoms Patient Language: Serbian Prescriptions: No Action norethindrone (contraceptive) 0.35 mg tablet 0.35 mg PO DAILY prednisone 10 mg tablet 10 mg PO BID Qty: 20 0RF Follow-up/Referrals: Crystal,THERESA Prieto [Primary Care Provider] - 2 Weeks Time of Disposition: 08:34
[2024-05-17 08:27] LABS: EDSTREPNEGPOS1 Negative (Negative)
[2024-05-17 08:32] LABS: EDCOVIDSCREEN Negative (Negative); EDINFLUASCREEN Negative (Negative); EDINFLUBSCREEN Positive (Negative)
== END 2024-05-17 08:35 | disposition home or self-care (01) ==
PROVIDERS: Emergency Provider Nurse Practitioner Family; PCP Physician Assistant
DX: J10.1 Influenza due to other identified influenza virus with other respiratory manifestations (principal); Z20.822 Contact with and (suspected) exposure to COVID-19
CPT/HCPCS: 87081; 87426; 87804; 87880; 99213; G0463

== ENCOUNTER 2024-06-28 08:09 | Emergency (ER) | payer OTHER, SELFPAY ==
--- NOTE | 2024-06-28 08:14 | ED_ITS ---
HPI - URI/Sore Throat General Chief Complaint: Upper Respiratory Infection Stated Complaint: unknown sickness Time Seen by Provider: 06/28/24 08:30 Source: patient Mode of arrival: ambulatory Limitations: no limitations History of Present Illness HPI Narrative: Olga is a 34-year-old female patient presenting to the clinic today with complaints of sore throat, body aches, chills, fever, nausea, cough, nasal fransisco estion, and fatigue. She reports symptoms have been going on for approximately 2 days. Highest fever of 102.5. Denies any shortness of breath or chest pain. MD elicited complaint: sore throat and nasal congestion Related Data Home Medications ?Medication ?Instructions ?Recorded ?Confirmed ?Last Taken ?Type norethindrone (contraceptive) 0.35 0.35 mg PO DAILY 04/17/23 05/17/24 Unknown History mg tablet Allergies Allergy/AdvReac Type Severity Reaction Status Date / Time No Known Allergies Allergy Verified 06/28/24 08:13 Review of Systems Review of Systems: Pertinent positives per HPI. Patient denies any rash, headache, visual changes, dizziness, shortness of breath, chest pain, palpitations, vomiting, diarrhea, constipation, abdominal pain, or any urinary issues. [facility] Surgical History Surgical History History of wisdom tooth extraction History of tonsillectomy and adenoidectomy History of placement of ear tubes Family History Family History Mother Diabetes mellitus Hypertension Father Hypertension Social History Social History Smoking status: Never smoker Second hand tobacco smoke exposure: No Alcohol intake: current Alcohol use details: socially Substance use type: does not use Do You Feel Safe in your Home?: Yes Lack of Transportation: No Lack of Food: Never True Current Housing: I Have Housing Concerned About Future Housing: No Difficulty Paying Gas/Electric Bills: No Difficulty Paying for Meds: No Currently Unemployed: No Education: Bachelor's Degree Difficulty w/ Childcare or Family Care: No Living arrangements: with family 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 There is no relevant family history pertinent to the patient complaint. Exam Narrative: General: Well-developed, well nourished, in no apparent distress Head: Normocephalic, atraumatic Eyes: Pupils equally round and reactive to light bilaterally, EOM intact, sclera and conjunctive clear, no discharge, lids normal Ears: TMs intact and congested, ear canals clear, no drainage, grossly hearing normal. Nose: Nares patent, clear nasal discharge, no inflammation, no sinus tenderness. Mouth: Oral pharynx red without lesions or masses, good dentition, MMM. Tonsils surgically absent Neck: Supple, trachea midline, enlargement of anterior cervical nodes, no thyroid masses or goiter palpable. Cardio: Regular rate and rhythm, s1 and s2 normal, no murmur appreciated. Resp: Clear to auscultation bilaterally, no rhonchi, rales, wheezing or rubs Course Course Emergency Course: Portions of this record may have been created with voice recognition software. Level of Care: Express Care Visit Vital Signs Vital signs: Vital Signs Temperature 36.5 C 06/28/24 08:24 Pulse Rate 97 06/28/24 08:24 Respiratory Rate 18 06/28/24 08:24 Blood Pressure 112/96 H 06/28/24 08:24 Pulse Oximetry 100 06/28/24 08:24 Oxygen Delivery Room Air 06/28/24 08:24 Temperature 36.5 C 06/28/24 08:24 Pulse Rate 97 06/28/24 08:24 Respiratory Rate 18 06/28/24 08:24 Blood Pressure 112/96 H 06/28/24 08:24 Pulse Oximetry 100 06/28/24 08:24 Oxygen Delivery Room Air 06/28/24 08:24 Vital signs reviewed MDM - URI/Sore Throat MDM Narrative Medical decision making narrative: At the time of visit patient is resting comfortably on the exam table. Patient appears to be nontoxic. Labs: Strep test was positive in the clinic today. COVID and influenza testing was negative. Plan: Patient has strep pharyngitis. Prescription for amoxicillin was sent to the pharmacy. Supportive measures were discussed with the patient and they voiced understanding discharge instructions and agrees to treatment plan. Return precautions reviewed Differential Diagnosis Differential diagnosis: Likely upper respiratory infection, otitis media, sinusitis, viral infection, bronchitis, influenza, pharyngitis and other (COVID) Discharge Plan Discharge Clinical Impression: Strep pharyngitis Patient Disposition: Home, Self-Care Condition: Stable Instructions: Antibiotic Form, Strep Throat (ED) Additional Instructions: Take prescription medications only as prescribed-amoxicillin Change her toothbrush in 24 hours after initiation of the antibiotics Increase fluids and stay well hydrated Tylenol/motrin for pain/fever Flonase and OTC antihistamines as directed Vicks vapor rub to open sinuses Sinus rinses for congestion Cepacol spray, cough drops, throat lozenges, warm tea with honey/lemon, gargle salt water to soothe throat BRAT diet for diarrhea Clear liquids x 24 hours then advance as tolerated for nausea/vomiting Go to the ED if you develop a worsening in your condition- high fever not controlled by Tylenol or Motrin, dehydration, weakness, lethargy, shortness of breath, or chest pain. Follow up with your PCP in 3-5 days if symptoms persist. Patient Language: Citizen Of [place] Prescriptions: New amoxicillin 875 mg tablet 875 mg PO Q12H 10 Days Qty: 20 0RF No Action norethindrone (contraceptive) 0.35 mg tablet 0.35 mg PO DAILY prednisone 10 mg tablet 10 mg PO BID Qty: 20 0RF Follow-up/Referrals: Crystal,THERESA Prieto [Primary Care Provider] - Stand Alone Forms: Work/School Release IP Time of Disposition: 08:42 Quality NIHSS Nursing Documentation ED NIHSS nursing documentation: reviewed/agree
--- OUTSIDE RECORDS SUMMARY | 2024-06-28 08:19 | XMS_ITS | Encounter Summary ---
Author Organization [facility] Healthcare Address [address] [place] [address] Care Team Providers Care Ship Harbor Pilot Name Role Phone Ida Rojas Primary Care Provider Reason for Visit * Reason Onset Date Comments [place] Employee Screening 2024 Encounter Details Date Type Department Care Team (Late st Contact Info) Description 2024 Telephone [facility] Occupatiuonal Health [address] [facility] Room [facility] (Third Floor) [place] [address] Uyen Caraballo RN [place] Employee Screening Social History Tobacco Use Types Packs/Day Years [...] often do you attend chur ch or worship services? Never 02/11/2023 Do you belong to any clubs o r organizations such as sabianism groups, unions, fraternal or athletic groups, or [...] in a retirement (including now)? 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 Employee Employee Employer: [employer] Are you 100% VIVIANE? No Employee Facility: [facility] Are you okay receiving positive results and further instructions via email? 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 No Have you had a vaccine within the past 48 hours? No Are you calling about a home covid positive test? No Have you tested positive for COVID in the past 60 days? (not including the positive home test you are calling about today) No Have you had a known, specific Covid exposure within the last 14 days? Yes Unknown Name of the COVID-19 positive person to whom you were exposed: Cousin Have you had an exposure to Mpox, pertussis or Emiliano Influenza in the last 30 days? No Did the exposure take place at work / on campus? No Date of exposure: 12/02/2019 Was the person to whom you were exposed wearing a mask/face covering? No Description of exposure: Exposed to cousin whom tested + COVID 19. 8/16. Employee Symptoms: Yes Yes Date of employee symptom onset: 06/26/2024 Description of Symptoms: Muscle Aches Body Aches;Headache;Sore Throat;Fever;Nausea/Vomiting What was the last day worked? 06/22/2024 Did you work on site 48 hours prior to symptom onset and/or any days while symptomatic? No Plan: (A) Stay home and test (A) Stay home and test for symptoms Testing Site Location: [facility] A0 (stay home and test) for symptomatic employees (HCW and Non-HCW) Thank you for calling the Occupational Health Call Center. This email contains the same informationand recommendations discussed during your call. You should also forward this information to your weave room supervisor as confirmation. Given your symptoms, you should not come to work and will be referred for combined COVID/Influenza/RSV testing. If you have had a COVID infection in the past 2 months, your COVID test will likely result positivedue to your prior infection. In this case, further guidance will be based solely on Influenza and RSV results. If you are at work on site, you must leave work now. Notify your weave room supervisor that you have been directed to do so by the Occupational Health Call Center. Please go to the employee testing site as directed for your test. They should be expecting you; if there is any confusion, please call us at [phone]. Since you are reporting symptoms, wear a hospital provided mask when reporting for your test. While you are awaiting testing and results, you must remain off work. You should isolate yourself at home, avoid contact with any household members as much as possible, and stay in your home without leaving except for medical care. You should let your weave room supervisor know that you will not be coming to work. Although we will email your weave room supervisor to confirm this, it is still your responsibility to notify your weave room supervisor as you wouldfor any other work absence. If you have the option to stock worker and deliverer and you feel well enough, it must be approved by your weave room supervisor We will notify you of your test results, which are usually available within 24- 48 hours. Your results will also post to your [facility] My Chart account ([email or web address]). Once yourresults are back, you will receive further instruction from Occupational Health. All further communication, including test results and guidance on returning to work, will be through the email you provided us during your screening. You must follow any additional isolation or quarantine instructions provided to you by federal, state, or local health authorities. Sincerely, Occupational Health Call Center Additional resources around self-isolation and how to prevent spread are available at: www.cdc.gov/coronavirus/2019-ncov documented in this encounter Plan of Treatment Not on file documented as of this encounter Results * Influenza A/B, RSV, and COVID-19 PCR Nasopharyngeal (2024 11:31 AM CDT) Pathologist [facility] COVID-19 RNA Negative Negative Influenza A RNA Negative Negative [facility] Influenza B RNA Negative Negative [facility] RSV RNA Negative Negative [facility] Comment: Interpretive data: Testing performed by [facility]. This test is performed using the [employer] Xpert Xpress CoV-2/Flu/RSV plus assay. This is a multiplex, real-time reverse transcriptase PCR assay intended for the qualitative detection of nucleic acid from SARS-CoV-2, influenza A, influenza B, and respiratory syncytial virus. This assay has been cleared by the [place] Food and Drug administration. The performance characteristics have been verified by the [facility]. Results must be considered in the clinical context, and a negative result does not rule out infection. Interpretive Data last revised 2023 Nasopharyngeal 2024 11 :31 AM CDT 2024 7:29 PM CDT Narrative [facility] - 2024 9:46 PM CDT Bill to [facility] - 1520 Patient is employed by/enrolled at:->[employer] Is the patient experiencing any symptoms consistent with COVID (eg. Fever, cough, shortness of breath)?->Yes Reason for testing?->Symptomatic Is the Patient experiencing symptoms consistent with COVID?->Yes Kamari Rothman MD LAB MICROBIOLOGY - GENERAL OR DERABLES Final Result [facility] [address] Department [place] [address] documented in this encounter Visit Diagnoses Diagnosis Fever, unspecified fever cause- Primary Fever, unspecified fever cause documented in this encounter Additional Health Concerns Infection Onset Date Last Indicated Resolved Time COVID: Suspected 2024 2024 2024 9:47 PM CDT documented as of this encounter Care Teams Ship Harbor Pilot Relationship Specialty Start Date End Date Ida Rojas PA [address] [place] [id number] PCP - General Physician Landscape Architecture Teacher 06/27/24 documented as of this encounter
--- OUTSIDE RECORDS SUMMARY | 2024-06-28 08:19 | XMS_ITS | Encounter Summary ---
Author Organization [facility] Healthcare Address [address] [place] [address] Care Team Providers Care Comb Capper Name Role Phone Ida Rojas Primary Care Provider [phone] Reason for Visit * Reason Comments OCC HEALTH Encounter Details Date Type Department Care Team (Latest Contact Info) Description 2024 11:30 AM CDT Clinical Support [facility] Medical Group Convenient Care at [address] [address] Sick (Primary Dx) Social History Tobacco Use Types [...] often do you attend chur ch or protestant services? Never 02/11/2023 Do you belong to [...] place to sleep or slept in a fdc (including now)? 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 documented in this encounter Plan of Treatment Not on file documented as of this encounter Visit Diagnoses Diagnosis Sick- Primary Other unknown and unspecified cause of morbidity or mortality documented in this encounter Discontinued Medications Medication Sig Discontinue Reason Start Date End Da te norethindrone (MICRONOR) 0.35 mg tabletIndications:Pregnanc y Contraception Take 1 tablet (0.35 mg total) by mouth daily 04/26/2023 2024 documented as of this encounter Additional Health Concerns Infection Onset Date Last Indicated Resolved Time COVID: Suspected 2024 2024 2024 9:47 PM CDT documented as of this encounter Care Teams Comb Capper Relationship Specialty Start Date End Date Ida Rojas PA [address] [place] [id number] PCP - General Physician Flat Examiner 06/27/24 documented as of this encounter
--- OUTSIDE RECORDS SUMMARY | 2024-06-28 08:19 | XMS_ITS | Referral Summary ---
Author Organization [facility] Address [address] [place] [address] Care Team Providers Care Personal Injury Legal Assistant Name Role Phone Ida Rojas Primary Care Provider [phone] Encounters Date Type Department Care Team Description 06/28/2024 Results Follow-Up [facility] [address] [facility] [address] (Third Floor) [place] [address] Mariana Morgan RN 2024 11:31 AM CDT - 2024 11:59 PM CDT Hospital Encounter [address] [address] Fever, unspecified fever cause Discharge Disposition: Discharge to home or self care 2024 11:30 AM CDT Clinical Support [facility] Medical Group Convenient Care at [address] [id number] Sick (Primary Dx) 2024 Telephone [facility] [address] [facility] [address] (Third Floor) [place] [address] Uyen Caraballo, SUKH [place] Employee Screening from Last 3 Months Allergies No known active allergies Medications norethindrone (MICRONOR) 0.35 mg tabletIndications : Contraception Take 1 tablet (0.35 mg total) by mouth daily 84 tablet 3 04/26/19 025 Discontinued Active Problems No known active problems Resolved [...] ABORH A Positive 07/13/2022 IDCOOMB Negative 07/13/2022 [id number] Nonreactive 07/13/2022 LABRPR Nonreactive 07/13/2022 RUBELIGG Reactive [...] # Disposition: Discharge home today. F/u at [facility] Full-term premature rupture of membranes [...] 02/12-hr [x] Flu Shot: done already at [facility] [x] Rhogam (if Rh neg):n/a, A+ [x] GBS at 36 wks: Negative [x] folder provided [] control method: undecided list provided, does not want OCPs [] 39 weeks discussion of IOL vs. Expectant management: [x] Mode of delivery: anticipate Girl, planning to breastfeed, planning to use Dr. Orr in [place], [place] for peds Teaching: [x] 1st visit [x] 28-30 week [x] 36 week Immunizations Immunization Administration Dates Next Due Influenza, Quadrivalent, Lilia [...] often do you attend chur ch or baptism services? Never 02/11/2023 Do you belong to any clubs o r organizations such as synagogue groups, unions, fraternal or athletic groups, or [...] in a prison (including now)? 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 Last Filed Vital Signs Vital Sign Reading Time Taken Comments Blood Pressure 135/90 03/25/2023 11:36 AM FRENCH INSTRUCTOR Pulse 61 02/11/2023 7:30 AM CDT Temperature 36.6 C (97.9 F) 02/11/2023 7:30 AM CDT Respiratory Rate 16 02/11/2023 7:30 AM CDT Oxygen Saturation 99% 02/11/2023 7:30 AM CDT Inhaled Oxygen Concentration - - Weight 76.2 kg (168 lb) 03/25/2023 11:36 AM FRENCH INSTRUCTOR Height 170.2 cm (5' 7 ) 03/25/2023 11:36 AM FRENCH INSTRUCTOR Body Mass Index 26.31 03/25/2023 11:36 AM FRENCH INSTRUCTOR Plan of Treatment Not on file Procedures Procedure Name Priority Date/Time Associated Diagnosis Comments INFLUENZA A/B, RSV, AND COVID-19 PCR Routine 2024 11:31 AM CDT Fever, unspecified fever cause HEPATITIS C ANTIBODY Routine 07/13/2022 2:34 PM CDT Supervision of other normal , antepartum PAP AND HIGH RISK HPV, REFLEX TO GENOTYPING Routine 06/20/2021 9:10 AM FRENCH INSTRUCTOR Well woman exam from Last 3 Months or Most Recently Relevant to Health Maintenance Results * Influenza A/B, RSV, and COVID-19 PCR Nasopharyngeal (2024 11:31 AM CDT) COVID-19 RNA Negative Negative Influenza A RNA Negative Negative [facility] Influenza B RNA Negative Negative [facility] RSV RNA Negative Negative [facility] Comment: Interpretive data: Testing performed by [facility]. This test is performed using the [employer] Xpert Xpress CoV-2/Flu/RSV plus assay. This is a multiplex, real-time reverse transcriptase PCR assay intended for the qualitative detection of nucleic acid from SARS-CoV-2, influenza A, influenza B, and respiratory syncytial virus. This assay has been cleared by the [place] Food and Drug administration. The performance characteristics have been verified by the [facility]. Results must be considered in the clinical context, and a negative result does not rule out infection. Interpretive Data last revised 2023 Nasopharyngeal 2024 11 :31 AM CDT 2024 7:29 PM CDT Narrative [facility] - 2024 9:46 PM CDT Bill to [facility] - 4197 Patient is employed by/enrolled at:->[facility] Is the patient experiencing any symptoms consistent with COVID (eg. Fever, cough, shortness of breath)?->Yes Reason for testing?->Symptomatic Is the Patient experiencing symptoms consistent with COVID?->Yes Kamari Rothman MD LAB MICROBIOLOGY - GENERAL OR DERABLES Final Result Performing Organization Address [facility]/ZIP Co de Phone Number [facility] [place] [address] [place] * Hepatitis C antibody (07/13/2022 2:34 PM CDT) Hep C Ab Nonreactive Nonreactive [facility] Comment:Antibodies to HCV no t detected. Does NOT exclude the possibility of recent exposure to HCV. Current interpretive data was last revised on 21 Blood 07/13/2022 2:34 PM CDT 07/13/2022 3:17 PM CDT Shavon Bhatia MD LAB MICROBIOLOGY - GEN ERAL ORDERABLES Final Result Performing Organization Address [facility] Co de Phone Number [facility] [place] [address] * Pap and High Risk HPV, reflex to Genotyping (06/20/2021 9:10 AM FRENCH INSTRUCTOR) Thin prep (Pap test) 06/20/2021 9:10 AM FRENCH INSTRUCTOR 06/20/2021 10:11 AM FRENCH INSTRUCTOR Narrative PATHOLOGY [facility] - 06/26/2021 10:42 AM FRENCH INSTRUCTOR EPIC results best viewed via link to PDF [facility] Natasha Shelton Laboratory of Surgical Pathology [place], [place] [id number] Note to Patients: This report may contain [...] the details. CYTOPATHOLOGY REPORT FINAL Patient Name: OLGA DUARTE Gender: F : 1990 (Age: 30) Address: [address] [place] [address] Hospital #: [id number] Service: Obstetrics BJ Location: [facility] Patient Type: [facility] Ref Lab Taken: 06/20/2021 Received: 06/20/2021 Accessioned: 06/23/2021 Reported: 06/26/2021 Physician(s): Nazario Barney M.D. FINAL INTERPRETATION SOURCE OF SPECIMEN: Liquid based Thin Prep pap with HPV STATEMENT OF ADEQUACY: - Satisfactory for evaluation - Endocervical cells/transformation zone sample present GENERAL CATEGORY: - Negative for squamous intraepithelial lesion or malignancy Comments HPV Result: NEGATIVE for high risk types of Human Papilloma Virus (HPV) RNA This probe detects the presence of HPV types: 16, 18, 31, 33, 35, 39, 45, 51, 52, 56, 58, 59, 66 and 68. This HPV test was performed at [facility] in [place], [place] utilizing the Gen-Probe Aptima assay. am/06/26/2021 [...] biopsy results as indicated. Gross Description A. Liquid based Thin Prep pap with HPV: Cervical/vaginal - Screening ThinPrep with HPV Clinical Diagnosis and History Last Menstrual Period: 06/18/21 Menstrual History: Irregular Cycles Contraceptive History: Hormonal The patient is a 30 year old woman with 30yo . The HPV test was performed by [facility], [address] [place] [address]. Report Images and scanned documents, if included only viewable in PDF version The performance characteristics of some immunohistochemical stains, in-situ hybridization and fluorescence in-situ hybridization tests and immunophenotyping by flow cytometry cited in this report (if any) were determined by the Surgical Pathology Department at [facility] as part of an ongoing quality assurance associate program and in compliance with federally mandated regulations drawn from the Clinical Laboratory Improvement Act of 1988 (CLIA '88). Some of these tests rely on the use of analyte specific reagents and are subject to specific labeling requirements by the US Food and Drug Administration. Such diagnostic tests may only be performed in a facility that is certified by the Department of Health and Human Services as a high complexity laboratory under CLIA '88. The FDA has determined that such clearance or approval is not necessary. This test is used for clinical purposes. It should not be regarded as investigational or for research. Nevertheless, federal rules concerning the medical use of analyte specific reagents require that the following disclaimer be attached to the report: This test was developed and its performance characteristics determined by the Surgical Pathology Department of [facility]. It has not been cleared or approved by the U. S. Food and Drug Administration. Nazario Barney MD LAB CYTOLOGY ORDERABLES [facility] Result PATHOLOGY [facility] 3rd Floor [place], [place] [phone] from Last 3 Months or Most Recently Relevant to Health Maintenance Insurance [facility] [employer] Advance Directives For more information, please contact: [phone] * Full Code (Latest Code Status on [...] in case of cardiopulmonary arrest Care Teams Personal Injury Legal Assistant Relationship Specialty Start Date End Date Ida Rojas PA [address] [place] [address] PCP - General Physician Cylinder Worker 06/27/24
--- OUTSIDE RECORDS SUMMARY | 2024-06-28 08:19 | XMS_ITS | Clinical Summary ---
Author Organization [facility] Address [address] [place] [address] Care Team Providers Care Artificial Log Machine Operator Name Role Phone Ida Rojas Primary Care Provider [phone] Allergies No known active allergies Medications norethindrone (MICRONOR) 0.35 mg tabletIndications : Contraception Take 1 tablet (0.35 mg total) by mouth daily 84 tablet 3 04/26/19 24 025 Discontinued Active Problems No known active [...] ABORH A Positive 07/13/2022 IDCOOMB Negative 07/13/2022 [id number] Nonreactive 07/13/2022 LABRPR Nonreactive 07/13/2022 RUBELIGG Reactive [...] # Disposition: Discharge home today. F/u at [facility] Full-term premature rupture of membranes [...] 02/12-hr [x] Flu Shot: done already at [facility] [x] Rhogam (if Rh neg):n/a, A+ [x] GBS at 36 wks: Negative [x] folder provided [] control method: undecided list provided, does not want OCPs [] 39 weeks discussion of IOL vs. Expectant management: [x] Mode of delivery: anticipate Girl, planning to breastfeed, planning to use Dr. Orr in [place], [place] for peds Teaching: [x] 1st visit [x] 28-30 week [x] 36 week Encounters Date Type Department Care Team Description 06/28/2024 Results Follow-Up [address] Room [facility] (Third Floor) [place] [address] Mariana Morgan RN 2024 11:31 AM CDT - 2024 11:59 PM CDT Hospital Encounter [address] [address] Fever, unspecified fever cause Discharge Disposition: Discharge to home or self care 2024 11:30 AM CDT Clinical Support [facility] at [address] [address] Sick (Primary Dx) 2024 Telephone [facility] [address] [place] [address] [address] (Third Floor) [place] [address] Uyen Caraballo, SUKH [place] Employee Screening from Last 3 Months Immunizations Immunization Administration Dates Next Due Influenza, [...] often do you attend chur ch or episcopalian services? Never 02/11/2023 Do you belong to any clubs o r organizations such as faith groups, unions, fraternal or athletic groups, or [...] a nursing home (including now)? No 02/11/2023 [place] Depression Scale Answer Date Recorded [place] Depression Scale Total 4 05/20/2023 The thought [...] on file Legal Sex Female 7:18 PM MORTGAGE SERVICING SPECIALIST Gender Identity Female 04/03/2020 12:32 PM MORTGAGE SERVICING SPECIALIST Sexual Orientation Not on file Occupation [...] Epidur al N Livin g 9 9 [place] WATTERS,DEENA Fischer son, Samantha Magallanes MD Complications:None Delivery Location:[facility] Main C ampus ([facility] 58LD) 2022 Term 38w 3d 14h 28m 11h 57m/2h 26m/0h 05m 3.42 kg (7 lb 8.6 oz) F Vagina l Epidur al N Livin g 8 9 STEFANI STARR,G IRLTA Addie Artis MD Complications:Post He morrhage Delivery Location:[facility] Main C ampus ([facility] 58LD) Comments [id number] [facility] 2[facility] degree lac repaired. She came in SROM and was augmented with OT. 2022- JM- Mireya SROM Last Filed Vital Signs Vital Sign Reading Time Taken Comments Blood Pressure 135/90 03/25/2023 11:36 AM MORTGAGE SERVICING SPECIALIST Pulse 61 02/11/2023 7:30 AM CDT Temperature 36.6 C (97.9 F) 02/11/2023 7:30 AM CDT Respiratory Rate 16 02/11/2023 7:30 AM CDT Oxygen Saturation 99% 02/11/2023 7:30 AM CDT Inhaled Oxygen Concentration - - Weight 76.2 kg (168 lb) 03/25/2023 11:36 AM MORTGAGE SERVICING SPECIALIST Height 170.2 cm (5' 7 ) 03/25/2023 11:36 AM MORTGAGE SERVICING SPECIALIST Body Mass Index 26.31 03/25/2023 11:36 AM MORTGAGE SERVICING SPECIALIST Plan of Treatment Health Maintenance Due Date [...] REFLEX TO GENOTYPING Routine 06/20/2021 9:10 AM MORTGAGE SERVICING SPECIALIST Well woman exam from Last 3 Months or Most Recently Relevant to Health Maintenance Results * Influenza A/B, RSV, and COVID-19 PCR Nasopharyngeal (2024 11:31 AM CDT) Pathologist [facility] COVID-19 RNA Negative Negative Influenza A RNA Negative Negative [facility] Influenza B RNA Negative Negative [facility] RSV RNA Negative Negative [facility] Comment: Interpretive data: Testing performed by [facility]. This test is performed using the [facility] Xpert Xpress CoV-2/Flu/RSV plus assay. This is a multiplex, real-time reverse transcriptase PCR assay intended for the qualitative detection of nucleic acid from SARS-CoV-2, influenza A, influenza B, and respiratory syncytial virus. This assay has been cleared by the [place] Food and Drug administration. The performance characteristics have been verified by the [facility]. Results must be considered in the clinical context, and a negative result does not rule out infection. Interpretive Data last revised 2023 Nasopharyngeal 2024 11 :31 AM CDT 2024 7:29 PM CDT Narrative ROU[facility] - 2024 9:46 PM CDT Bill to [facility] [employer] - 1520 Patient is employed by/enrolled at:->[employer] Is the patient experiencing any symptoms consistent with COVID (eg. Fever, cough, shortness of breath)?->Yes Reason for testing?->Symptomatic Is the Patient experiencing symptoms consistent with COVID?->Yes Kamari Rothman MD LAB MICROBIOLOGY - GENERAL OR DERABLES Final Result Performing Organization Address City/[facility]/ZIP Co de Phone Number ROULA [address] Department [place] [address] [place] * Hepatitis C antibody (07/13/2022 2:34 PM CDT) Hep C Ab Nonreactive Nonreactive [facility] Comment:Antibodies to HCV no t detected. Does NOT exclude the possibility of recent exposure to HCV. Current interpretive data was last revised on 21 Blood 07/13/2022 2:34 PM CDT 07/13/2022 3:17 PM CDT Shavon Bhatia MD LAB MICROBIOLOGY - GEN ERAL ORDERABLES Final Result Performing Organization Address City/[facility] Co de Phone Number ROU[facility] Department [place] [address] * Pap and High Risk HPV, reflex to Genotyping (06/20/2021 9:10 AM MORTGAGE SERVICING SPECIALIST) Thin prep (Pap test) 06/20/2021 9:10 AM MORTGAGE SERVICING SPECIALIST 06/20/2021 10:11 AM MORTGAGE SERVICING SPECIALIST Narrative PATHOLOGY [facility] - 06/26/2021 10:42 AM MORTGAGE SERVICING SPECIALIST EPIC results best viewed via link to PDF [facility] Natasha Shelton Laboratory of Surgical Pathology [place], [place] [id number] Note to Patients: This report may contain [...] the details. CYTOPATHOLOGY REPORT FINAL Patient Name: JODY DUARTE Gender: F : 1990 (Age: 30) Address: [address] [place] [address] Hospital #: [id number] Service: Obstetrics BJ Location: [facility] Patient Type: [facility] Ref Lab Taken: 06/20/2021 Received: 06/20/2021 [...] 69. This HPV test was performed at [facility] in [place], [place] utilizing the Gen-Probe Aptima assay. am/06/26/2021 [...] . The HPV test was performed by [facility], [address] [place] [address]. Report Images and scanned documents, if included only viewable in PDF version The performance characteristics of some immunohistochemical stains, in-situ hybridization and fluorescence in-situ hybridization tests and immunophenotyping by flow cytometry cited in this report (if any) were determined by the Surgical Pathology Department at [facility] as part of an ongoing quality control assistant program and in compliance with federally mandated [...] determined by the Surgical Pathology Department of [facility]. It has not been cleared or approved by the U. S. Food and Drug Administration. Nazario Barney MD LAB CYTOLOGY ORDERABLES [facility] Result PATHOLOGY [facility] 3rd Floor [place], [place] [phone] from Last 3 Months or Most Recently Relevant to Health Maintenance Insurance [facility] [employer] PLANS Address: [facility] [id number] [place] [address] [employer] EM[employer] PL[employer] Address: [address] [address] [employer] Advance Directives For more information, please contact: [phone] * Full Code (Latest Code Status on [...] in case of cardiopulmonary arrest Care Teams Artificial Log Machine Operator Relationship Specialty Start Date End Date Ida Rojas PA [address] [place] [id number] PCP - General Physician Nurse Reviewer 06/27/24
--- OUTSIDE RECORDS SUMMARY | 2024-06-28 08:19 | XMS_ITS | Encounter Summary ---
Author Organization [facility] Healthcare Address [address] [place] [address] Care Team Providers Care Health Care Marketing Specialist Name Role Phone Ida Rojas Primary Care Provider [phone] Encounter Details Date Type Department Care Team (Late st Contact Info) Description 06/28/2024 Results Follow-Up [facility] Healthcare Occupatiuonal Health [address] [facility] Room [address] (Third Floor) [place] [address] Mariana Morgan RN Social History Tobacco Use Types Packs/Day [...] often do you attend chur ch or jew services? Never 02/11/2023 Do you belong to any clubs o r organizations such as presybeterian groups, unions, fraternal or athletic groups, or [...] place to sleep or slept in a fci (including now)? 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
--- OUTSIDE RECORDS SUMMARY | 2024-06-28 08:19 | XMS_ITS | Encounter Summary ---
Author Organization [facility] Healthcare Address [address] [place] [address] Care Team Providers Care Paster Hat Lining Name Role Phone Ida Rojas Primary Care Provider [phone] Encounter Details Date Type Department Care Team (Latest Contact Info) Description 2024 11:31 AM CDT - 2024 11:59 PM CDT Hospital Encounter [address] [address] Fever, unspecified fever cause Discharge Disposition: Discharge [...] often do you attend chur ch or quaker services? Never 02/11/2023 Do you [...] place to sleep or slept in a detention (including now)? No 02/11/2023 [place] Depression Scale Answer Date Recorded [place] Depression Scale Total 4 05/20/2023 The thought [...] on file Legal Sex Female 7:18 PM TAKE OUT WAITER/WAITRESS Gender Identity Female 04/03/2020 12:32 PM TAKE OUT WAITER/WAITRESS Sexual Orientation Not on file Occupation Industry [...] 11:31 AM CDT Fever, unspecified fever cause documented in this encounter Results * Influenza A/B, RSV, and COVID-19 PCR Nasopharyngeal (2024 11:31 AM CDT) Pathologist [facility] COVID-19 RNA Negative Negative Influenza A RNA Negative Negative [facility] Influenza B RNA Negative Negative [facility] RSV RNA Negative Negative [facility] Comment: Interpretive data: Testing performed by [facility]. This test is performed using the [employer] Xpert Xpress CoV-2/Flu/RSV plus assay. This is a multiplex, real-time reverse transcriptase PCR assay intended for the qualitative detection of nucleic acid from SARS-CoV-2, influenza A, influenza B, and respiratory syncytial virus. This assay has been cleared by the [place] Food and Drug administration. The performance characteristics have been verified by the [facility]. Results must be considered in the clinical context, and a negative result does not rule out infection. Interpretive Data last revised 2023 Nasopharyngeal 2024 11 :31 AM CDT 2024 7:29 PM CDT Narrative [facility] - 2024 9:46 PM CDT Bill to [facility] - [address] Patient is employed by/enrolled at:->[employer] [facility] Is the patient experiencing any symptoms consistent with COVID (eg. Fever, cough, shortness of breath)?->Yes Reason for testing?->Symptomatic Is the Patient experiencing symptoms consistent with COVID?->Yes Kamari Rothman MD LAB MICROBIOLOGY - GENERAL OR DERABLES Final Result [facility] [address] [facility] Department [place] [address] documented in this encounter Visit Diagnoses Diagnosis Fever, unspecified fever cause documented in this encounter Additional Health Concerns Infection Onset Date Last Indicated Resolved Time COVID: Suspected 2024 2024 2024 9:47 PM CDT documented as of this encounter Care Teams Paster Hat Lining Relationship Specialty Start Date End Date Ida Rojas PA [address] [place] [id number] PCP - General Physician Diagnostic Medical Sonographer 06/27/24 documented as of this encounter
[2024-06-28 08:24] VITALS: BP 112/96; PULSE 97; RESP 18; TEMP 36.5; O2SAT 100
[2024-06-28 08:49] LABS: EDCOVIDSCREEN Negative (Negative); EDINFLUASCREEN Negative (Negative); EDINFLUBSCREEN Negative (Negative); EDSTREPNEGPOS1 Positive (Negative)
== END 2024-06-28 08:45 | disposition home or self-care (01) ==
PROVIDERS: Emergency Provider Nurse Practitioner Family; PCP Physician Assistant
DX: J02.0 Streptococcal pharyngitis (principal); Z20.822 Contact with and (suspected) exposure to COVID-19
CPT/HCPCS: 87426; 87804; 87880; 99213; G0463

== ENCOUNTER 2025-01-13 18:13 | Emergency (ER) | payer OTHER, MEDICAID, SELFPAY ==
--- NOTE | ~2025-01-13 | XR_ITS ---
EXAMINATION: XR chest 2V, 01/13/2025 18:29 CDT HISTORY: cp COMPARISON: No comparisons available. Technique: 2 views obtained. Findings: The lungs are clear, no effusion. No pneumothorax. Heart is normal size. Mediastinal and hilar contours are within normal limits. Bony thorax no acute abnormality. Impression: No acute cardiopulmonary abnormality. Reviewed, dictated and finalized at location P. Impression: No acute cardiopulmonary abnormality.
[2025-01-13 18:14] VITALS: BP 126/87; PULSE 90; RESP 18; TEMP 36.4; O2SAT 100
--- NOTE | 2025-01-13 18:14 | ECG_ITS ---
Test Date: 2025-01-13 18:19:10 Measurements Intervals [place] Rate: 88 P: 58 NH: 139 QRS: 34 QRSD: 86 T: 1 QT: 345 QTc: 419 Interpretive Statements SINUS RHYTHM POSSIBLE ANTERIOR MYOCARDIAL INFARCTION , OF INDETERMINATE AGE Electronically Signed On 01-14-2025 20:47:15 CDT by Reji Weldon D.O
[2025-01-13 18:36] LABS: Hematocrit 36.2 % (37.0-47.0); Hemoglobin 12.2 g/dL (12.0-15.0); Immature Granulocyte Percent A 0.3 % (0-0.5); Lymphocytes Absolute Auto 3.55 K/mm3 (0.9-3.2); Mean Corpuscular HGB Conc 33.7 g/dl (32-36); Mean Corpuscular Hemoglobin 30.0 pg (26-34); Mean Corpuscular Volume 88.9 fl (80-100); Nucleated Red Blood Cells Absolute Auto 0.000 K/mm3 (0.0-0.012); Nucleated Red Blood Cells Perc 0.0 % (0.0-0.2); Platelet Count Result 228 k/mm3 (150-375); Red Blood Count 4.07 M/mm3 (4.2-5.4); White Blood Count 7.0 K/mm3 (4.5-10.0)
[2025-01-13 18:45] LABS: Alanine Aminotransferase 20 U/L (6-35); Albumin Level 4.5 g/dL (3.5-5.1); Alkaline Phosphatase 53 U/L (38-126); Anion Gap 9 mmol/L (4-12); Aspartate Amino Transferase 33 U/L (14-36); Bilirubin,Total 0.4 mg/dL (0.2-1.3); Blood Urea Nitrogen 12 mg/dL (7-17); Calcium 9.1 mg/dL (8.4-10.2); Carbon Dioxide 24 mmol/L (22-30); Chloride 105 mmol/L (98-107); Estimated CRCL calculation 64 ml/min; Estimated Glomerular Filt Rate 59; Glucose 94 mg/dL (65-110); Lipase 94 U/L (23-300); Potassium 3.4 mmol/L (3.4-5.0); Sodium 138 mmol/L (137-145); Total Protein 8.4 g/dL (6.3-8.2)
[2025-01-13 18:47] LABS: INR 1.1; Prothrombin Time 14.0 Seconds (11.1-14.7)
[2025-01-13 18:48] LABS: Partial Thromboplastin Time 30.2 Seconds (22.3-36.8)
[2025-01-13 18:57] LABS: Troponin I < 0.012 ng/mL (0.000-0.034)
--- NOTE | 2025-01-13 19:18 | PC.NURSE ---
Pt presents c/o worsening intermitted 6/10 stabbing L side chest pain, lightheadedness and heart racing, per pt worsens when lying on that side and goes away when switching sides, onset about a week ago.
--- NOTE | 2025-01-13 19:30 | ED.CHESTPAIN ---
HPI - Chest Pain General Chief Complaint: Chest Pain Stated Complaint: cp Time Seen by Provider: 01/13/25 19:18 History of Present Illness HPI narrative: Patient is a 34-year-old female who presents emergency department this evening complaining of left-sided chest pain for the past week. Patient admits that the pain is positional and worse when she lays on her left side. States that he feels like musculoskeletal but today she started having lightheadedness and a combination of the 2 symptoms were concerning so she decided to come into the ED for further evaluation. Patient denies any significant past medical history, denies any tobacco use or family history of cardiovascular disease. Denies any recent illness, fevers or chills. Related Data Home Medications ?Medication ?Instructions ?Recorded ?Confirmed ?Last Taken ?Type norethindrone (contraceptive) 0.35 0.35 mg PO DAILY 04/17/23 05/17/24 Unknown History mg tablet Allergies Allergy/AdvReac Type Severity Reaction Status Date / Time No Known Allergies Allergy Verified 01/13/25 18:17 Review of Systems Review of Systems: All systems are reviewed and are negative unless stated otherwise in the HPI. [facility] Surgical History Surgical History History of wisdom tooth extraction History of tonsillectomy and adenoidectomy History of placement of ear tubes Family History Family History Mother Diabetes mellitus Hypertension Father Hypertension Social History Social History Smoking status: Never smoker Second hand tobacco smoke exposure: No Alcohol intake: current Alcohol use details: socially Substance use type: does not use Do You Feel Safe in your Home?: Yes Lack of Transportation: No Lack of Food: Never True Current Housing: I Have Housing Concerned About Future Housing: No Difficulty Paying Gas/Electric Bills: No Difficulty Paying for Meds: No Currently Unemployed: No Education: Bachelor's Degree Difficulty w/ Childcare or Family Care: No Living arrangements: with family Occupation/Education: occupation 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 HEENT: PERRL, no rhinorrhea, no post nasal drip, oropharynx clear. Neck: Trachea midline, no JVD, no lymphadenopathy. Cardiovascular: Regular rate and rhythm, no murmurs, rubs or gallops, no peripheral edema. Respiratory: Clear to auscultation bilaterally, no tachypnea, no wheezing, no rhonchi, no rubs, no respiratory distress. Abdomen: Soft, nontender, nondistended, no rebound, no guarding, no peritoneal signs. Musculoskeletal: No joint swelling or deformity, normal muscle tone. Skin: No rashes or petechia, no signs of infection. Psychiatric: Alert and oriented, normal behavior and judgment for situation. Neurological: Alert and oriented to person, place, and time. Follows all commands. No focal deficits, speech is clear and fluent. Course Vital Signs Vital signs: Vital Signs Temperature 97.6 F 01/13/25 18:14 Pulse Rate 90 01/13/25 18:14 Respiratory Rate 18 01/13/25 18:14 Blood Pressure 126/87 01/13/25 18:14 Pulse Oximetry 100 01/13/25 18:14 Temperature 97.6 F 01/13/25 18:14 Pulse Rate 90 01/13/25 18:14 Respiratory Rate 18 01/13/25 18:14 Blood Pressure 126/87 01/13/25 18:14 Pulse Oximetry 100 01/13/25 18:14 MDM - Chest Pain MDM Narrative Medical decision making narrative: The patient was evaluated by myself in the emergency department. History is obtained from patient who is an independent historian and physical exam was performed. External medical records were reviewed at this time. IV was established and pertinent tests were ordered. Patient was administered 1 L IV fluid bolus normal saline. EKG was obtained which revealed sinus rhythm rate of 88 beats per minute, no evidence of arrhythmia or acute ischemia. EKG was independently interpreted by me and is currently pending official cardiology read. Laboratory results obtained revealing no acute process. Troponin negative. Imaging studies obtained included CXR which was independently interpreted by me revealing no acute process, which is pending final radiology interpretation. Differential diagnosis considerations include dehydration, electrolyte derangements, acute viral syndrome, acute coronary syndrome, costochondritis, musculoskeletal strain. Patient is PERC negative with heart score of 0. Comorbidities impacting this visit include none. I have evaluated and discussed social determinants of health with the patient that could potentially impact subsequent diagnosis and treatment plans. On repeat assessment of the patient, reevaluation revealed that the patient is doing well and is in no acute distress. Patient symptoms have improved since she arrived to our emergency department. Repeat vital signs were all reviewed and noted to be stable. Differential diagnosis and treatment plan were discussed with the patient at bedside. Patient agrees with discussion and after shared medical decision making agrees with discharge. All questions were answered to the patient's satisfaction. Patient will follow up with her PCP in 3-5 days. Patient was provided with strict return precautions and instructed to return to the emergency department if any new or worsening symptoms develop. The patient was discharged in stable condition. Lab Data 01/13/25 18:27 01/13/25 18:27 Labs: Lab Results 01/13/25 Range/Units 18:27 WBC 7.0 (4.5-10.0) K/mm3 RBC 4.07 L (4.2-5.4) M/mm3 Hgb 12.2 (12.0-15.0) g/dL Hct 36.2 L (37.0-47.0) % MCV 88.9 (80-100) fl MCH 30.0 (26-34) pg MCHC 33.7 (32-36) g/dl RDW 12.1 (11.5-14.5) % Plt Count 228 (150-375) k/mm3 MPV 10.7 H (7.4-10.4) fl Immature Gran % (Auto) 0.3 (0-0.5) % Neut % (Auto) 40.9 L (45.5-73.1) % Lymph % (Auto) 50.9 H (18.3-44.2) % [place] % (Auto) 6.3 (2.6-8.5) % Eos % (Auto) 1.0 (0-4.4) % Baso % (Auto) 0.6 (0.2-1.2) % Lymph # (Auto) 3.55 H (0.9-3.2) K/mm3 [place] # (Auto) 0.4 (0.1-0.6) K/mm3 Eos # (Auto) 0.1 (0-0.3) K/mm3 Baso # (Auto) 0.0 (0.0-0.1) K/mm3 Abs Immat Gran (auto) 0.02 (0.00-0.031) K/mm3 Absolute Neuts (auto) 2.9 (1.3-6.7) K/mm3 Absolute Nucleated RBC 0.000 (0.0-0.012) K/mm3 Nucleated RBC % 0.0 (0.0-0.2) % PT 14.0 (11.1-14.7) Seconds INR 1.1 APTT 30.2 (22.3-36.8) Seconds Sodium 138 (137-145) mmol/L Potassium 3.4 (3.4-5.0) mmol/L Chloride 105 (98-107) mmol/L Carbon Dioxide 24 (22-30) mmol/L Anion Gap 9 (4-12) mmol/L BUN 12 (7-17) mg/dL Creatinine 1.07 H (0.7-1.0) mg/dL Estim Creat Clear Calc 64 ml/min Estimated GFR 59 (59 - ) Glucose 94 (65-110) mg/dL Calcium 9.1 (8.4-10.2) mg/dL Magnesium 1.9 (1.6-2.3) mg/dL Total Bilirubin 0.4 (0.2-1.3) mg/dL AST 33 (14-36) U/L ALT 20 (6-35) U/L Alkaline Phosphatase 53 (38-126) U/L Troponin I < 0.012 (0.000-0.034) ng/mL Total Protein 8.4 H (6.3-8.2) g/dL Albumin 4.5 (3.5-5.1) g/dL Lipase 94 (23-300) U/L Discharge Plan Discharge Clinical Impression: Chest pain Patient Disposition: Home Condition: Improved Instructions: Antibiotic Form, Chest Pain (ED) Additional Instructions: Please follow-up with your family doctor within the next 3-5 days. Return emergency department if any new or worsening symptoms develop. You also provided with a Cardiology referral instructed to call to set up a follow-up appointment. Patient Language: Wolof Prescriptions: No Action norethindrone (contraceptive) 0.35 mg tablet 0.35 mg PO DAILY amoxicillin 875 mg tablet 875 mg PO Q12H 10 Days Qty: 20 0RF prednisone 10 mg tablet 10 mg PO BID Qty: 20 0RF Follow-up/Referrals: Ashwin Lopez MD [Physician, Cardiology] - 1 Week Crystal,THERESA Prieto [Primary Care Provider, Unknown] - 1 Week Time of Disposition: 19:46
[2025-01-13] MEDS: SODIUM CHLORIDE 0.9% IV 1,000 ML 999 ML IV CONT (19:45)
[2025-01-13] MEDS: ASPIRIN 81 MG CHEWABLE TABLET 324 MG PO (19:45)
[2025-01-13 19:51] LABS: Magnesium 1.9 mg/dL (1.6-2.3)
[2025-01-13 20:45] VITALS: BP 101/78; PULSE 87; RESP 18; O2SAT 99
== END 2025-01-13 20:45 | disposition home or self-care (01) ==
PROVIDERS: Emergency Medicine; Emergency Provider Emergency Medicine; PCP Physician Assistant
DX: R07.9 Chest pain, unspecified (principal)
CPT/HCPCS: 36415; 71046; 80053; 83690; 83735; 84484; 85025; 85610; 85730; 93005; 96360; 99284; A9270; J7030

== ENCOUNTER 2025-03-03 09:43 | Outpatient (CLI) | payer OTHER, SELFPAY ==
--- NOTE | ~2025-03-03 | MR_ITS ---
EXAMINATION: MR knee RT wo con DATE: 03/03/2025 10:21 INDICATION: Right knee pain. TECHNIQUE: Magnetic resonance imaging (MRI) of the right knee was performed without intravenous contrast. Sequences included axial PD-weighted FS FSE, coronal PD-weighted FSE and PD-weighted FS FSE, sagittal PD-weighted FSE, and sagittal T2-weighted FS FSE. COMPARISON: Right knee radiographs 04/08/2024 FINDINGS: Medial compartment: Medial meniscus is normal. There is cartilage surface irregularity of tibial condyle and femoral condyle. Lateral compartment: The lateral meniscus is normal. There is cartilage surface irregularity of tibial condyle and femoral condyle. Patellofemoral compartment: There is deep cartilage fissuring of patellar medial and lateral facets. There is cartilage surface irregularity of trochlea. Ligaments and tendons: The anterior and posterior cruciate ligaments are normal. Medial collateral ligament and lateral collateral ligament complex are normal. The patellar tendon is normal. Fluid: There is a small knee joint effusion. There is trace fluid in a Mo's cyst. IMPRESSION: 1. Moderate chondrosis of patellofemoral compartment and mild chondrosis of medial and lateral compartments. 2. Small knee joint effusion. Reviewed, dictated and finalized at location E. ING DYER IMPRESSION: 1. Moderate chondrosis of patellofemoral compartment and mild chondrosis of med ial and lateral compartments. 2. Small knee joint effusion.
== END 2025-03-03 09:44 | disposition home or self-care (01) ==
PROVIDERS: PCP Physician Assistant; Visit Provider Physician Assistant
DX: M25.461 Effusion, right knee (principal)
CPT/HCPCS: 73721